=== PATIENT | female | born 1965 | race Caucasian/White ===

== ENCOUNTER 2022-11-07 07:08 | Outpatient (OUT) | payer OTHER, SELFPAY ==
--- NOTE | 2022-11-07 07:25 | XR_ITS ---
The [address] [address] Patient Name: PRATEEK JACQUES MRN: [id number] date: 1965 Sex: F Assigned Patient Location: [facility] Current Patient Location: [facility] Accession/Order Number: [id number] Exam Date: 11/07/2022 07:20 Report Date: 11/07/2022 07:38 At the request of: KULWINDER GARG Procedure: XR abdomen 1V EXAMINATION: XR abdomen 1V HISTORY: Kidney Stone N20.0 COMPARISON: 11/30/2021 FINDINGS: KIDNEY/URETER - RIGHT: No visible renal or ureteral calcifications. KIDNEY/URETER - LEFT: Multiple nephroliths PELVIS: Numerous pelvic calcifications, indeterminate but likely phleboliths BOWEL: No abnormal dilation or deviation. BONES: No acute abnormality. Moderate degenerative changes with rotatory levocurvature centered at L3 OTHER: Negative. No abnormal gaseous collections. XR/XR abdomen 1V IMPRESSION: Left nephrolithiasis Electronically authenticated by: CARLTON WU Date: 11/07/2022 07:38
== END 2022-11-07 07:09 | disposition home or self-care (01) ==
PROVIDERS: PCP Nurse Practitioner; Visit Provider Urology
DX: N20.0 Calculus of kidney (principal); R10.9 Unspecified abdominal pain
CPT/HCPCS: 74018

== ENCOUNTER 2023-01-23 11:43 | Outpatient (OUT) | payer OTHER, SELFPAY ==
--- NOTE | 2023-01-23 | MR_ITS ---
The [address] [address] Patient Name: PRATEEK JACQUES MRN: [id number] date: 1965 Sex: F Assigned Patient Location: MRI Current Patient Location: MRI Accession/Order Number: [id number] Exam Date: 01/23/2023 12:45 Report Date: 01/23/2023 20:47 At the request of: BELLE CASTILLO Procedure: MR knee RT wo con EXAM: MR knee RT wo con HISTORY: Right knee pain COMPARISON: None. TECHNIQUE: Multiplanar, multi sequential MRI sequences were performed. FINDINGS: No fracture, dislocation, subluxation or osseous lesion. Osteophytes are present off all articular surfaces. Small knee effusion. No popliteal cyst. Nondescript edema within the medial superficial subcutaneous soft tissues. No muscle edema, hematoma, atrophy or fatty infiltration. Full-thickness cartilage loss throughout the patella, central and lateral trochlea (axial 9). Underlying subchondral cysts, subchondral remodeling and marrow edema. Partial thickness chondral irregularities of the central lateral meniscal weightbearing cartilage of the medial femoral condyle measuring approximately 7.54 mm transverse x 14 mm AP (coronal 14 and sagittal 9). No gross visualized irregularity of the tibial plateau cartilage. The articular cartilage of the lateral femoral condyle and lateral tibial plateau exhibits no gross chondral or osteochondral defect. Degenerative fraying of the medial meniscus body and posterior horn leading edge. Focal blunting of the lateral meniscus posterior horn (coronal 16 and sagittal 19). The root ligaments of both menisci are unremarkable. No patella tilt or subluxation. Reactive edema of Hoffa's fat. The patella tendon and visualized extensor mechanism are unremarkable. The anterior cruciate, posterior cruciate, medial collateral MR/MR knee RT wo con IMPRESSION: 1. Full-thickness cartilage loss of the patella and trochlea. 2. Degenerative tearing of the medial and lateral menisci. 3. Small knee effusion. Electronically authenticated by: CARLTON MARCELINO Date: 01/23/2023 20:47
== END 2023-01-23 11:44 | disposition home or self-care (01) ==
LOC: MRI 11:44
PROVIDERS: PCP Nurse Practitioner; Visit Provider Nurse Practitioner
DX: M25.561 Pain in right knee (principal); S83.281A Other tear of lateral meniscus, current injury, right knee, initial encounter; S83.241A Other tear of medial meniscus, current injury, right knee, initial encounter; M25.461 Effusion, right knee
CPT/HCPCS: 73721

== ENCOUNTER 2023-05-25 07:07 | Outpatient (OUT) | payer OTHER, SELFPAY ==
--- NOTE | 2023-05-25 07:21 | XR_ITS ---
The [address] [address] Patient Name: PRATEEK JACQUES MRN: [id number] date: 1965 Sex: F Assigned Patient Location: [facility] Current Patient Location: Accession/Order Number: [id number] Exam Date: 05/25/2023 07:30 Report Date: 05/27/2023 04:14 At the request of: KULWINDER GARG Procedure: XR abdomen 1V EXAMINATION: XR abdomen 1V HISTORY: N20.0 Calculus of kidney , left flank pain, history of kidney stones COMPARISON: XR abdomen 11/07/2022 FINDINGS: KIDNEY/URETER - RIGHT: A few small calcifications projecting over right kidney. KIDNEY/URETER - LEFT: No visible renal or ureteral calcifications. PELVIS: New 4 mm calcification within lower left pelvis intermixed with numerous bilateral pelvic calcifications. BOWEL: No abnormal dilation or deviation. BONES: No acute abnormality. OTHER: Negative. No abnormal gaseous collections. XR/XR abdomen 1V IMPRESSION: 1. New 4 mm calcification within left pelvis; additional phlebolith versus distal ureteral stone. 2. Right nephrolithiasis. Electronically authenticated by: LOLI HUBER Date: 05/27/2023 04:14
== END 2023-05-25 07:08 | disposition home or self-care (01) ==
PROVIDERS: PCP Nurse Practitioner; Visit Provider Urology
DX: N20.0 Calculus of kidney (principal)
CPT/HCPCS: 74018

== ENCOUNTER 2023-05-25 07:10 | Outpatient (OUT) | payer OTHER, SELFPAY ==
[2023-05-25 08:03] LABS: Estimated Average Glucose 131 mg/dL; Glycohemoglobin A1C 6.2 % (4.5-6.2)
[2023-05-25 08:22] LABS: Anion Gap 10.2; BUN Creatinine Ratio 18.4; Calcium 9.1 mg/dL (8.5-10.1); Carbon Dioxide 31.1 mmol/L (21.0-32.0); Chloride 105 mmol/L (98-107); Estimated GFR (African America >60 (>=60); Estimated GFR (Non-African Ame >60 (>=60); Glucose 111 mg/dL (74-106); Potassium 4.3 mmol/L (3.5-5.1); Sodium 142 mmol/L (136-145)
== END 2023-05-25 07:11 | disposition home or self-care (01) ==
PROVIDERS: PCP Nurse Practitioner; Visit Provider Nurse Practitioner
DX: N20.0 Calculus of kidney (principal); E11.9 Type 2 diabetes mellitus without complications
CPT/HCPCS: 36415; 74018; 80048; 83036

== ENCOUNTER 2023-06-30 12:06 | Outpatient (OUT) | payer OTHER, SELFPAY ==
--- OUTSIDE RECORDS SUMMARY | 2023-06-30 12:10 | XMS_ITS | CCD ---
Author Name Unknown Address [id number] [place] [address] Organization [facility] Care Team Providers Care Architecture Consultant Name Role Phone Danitza Awad Primary Care Provider DELMI DANITZA Candace Primary Care Physician Danitza Awad Primary Care Provider SHALINI JO Referring Unavailable AICHHOLZ, DANITZA J. Primary Care Unavailable SHALINI JO Referring Unavailable AICHHOLZ, DANITZA J. Primary Care Unavailable SHALINI JO Referring Unavailable TRENTHLAZARO, DANITZA J. Primary Care Unavailable SHALINI JO Referring Unavailable AICHHOLZ, DANITZA J. Primary Care Unavailable ANNA HEARD Referring Unavailable AICHKENDRAZ, DANITZA J. Primary Care Unavailable Enedina العلي Unavailable DR LOLI HUBER Consulting Unavailable KHADIJAH, ALICE Attending Unavailable KHADIJAH, ALICE Admitting Unavailable AICHHOLZ, BEZEL CUTTER DANITZA Primary Care Unavailable KHADIJAH, ALICE Consulting Unavailable AICHHOLZ, BEZEL CUTTER DANITZA Primary Care Unavailable AICHHOLZ, BEZEL CUTTER DANITZA Admitting Unavailable AICHHOLZ, BEZEL CUTTER DANITZA Attending Unavailable AICHHOLZ, BEZEL CUTTER DANITZA Consulting Unavailable AICHHOLZ, BEZEL CUTTER DANITZA Primary Care Unavailable AICHHOLZ, BEZEL CUTTER DANITZA Admitting Unavailable AICHHOLZ, BEZEL CUTTER DANITZA Attending Unavailable AICHHOLZ, BEZEL CUTTER DANITZA Consulting Unavailable DR LOLI HUBER Consulting Unavailable PAY ., DR OKEEFE Admitting Unavailable PAY ., DR OKEEFE Attending Unavailable PAY ., DR OKEEFE Consulting Unavailable AICHHOLZ, BEZEL CUTTER DANITZA Primary Care Unavailable DELFINA GIBBS Consulting Unavailable BEATRIS CARL Consulting Unavailable JESSICA, IVELISSE Consulting Unavailable MILIND DARLING Admitting Unavailable MILIND DARLING Consulting Unavailable AICHHOLZ, BEZEL CUTTER DANITZA Primary Care Unavailable MILIND DARLING Attending Unavailable MILIND DARLING Consulting Unavailable AICHHOLZ, BEZEL CUTTER DANITZA Primary Care Unavailable MILIND DARLING Admitting Unavailable MILIND DARLING Attending Unavailable JAZMIN, DR CARLTON Menjivar Consulting Unavailable AGUBDENA JARRETT Consulting Unavailable CAROLYN WOODS Consulting Unavailable MISC, DR JACKSON Admitting Unavailable MISC, DR JACKSON Attending Unavailable AICHHOLZ, BEZEL CUTTER DANITZA Primary Care Unavailable AICHHOLZ, BEZEL CUTTER DANITZA Primary Care Unavailable AICHHOLZ, BEZEL CUTTER DANITZA Admitting Unavailable AICHHOLZ, BEZEL CUTTER DANITZA Attending Unavailable WEST, DR CARLTON Menjivar Consulting Unavailable KHADIJAH, ALICE Admitting Unavailable KHADIJAHALICE Attending Unavailable AICHHOLZ, BEZEL CUTTER DANITZA Primary Care Unavailable AICHHOLZ, BEZEL CUTTER DANITZA Consulting Unavailable JERONIMO, MALACHI Referring Unavailable JERONIMO, MALACHI Attending Unavailable AICHHOLZ, DANITZA Attending Unavailable Elvis Haro MD Primary Care Provider Milind DARLING Attending Unavailable Juan Carlos Younger Attending Unavailable Allergies Allergy Classification Reported Allergen(s) Allergy Type Date of Onset Reaction(s) Facility (3 sources) Contrast media; Translations: [contrast media (iodine-based)] Drug intolerance 03-05-20 22 severe nausea, felt like she was going to pass out [facility] (4 sources) Cortisone; Translations: [cortisone] Drug Allergy 04-09-20 14 doesn't feel well, nausea, heart races, Unknown Reaction [facility] (1 source) Cortisone Drug Allergy Unknown [facility] Other (2 sources) Cortisone Drug Allergy 03-31-20 15 [facility] (1 source) Iodine Drug Allergy [facility] (1 source) Iodine (And Iodine Containting Drugs) Drug allergy (disorder) [facility] (1 source) methylPREDNISol one; Translations: [METHYLPREDNISO LONE] Drug Allergy 02-04-20 [facility] (2 sources) OTHER; Translations: [OTHER] Propensity to adverse reactions (disorder) 02-04-20 19 Palpitations [facility] (1 source) IODINATED CONTRAST MEDIA; Translations: [IODINATED CONTRAST MEDIA] Propensity to adverse reactions to drug (disorder) 03-05-20 [facility] Medications Current Medications Medication Drug Class(es) Dates Sig (Normalized) Sig (Original) [id number] 200 actuat albuterol 0.09 mg/actuat metered dose inhaler (1 source) beta2-Adrenergic Agonist Start: 04-25-2023 take 2 puff(s) by inhalation every four hours for wheezing albuterol HFA 90 mcg/act inhaler Indications: Bronchitis Inhale 2 puffs every 4 (four) hours if needed for wheezing or shortness of breath for up to 21 days 18 g 1 04/25/2023 Active Ascorbic Acid (1 source) Vitamin C Vitamin C Active benzonatate 100 mg oral capsule (1 source) Non-narcotic Antitussive Start: 03-30-2022 take 1 capsule by mouth every eight hours Tessalon Perles 100 MG 1 capsule as needed Orally Three times a day As needed cough Mar, Active Blood Glucose Monitoring Suppl (True Metrix Air Glucose Meter) w/Device kit (1 source) Start: 09-05-2022 Blood Glucose Monitoring Suppl (True Metrix Air Glucose Meter) w/Device kit USE DIRECTED 0 09/05/2022 Active celecoxib 200 mg oral capsule (1 source) Nonsteroidal Anti-inflammatory Drug take 1 capsule by mouth once daily at mealtime as needed for pain celecoxib (CeleBREX) 200 MG capsule TAKE 1 CAPSULE BY MOUTH DAILY WITH FOOD NEEDED FOR PAIN 0 Active cetirizine hydrochloride 10 mg oral tablet (1 source) Histamine-1 Receptor Antagonist Start: 04-04-2023 End: 07-03-2023 take 1 tablet by mouth in the morning cetirizine (ZyrTEC) 10 MG tablet Indications: Environmental and seasonal allergies Take 1 tablet (10 mg) by mouth in the morning. 90 tablet 1 04/04/2023 07/03/2023 Active cyclobenzaprine (1 source) Muscle Relaxant Start: 01-09-2019 cyclobenzaprine Start Date: 01/09/19 Status: Ordered Diclofenac (2 sources) Nonsteroidal Anti-inflammatory Drug Start: 01-09-2019 diclofenac Start Date: 01/09/19 Status: Ordered Diclofenac Sodiu m Active fluticasone propionate 0.05 mg/actuat metered dose nasal spray (1 source) Corticosteroid Start: 03-30-2022 take 2 spray(s) nasal route once daily Fluticasone Propionate 50 MCG/ACT 2 sprays Nasally Once a day for 14 day(s) Mar, Active gabapentin 600 mg oral tablet (3 sources) Anti-epileptic Agent Start: 01-02-2023 take 1 tablet by mouth at bedtime gabapentin (Neurontin) 600 MG tablet Take 600 mg by mouth at bedtime. 0 01/02/2023 Active Start: 01-09-2019 gabapentin Sta rt Date: 01/09/19 Status: Ordered Gabapentin Activ e hyoscyamine sulfate 0.025 mg/ml oral solution (2 sources) take 125 ug by mouth every four hours as needed for muscle spasms hyoscyamine (Levsin) 0.125 MG/5ML elixir Take 125 mcg by mouth every 4 (four) hours if needed for bladder spasms. 0 Active Hyoscyamine Sulf ate Active Ibuprofen (1 source) Nonsteroidal Anti-inflammatory Drug Ibuprofen Active isopropyl alcohol 0.7 ml/ml medicated pad (1 source) Start: Alcohol Swabs 70 % pads USE DIRECTED ONCE DAILY 0 09/05/2022 Active 24 hr metFORMIN hydrochloride 500 mg extended release oral tablet (1 source) Biguanide Start: End: take 1 tablet by mouth every twenty-four hours in the morning metFORMIN XR (Glucophage-XR) 500 MG 24 hr tablet Indications: Diabetes mellitus type 2 in obese (CMS/HCC) Take 1 tablet (500 mg) by mouth in the morning. 90 tablet 1 03/20/2023 06/18/2023 Active metoprolol tartrate 50 mg oral tablet (3 sources) beta-Adrenergic Jelena Start: 023 End: 024 take 1 tablet by mouth in the morning metoprolol tartrate (Lopressor) 50 MG tablet Indications: Heart palpitations , Essential hypertension (CMS/HCC) Take 1 tablet (50 mg) by mouth in the morning. 90 tablet 1 04/04/2023 07/03/2023 Active Start: 01-09-2019 metoprolol 50 mg ER Tab Start Date: 01/09/19 Status: Ordered Metoprolol Tartr ate Active montelukast 10 mg oral tablet (2 sources) Leukotriene Receptor Antagonist Start: 03-20-2023 End: 06-18-2023 take 1 tablet by mouth at bedtime montelukast (Singulair) 10 MG tablet Indications: Environmental and seasonal allergies Take 1 tablet (10 mg) by mouth at bedtime. 90 tablet 1 03/20/2023 06/18/2023 Active Montelukast Sodi um Active omeprazole 20 mg delayed release oral tablet (1 source) Proton Pump Inhibitor take 1 tablet by mouth before mealtime omeprazole OTC (PriLOSEC OTC) 20 MG EC tablet Take 20 mg by mouth in the morning. Take before meals. Do not crush, chew, or split. . 0 Active 24 hr oxybutynin chloride 10 mg extended release oral tablet (1 source) Cholinergic Muscarinic Antagonist Start: 03-13-20 take 1 tablet by mouth once daily oxybutynin 10 mg ER Tab 10 mg = 1 tab(s), Oral, Daily, # 30 tab(s), Refills(s) 6, Pharmacy: [id number], 153, cm, 03/13/21 11:04:00 EST, Height/Length Dosing, 101, kg, 03/13/21 11:04:00 EST, Weight Dosing Start Date: 03/13/21 Status: Ordered pantoprazole 40 mg delayed release oral tablet (1 source) Proton Pump Inhibitor Start: 04-29-19 take 1 tablet by mouth every twenty-four hours Pantoprazole Sodium 40 MG 1 tablet Orally Once a day for 30 day(s) Apr, Active QUEtiapine 50 mg oral tablet (3 sources) Atypical Antipsychotic Start: 05-30-19 23 QUEtiapine (SEROquel) 50 MG tablet 1 (one) time each day at the same time. 0 05/30/2022 Active Start: 01-09-2019 quetiapine Sta rt Date: 01/09/19 Status: Ordered QUEtiapine Fumar ate Active tamsulosin (1 source) alpha-Adrenergic Jelena Tamsulo sin HCl Active tiZANidine 4 mg oral tablet (2 sources) Central alpha-2 Adrenergic Agonist tiZANidine (Zanaflex ) 4 MG tablet every 8 (eight) hours. 0 Active tiZANidine HCl A ctive Tramadol (2 sources) Opioid Agonist Start: 01-09-2019 tramadol Start Date: 01/09/19 Status: Ordered traMADol HCl Act brie Vitamin B6 (1 source) Vitamin B6 Activ e Problems Active Problems Problem Classification Problem Date Documented Da te Episodic/Chronic Adjustment disorders (1 source) Adjustment disorder; Translations: [Adjustment disorder, unspecified] Onset: 3 02-01-2023 Chronic Chronic obstructive pulmonary disease and bronchiectasis (1 source) Bronchitis; Translations: [Bronchitis, not specified as acute or chronic] Onset: 4 04-25-2023 Episodic Diabetes mellitus without complication (1 source) Type 2 diabetes mellitus without complication; Translations: [Type 2 diabetes mellitus without complications] Onset: 4 04-25-2023 Chronic Diabetes mellitus without complication (1 source) Other abnormal glucose; Translations: [OTHER ABNORMAL GLUCOSE] Onset: 3 Episodic Diseases of white blood cells (5 sources) Elevated white blood cell count, unspecified; Translations: [ELEVATED WHITE BLOOD CELL COUNT UNS] Onset: 3 Chronic Esophageal disorders (2 sources) Gastroesophageal reflux disease; Translations: [Gastro-esophageal reflux disease without esophagitis] Chronic Essential hypertension (1 source) Essential hypertension; Translations: [Essential (primary) hypertension] Onset: 6 02-01-2023 Chronic Genitourinary symptoms and ill-defined conditions (2 sources) Urge incontinence of urine; Translations: [Urge incontinence] Onset: 3 05-18-2019 Chronic Gout and other crystal arthropathies (1 source) Chondrocalcinosis; Translations: [Other chondrocalcinosis, unspecified site] Onset: 3 02-01-2023 Chronic Headache; including migraine (1 source) Headache; including migraine; Translations: [HEADACHE UNSPECIFIED] Onset: 3 Malaise and fatigue (1 source) Weakness; Translations: [WEAKNESS] Onset: 3 Episodic Mood disorders (1 source) Moderate depressed bipolar I disorder; Translations: [Bipolar disorder, current episode depressed, moderate] Onset: 3 02-01-2023 Chronic Noninfectious gastroenteritis (1 source) Noninfective gastroenteritis and colitis, unspecified; Translations: [NONINFECTIVE GE AND COLITIS UNS] Onset: 3 Episodic Nonspecific chest pain (1 source) Chest pain, unspecified; Translations: [CHEST PAIN UNSPECIFIED] Onset: 3 Episodic Osteoarthritis (4 sources) Osteoarthrosis of the carpometacarpal joint of the thumb; Translations: [Unilateral primary osteoarthritis of first carpometacarpal joint, left hand] Onset: 7 Chronic Other aftercare (1 source) Other vermin exterminator (current) drug therapy; Translations: [OTH VP REVENUE CYCLE CURRENT DRUG THERAPY] Onset: 3 Episodic Other connective tissue disease (1 source) Tendonitis of left wrist; Translations: [Other enthesopathies, not elsewhere classified] Episodic Other connective tissue disease (1 source) Myalgia, unspecified site; Translations: [MYALGIA UNSPECIFIED SITE] Onset: 3 Episodic Other connective tissue disease (3 sources) Pain in left arm; Translations: [PAIN IN LEFT ARM] Onset: 3 Episodic Other gastrointestinal disorders (1 source) Irritable bowel syndrome with diarrhea; Translations: [Irritable bowel syndrome with diarrhea] Chronic Other gastrointestinal disorders (1 source) Irritable bowel syndrome; Translations: [Irritable bowel syndrome without diarrhea] Onset: 7 02-01-2023 Chronic Other gastrointestinal disorders (1 source) Diarrhea; Translations: [Diarrhea, unspecified] Episodic Other non-traumatic joint disorders (1 source) Pain in right hip; Translations: [PAIN IN RIGHT HIP] Onset: 3 Episodic Other nutritional; endocrine; and metabolic disorders (1 source) Body mass index (BMI) 40.0-44.9, adult; Translations: [BODY MASS INDEX BMI 40.0-44.9 ADULT] Onset: 3 Chronic Other nutritional; endocrine; and metabolic disorders (1 source) Obesity, unspecified; Translations: [OBESITY UNSPECIFIED] Onset: 3 Chronic Other nutritional; endocrine; and metabolic disorders (1 source) Body mass index 40+ - severely obese; Translations: [Body mass index (BMI) 40.0-44.9, adult] Onset: 9 02-01-2023 Chronic Other nutritional; endocrine; and metabolic disorders (1 source) Morbid obesity; Translations: [Morbid (severe) obesity due to excess calories] Onset: 3 02-01-2023 Chronic Other nutritional; endocrine; and metabolic disorders (1 source) Severe obesity; Translations: [Morbid (severe) obesity due to excess calories] Onset: 4 04-25-2023 Chronic Other upper respiratory disease (1 source) Vocal cord paralysis; Translations: [Paralysis of vocal cords and larynx, unilateral] Onset: 7 02-01-2023 Chronic Other upper respiratory disease (1 source) Allergic disposition; Translations: [Other allergic rhinitis] Onset: 3 04-04-2023 Chronic Other upper respiratory infections (2 sources) Sinusitis; Translations: [Chronic sinusitis, unspecified] Chronic Other upper respiratory infections (2 sources) Acute laryngitis; Translations: [Acute maxillary sinusitis] Onset: 4 Episodic Residual codes; unclassified (1 source) Chills (without fever); Translations: [CHILLS WITHOUT FEVER] Onset: 3 Episodic Residual codes; unclassified (4 sources) Other specified health status; Translations: [OTHER SPECIFIED HEALTH STATUS] Onset: 3 Episodic Spondylosis; intervertebral disc disorders; other back problems (1 source) Lumbar spondylosis; Translations: [Spondylosis without myelopathy or radiculopathy, lumbar region] Onset: 3 04-02-2023 Chronic Unclassified (1 source) Finding of sensation of bladder 01-09-2019 Unclassified (1 source) CONTACT W/AND (SUSP) EXPOS COVID-19; Translations: [CONTACT W/AND (SUSP) EXPOS COVID-19] Onset: 2 Past or Other Problems Problem Classification Problem Date Documented Da te Episodic/Chronic Abdominal pain (6 sources) Abdominal pain; Translations: [Unspecified abdominal pain] Onset: 10-30-2021 Episodic Calculus of urinary tract (8 sources) History of calculus of kidney; Translations: [Kidney stone] Onset: 11-28-2021 05-18-2019 Episodic Cardiac dysrhythmias (1 source) Palpitations; Translations: [Palpitations] Onset: 02-01-2023 02-01-2023 Episodic Genitourinary symptoms and ill-defined conditions (9 sources) Paul hematuria; Translations: [Increased frequency of urination] Onset: 12-01-2021 01-09-2019 Episodic Headache; including migraine (1 source) Headache; Translations: [Headache] Onset: 06-10-2012 02-01-2023 Episodic Heart valve disorders (3 sources) Heart murmur; Translations: [Cardiac murmur, unspecified] Onset: 11-28-2021 01-09-2019 Episodic Other bone disease and musculoskeletal deformities (1 source) Disorder of bone; Translations: [Disorder of bone, unspecified] Onset: 09-18-2017 02-01-2023 Episodic Other connective tissue disease (2 sources) Pain in left hand; Translations: [Pain in left hand] Onset: 08-16-2022 Episodic Other connective tissue disease (1 source) Pain in both feet; Translations: [Pain in right foot] Onset: 09-18-2017 02-01-2023 Episodic Other connective tissue disease (1 source) Pain in left foot; Translations: [Pain in left foot] Onset: 03-06-2022 02-01-2023 Episodic Other connective tissue disease (1 source) Fibromyositis; Translations: [Fibromyalgia] Onset: 02-01-2023 02-01-2023 Episodic Other connective tissue disease (1 source) Pain of left hand; Translations: [Pain in left hand] Onset: 08-16-2022 02-01-2023 Episodic Other gastrointestinal disorders (2 sources) H/O: gallstones; Translations: [Personal history of other diseases of the digestive system] Onset: 02-01-2023 01-09-2019 Episodic Other gastrointestinal disorders (1 source) Dysphagia; Translations: [Dysphagia, unspecified] Onset: 12-04-2016 02-01-2023 Episodic Other non-traumatic joint disorders (1 source) Instability of joint of right ankle; Translations: [Other instability, right ankle] Onset: 09-18-2017 02-01-2023 Episodic Other screening for suspected conditions (not mental disorders or infectious disease) (2 sources) Decreased vitamin D; Translations: [Other specified abnormal findings of blood chemistry] Onset: 02-01-2023 02-01-2023 Episodic Other upper respiratory disease (1 source) Hoarse; Translations: [Dysphonia] Onset: 12-04-2016 02-01-2023 Episodic Residual codes; unclassified (1 source) Acquired absence of both cervix and uterus; Translations: [ACQUIRED ABSENCE BOTH CERVIX AND UTERUS] Onset: 12-01-2021 Episodic Residual codes; unclassified (1 source) Menopause present; Translations: [Asymptomatic menopausal state] Onset: 02-01-2023 02-01-2023 Episodic Spondylosis; intervertebral disc disorders; other back problems (4 sources) Cervicalgia; Translations: [Spinal stenosis in cervical region] Onset: 11-02-2016 02-01-2023 Episodic Sprains and strains (1 source) Sprain of ankle; Translations: [Sprain of unspecified ligament of right ankle, initial encounter] Onset: 09-18-2017 02-01-2023 Episodic Syncope (1 source) Syncope; Translations: [Syncope and collapse] Onset: 02-23-2016 02-01-2023 Episodic Unclassified (1 source) Acute cough R05.1 Results Test Name Value Interpretation Reference Range Facility [facility] 06-14-2023 [facility] [id number] .[id number] Normal [facility] 05-27-2023 [facility] [id number] .[id number] Normal [facility] MLR HEMOGLOBIN A1Con 024 Glucose [Mass/Vol] 131 mg/dL [facility] HbA1c (Bld) [Mass fraction] 6.2 % 4.5 - 6.2 % [facility] Comment on above: ADA RECOMMENDED LIMI T 4.0 - 6.0 ADA THERAPEUTIC TARGET < 7.0 ACTION SUGGESTED > 7.0 [facility] Provider Letteron 05-03-2023 Provider Letter May 03, 2023 LOIS SAWYER [address] [address] : 1965 Dear Lois, You have an appointment with Dr. Milind Darling on June 10, 2023 which will need to be rescheduled since he will be out of the office that day. Please contact the office at the number listed below to get this appointment rescheduled at your earliest convenience. Thank you for your prompt attention to this matter. Please call [phone] option 3 to reschedule. Sincerely, [facility] 36on 11-21-2022 36 Patient wants the nurse to call to discuss her pain. [facility] ED Note-Physicianon 11-13-19 23 ED Note-Physician Basic Information Time Seen: Davonte Carter PA-C 11/07/2022 11:46 Chief Complaint patient c/o left flank pain x a few days hx kidney stones see dr darling History of Present Illness 57-year-old female comes to the ED with flank pain and concern for kidney stone. Has a history of kidney stone. Over the last few days she had pain to the left flank area. She called her urologist and had outpatient x-ray performed this morning at an outside hospital that was nondiagnostic. Given her persistent pain she was sent to the ED for CT scan. She has had some nausea but no vomiting. No difficulty with urination. She had previous appendectomy and cholecystectomy. Review of Systems A 10 point review of systems is negative except as noted above. Medical and Surgical History: Reviewed and noted Social history: Lives at home Tobacco: Denies Physical Exam Vitals & Measurements T: 37.1 ?C(Oral) HR: 77(Peripheral) RR: 18 BP: 180/90 SpO2: 98% HT: 154.94 cm WT: 97 kg BMI: 40.41 Nurses notes and vital signs reviewed and patient is not hypoxic. General: Awake and alert, appears uncomfortable Skin: Warm, dry. Head: Atraumatic. Neck: No JVD. Eye: Normal conjunctiva. Ears, Nose, Mouth, and Throat: Moist mucous membranes. Cardiovascular: Strong distal pulses. Chest wall: Respiratory: Respirations are nonlabored. Back: Left CVA tenderness Musculoskeletal: Normal ROM with no gross deformity. Gastrointestinal: Soft throughout. Urological: Neurological: Awake and alert. No focal deficits. Follows commands. Psychiatric: Cooperative. Medical Decision Making Laboratory studies reviewed and noted. CT of the abdomen is reviewed by radiologist, the patient has a 2 mm stone at the left UVJ. She does feel improved here on repeat evaluation of the pain medications and IV fluids. She is given urine strainer, pain medication and discharged home to follow-up with her urologist. Patient was encouraged to return to the ED if symptoms worsen or change. Assessment/Plan Ureterolithiasis (N20.1: Calculus of ureter) Ordered: acetaminophen-oxycodo ne, 1 tab(s), Oral, q6hr as needed for pain for 3 day(s), 15 tab(s), Refill(s) 0, [facility] #[id number], 154.9, cm, 11/07/22 11:55:00 EDT, Height/Length Dosing, 97, kg, 11/07/22 11:55:00 EDT, Weight Dosing Orders: ketorolac, 30 mg = 1 mL, Injection, IV Push, Once, Stop date 11/07/22 11:55:00 EDT, STAT, Start date 11/07/22 11:55:00 EDT, 11/07/22 11:55:00 EDT morphine, 4 mg = 2 mL, Injection, IV Push, Once, Stop date 11/07/22 11:55:00 EDT, STAT, Start date 11/07/22 11:55:00 EDT, 11/07/22 11:55:00 EDT naproxen, 500 mg = 1 tab(s), Oral, BID, PRN for pain, # 20 tab(s), Refills(s) 0, Pharmacy: [facility] #[id number], 154.9, cm, 11/07/22 11:55:00 EDT, Height/Length Dosing, 97, kg, 11/07/22 11:55:00 EDT, Weight Dosing ondansetron, 4 mg = 1 tab(s), Oral, TID, # 15 tab(s), Refills(s) 0, Pharmacy: [facility] #[id number], 154.9, cm, 11/07/22 11:55:00 EDT, Height/Length Dosing, 97, kg, 11/07/22 11:55:00 EDT, Weight Dosing ondansetron, 4 mg = 2 mL, Injection, IV Push, Once, Stop date 11/07/22 11:55:00 EDT, STAT, Start date 11/07/22 11:55:00 EDT, 11/07/22 11:55:00 EDT Sodium Chloride 0.9% intravenous solution, 1,000 mL, Soln-IV, IV, Once, Stop date 11/07/22 11:55:00 EDT, STAT, Start date 11/07/22 11:55:00 EDT, Infuse over 61, minute(s) tamsulosin, 0.4 mg = 1 cap(s), Oral, Daily, # 10 cap(s), Refills(s) 0, Pharmacy: [facility] #[id number], 154.9, cm, 11/07/22 11:55:00 EDT, Height/Length Dosing, 97, kg, 11/07/22 11:55:00 EDT, Weight Dosing Automated Diff Basic Metabolic Panel CBC w/ Auto Diff CT Abdomen/Pelvis w/o Contrast eGFR Extra Blue Tube Extra SST Tube UA With Cult Reflex Urine Strainer to go Disposition Plan Patient Discharge Condition Disposition: Discharged home Condition: Improved and stable Counseled: Patient and/or family were counseled to workup, results, treatment plan and follow-up recommendations Discharge Prescription List Prescriptions Flomax 0.4 mg Cap, 0.4 mg= 1 cap(s), Oral, Daily Naprosyn 500 mg Tab, 500 mg= 1 tab(s), Oral, BID, PRN Percocet 5 mg-325 mg oral tablet, 1 tab(s), Oral, q6hr, PRN tamsulosin 0.4 mg Cap, 0.4 mg= 1 cap(s), Oral, BID, 1 refills Zofran ODT 4 mg Tab-Dis, 4 mg= 1 tab(s), Oral, TID Follow-up With When Contact Information Milind DARLING In 3 days 11/10/[address] [address]- Business (1) [facility] [address] [place] [address]- Business (1) Additional Instructions: Patient Education Kidney Stones Attestation Patient seen and evaluated 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 Attending physician was present in the emergency department and supervised care. This visit was performed by both the physician and an APC. I performed all aspects of the MDM as documented. This report was transcribed using voice recognition software. Every effort was m (more content not included)... Normal [facility] Comment on above: Result Comment: Elec tronically Signed By: Davonte Carter PA-C\.br\Date and Time Signed: 11/07/22 14:13 EDT\.br\Electronically Co-Signed By: Juan Carlos Younger DO\.br\Date and Time Co-Signed: 11/12/22 07:09 EDT Auto Diffon 11-07-2022 Basophils/100 WBC (Bld) 1.0 % Normal 0.0-2.0 [facility] Comment on above: Order Comment: Order Added by Discern Expert. Performed By: #### 2 386375, 5400423, 5744450, [id number] ####[facility] [address] [place] [address] Basophils/Leukocytes Auto (Bld) [Pure # fraction] 0.1 E9/L Normal 0.0-0.2 [facility] Comment on above: Order Comment: Order Added by Discern Expert. Performed By: #### 2 379833, 4073473, 8687154, [id number] ####[address] [place] [address] Eosinophils/100 WBC (Bld) 1.7 % Normal 0.0-8.0 [facility] Comment on above: Order Comment: Order Added by Discern Expert. Performed By: #### 2 347264, 4843258, 9874908, 71232014 ####[facility] [address] [place] [address] Eosinophils/Leukocyt es Auto (Bld) [Pure # fraction] 0.2 E9/L Normal 0.0-0.5 [facility] Comment on above: Order Comment: Order Added by Discern Expert. Performed By: #### 2 718866, 6194132, 5063940, 32463907 ####[facility] [address] [place] [address] Lymphocytes/100 WBC (Bld) 23.1 % Normal 14.0-50.0 [facility] Comment on above: Order Comment: Order Added by Discern Expert. Performed By: #### 2 254155, 4103267, 4761663, [id number] ####[address] [place] [address] Lymphocytes/Leukocyt es Auto (Bld) [Pure # fraction] 3.0 E9/L Normal 1.0-4.0 [facility] Comment on above: Order Comment: Order Added by Discern Expert. Performed By: #### 2 540193, 4514487, 6437988, 90280167 ####[address] [address] Monocytes/100 WBC (Bld) 5.5 % Normal 4.0-14.0 [facility] Comment on above: Order Comment: Order Added by Discern Expert. Performed By: #### 2 162019, 2580798, 3391225, 42105943 ####[address] [address] Monocytes/Leukocytes Auto (Bld) [Pure # fraction] 0.7 E9/L Normal 0.2-1.0 [facility] Comment on above: Order Comment: Order Added by Discern Expert. Performed By: #### 2 909515, 3953335, 2259884, 15339586 ####[address] [place] [address] Neutrophils/100 WBC (Bld) 68.7 % Normal 36.0-75.0 [facility] Comment on above: Order Comment: Order Added by Discern Expert. Performed By: #### 2 858797, 3017549, 1482913, 26229583 ####[address] [place] [address] Neutrophils/Leukocyt es Auto (Bld) [Pure # fraction] 8.9 E9/L High 2.0-7.5 [facility] Comment on above: Order Comment: Order Added by Discern Expert. Performed By: #### 2 768380, 0534019, 7066075, 60604895 ####[facility] [address] [place] [address] BMPon 11-07-2022 Creatinine [Mass/Vol] 0.6 mg/dL Normal 0.5-1.3 [facility] Comment on above: Performed By: #### 2 562133, 6367043, 0550764, 04790199 ####[facility] [address] [place] [address] Urea nitrogen [Mass/Vol] 15 mg/dL Normal 5-21 [facility] Comment on above: Performed By: #### 2 539280, 8036731, 4785518, 96438257 ####[facility] [address] [place] [address] Urea nitrogen/Creatinine [Mass ratio] 25 No Units High 10-20 [facility] Comment on above: Performed By: #### 2 628139, 6219772, 7330873, 25395236 ####[facility] [address] [place] [address] Anion gap [Moles/Vol] 10 mmol/L Normal 6-16 [facility] Comment on above: Performed By: #### 2 460763, 6482602, 6825043, 43900472 ####[facility] [address] [place] [address] Calcium [Mass/Vol] 9.4 mg/dL Normal 8.9-11.1 [facility] Comment on above: Performed By: #### 2 436917, 3176775, 6128586, 32932144 ####[facility] [address] [place] [address] Chloride [Moles/Vol] 108 mmol/L Normal 101-111 [facility] Comment on above: Performed By: #### 2 874464, 1847708, 3755679, 19413846 ####[facility] [address] [place] [address] CO2 [Moles/Vol] 25 mmol/L Normal 21-31 [facility] Comment on above: Performed By: #### 2 176813, 4838589, 6861879, 66922330 ####[facility] [address] [place] [address] Glucose [Mass/Vol] 122 mg/dL Normal 55-199 [facility] Comment on above: Result Comment: If t his glucose result represents a fasting glucose, interpretation should refer to the following reference range: 55-99 mg/dL Performed By: #### 2 505045, 2765123, 8919023, 67531074 ####[facility] [address] [place] [address] Potassium [Moles/Vol] 3.9 mmol/L Normal 3.5-5.3 [facility] Comment on above: Performed By: #### 2 486354, 2346571, 6456254, 39810344 ####[facility] [address] [place] [address] Sodium [Moles/Vol] 139 mmol/L Normal 135-145 [facility] Comment on above: Performed By: #### 2 872783, 3428967, 5791193, 99080932 ####[facility] [address] [place] [address] CBC w/ Auto Diffon 3 Erythrocyte distribution width (RBC) [Ratio] 16.2 % High 10.9-14.2 [facility] Comment on above: Performed By: #### 2 693884, 5645828, 3838379, 97150724 ####[facility] [address] [place] [address] Hematocrit (Bld) [Volume fraction] 38.8 % Normal 34.0-46.0 [facility] Comment on above: Performed By: #### 2 159552, 9498262, 2280848, 94088605 ####[facility] [address] [place] [address] Hemoglobin (Bld) [Mass/Vol] 12.9 g/dL Normal 12.0-16.0 [facility] Comment on above: Performed By: #### 2 319892, 6621402, 5533067, 32218285 ####[facility] [address] [place] [address] MCH (RBC) [Entitic mass] 26.3 pg Low 27.0-34.0 [facility] Comment on above: Performed By: #### 2 933948, 4244040, 6699318, 30294200 ####[address] [address] MCHC (RBC) [Mass/Vol] 33.2 g/dL Normal 31.4-36.0 [facility] Comment on above: Performed By: #### 2 274962, 4799917, 0107687, 08072654 ####[address] [address] MCV (RBC) [Entitic vol] 79.3 fL Low 80.0-100.0 [facility] Comment on above: Performed By: #### 2 239307, 5176832, 3237804, 93449227 ####[address] [address] Platelet mean volume (Bld) [Entitic vol] 9.0 fL Normal 6.4-10.8 [facility] Comment on above: Performed By: #### 2 544329, 5143391, 9688304, 08395865 ####[address] [address] Platelets (Bld) [#/Vol] 329.0 E9/L Normal 150.0-500.0 [facility] Comment on above: Performed By: #### 2 913351, 4023158, 4438315, 40593109 ####[address] [address] RBC (Bld) [#/Vol] 4.9 E12/L Normal 4.3-5.9 [facility] Comment on above: Performed By: #### 2 183429, 4560566, 2041173, 62305588 ####[facility] [address] [place] [address] WBC corrected for nucl RBC Auto (Bld) [#/Vol] 12.9 E9/L High 4.0-11.0 [facility] Comment on above: Performed By: #### 2 261242, 4763057, 0195228, 09444961 ####[facility] [address] [place] [address] CT Abdomen/Pelvis w/o Contra ston 11-07-2022 CT Abdomen/Pelvis w/o Contrast Exam Date/Time: 11/07/2022 12:52 EDT Reason for Exam: Abdominal pain, acute, nonlocalized;Other (please specify) Report IMPRESSION: 2 mm obstructing calculus near the left ureterovesicular junction. Multiple additional renal calculi. EXAMINATION: CT Abdomen/Pelvis w/o Contrast HISTORY: Abdominal pain, acute, nonlocalized. Low back pain. Left flank pain. History of kidney stones. TECHNIQUE: Non-IV contrast imaging of the abdomen and pelvis was performed using standard technique, scanning from just above the dome of the diaphragm to the symphysis pubis. Unenhanced imaging is limited for the evaluation of some intra-abdominal and pelvic pathology. All CT scans at this facility use dose modulation, iterative reconstruction, and/or weight based dosing when appropriate to reduce radiation dose to as low as reasonably achievable. COMPARISON: None. RESULT: Abdomen / Pelvis: Liver: Subcentimeter low-attenuation lesion right hepatic lobe, too small to characterize but likely benign. Biliary: Cholecystectomy. Pancreas: Unremarkable. Spleen: No splenomegaly. Adrenals: No mass. Kidneys: 2 mm calculus within the left distal ureter near the ureterovesicular junction. Moderate left hydronephrosis. Multiple additional bilateral renal calculi measuring up to 4 mm, with at least 4 on the left and one on the right. GI Tract: Gastric diverticulum from the proximal stomach in the fundal region. No bowel dilation. Diverticulosis without evidence for acute diverticulitis. Scattered colonic feces. Report Lymph Nodes: No lymphadenopathy. Mesentery/peritoneum/ retroperitoneum: No ascites or mass. Vasculature: No abdominal aortic or iliac artery aneurysm. Pelvis: No significant free fluid. Bladder partially decompressed. Hysterectomy. Bones/Soft Tissues: No acute osseous findings. Degenerative changes. Underlying decreased bone mineral density. Lower thorax: Bibasilar atelectasis/scarring. Ordering Provider: Davonte Carter FINAL REPORT Dictated: 11/07/2022 12:59 pm Marcus Whittington MD Signed (Electronic Signature): 11/07/2022 12:59 pm Signed by: Marcus Whittington MD Transcribed by: JIMMIE Technologist: MATTHEW Technical Comments Rectal Contrast Given? No Oral contrast amount in ml's: 0 Normal [facility] Consent for Treatmenton 10-20 Consent for Treatment [id number]:127 Normal [facility] Discharge Instructionson Discharge Instructions [id number] .[id number]:127 Normal [facility] ED Clinical Summaryon 2022 ED Clinical Summary [id number] ED Clinical Summary Person Information Name: LOIS JACQUES [facility] Age: 57 Years : 1965 Sex: Female Language: Indonesian PCP: DANITZA AWAD CNP Marital Status: Visit Id: Visit Reason: Flank pain; LEFT BACK PAIN Speciality: Acuity: 3 Enc Type: Emergency Med Service: Emergency Arrival: 11/07/2022 11:41:35 Discharge: 11/07/2022 14:13:04 LOS: 000 02:32 Checkin: 11/07/2022 11:41:35 Checkout: 11/07/2022 14:13:04 Dispo Type: Home (Routine DC) EVENTS: Event Name Event Status Request Date/Time Start Date/Time Complete Date/Time Arrive Complete 11/07/2022 11:41:35 11/07/2022 11:41:35 11/07/2022 11:41:35 Document Home Meds Request 11/07/2022 11:41:35 Triage Complete 11/07/2022 11:41:35 11/07/2022 11:49:12 11/07/2022 11:49:12 Bed Assign Complete 11/07/2022 11:44:58 11/07/2022 11:44:58 11/07/2022 11:44:58 Dr Exam Complete 11/07/2022 11:44:58 11/07/2022 11:46:56 11/07/2022 11:46:56 RN Exam Complete 11/07/2022 11:44:58 11/07/2022 12:08:33 11/07/2022 12:08:33 Registration Complete 11/07/2022 11:46:56 11/07/2022 12:01:45 11/07/2022 12:01:45 Dr Exam Complete 11/07/2022 11:47:30 11/07/2022 11:47:30 11/07/2022 11:47:30 Meds Admin Complete 11/07/2022 11:55:40 11/07/2022 12:11:48 Pending Labs Complete 11/07/2022 11:55:40 11/07/2022 12:21:21 Lab Complete 11/07/2022 11:55:40 11/07/2022 12:21:21 Urine Collect Complete 11/07/2022 11:55:40 11/07/2022 12:17:27 CT Complete 11/07/2022 11:55:40 11/07/2022 12:29:39 11/07/2022 12:52:30 Reg Complete Request 11/07/2022 12:01:45 Reg Bed Request Complete 11/07/2022 12:01:45 11/07/2022 12:01:45 11/07/2022 12:01:45 Pending Labs Complete 11/07/2022 12:03:58 11/07/2022 12:03:58 11/07/2022 12:21:22 Lab Complete 11/07/2022 12:03:58 11/07/2022 12:03:58 11/07/2022 12:21:22 Pending Labs Complete 11/07/2022 12:11:03 11/07/2022 12:11:03 11/07/2022 12:11:03 Pending Labs Complete 11/07/2022 12:11:07 11/07/2022 12:11:07 11/07/2022 12:11:15 Lab Complete 11/07/2022 12:11:07 11/07/2022 12:11:07 11/07/2022 12:11:15 Patient Care Complete 11/07/2022 13:48:58 11/07/2022 13:57:08 Discharge Complete 11/07/2022 13:50:00 11/07/2022 14:13:10 11/07/2022 14:13:10 Transfer Complete 11/07/2022 14:13:10 11/07/2022 14:13:10 11/07/2022 14:13:10 ADDRESS: [address] [place] [id number] PHYS DOC NOTES: MEDICAL INFORMATION: Prescriptions Given: New Medications [facility] #[id number], [address] [place] [phone], [phone] acetaminophen-oxycodo ne (Percocet 5 mg-325 mg oral tablet) 1 Tablets By Mouth every 6 hours as needed as needed for pain for 3 Days. Refills: 0. [facility] #[id number], [address] [place], [place] [id number], [phone] naproxen (Naprosyn 500 mg Tab) 1 Tablets By Mouth 2 times a day as needed for pain. Refills: 0. ondansetron (Zofran ODT 4 mg Tab-Dis) 1 Tablets By Mouth 3 times a day. Refills: 0. Medications to Continue Taking That Have Changed [id number], [address] [place], [place] [id number], [phone] START: tamsulosin (Flomax 0.4 mg Cap) 1 Capsules By Mouth every day. Refills: 0. Other Medications START: tamsulosin (tamsulosin 0.4 mg Cap) 1 Capsules By Mouth 2 times a day. Refills: 1. Medications to Continue with No Changes Other Medications cyclobenzaprine diclofenac gabapentin metoprolol (metoprolol 50 mg ER Tab) oxybutynin (oxybutynin 10 mg ER Tab) 1 Tablets By Mouth every day. Refills: 6. quetiapine tramadol PATIENT EDUCATION INFORMATION: Instructions: Kidney Stones Follow up: With: Address: When: Milind [address]AB[address], [address], [facility] [address] [place] [address] Business (1) [facility], [address] [place] [address] Business (1) In 3 days 11/10/2022 DIAGNOSIS: Ureterolithiasis Normal [facility] ED Patient Education Noteon 11-07-2022 ED Patient Education Note Urology Kidney Stones Kidney stones are solid, rock-like deposits that form inside of the kidneys. The kidneys are a pair of organs that make urine. A kidney stone may form in a kidney and move into other parts of the urinary tract, including the tubes that connect the kidneys to the bladder (ureters), the bladder, and the tube that carries urine out of the body (urethra). As the stone moves through these areas, it can cause intense pain and block the flow of urine. Kidney stones are created when high levels of certain minerals are found in the urine. The stones are usually passed out of the body through urination, but in some cases, medical treatment may be needed to remove them. What are the causes? Kidney stones may be caused by: ? A condition in which certain glands produce too much parathyroid hormone (primary hyperparathyroidism), which causes too much calcium buildup in the blood. ? A buildup of uric acid crystals in the bladder (hyperuricosuria). Uric acid is a chemical that the body produces when you eat certain foods. It usually exits the body in the urine. ? Narrowing (stricture) of one or both of the ureters. ? A kidney blockage that is present at (congenital obstruction). ? Past surgery on the kidney or the ureters, such as gastric bypass surgery. What increases the risk? The following factors may make you more likely to develop this condition: ? Having had a kidney stone in the past. ? Having a family history of kidney stones. ? Not drinking enough water. ? Eating a diet that is high in protein, salt (sodium), or sugar. ? Being overweight or obese. What are the signs or symptoms? Symptoms of a kidney stone may include: ? Pain in the side of the abdomen, right below the ribs (flank pain). Pain usually spreads (radiates) to the groin. ? Needing to urinate frequently or urgently. ? Painful urination. ? Blood in the urine (hematuria). ? Nausea. ? Vomiting. ? Fever and chills. How is this diagnosed? This condition may be diagnosed based on: ? Your symptoms and medical history. ? A physical exam. ? Blood tests. ? Urine tests. These may be done before and after the stone passes out of your body through urination. ? Imaging tests, such as a CT scan, abdominal X-ray, or ultrasound. ? A procedure to examine the inside of the bladder (cystoscopy). How is this treated? Treatment for kidney stones depends on the size, location, and makeup of the stones. Kidney stones will often pass out of the body through urination. You may need to: ? Increase your fluid intake to help pass the stone. In some cases, you may be given fluids through an IV and may need to be monitored at the hospital. ? Take medicine for pain. ? Make changes in your diet to help prevent kidney stones from coming back. Sometimes, medical procedures are needed to remove a kidney stone. This may involve: ? A procedure to break up kidney stones using: ? A focused beam of light (laser therapy). ? Shock waves (extracorporeal shock wave lithotripsy). ? Surgery to remove kidney stones. This may be needed if you have severe pain or have stones that block your urinary tract. Follow these instructions at home: Medicines ? Take livl-oiy-ffezixf and prescription medicines only as told by your health care provider. ? Ask your health care provider if the medicine prescribed to you requires you to avoid driving or using heavy machinery. Eating and drinking ? Drink enough fluid to keep your urine pale yellow. You may be instructed to drink at least 8?10 glasses of water each day. This will help you pass the kidney stone. ? If directed, change your diet. This may include: ? Limiting how much sodium you eat. ? Eating more fruits and vegetables. ? Limiting how much animal protein?such as red meat, poultry, fish, and eggs?you eat. ? Follow instructions from your health care provider about eating or drinking restrictions. General instructions ? Collect urine samples as told by your health care provider. You may need to collect a urine sample: ? 24 hours after you pass the stone. ? 8?12 weeks after passing the kidney stone, and every 6?12 months after that. ? Strain your urine every time you urinate, for as long as directed. Use the strainer that your health care provider recommends. ? Do not throw out the kidney stone after passing it. Keep the stone so it can be tested by your health care provider. Testing the makeup of your kidney stone may help prevent you from getting kidney stones in the future. ? Keep all follow-up visits as told by your health care provider. This is important. You may need follow-up X-rays or ultrasounds to make sure that your stone has passed. How is this prevented? To prevent another kidney stone: ? Drink enough fluid to keep your urine pale yellow. This is the best way to prevent kidney stones. ? Eat a healthy diet and follow (more content not included)... Normal [facility] ED Patient Summaryon 023 ED Patient Summary [address] [address] Patient Discharge Instructions Person Information Name: LOIS JACQUES Age: 57 Years Arrival Date: 11/07/2022 11:41:35 Discharge Diagnosis: Ureterolithiasis Primary Care Physician: DANITZA AWAD CNP Provider Information Primary Provider: Juan Carlos Younger DO [employer] Helper:Davonte Carter PA-C The exam and treatment you received in the Emergency Department were for an urgent problem and are not intended as complete care. It is important that you follow up with a doctor, nurse practitioner, or physician?s head start assistant teacher for ongoing care. If your symptoms become worse or you do not improve as expected and you are unable to reach your usual health care provider, you should return to the Emergency Department. We are available 24 hours a day. LOIS JACQUES has been given the following list of patient education materials, prescriptions and follow-up instructions: Follow-up Instructions: With: Address: When: Milind DARLING [address] [place] [address], [address], [facility] [address] [place] [address] Business (1) [facility], [address] [place] [address] Business (1) In 3 days 11/10/2022 In the event that this physician does not participate in your insurance network, please consult with your insurance company to find a nearby participating provider. Patient Education Materials: Kidney Stones A MESSAGE TO ALL PATIENTS REGARDING OPIOIDS PRESCRIPTION OPIOIDS: WHAT YOU NEED TO KNOW Prescription opioids can be used to help relieve gzgovcql-lu-uwgeix pain and are often prescribed following a surgery or injury, or for certain health conditions. These medications can be an important part of the treatment but also come with serious risks. It is important to work with your healthcare provider to make sure you are getting the safest, most effective care. WHAT ARE THE RISKS AND SIDE EFFECTS OF OPIOID USE? Prescription opioids carry serious risks of addiction and overdose, especially with prolonged use. An opioid overdose, often marked by slowed breathing, can cause sudden . The use of prescription opioids can have a number of side effects as well, even when taken as directed: ? Tolerance?meaning you might need to take more of the medication for the same pain relief ? Physical dependence?meaning you have symptoms of withdrawal when a medication is stopped ? Increased sensitivity to pain ? Constipation ? Nausea, vomiting, and dry mouth ? Sleepiness and dizziness ? Confusion ? Depression ? Low levels of testosterone that can result in lower sex drive, energy, and strength ? Itching and sweating RISKS ARE GREATER WITH: ? History of drug misuse, substance use disorder, or overdose ? Mental health conditions (such as depression or anxiety) ? Sleep apnea ? Older age (65 years and older) ? Avoid alcohol while taking prescription opioids. Also, unless specifically advised by your health care provider, medications to avoid include: ? Benzodiazepines (such as Xanax or Valium) ? Muscle relaxants (such as Soma or Flexeril) ? Hypnotics (such as Ambien or Lunesta) ? Other prescription opioids KNOW YOUR OPTIONS Talk to your health care provider about ways to manage your pain that don?t involve prescription opioids. Some of these options may actually work better and have fewer risks and side effects. Options may include: ? Pain relievers such as acetaminophen, ibuprofen, and naproxen ? Some medication that are also used for depression or seizures ? Physical therapy and exercise ? Cognitive behavioral therapy, a psychological, goal-directed approach, in which patients learn how to modify physical, behavioral, and emotional triggers of pain and stress. IF YOU ARE PRESCRIBED OPIOIDS FOR PAIN: ? Never take opioids in greater amounts or more often than prescribed. ? Follow up with your primary health care provider. o Work together to create a plan on how to manage your pain. o Talk about ways to help manage your pain that don?t involve prescription opioids. o Talk about any and all concerns and side effects. ? Help prevent misuse and abuse o Never sell or share prescription opioids. o Never use another person?s prescription opioids. ? Store prescription opioids in a secure place and out of reach of others (this may include visitors, children, friends, and family). ? Safely dispose of unused prescription opioids: Find your community drug take-back program or your pharmacy mail-back program, or flush them down the toilet, following guidance from the Food and Drug Administration (www.fda.gov/Drugs/Re sourcesForYou). ? Visit www.cdc.gov/drugoverd ose to learn about the risks of opioids abuse and overdose. ? If you believe you may be struggling with addiction, tell your health care professio (more content not included)... Normal [facility] RAD - MISCon 11-07-2022 [facility] [facility] [id number] [phone] [id number] Normal [facility] UA With Cult Reflexon 2022 Bilirubin Ql (U) Negative Normal Negative [facility] Comment on above: Performed By: #### 1 [id number] #### [facility] [address] [place] [address] Clarity (U) CLEAR Normal Clear [facility] Comment on above: Performed By: #### 1 [id number] #### [facility] [address] [place] [address] Color (U) STRAW Abnormal Yellow [facility] Comment on above: Performed By: #### 1 [id number] #### [facility] [address] [place] [address] Epithelial cells.squamous LM.HPF (Urine sed) [#/Area] 0-2 Normal 0-2 [facility] Comment on above: Performed By: #### 1 [id number] #### [facility] [address] [place] [address] Glucose Test strip (U) [Mass/Vol] Negative Normal Negative [facility] Comment on above: Performed By: #### 1 [id number] #### [facility] [address] [place] [address] Hemoglobin Ql (U) TRACE Abnormal Negative [facility] Comment on above: Performed By: #### 1 [id number] #### [facility] [address] [place] [address] Ketones (U) [Mass/Vol] Negative Normal Negative [facility] Comment on above: Performed By: #### 1 [id number] #### [facility] [address] [place] [address] [place].plasma/Lithi um.RBC (Bld) [Mass ratio] 0-3 Normal 0-3 [facility] Comment on above: Performed By: #### 1 [id number] #### [facility] [address] [place] [address] Nitrite Ql (U) Negative Normal Negative [facility] Comment on above: Performed By: #### 1 [id number] #### [facility] [address] [place] [address] pH (U) 5.5 [pH] Invalid Interpretation Code 5.0-9.0 [facility] Comment on above: Performed By: #### 1 [id number] #### [facility] [address] [place] [address] Protein (U) [Mass/Vol] Negative Normal Negative [facility] Comment on above: Performed By: #### 1 [id number] #### [facility] [address] [place] [address] Specific gravity (U) [Rel density] 1.020 Invalid Interpretation Code 1.005-1.030 [facility] Comment on above: Performed By: #### 1 [id number] #### [facility] [address] [place] [address] Type of Urine collection method Clean Catch Normal [facility] Comment on above: Performed By: #### 1 [id number] #### [facility] [address] [place] [address] Urobilinogen Qn (U) 0.2 {Ramirez'U}/dL Normal 0.0-1.0 [facility] Comment on above: Performed By: #### 1 [id number] #### [facility] [address] [place] [address] WBC Auto Ql (U) Negative Normal Negative [facility] Comment on above: Performed By: #### 1 [id number] #### [facility] [address] [place] [address] WBC LM.HPF (Urine sed) [#/Area] 0-5 Normal 0-5 [facility] Comment on above: Performed By: #### 1 [id number] #### [facility] [address] [place] [address] eGFRon 11-07-2022 GFR/1.73 sq M.predicted among non-blacks MDRD (S/P/Bld) [Vol rate/Area] 105 mL/min/1.73 m2 Normal >=59 [facility] Comment on above: Order Comment: Order added by Discern Expert. Result Comment: Wire Brusher agustina kidney disease could be indicated at eGFR's of less than 60 mL/min/1.73m2. Kidney failure is indicated at less than 15 mL/min/1.73m2. Performed By: #### 2 [id number], [id number] ####[facility] [address] [place] [address] IMMUNOFIXATION ELEC, PROTEIN ELECon 08-23-2022 Albumin [Mass/Vol] 3.2 g/dL Normal 2.9-4.4 [facility] Comment on above: Performed By: #### P T, PTT #### [facility] [address] [place], [place] [address] Dr. Donny Haney Albumin/Globulin [Mass ratio] 1.1 {ratio} Normal 0.7-1.7 [facility] Comment on above: Performed By: #### P T, PTT #### [facility] [address] [place] [address] Dr. Donny Haney Rtgmi-5-Uxvtyqev 0.3 g/dL Normal 0.0-0.4 [facility] Comment on above: Performed By: #### P T, PTT #### [facility] [address] [place] [address] Dr. Donny Haney Pqfcm-6-Zcnpbhvq 1.0 g/dL Normal 0.4-1.0 [facility] Comment on above: Performed By: #### P T, PTT #### [facility] [address] [place] [address] Dr. Donny Haney Beta Globulin 1.1 g/dL Normal 0.7-1.3 [facility] Comment on above: Performed By: #### P T, PTT #### [facility] [address] [place] [address] Dr. Donny Haney Gamma Globulin 0.7 g/dL Normal 0.4-1.8 [facility] Comment on above: Performed By: #### P T, PTT #### [facility] [address] [place] [address] Dr. Donny Haney Globulin (S) [Mass/Vol] 3.2 g/dL Normal 2.2-3.9 [facility] Comment on above: Performed By: #### P T, PTT #### [facility] [address] [place] [address] Dr. Donny Haney Immunofixation Result, Serum Comment Normal [facility] Comment on above: Result Comment: No m onoclonality detected. Performed By: #### P T, PTT #### [facility] [address] [place] [address] Dr. Donny Haney Immunoglobulin A, Qn, Serum 224 mg/dL Normal 87-352 [facility] Comment on above: Performed By: #### P T, PTT #### [facility] [address] [place] [address] Dr. Donny Haney Immunoglobulin G, Qn, Serum 761 mg/dL Normal 586-1602 [facility] Comment on above: Performed By: #### P T, PTT #### [facility] [address] [place] [address] Dr. Donny Haney Immunoglobulin M, Qn, Serum 138 mg/dL Normal 26-217 [facility] Comment on above: Performed By: #### P T, PTT #### [facility] [address] [place] [address] Dr. Donny Haney M-Ezra Not Observed Normal Not Observed [facility] Comment on above: Performed By: #### P T, PTT #### [facility] [address] [place] [address] Dr. Donny Haney PDF . Normal [facility] Comment on above: Performed By: #### P T, PTT #### [facility] [address] [place] [address] Dr. Donny Haney Please note: Comment Normal [facility] Comment on above: Result Comment: Prot ein electrophoresis scan will follow via computer, mail, or ophthalmic lens inspector delivery. Performed By: #### P T, PTT #### [facility] [address] [place] [address] Dr. Donny Haney Protein [Mass/Vol] 6.4 g/dL Normal 6.0-8.5 [facility] Comment on above: Performed By: #### P T, PTT #### [facility] [address] [place] [address] Dr. Donny Haney IMMUNOGLOBULINS IGA/IGM/IGG QUANTITATIVEon 08-23-2022 Immunoglobulin A, Qn, Serum 214 mg/dL Normal 87-352 [facility] Comment on above: Performed By: #### I MMUNGL #### [facility] [address] [place] [address] Dr. Donny Haney Immunoglobulin G, Qn, Serum 755 mg/dL Normal 586-1602 [facility] Comment on above: Performed By: #### I MMUNGL #### [facility] [address] [place] [address] Dr. Donny Haney Immunoglobulin M, Qn, Serum 134 mg/dL Normal 26-217 [facility] Comment on above: Performed By: #### I MMUNGL #### [facility] [address] [place] [address] Dr. Donny Haney RHEUMATOID FACTORon 08-24-19 RA Latex Turbid. 13.0 IU/mL Normal <14.0 [facility] Comment on above: Performed By: #### R F #### [facility] [address] [place] [address] Dr. Donny Haney CBC AUTO DIFFon 08-22-2022 BASO # 0.1 103/ul Normal 0.0-0.1 [facility] Comment on above: Performed By: #### C BC #### [facility] [address] [place] [address] Dr. Donny Haney Basophils/100 WBC (Bld) 0.6 % Normal 0.2-2.0 [facility] Comment on above: Performed By: #### C BC #### [facility] [address] [place] [address] Dr. Donny Haney EO # 0.3 103/ul Normal 0.0-0.7 [facility] Comment on above: Performed By: #### C BC #### [facility] [address] [place] [address] Dr. Donny Haney Eosinophils/100 WBC (Bld) 2.8 % Normal 0.9-7.0 [facility] Comment on above: Performed By: #### C BC #### [facility] [address] [place] [address] Dr. Donny Haney Erythrocyte distribution width (RBC) [Ratio] 15.8 % Critically high 11.0-15.0 [facility] Comment on above: Performed By: #### C BC #### [facility] [address] [place] [address] Dr. Donny Haney Hematocrit (Bld) [Volume fraction] 41.7 % Normal 36.0-48.0 [facility] Comment on above: Performed By: #### C BC #### [facility] [address] [address] [address] Donny Haney Hemoglobin (Bld) [Mass/Vol] 13.0 g/dL Normal 12.0-16.0 [facility] Comment on above: Performed By: #### C BC #### [facility] [address] [address] [address] Donny Haney IG # 0.08 10e3/ul Critically high 0.00-0.03 [facility] Comment on above: Performed By: #### C BC #### [facility] [address] [place] [address] Dr. Donny Haney IG % 0.7 % Critically high 0.0-0.5 [facility] Comment on above: Performed By: #### C BC #### [facility] [address] [place] [address] Dr. Donny Haney LYMPH # 3.0 103/ul Normal 1.2-3.8 [facility] Comment on above: Performed By: #### C BC #### [facility] [address] [place] [address] Dr. Donny Haney Lymphocytes/100 WBC (Bld) 27.8 % Normal 20.5-60.0 [facility] Comment on above: Performed By: #### C BC #### [facility] [address] [place] [address] Dr. Donny Haney MANUAL DIFF REQ NO Normal [facility] Comment on above: Performed By: #### C BC #### [facility] [address] [place] [address] Dr. Donny Haney MCH (RBC) [Entitic mass] 26.0 pg Critically low 26.7-34.0 [facility] Comment on above: Performed By: #### C BC #### [facility] [address] [place] [address] Dr. Donny Haney MCHC (RBC) [Mass/Vol] 31.2 g/dL Normal 29.9-35.2 [facility] Comment on above: Performed By: #### C BC #### [facility] [address] [place] [address] Dr. Donny Haney MCV (RBC) [Entitic vol] 83.4 fL Normal 81.0-99.0 [facility] Comment on above: Performed By: #### C BC #### [facility] [address] [place] [address] Dr. Donny Haney MONO # 0.7 103/ul Normal 0.3-0.8 [facility] Comment on above: Performed By: #### C BC #### [facility] [address] [place] [address] Dr. Donyn Haney Monocytes/100 WBC (Bld) 6.9 % Normal 1.7-12.0 [facility] Comment on above: Performed By: #### C BC #### [facility] [address] [place] [address] Dr. Donny Haney NEUT # 6.6 103/ul Critically high 1.4-6.5 [facility] Comment on above: Performed By: #### C BC #### [facility] [address] [place] [address] Dr. Donny Haney Neutrophils/100 WBC (Bld) 61.2 % Normal 43.0-75.0 [facility] Comment on above: Performed By: #### C BC #### [facility] [address] [place] [address] Dr. Donny Haney Platelet mean volume (Bld) [Entitic vol] 10.4 fL Normal 9.5-13.5 [facility] Comment on above: Performed By: #### C BC #### [facility] [address] [place] [address] Dr. Donny Haney PLT 344 103/ul Normal 150-450 [facility] Comment on above: Performed By: #### C BC #### [facility] [address] [place] [address] Dr. Donny Haney RBC 5.00 106/ul Normal 4.20-5.40 [facility] Comment on above: Performed By: #### C BC #### [facility] [address] [place] [address] Dr. Donny Haney WBC 10.8 103/ul Normal 4.0-11.0 [facility] Comment on above: Performed By: #### C BC #### [facility] [address] [place] [address] Dr. Donny Haney CRPon 08-22-2022 CRP 10.4 mg/dL Critically high <=1.0 [facility] Comment on above: Performed By: #### P T, PTT #### [facility] [address] [place] [address] Dr. Donny Haney GLYCOHEMOGLOBIN A1Con 2022 ADA RECOMMENDATION SEE BELOW Normal [facility] Comment on above: Result Comment: ADA RECOMMENDED LIMIT 4.0 - 6.0 ADA THERAPEUTIC TARGET < 7.0 ACTION SUGGESTED > 7.0 Performed By: #### P T, PTT #### [facility] [address] [place] [address] Dr. Donny Haney Glucose [Mass/Vol] 143 mg/dL Normal [facility] Comment on above: Performed By: #### P T, PTT #### [facility] [address] [place] [address] Dr. Donny Haney HbA1c (Bld) [Mass fraction] 6.6 % Critically high 4.5-6.2 [facility] Comment on above: Performed By: #### P T, PTT #### [facility] [address] [place] [address] Dr. Donny Haney SED RATE WESTERGRENon 2022 SED RATE 47 mm/hr Critically high <=30 [facility] Comment on above: Performed By: #### P T, PTT #### [facility] [address] [place] [address] Dr. Donny Haney TOTAL PROTEIN SERUMon 2022 Protein [Mass/Vol] 7.3 g/dL Normal 6.4-8.2 [facility] Comment on above: Performed By: #### P T, PTT #### [facility] [address] [place] [address] Dr. Donny Haney Letter (Out)on 08-21-2022 Letter (Out) [id number] Stewart Jacques 1965 F Date Provider Department Center 08/21/2022 None-None [facility] No family history on file Normal [facility] CARDIAC HARRISON ADMITon 023 CK [Catalytic activity/Vol] 181 U/L Normal 26-192 [facility] Comment on above: Performed By: #### P T, PTT #### [facility] [address] [address] [address] Donny Haney CK.MB [Mass/Vol] 1.48 ng/mL Normal <=3.60 [facility] Comment on above: Performed By: #### P T, PTT #### [facility] [address] [place] [address] Dr. Donny Haney HSTROP 4.4 pg/mL Normal 4.0-51.3 [facility] Comment on above: Result Comment: CUT- OFF POINTS HAVE BEEN ESTABLISHED BASED ON THE FOURTH UNIVERSAL DEFINITIONS OF MYOCARDIAL INFARCTION. THE UPPER REFERENCE LIMIT (URL) OF TROPONIN, DEFINED THE 99TH PERCENTILE OF cTnI DISTRIBUTION IN A REFERENCE POPULATION, HAS BEEN CONFIRMED THE DECISION THRESHOLD FOR ME DIAGNOSIS. Performed By: #### P T, PTT #### [facility] [address] [address] [address] Donny Haney LEOBARDO 79 ng/mL Normal 9-82 [facility] Comment on above: Performed By: #### P T, PTT #### [facility] [address] [address] [address] Donny Haney CBC AUTO DIFFon 08-20-2022 BASO # 0.1 103/ul Normal 0.0-0.1 [facility] Comment on above: Performed By: #### C BC #### [facility] [address] [address] [address] Donny Haney Basophils/100 WBC (Bld) 0.3 % Normal 0.2-2.0 [facility] Comment on above: Performed By: #### C BC #### [facility] [address] [address] [address] Donny Haney EO # 0.1 103/ul Normal 0.0-0.7 [facility] Comment on above: Performed By: #### C BC #### [facility] [address] [address] [address] Donny Haney Eosinophils/100 WBC (Bld) 0.5 % Critically low 0.9-7.0 [facility] Comment on above: Performed By: #### C BC #### [facility] [address] [place] [address] Dr. Donny Haney Erythrocyte distribution width (RBC) [Ratio] 15.7 % Critically high 11.0-15.0 [facility] Comment on above: Performed By: #### C BC #### [facility] [address] [place] [address] Dr. Donny Haney Hematocrit (Bld) [Volume fraction] 41.4 % Normal 36.0-48.0 [facility] Comment on above: Performed By: #### C BC #### [facility] [address] [place] [address] Dr. Donny Haney Hemoglobin (Bld) [Mass/Vol] 13.4 g/dL Normal 12.0-16.0 [facility] Comment on above: Performed By: #### C BC #### [facility] [address] [place] [address] Dr. Donny Haney IG # 0.15 10e3/ul Critically high 0.00-0.03 [facility] Comment on above: Performed By: #### C BC #### [facility] [address] [place] [address] Dr. Donny Haney IG % 0.7 % Critically high 0.0-0.5 [facility] Comment on above: Performed By: #### C BC #### [facility] [address] [place] [address] Dr. Donny Haney LYMPH # 1.8 103/ul Normal 1.2-3.8 [facility] Comment on above: Performed By: #### C BC #### [facility] [address] [place] [address] Dr. Donny Hnaey Lymphocytes/100 WBC (Bld) 8.1 % Critically low 20.5-60.0 [facility] Comment on above: Performed By: #### C BC #### [facility] [address] [address] [address] Donny Haney MANUAL DIFF REQ NO Normal [facility] Comment on above: Performed By: #### C BC #### [facility] [address] [place] [address] Dr. Donny Haney MCH (RBC) [Entitic mass] 26.7 pg Normal 26.7-34.0 [facility] Comment on above: Performed By: #### C BC #### [facility] [address] [place] [address] Dr. Donny Haney MCHC (RBC) [Mass/Vol] 32.4 g/dL Normal 29.9-35.2 [facility] Comment on above: Performed By: #### C BC #### [facility] [address] [place] [address] Dr. Donny Haney MCV (RBC) [Entitic vol] 82.6 fL Normal 81.0-99.0 [facility] Comment on above: Performed By: #### C BC #### [facility] [address] [place] [address] Dr. Donny Haney MONO # 0.8 103/ul Normal 0.3-0.8 [facility] Comment on above: Performed By: #### C BC #### [facility] [address] [place] [address] Dr. Donny Haney Monocytes/100 WBC (Bld) 3.6 % Normal 1.7-12.0 [facility] Comment on above: Performed By: #### C BC #### [facility] [address] [place] [address] Dr. Donny Haney NEUT # 19.2 103/ul Critically high 1.4-6.5 [facility] Comment on above: Performed By: #### C BC #### [facility] [address] [place] [address] Dr. Donny Haney Neutrophils/100 WBC (Bld) 86.8 % Critically high 43.0-75.0 [facility] Comment on above: Performed By: #### C BC #### [facility] [address] [address] [address] Donny Haney Platelet mean volume (Bld) [Entitic vol] 10.5 fL Normal 9.5-13.5 [facility] Comment on above: Performed By: #### C BC #### [facility] [address] [place] [address] Dr. Donny Haney PLT 358 103/ul Normal 150-450 [facility] Comment on above: Performed By: #### C BC #### [facility] [address] [address] [address] Donny Haney RBC 5.01 106/ul Normal 4.20-5.40 [facility] Comment on above: Performed By: #### C BC #### [facility] [address] [place] [address] Dr. Donny Haney WBC 22.1 103/ul Critically high 4.0-11.0 [facility] Comment on above: Performed By: #### C BC #### [facility] [address] [place] [address] HEAD WO CONon 08-20-2022 CT HEAD WO CON TITLE: CT HEAD WO CON COMPARISON: None. CLINICAL HISTORY: Headache. Weakness TECHNIQUE: 3 mm axial images without contrast. Automated exposure control was utilized. Dose reduction techniques were achieved by using automated exposure control and/or adjustment of mA and/or kV according to patient size and/or use of iterative reconstruction technique. FINDINGS: There is no mass, mass effect, parenchymal hemorrhage, nor subarachnoid hemorrhage. The extra-axial and extracranial structures appear normal. The CSF spaces are unremarkable. The skeletal structures are intact. IMPRESSION: NO ACUTE INTRACRANIAL FINDINGS BY CT HEAD WITHOUT CONTRAST Electronically authenticated by: IVELISSE JESSICA Date: 2022-08-20 16:17 Normal [facility] ER URINE PROFILEon 3 Bilirubin Ql (U) Negative Normal NEGATIVE [facility] Comment on above: Performed By: #### P T, PTT #### [facility] [address] [place] [address] Dr. Donny Haney Clarity (U) CLEAR Normal CLEAR [facility] Comment on above: Performed By: #### P T, PTT #### [facility] [address] [place] [address] Dr. Donny Haney Color (U) LT. YELLOW Normal YELLOW [facility] Comment on above: Performed By: #### P T, PTT #### [facility] [address] [place] [address] Dr. Donny Haney ERUAHD A micrscopic examination will be performed if indicated. Normal [facility] Comment on above: Performed By: #### P T, PTT #### [facility] [address] [place] [address] Dr. Donny Haney Glucose Ql (U) Negative Normal NEGATIVE [facility] Comment on above: Performed By: #### P T, PTT #### [facility] [address] [place] [address] Dr. Donny Haney Hemoglobin Ql (U) Negative Normal NEGATIVE [facility] Comment on above: Performed By: #### P T, PTT #### [facility] [address] [place] [address] Dr. Donny Haney Ketones Ql (U) Negative Normal NEGATIVE [facility] Comment on above: Performed By: #### P T, PTT #### [facility] [address] [place] [address] Dr. Donny Haney LEUKOCYTES TRACE Abnormal NEGATIVE [facility] Comment on above: Performed By: #### P T, PTT #### [facility] [address] [place] [address] Dr. Donny Haney Nitrite Ql (U) Negative Normal NEGATIVE [facility] Comment on above: Performed By: #### P T, PTT #### [facility] [address] [place] [address] Dr. Donny Haney pH (U) 5.5 [pH] Normal 5-9 [facility] Comment on above: Performed By: #### P T, PTT #### [facility] [address] [place] [address] Dr. Donny Haney SPEC GRAVITY 1.020 Normal 1.005-<=1.02 5 [facility] Comment on above: Performed By: #### P T, PTT #### [facility] [address] [place] [address] Dr. Donny Haney UA PROTEIN Negative Normal NEGATIVE/ TRACE [facility] Comment on above: Performed By: #### P T, PTT #### [facility] [address] [place] [address] Dr. Donny Haney UR MICRO IND INDICATED Normal [facility] Comment on above: Performed By: #### P T, PTT #### [facility] [address] [place] [address] Dr. Donny Haney Urobilinogen Qn (U) 0.2 {Ramirez'U}/dL Normal 0.2 - 1. 0 [facility] Comment on above: Performed By: #### P T, PTT #### [facility] [address] [place] [address] Dr. Donny Haney PROF 14(COMP METB)on 023 Albumin [Mass/Vol] 3.4 g/dL Normal 3.4-5.0 [facility] Comment on above: Performed By: #### P T, PTT #### [facility] [address] [place] [address] Dr. Donny Haney Albumin/Globulin [Mass ratio] 0.9 {ratio} Normal [facility] Comment on above: Performed By: #### P T, PTT #### [facility] [address] [place] [address] Dr. Donny Haney ALP [Catalytic activity/Vol] 104 U/L Normal 46-116 [facility] Comment on above: Performed By: #### P T, PTT #### [facility] [address] [place] [address] Dr. Donny Haney ALT [Catalytic activity/Vol] 27 U/L Normal 14-59 [facility] Comment on above: Performed By: #### P T, PTT #### [facility] [address] [place] [address] Dr. Donny Hnaey Anion gap [Moles/Vol] 13.5 mmol/L Normal [facility] Comment on above: Performed By: #### P T, PTT #### [facility] [address] [address] [address] Donny Haney AST [Catalytic activity/Vol] 17 U/L Normal 15-37 [facility] Comment on above: Performed By: #### P T, PTT #### [facility] [address] [address] [address] Donny Haney Bilirubin [Mass/Vol] 0.3 mg/dL Normal 0.2-1.0 [facility] Comment on above: Performed By: #### P T, PTT #### [facility] [address] [address] [address] Donny Haney Calcium [Mass/Vol] 9.5 mg/dL Normal 8.5-10.1 [facility] Comment on above: Performed By: #### P T, PTT #### [facility] [address] [address] [address] Donny Haney Chloride [Moles/Vol] 104 mmol/L Normal 98-107 [facility] Comment on above: Performed By: #### P T, PTT #### [facility] [address] [address] [address] Donny Haney CO2 [Moles/Vol] 26.4 mmol/L Normal 21.0-32.0 [facility] Comment on above: Performed By: #### P T, PTT #### [facility] [address] [address] [address] Donny Haney Creatinine [Mass/Vol] 0.87 mg/dL Normal 0.55-1.02 [facility] Comment on above: Performed By: #### P T, PTT #### [facility] [address] [address] [address] Donny Haney EGFR-AF BRITISH >60 Normal >=60 [facility] Comment on above: Performed By: #### P T, PTT #### [facility] [address] [address] [address] Donny Haney EGFR-NON AF BRITISH >60 Normal >=60 [facility] Comment on above: Performed By: #### P T, PTT #### [facility] [address] [place] [address] Dr. Donny Haney Globulin (S) [Mass/Vol] 3.9 g/dL Normal [facility] Comment on above: Performed By: #### P T, PTT #### [facility] [address] [address] [address] Donny Haney Glucose [Mass/Vol] 164 mg/dL Critically high 74-106 [facility] Comment on above: Performed By: #### P T, PTT #### [facility] [address] [place] [address] Dr. Donny Haney Potassium [Moles/Vol] 3.9 mmol/L Normal 3.5-5.1 [facility] Comment on above: Performed By: #### P T, PTT #### [facility] [address] [place] [address] Dr. Donny Haney Protein [Mass/Vol] 7.3 g/dL Normal 6.4-8.2 [facility] Comment on above: Performed By: #### P T, PTT #### [facility] [address] [place] [address] Dr. Donny Haney Sodium [Moles/Vol] 140 mmol/L Normal 136-145 [facility] Comment on above: Performed By: #### P T, PTT #### [facility] [address] [place] [address] Dr. Donny Haney Urea nitrogen [Mass/Vol] 21.0 mg/dL Critically high 7.0-18.0 [facility] Comment on above: Performed By: #### P T, PTT #### [facility] [address] [place] [address] Dr. Donny Haney Urea nitrogen/Creatinine [Mass ratio] 24.1 mg/mg Normal [facility] Comment on above: Performed By: #### P T, PTT #### [facility] [address] [place] [address] Dr. Donny Haney URINE MICROSCOPIC ONLYon BACTERIA NONE SEEN Normal NONE SEEN [facility] Comment on above: Performed By: #### P T, PTT #### [facility] [address] [place] [address] Dr. Donny Haney Bacteria identified Cx Nom (U) NOT INDICATED Normal [facility] Comment on above: Performed By: #### P T, PTT #### [facility] [address] [place] [address] Dr. Donny Haney CAST NONE SEEN Normal NONE SEEN [facility] Comment on above: Performed By: #### P T, PTT #### [facility] [address] [place] [address] Dr. Donny Haney Crystals LM Nom (Urine sed) NONE SEEN Normal NONE SEEN [facility] Comment on above: Performed By: #### P T, PTT #### [facility] [address] [place] [address] Dr. Donny Haney Epithelial cells LM Ql (Urine sed) MODERATE Abnormal NONE SEEN /RARE [facility] Comment on above: Performed By: #### P T, PTT #### [facility] [address] [place] [address] Dr. Donny Haney MUCOUS NONE SEEN Normal NONE SEEN [facility] Comment on above: Performed By: #### P T, PTT #### [facility] [address] [place] [address] Dr. Donny Haney RBC NONE SEEN Abnormal 0-2 [facility] Comment on above: Performed By: #### P T, PTT #### [facility] [address] [place] [address] Dr. Donny Haney WBC 0-2 Abnormal NONE SEEN [facility] Comment on above: Performed By: #### P T, PTT #### [facility] [address] [place] [address] Dr. Donny Haney XR CHEST 2 Von 08-20-2022 XR CHEST 2 V EXAMINATION: XR CHES T 2 V, , 08/20/2022 3:23 PM EDT INDICATION: Chest pain HISTORY: Ordering Provider Reason for Exam: Technologist Note: Additional: COMPARISON: Chest x-ray dated 08/24/2015 TECHNIQUE: Chest x-ray: Two views. FINDINGS: No pneumothorax, pleural effusion or focal airspace consolidation. Heart is normal in size. Bony thorax is unremarkable. IMPRESSION: No acute cardiopulmonary process. Electronically authenticated by: DELFINA GIBBS Date: 2022-08-20 16:26 Normal [facility] Office Visiton 08-16-2022 Follow-up visit [id number] Stewart Jacques 1965 F Date Provider Department Center 08/16/2022 [id number]-JERONIMOMALACHI MP ORTHO MPORTHO No family history on file Level of Service:35337 [place] OFFICE/OUTPATIENT NEW LOW MDM 30-44 MINUTES Reason for Visit and Comments: Pain [136] Pain [136] Normal [facility] CBC AUTO DIFFon 08-14-2022 BASO # 0.1 103/ul Normal 0.0-0.1 [facility] Comment on above: Performed By: #### C BC #### [facility] [address] [place] [address] Dr. Donny Haney Basophils/100 WBC (Bld) 0.5 % Normal 0.2-2.0 [facility] Comment on above: Performed By: #### C BC #### [facility] [address] [address] [address] Donny Haney EO # 0.3 103/ul Normal 0.0-0.7 [facility] Comment on above: Performed By: #### C BC #### [facility] [address] [address] [address] Donny Haney Eosinophils/100 WBC (Bld) 3.2 % Normal 0.9-7.0 [facility] Comment on above: Performed By: #### C BC #### [facility] [address] [address] [address] Donny Haney Erythrocyte distribution width (RBC) [Ratio] 15.9 % Critically high 11.0-15.0 [facility] Comment on above: Performed By: #### C BC #### [facility] [address] [place] [address] Dr. Donny Haney Hematocrit (Bld) [Volume fraction] 44.3 % Normal 36.0-48.0 [facility] Comment on above: Performed By: #### C BC #### [facility] [address] [address] [address] Donny Haney Hemoglobin (Bld) [Mass/Vol] 13.8 g/dL Normal 12.0-16.0 [facility] Comment on above: Performed By: #### C BC #### [facility] [address] [address] [address] Donny Haney IG # 0.05 10e3/ul Critically high 0.00-0.03 [facility] Comment on above: Performed By: #### C BC #### [facility] [address] [place] [address] Dr. Donny Haney IG % 0.5 % Normal 0.0-0.5 [facility] Comment on above: Performed By: #### C BC #### [facility] [address] [place] [address] Dr. Donny Haney LYMPH # 3.1 103/ul Normal 1.2-3.8 [facility] Comment on above: Performed By: #### C BC #### [facility] [address] [place] [address] Dr. Donny Haney Lymphocytes/100 WBC (Bld) 33.5 % Normal 20.5-60.0 [facility] Comment on above: Performed By: #### C BC #### [facility] [address] [place] [address] Dr. Donny Haney MANUAL DIFF REQ NO Normal [facility] Comment on above: Performed By: #### C BC #### [facility] [address] [place] [address] Dr. Donny Haney MCH (RBC) [Entitic mass] 26.5 pg Critically low 26.7-34.0 [facility] Comment on above: Performed By: #### C BC #### [facility] [address] [place] [address] Dr. Donny Haney MCHC (RBC) [Mass/Vol] 31.2 g/dL Normal 29.9-35.2 [facility] Comment on above: Performed By: #### C BC #### [facility] [address] [place] [address] Dr. Donny Haney MCV (RBC) [Entitic vol] 85.0 fL Normal 81.0-99.0 [facility] Comment on above: Performed By: #### C BC #### [facility] [address] [place] [address] Dr. Donny Haney MONO # 0.5 103/ul Normal 0.3-0.8 [facility] Comment on above: Performed By: #### C BC #### [facility] [address] [place] [address] Dr. Donny Haney Monocytes/100 WBC (Bld) 5.2 % Normal 1.7-12.0 [facility] Comment on above: Performed By: #### C BC #### [facility] [address] [place] [address] Dr. Donny Haney NEUT # 5.3 103/ul Normal 1.4-6.5 [facility] Comment on above: Performed By: #### C BC #### [facility] [address] [place] [address] Dr. Donny Haney Neutrophils/100 WBC (Bld) 57.1 % Normal 43.0-75.0 [facility] Comment on above: Performed By: #### C BC #### [facility] [address] [place] [address] Dr. Donny Haney Platelet mean volume (Bld) [Entitic vol] 10.2 fL Normal 9.5-13.5 [facility] Comment on above: Performed By: #### C BC #### [facility] [address] [place] [address] Dr. Donny Haney PLT 370 103/ul Normal 150-450 [facility] Comment on above: Performed By: #### C BC #### [facility] [address] [place] [address] Dr. Donny Haney RBC 5.21 106/ul Normal 4.20-5.40 [facility] Comment on above: Performed By: #### C BC #### [facility] [address] [place] [address] Dr. Donny Haney WBC 9.4 103/ul Normal 4.0-11.0 [facility] Comment on above: Performed By: #### C BC #### [facility] [address] [address] [address] Donny Haney LIPID PROFILEon 08-14-2022 CHOL-HDL RATIO NORM SEE BELOW Normal [facility] Comment on above: Result Comment: 3.3 - 4.4 LOW RISK 4.4 - 7.1 AVERAGE RISK 7.1 - 11.0 MODERATE RISK >11.0 HIGH RISK Performed By: #### P T, PTT #### [facility] [address] [address] [address] Donny Haney Cholesterol [Mass/Vol] 182 mg/dL Normal <=200 [facility] Comment on above: Performed By: #### P T, PTT #### [facility] [address] [address] [address] Donny Haney Cholesterol in HDL [Mass/Vol] 47 mg/dL Normal 40-60 [facility] Comment on above: Performed By: #### P T, PTT #### [facility] [address] [address] [address] Donny Haney Cholesterol in LDL [Mass/Vol] 122.4 mg/dL Normal [facility] Comment on above: Performed By: #### P T, PTT #### [facility] [address] [place], [place] [address] Dr. Donny Haney Cholesterol.total/Ch olesterol in HDL [Mass ratio] 3.9 {ratio} Normal [facility] Comment on above: Performed By: #### P T, PTT #### [facility] [address] [place], [place] [address] Dr. Donny Haney HDL NORMAL > or = 60 mg/dl - LO W CARDIOVASCULAR RISK <40 mg/dl - HIGH CARDIOVASCULAR RISK Normal [facility] Comment on above: Performed By: #### P T, PTT #### [facility] [address] [address] [address] Donny Haney LDL CALC NORMAL SEE BELOW Normal [facility] Comment on above: Result Comment: <100 mg/dl OPTIMAL 100 - 129 mg/dl NEAR OR ABOVE OPTIMAL 130 - 159 mg/dl BORDERLINE HIGH 160 - 189 mg/dl HIGH >190 mg/dl VERY HIGH Performed By: #### P T, PTT #### [facility] [address] [place] [address] Dr. Donny Haney Triglyceride [Mass/Vol] 63 mg/dL Normal <=150 [facility] Comment on above: Performed By: #### P T, PTT #### [facility] [address] [place] [address] Dr. Donny Haney VLDL CALC 12.6 mg/dL Normal [facility] Comment on above: Performed By: #### P T, PTT #### [facility] [address] [place] [address] Dr. Donny Haney PROF 14(COMP METB)on 023 Albumin [Mass/Vol] 3.3 g/dL Critically low 3.4-5.0 [facility] Comment on above: Performed By: #### P T, PTT #### [facility] [address] [place] [address] Dr. Donny Haney Albumin/Globulin [Mass ratio] 0.8 {ratio} Normal [facility] Comment on above: Performed By: #### P T, PTT #### [facility] [address] [place] [address] Dr. Donny Haney ALP [Catalytic activity/Vol] 95 U/L Normal 46-116 [facility] Comment on above: Performed By: #### P T, PTT #### [facility] [address] [place] [address] Dr. Donny Haney ALT [Catalytic activity/Vol] 28 U/L Normal 14-59 [facility] Comment on above: Performed By: #### P T, PTT #### [facility] [address] [place] [address] Dr. Donny Haney Anion gap [Moles/Vol] 11.1 mmol/L Normal [facility] Comment on above: Performed By: #### P T, PTT #### [facility] [address] [place] [address] Dr. Donny Haney AST [Catalytic activity/Vol] 14 U/L Critically low 15-37 [facility] Comment on above: Performed By: #### P T, PTT #### [facility] [address] [place] [address] Dr. Donny Haney Bilirubin [Mass/Vol] 0.2 mg/dL Normal 0.2-1.0 [facility] Comment on above: Performed By: #### P T, PTT #### [facility] [address] [place] [address] Dr. Donny Haney Calcium [Mass/Vol] 9.4 mg/dL Normal 8.5-10.1 [facility] Comment on above: Performed By: #### P T, PTT #### [facility] [address] [place] [address] Dr. Donny Haney Chloride [Moles/Vol] 106 mmol/L Normal 98-107 [facility] Comment on above: Performed By: #### P T, PTT #### [facility] [address] [place] [address] Dr. Donny Haney CO2 [Moles/Vol] 30.2 mmol/L Normal 21.0-32.0 [facility] Comment on above: Performed By: #### P T, PTT #### [facility] [address] [place] [address] Dr. Donny Haney Creatinine [Mass/Vol] 0.75 mg/dL Normal 0.55-1.02 [facility] Comment on above: Performed By: #### P T, PTT #### [facility] [address] [place] [address] Dr. Donny Haney EGFR-AF BRITISH >60 Normal >=60 [facility] Comment on above: Performed By: #### P T, PTT #### [facility] [address] [place] [address] Dr. Donny Haney EGFR-NON AF BRITISH >60 Normal >=60 [facility] Comment on above: Performed By: #### P T, PTT #### [facility] [address] [place] [address] Dr. Donny Haney Globulin (S) [Mass/Vol] 4.0 g/dL Normal [facility] Comment on above: Performed By: #### P T, PTT #### [facility] [address] [place] [address] Dr. Donny Haney Glucose [Mass/Vol] 115 mg/dL Critically high 74-106 [facility] Comment on above: Performed By: #### P T, PTT #### [facility] [address] [place] [address] Dr. Donny Haney Potassium [Moles/Vol] 4.3 mmol/L Normal 3.5-5.1 [facility] Comment on above: Performed By: #### P T, PTT #### [facility] [address] [place] [address] Dr. Donny Haney Protein [Mass/Vol] 7.3 g/dL Normal 6.4-8.2 [facility] Comment on above: Performed By: #### P T, PTT #### [facility] [address] [place] [address] Dr. Donny Haney Sodium [Moles/Vol] 143 mmol/L Normal 136-145 [facility] Comment on above: Performed By: #### P T, PTT #### [facility] [address] [place] [address] Dr. Donny Haney Urea nitrogen [Mass/Vol] 14.0 mg/dL Normal 7.0-18.0 [facility] Comment on above: Performed By: #### P T, PTT #### [facility] [address] [place] [address] Dr. Donny Haney Urea nitrogen/Creatinine [Mass ratio] 18.7 mg/mg Normal [facility] Comment on above: Performed By: #### P T, PTT #### [facility] [address] [place] [address] Dr. Donny Haney TSHon 08-14-2022 TSH 2.563 uIU/mL Normal 0.358-3.740 [facility] Comment on above: Performed By: #### P T, PTT #### [facility] [address] [place] [address] Dr. Donny Haney UA RANDOM W/MICROSCOPICon BACTERIA NONE SEEN Normal NONE SEEN [facility] Comment on above: Performed By: #### U AMIC #### [facility] [address] [address] [address] Donny Haney Bilirubin Ql (U) Negative Normal NEGATIVE [facility] Comment on above: Performed By: #### U AMIC #### [facility] [address] [address] [address] Donny Haney CAST NONE SEEN Normal NONE SEEN [facility] Comment on above: Performed By: #### U AMIC #### [facility] [address] [address] [address] Donny Haney Clarity (U) SL CLOUDY Abnormal CLEAR [facility] Comment on above: Performed By: #### U AMIC #### [facility] [address] [place] [address] Dr. Donny Haney Color (U) LT. YELLOW Normal YELLOW [facility] Comment on above: Performed By: #### U AMIC #### [facility] [address] [place] [address] Dr. Donny Haney Crystals LM Nom (Urine sed) NONE SEEN Normal NONE SEEN [facility] Comment on above: Performed By: #### U AMIC #### [facility] [address] [place] [address] Dr. Donny Haney Epithelial cells LM Ql (Urine sed) MODERATE Abnormal NONE SEEN /RARE [facility] Comment on above: Performed By: #### U AMIC #### [facility] [address] [place] [address] Dr. Donny Haney Glucose Ql (U) Negative Normal NEGATIVE [facility] Comment on above: Performed By: #### U AMIC #### [facility] [address] [place] [address] Dr. Donny Haney Hemoglobin Ql (U) Negative Normal NEGATIVE [facility] Comment on above: Performed By: #### U AMIC #### [facility] [address] [place] [address] Dr. Donny Haney Ketones Ql (U) Negative Normal NEGATIVE [facility] Comment on above: Performed By: #### U AMIC #### [facility] [address] [address] [address] Donny Haney LEUKOCYTES Negative Normal NEGATIVE [facility] Comment on above: Performed By: #### U AMIC #### [facility] [address] [place] [address] Dr. Donny Haney MUCOUS NONE SEEN Normal NONE SEEN [facility] Comment on above: Performed By: #### U AMIC #### [facility] [address] [address] [address] Donny Haney Nitrite Ql (U) Negative Normal NEGATIVE [facility] Comment on above: Performed By: #### U AMIC #### [facility] [address] [place] [address] Dr. Donny Haney pH (U) 5.0 [pH] Normal 5-9 [facility] Comment on above: Performed By: #### U AMIC #### [facility] [address] [place] [address] Dr. Donny Haney RBC NONE SEEN Abnormal 0-2 [facility] Comment on above: Performed By: #### U AMIC #### [facility] [address] [place] [address] Dr. Donny Haney SPEC GRAVITY 1.030 Abnormal 1.005-<=1.02 5 [facility] Comment on above: Performed By: #### U AMIC #### [facility] [address] [address] [address] Donny Haney UA PROTEIN Negative Normal NEGATIVE/ TRACE [facility] Comment on above: Performed By: #### U AMIC #### [facility] [address] [address] [address] Donny Haney Urobilinogen Qn (U) 0.2 {Ramirez'U}/dL Normal 0.2 - 1. 0 [facility] Comment on above: Performed By: #### U AMIC #### [facility] [address] [place] [address] Dr. Donny Haney WBC 0-2 Abnormal NONE SEEN [facility] Comment on above: Performed By: #### U AMIC #### [facility] [address] [place] [address] Dr. Donny Haney XR KUB 1 VIEWon 11-30-2021 XR KUB 1 VIEW EXAMINATION: XR KUB 1 VIEW HISTORY: Kidney stone COMPARISON: No relevant comparison available. FINDINGS: KIDNEY/URETER - RIGHT: Stable nephrolithiasis KIDNEY/URETER - LEFT: Stable nephrolithiasis PELVIS: No visible ureteral calcifications. Any visible calcifications favor phleboliths. BOWEL: No abnormal dilation or deviation. BONES: Moderate degenerative changes of the spine. OTHER: Right upper quadrant surgical clips from cholecystectomy. No abnormal gaseous collections. IMPRESSION: Stable bilateral nephrolithiasis Electronically authenticated by: CARLTON WU Date: 2021-11-30 18:37 Normal [facility] CBC AUTO DIFFon 11-24-2021 BASO # 0.1 103/ul Normal 0.0-0.1 [facility] Comment on above: Performed By: #### C BC #### [facility] [address] [place] [address] Dr. Donny Haney Basophils/100 WBC (Bld) 0.7 % Normal 0.2-2.0 [facility] Comment on above: Performed By: #### C BC #### [facility] [address] [place] [address] Dr. Donny Haney EO # 0.2 103/ul Normal 0.0-0.7 [facility] Comment on above: Performed By: #### C BC #### [facility] [address] [place] [address] Dr. Donny Haney Eosinophils/100 WBC (Bld) 2.3 % Normal 0.9-7.0 [facility] Comment on above: Performed By: #### C BC #### [facility] [address] [place] [address] Dr. Donny Haney Erythrocyte distribution width (RBC) [Ratio] 16.6 % Critically high 11.0-15.0 [facility] Comment on above: Performed By: #### C BC #### [facility] [address] [place] [address] Dr. Donny Haney Hematocrit (Bld) [Volume fraction] 39.9 % Normal 36.0-48.0 [facility] Comment on above: Performed By: #### C BC #### [facility] [address] [address] [address] Donny Haney Hemoglobin (Bld) [Mass/Vol] 12.7 g/dL Normal 12.0-16.0 [facility] Comment on above: Performed By: #### C BC #### [facility] [address] [address] [address] Donny Haney IG # 0.09 10e3/ul Critically high 0.00-0.03 [facility] Comment on above: Performed By: #### C BC #### [facility] [address] [place] [address] Dr. Donny Haney IG % 0.9 % Critically high 0.0-0.5 [facility] Comment on above: Performed By: #### C BC #### [facility] [address] [address] [address] Donny Haney LYMPH # 3.0 103/ul Normal 1.2-3.8 [facility] Comment on above: Performed By: #### C BC #### [facility] [address] [place] [address] Dr. Donny Haney Lymphocytes/100 WBC (Bld) 29.3 % Normal 20.5-60.0 [facility] Comment on above: Performed By: #### C BC #### [facility] [address] [place] [address] Dr. Donny Haney MANUAL DIFF REQ NO Normal [facility] Comment on above: Performed By: #### C BC #### [facility] [address] [address] [address] Donny Haney MCH (RBC) [Entitic mass] 26.4 pg Critically low 26.7-34.0 [facility] Comment on above: Performed By: #### C BC #### [facility] [address] [place] [address] Dr. Donny Haney MCHC (RBC) [Mass/Vol] 31.8 g/dL Normal 29.9-35.2 [facility] Comment on above: Performed By: #### C BC #### [facility] [address] [place] [address] Dr. Donny Haney MCV (RBC) [Entitic vol] 83.0 fL Normal 81.0-99.0 [facility] Comment on above: Performed By: #### C BC #### [facility] [address] [place] [address] Dr. Donny Haney MONO # 0.6 103/ul Normal 0.3-0.8 [facility] Comment on above: Performed By: #### C BC #### [facility] [address] [place] [address] Dr. Donny Haney Monocytes/100 WBC (Bld) 5.8 % Normal 1.7-12.0 [facility] Comment on above: Performed By: #### C BC #### [facility] [address] [place] [address] Dr. Donny Haney NEUT # 6.3 103/ul Normal 1.4-6.5 [facility] Comment on above: Performed By: #### C BC #### [facility] [address] [place] [address] Dr. Donny Haney Neutrophils/100 WBC (Bld) 61.0 % Normal 43.0-75.0 [facility] Comment on above: Performed By: #### C BC #### [facility] [address] [place] [address] Dr. Donny Haney Platelet mean volume (Bld) [Entitic vol] 9.9 fL Normal 9.5-13.5 [facility] Comment on above: Performed By: #### C BC #### [facility] [address] [place] [address] Dr. Donny Haney PLT 371 103/ul Normal 150-450 [facility] Comment on above: Performed By: #### C BC #### [facility] [address] [place] [address] Dr. Donny Haney RBC 4.81 106/ul Normal 4.20-5.40 [facility] Comment on above: Performed By: #### C BC #### [facility] [address] [place] [address] Dr. Donny Haney WBC 10.4 103/ul Normal 4.0-11.0 [facility] Comment on above: Performed By: #### C BC #### [facility] [address] [place] [address] Dr. Donny Haney [facility]on SARS-CoV-2 (COVID-19) RNA CARRIE+probe Ql (Unsp spec) Not detected Normal NOT DETECTED [facility] Comment on above: Result Comment: This test is not yet approved or cleared by the [place] FDA. When there are no FDA-approved or cleared tests available, and other criteria are met, FDA can make tests available under an emergency access mechanism called an Emergency Use Authorization (EUA). The EUA for this test is supported by the Dehairer of Health and Human Service's (HHS's) declaration that circumstances exist to justify the emergency use of in vitro diagnostics for the detection and/or diagnosis of the virus that causes COVID-19. This EUA will remain in effect (meaning this test can be used) for the duration of the COVID-19 declaration justifying emergency of IVDs, unless it is terminated or revoked by FDA (after which the test may no longer be used). When diagnostic testing is negative, the possibility of a false negative should be considered in the context of a patient's recent exposures and the presence of clinical signs and symptoms consistent with SARS-CoV-2. Performed By: #### P T, PTT #### [facility] [address] [place] [address] Dr. Donny Haney PROF CHEM 8 (BAS METB)on Anion gap [Moles/Vol] 11.5 mmol/L Normal [facility] Comment on above: Performed By: #### B MP #### [facility] [address] [place] [address] Dr. Donny Haney Calcium [Mass/Vol] 9.0 mg/dL Normal 8.5-10.1 [facility] Comment on above: Performed By: #### B MP #### [facility] [address] [address] [address] Donny Haney Chloride [Moles/Vol] 105 mmol/L Normal 98-107 [facility] Comment on above: Performed By: #### B MP #### [facility] [address] [address] [address] Donny Haney CO2 [Moles/Vol] 28.5 mmol/L Normal 21.0-32.0 [facility] Comment on above: Performed By: #### B MP #### [facility] [address] [address] [address] Donny Haney Creatinine [Mass/Vol] 0.78 mg/dL Normal 0.55-1.02 [facility] Comment on above: Performed By: #### B MP #### [facility] [address] [place] [address] Dr. Donny Haney EGFR-AF BRITISH >60 Normal >=60 [facility] Comment on above: Performed By: #### B MP #### [facility] [address] [address] [address] Donny Haney EGFR-NON AF BRITISH >60 Normal >=60 [facility] Comment on above: Performed By: #### B MP #### [facility] [address] [place] [address] Dr. Donny Haney Glucose [Mass/Vol] 110 mg/dL Critically high 74-106 [facility] Comment on above: Performed By: #### B MP #### [facility] [address] [address] [address] Donny Haney Potassium [Moles/Vol] 4.0 mmol/L Normal 3.5-5.1 [facility] Comment on above: Performed By: #### B MP #### [facility] [address] [address] [address] Donny Haney Sodium [Moles/Vol] 141 mmol/L Normal 136-145 [facility] Comment on above: Performed By: #### B MP #### [facility] [address] [address] [address] Donny Haney Urea nitrogen [Mass/Vol] 16.0 mg/dL Normal 7.0-18.0 [facility] Comment on above: Performed By: #### B MP #### [facility] [address] [place] [address] Dr. Donny Haney Urea nitrogen/Creatinine [Mass ratio] 20.5 mg/mg Normal [facility] Comment on above: Performed By: #### B MP #### [facility] [address] [place] [address] Dr. Donny Haney PROTIMEon 11-24-2021 INR Coag (PPP) [Relative time] 0.96 {INR} Normal [facility] Comment on above: Performed By: #### P T, PTT #### [facility] [address] [place] [address] Dr. Donny Haney INR GUIDELINES SEE BELOW Normal [facility] Comment on above: Result Comment: FUAD RED INR: 2.0 - 3.0 CONDITIONS NOT LISTED BELOW 2.5 - 3.5 FOR PROSTHETIC HEART VALVE REPLACEMENT 2.5 - 3.5 RECURRENT THROMBOSIS Performed By: #### P T, PTT #### [facility] [address] [place] [address] Dr. Donny Haney PT Coag (PPP) [Time] 10.4 s Normal 9.0-11.6 [facility] Comment on above: Performed By: #### P T, PTT #### [facility] [address] [place] [address] Dr. Donny Haney PTTon 11-24-2021 aPTT Coag (Bld) [Time] 27.1 s Normal 22.3-36.2 [facility] Comment on above: Performed By: #### P T, PTT #### [facility] [address] [place] [address] Dr. Donny Haney XR KUB 1 VIEWon 11-16-2021 XR KUB 1 VIEW EXAMINATION: XR KUB 1 VIEW HISTORY: Kidney stone COMPARISON: 08/03/2021 FINDINGS: KIDNEY/URETER - RIGHT: Stable 5 mm calcification right renal lower pole KIDNEY/URETER - LEFT: No visible renal or ureteral calcifications. PELVIS: No visible ureteral calcifications. Any visible calcifications favor phleboliths. BOWEL: No abnormal dilation or deviation. BONES: No acute abnormality. Moderate degenerative spondylosis. Levocurvature. OTHER: Negative. No abnormal gaseous collections. IMPRESSION: Right nephrolithiasis Electronically authenticated by: CARLTON WU Date: 2021-11-16 06:55 Normal [facility] C-Reactive Proteinon 022 CRP [Mass/Vol] 15.1 mg/L High 0.0-5.0 [facility] Comment on above: Performed By: #### C RP, SED, CDP #### [facility] [address] [place] [address] Reporter Anchor: Carlton Partida MD CRP [Mass/Vol] 15.1 mg/L High 0 - 5 mg/L [facility] Interpretation and review of laboratory results Abnormal [facility] CBC with Auto Differentialon 11-14-2021 Absolute Eos # 0.28 [facility] Absolute Immature Granulocyte 0.06 [facility] Absolute Lymph # 2.52 [facility] Absolute Cassia # 0.60 [facility] Basophils (Bld) [#/Vol] 0.06 10*3/uL [facility] Basophils/100 WBC (Bld) 1 % 0 - 2 % [facility] Eosinophils/100 WBC (Bld) 3 % 1 - 4 % [facility] Hematocrit (Bld) [Volume fraction] 41.7 % 36.3 - 47.1 % [facility] Hemoglobin (Bld) [Mass/Vol] 12.7 g/dL 11.9 - 15.1 g/dL [facility] Immature granulocytes/100 WBC (Bld) 1 % High 0 [facility] Interpretation and review of laboratory results Abnormal [facility] Lymphocytes/100 WBC (Bld) 28 % 24 - 43 % [facility] MCH (RBC) [Entitic mass] 26.1 pg 25.2 - 33.5 pg [facility] MCHC (RBC) [Mass/Vol] 30.5 g/dL 28.4 - 34.8 g/dL [facility] MCV (RBC) [Entitic vol] 85.6 fL 82.6 - 102.9 fL [facility] Monocytes/100 WBC (Bld) 7 % 3 - 12 % [facility] NRBC Automated 0.0 0.0 per 100 WBC [facility] Platelet distribution width (Bld) [Ratio] 16.8 % High 11.8 - 14.4 % [facility] Platelet mean volume (Bld) [Entitic vol] 10.4 fL 8.1 - 13.5 fL [facility] Platelets (Bld) [#/Vol] 330 10*3/uL [facility] RBC (Bld) [#/Vol] 4.87 10*6/uL 3.95 - 5.1 1 m/uL [facility] Segmented neutrophils/100 WBC (Bld) 60 % 36 - 65 % [facility] Segs Absolute 5.52 [facility] WBC (Bld) [#/Vol] 9.0 10*3/uL [facility] CBC with Diffon 11-14-2021 Abs. Basophil 0.06 k/uL Normal 0.00-0.20 [facility] Comment on above: Performed By: #### C RP, SED, CDP #### [facility] [address] [place] [address] Dr. [place], [place] [id number] Reporter Anchor: Carlton Partida MD Abs.Imm.Granulocyte 0.06 k/uL Normal 0.00-0.30 [facility] Comment on above: Performed By: #### C RP, SED, CDP #### [facility] [address] [place], [place] [id number] Reporter Anchor: Carlton Partida MD Abs.Neutrophil (Seg) 5.52 k/uL Normal 1.50-8.10 [facility] Comment on above: Performed By: #### C RP, SED, CDP #### [facility] [address] [place], [place] [id number] Reporter Anchor: Carlton Partida MD Basophils/100 WBC (Bld) 1 % Normal 0-2 [facility] Comment on above: Performed By: #### C RP, SED, CDP #### [address] [place], [place] [id number] Reporter Anchor: Carlton Partida MD Eosinophils (Bld) [#/Vol] 0.28 10*3/uL Normal 0.00-0.44 [facility] Comment on above: Performed By: #### C RP, SED, CDP #### [address] [place], [place] [id number] Reporter Anchor: Carlton Partida MD Eosinophils/100 WBC (Bld) 3 % Normal 1-4 [facility] Comment on above: Performed By: #### C RP, SED, CDP #### [address] [place], [place] [id number] Reporter Anchor: Carlton Partida MD Erythrocyte distribution width (RBC) [Ratio] 16.8 % High 11.8-14.4 [facility] Comment on above: Performed By: #### C RP, SED, CDP #### [address] [place], [place] [id number] Reporter Anchor: Carlton Partida MD Hematocrit (Bld) [Volume fraction] 41.7 % Normal 36.3-47.1 [facility] Comment on above: Performed By: #### C RP, SED, CDP #### [address] [place], [place] [id number] Reporter Anchor: Carlton Partida MD Hemoglobin (Bld) [Mass/Vol] 12.7 g/dL Normal 11.9-15.1 [facility] Comment on above: Performed By: #### C RP, SED, CDP #### [address] [place], [place] [id number] Reporter Anchor: Carlton Partida MD Immature granulocytes/100 WBC (Bld) 1 % High 0 [facility] Comment on above: Performed By: #### C RP, SED, CDP #### [facility] [address] [place], [place] [id number] Reporter Anchor: Carlton Partida MD Lymphocytes (Bld) [#/Vol] 2.52 10*3/uL Normal 1.10-3.70 [facility] Comment on above: Performed By: #### C RP, SED, CDP #### [facility] [address] [place], [place] [address] Reporter Anchor: Carlton Partida MD Lymphocytes/100 WBC (Bld) 28 % Normal 24-43 [facility] Comment on above: Performed By: #### C RP, SED, CDP #### [facility] [address] [place], [id number] Reporter Anchor: Carlton Partida MD MCH (RBC) [Entitic mass] 26.1 pg Normal 25.2-33.5 [facility] Comment on above: Performed By: #### C RP, SED, CDP #### [address] [place], [id number] Reporter Anchor: Carlton Partida MD MCHC (RBC) [Mass/Vol] 30.5 g/dL Normal 28.4-34.8 [facility] Comment on above: Performed By: #### C RP, SED, CDP #### [address] [place], [id number] Reporter Anchor: Carlton Partida MD MCV (RBC) [Entitic vol] 85.6 fL Normal 82.6-102.9 [facility] Comment on above: Performed By: #### C RP, SED, CDP #### [facility] [address] [place] [address] Reporter Anchor: Carlton Partida MD Monocytes (Bld) [#/Vol] 0.60 10*3/uL Normal 0.10-1.20 [facility] Comment on above: Performed By: #### C RP, SED, CDP #### [facility] [address] [place], [place] [id number] Reporter Anchor: Carlton Partida MD Monocytes/100 WBC (Bld) 7 % Normal 3-12 [facility] Comment on above: Performed By: #### C RP, SED, CDP #### [facility] [address] [place], [place] [address] Reporter Anchor: Carlton Partida MD Neutrophil (Seg) 60 % Normal 36-65 [facility] Comment on above: Performed By: #### C RP, SED, CDP #### [address] [place], [id number] Reporter Anchor: Carlton Partida MD NRBC Automated 0.0 per 100 WBC Normal 0.0 [facility] Comment on above: Performed By: #### C RP, SED, CDP #### [address] [place], [id number] Reporter Anchor: Carlton Partida MD Platelet mean volume (Bld) [Entitic vol] 10.4 fL Normal 8.1-13.5 [facility] Comment on above: Performed By: #### C RP, SED, CDP #### [address] [place], [id number] Reporter Anchor: Carlton Partida MD Platelets (Bld) [#/Vol] 330 10*3/uL Normal 138-453 [facility] Comment on above: Performed By: #### C RP, SED, CDP #### [address] [place], [place] [address]83 Reporter Anchor: Carlton Partida MD RBC (Bld) [#/Vol] 4.87 10*6/uL Normal 3.95-5.11 [facility] Comment on above: Performed By: #### C RP, SED, CDP #### [facility] [address] [place], [place] [id number] Reporter Anchor: Carlton Partida MD WBC (Bld) [#/Vol] 9.0 10*3/uL Normal 3.5-11.3 [facility] Comment on above: Performed By: #### C RP, SED, CDP #### [facility] [address] [place], [place] [id number] Reporter Anchor: Carlton Partida MD Sedimentation Rateon 022 Sedimentation Rate 25 mm/Hr Normal 0-30 [facility] Comment on above: Performed By: #### C RP, SED, CDP #### [facility] [address] [place], [place] [id number] Reporter Anchor: Carlton Partida MD Sed Rate 25 [facility] US KIDNEYSon 10-26-2021 US KIDNEYS EXAMINATION: US KIDNEYS HISTORY: Kidney stone COMPARISON: No relevant comparison available. TECHNIQUE: Ultrasound examination was performed of the kidneys and urinary bladder. FINDINGS: RIGHT KIDNEY: Contains a 7 mm nonobstructing stone. No evidence of pelvocaliectasis or mass. Normal renal cortical parenchymal echogenicity. Color Doppler demonstrates blood flow within the kidney. Kidney: 9.9 x 5.5 x 5.0 cm LEFT KIDNEY: Moderate hydronephrosis which persists even after voiding. Contains a nonobstructing 4 mm stone. Kidney: 11.0 x 5.7 x 6.0 cm BLADDER: No visible wall thickening, mass, or calculi. Post void residual: 30 mL URETERAL JETS: Not evaluated. IMPRESSION: 1. Bilateral nonobstructing nephrolithiasis. 2. Mild/moderate hydronephrosis of left kidney which persists after voiding could signify distal ureteral obstruction. Consider ultrasound of urinary bladder to evaluate ureteral jets. Or for greater diagnostic sensitivity consider CT imaging of the abdomen pelvis without contrast. Electronically authenticated by: LOLI HUBER Date: 2021-10-26 17:49 Normal [facility] EKG 12 LeadOrdered By: Martinez Tidwell hmad on 10-04-2021 Atrial Rate 66 BPM [facility] [employer] Work Phone: P [place] 30 degrees [employer] Work Phone: P-R Interval 132 ms [employer] Work Phone: Q-T Interval 406 ms [employer] Work Phone: QRS Duration 76 ms [employer] Work Phone: QTc Calculation (Bazett) 425 ms [employer] Work Phone: R [place] 3 degrees [employer] Work Phone: T [place] 13 degrees [employer] Work Phone: Ventricular Rate 66 BPM [employer] Work Phone: [employer] Work Phone: EKG 12 Leadon 10-04-2021 Normal sinus rhythm Cannot rule out Anterior infarct , age undetermined T-wave inversion in anterior leads, consider anterior ischemia Abnormal ECG No previous ECGs available Confirmed by Martinez Bernal MD ([id number]) on 10/04/2021 8:21:31 AM [facility] Martinez Bernal MD - 10/04/2021 Normal sinus rhythm Cannot rule out Anterior infarct , age undetermined T-wave inversion in anterior leads, consider anterior ischemia Abnormal ECG No previous ECGs available Confirmed by Martinez Bernal MD ([id number]) on 10/04/2021 8:21:31 AM [employer] Work Phone: Basic Metabolic Panelon 09-20 Anion gap [Moles/Vol] 7 mmol/L Low 9 - 17 mmol/L [employer] Calcium [Mass/Vol] 9.4 mg/dL 8.6 - 10. 4 mg/dL [employer] Chloride [Moles/Vol] 104 mmol/L 98 - 10 7 mmol/L [employer] CO2 [Moles/Vol] 28 mmol/L 20 - 31 mmol/L [employer] Creatinine [Mass/Vol] 0.61 mg/dL 0.50 - 0.90 mg/dL [facility] GFR >60 >60 mL/min [facility] GFR Non- >60 >60 mL/min [facility] Glucose [Mass/Vol] 91 mg/dL 70 - 99 mg/dL [facility] Interpretation and review of laboratory results Abnormal [facility] Potassium [Moles/Vol] 4.1 mmol/L 3.7 - 5.3 mmol/L [facility] Sodium [Moles/Vol] 139 mmol/L 135 - 144 mmol/L [facility] Urea nitrogen (BldV) [Mass/Vol] 15 mg/dL 6 - 20 mg/dL [facility] Urea nitrogen/Creatinine (Bld) [Mass ratio] 25 High [facility] Basic Metabolic Profon 10-03 (cont.) Normal [facility] Comment on above: Result Comment: Aver age GFR for 50-59 years old: 93 mL/min/1.73sq m Chronic Kidney Disease: <60 mL/min/1.73sq m Kidney failure: <15 mL/min/1.73sq m eGFR calculated using average adult body mass. Additional eGFR calculator available at: http://www.[employer]/multiple_crcl_2012.htm Performed By: #### B MP #### [facility] [address] [place] [address] Reporter Anchor: Carlton Partida MD Anion gap [Moles/Vol] 7 mmol/L Low - [facility] Comment on above: Performed By: #### B MP #### [facility] [address] [place] [address] Reporter Anchor: Carlton Partida MD BUN/CRE Ratio 25 High - [facility] Comment on above: Performed By: #### B MP #### [facility] [address] [place] [address] Reporter Anchor: Carlton Partida MD Calcium [Mass/Vol] 9.4 mg/dL Normal 8.6-10.4 [facility] Comment on above: Performed By: #### B MP #### [facility] [address] [place], [place] [id number] Reporter Anchor: Carlton Partida MD Chloride [Moles/Vol] 104 mmol/L Normal 98-107 [facility] Comment on above: Performed By: #### B MP #### [facility] [address] [place], [place] [id number] Reporter Anchor: Carlton Partida MD CO2 [Moles/Vol] 28 mmol/L Normal 20-31 [facility] Comment on above: Performed By: #### B MP #### [facility] [address] [place], [place] [id number] Reporter Anchor: Carlton Partida MD Creatinine [Mass/Vol] 0.61 mg/dL Normal 0.50-0.90 [facility] Comment on above: Performed By: #### B MP #### [facility] [address] [place], [place] [id number] Reporter Anchor: Carlton Partida MD GFR, Amer >60 Normal >60 [facility] Comment on above: Performed By: #### B MP #### [facility] [address] [place], [place] [id number] Reporter Anchor: Carlton Partida MD GFR,non Amer >60 Normal >60 [facility] Comment on above: Performed By: #### B MP #### [facility] [address] [place], [place] [id number] Reporter Anchor: Carlton Partida MD Glucose [Mass/Vol] 91 mg/dL Normal 70-99 [facility] Comment on above: Performed By: #### B MP #### [facility] [address] [place], [place] [id number] Reporter Anchor: Carlton Partida MD Potassium [Moles/Vol] 4.1 mmol/L Normal 3.7-5.3 [facility] Comment on above: Performed By: #### B MP #### [facility] [address] [place] [address] [place] [address] Reporter Anchor: Carlton Partida MD Sodium [Moles/Vol] 139 mmol/L Normal 135-144 [facility] Comment on above: Performed By: #### B MP #### [facility] [address] [place] [address] Reporter Anchor: Carlton Partida MD Staging: Normal [facility] Comment on above: Result Comment: Stag e 1: Some kidney damage normal GFR Stage 2: Mild kidney damage GFR 60-89 Stage 3: Moderate kidney damage GFR 30-59 Stage 4: Severe kidney damage GFR 15-29 Stage 5: Severe kidney damage GFR <15 ESRD - chronic treatment by dialysis or transplant Performed By: #### B MP #### [address] [place] [address] Reporter Anchor: Carlton Partida MD Urea nitrogen [Mass/Vol] 15 mg/dL Normal 6-20 [facility] Comment on above: Performed By: #### B MP #### [address] [place] [address] Reporter Anchor: Carlton Partida MD Laboratory - Chemistry and C hemistry - challengeon 10-03-2021 GFR/1.73 sq M.predicted MDRD (S/P/Bld) [Vol rate/Area] [facility] Comment on above: Average GFR for 50-5 9 years old: 93 mL/min/1.73sq m Chronic Kidney Disease: <60 mL/min/1.73sq m Kidney failure: <15 mL/min/1.73sq m eGFR calculated using average adult body mass. Additional eGFR calculator available at: http://www.[employer] [email or web address] Stage 1: Some kidney damage normal GFR Stage 2: Mild kidney damage GFR 60-89 Stage 3: Moderate kidney damage GFR 30-59 Stage 4: Severe kidney damage GFR 15-29 Stage 5: Severe kidney damage GFR <15 ESRD - chronic treatment by dialysis or transplant XR CHEST (2 VW)on 10-03-2021 XR CHEST (2 VW) EXAMINATION: TWO XRAY VIEWS OF THE CHEST 10/03/2021 5:01 pm COMPARISON: None. HISTORY: ORDERING SYSTEM PROVIDED HISTORY: Tendinitis of left wrist TECHNOLOGIST PROVIDED HISTORY: Tendinitis of left wrist Unilateral primary osteoarthritis of first carpometacarpal joint, left hand FINDINGS: The lungs are without acute focal process. There is no effusion or pneumothorax. The cardiomediastinal silhouette is without acute process. The osseous structures are without acute process. IMPRESSION: No acute process. Interpreted by: Jaciel Damon DO Signed by: Jaciel Damon DO 10/03/21 Final result Normal [facility] No acute process. [facility] EXAMINATION: TWO XRAY VIEWS OF THE CHEST 10/03/2021 5:01 pm COMPARISON: None. HISTORY: ORDERING SYSTEM PROVIDED HISTORY: Tendinitis of left wrist TECHNOLOGIST PROVIDED HISTORY: Tendinitis of left wrist Unilateral primary osteoarthritis of first carpometacarpal joint, left hand FINDINGS: The lungs are without acute focal process. There is no effusion or pneumothorax. The cardiomediastinal silhouette is without acute process. The osseous structures are without acute process. [facility] Jaciel Damon DO - 10/03/2021 EXAMINATION: TWO XRAY VIEWS OF THE CHEST 10/03/2021 5:01 pm COMPARISON: None. HISTORY: ORDERING SYSTEM PROVIDED HISTORY: Tendinitis of left wrist TECHNOLOGIST PROVIDED HISTORY: Tendinitis of left wrist Unilateral primary osteoarthritis of first carpometacarpal joint, left hand FINDINGS: The lungs are without acute focal process. There is no effusion or pneumothorax. The cardiomediastinal silhouette is without acute process. The osseous structures are without acute process. IMPRESSION: No acute process. [employer] Phone: Radiology Study observation (narrative) [employer] Phone: XR CHEST (2 VW)Ordered By: Diann Damon on 10-03-2021 [facility]: XR finger LT thumbon 022 XR finger LT thumb [facility] Main [place] [address] [place], [place] [id number] XRay Report Signed Patient: Lois Jacques MR#: [id number] 12 : 1965 Acct:[id number] Age/Sex: 56 / F ADM Date: 05/29/21 Loc: XDCLY Room: Type: [facility] Attending Dr: Danitza OME Ordering Provider: Danitza MOE Date of Service: 05/29/21 XR/XR finger LT thumb: Strain / Sprain ([id number]) XR/XR wrist LT min 3V*: Strain / Sprain Copies to: Danitza MOE Exam: Left wrist 4 views. Left thumb 3 views. Reason for exam: Left wrist and thumb pain for one year after pushing a tool. Pain radial side of wrist through her left thumb. COMPARISON: None. FINDINGS: Left wrist: No focal soft tissue abnormality. No acute bony process. Mild irregularity at the styloid process of the ulna suggestive of prior injury. Left thumb: No focal soft tissue abnormality. Mild degenerative changes involving the CMC joint of the thumb. No acute bony process. XR/XR wrist LT min 3V* IMPRESSION: Mild degenerative changes CMC joint of the thumb. No acute bony process is seen. Impression dictated by: Earnest Buckley Jr., D.O.05/29/2021 12:07 PM Dictation Location: [place] [address] Transcribed By: [facility] 05/29/21 1207 Dictated By: Earnest Buckley Jr, DO 05/29/21 1203 Signed By: 05/29/21 1207 Normal [facility] Antistreptolysin O screenon 01-26-2020 ASO 25.4 [place], [place] C-Reactive Proteinon 020 CRP [Mass/Vol] 12.4 mg/L High 0 - 5 mg/L [place], [place] Interpretation and review of laboratory results Abnormal [place] CBC Auto Differentialon 10-0 Basophils (Bld) [#/Vol] 0.06 10*3/uL [place] Basophils/100 WBC (Bld) 1 % 0 - 2 % [place] Differential Type NOT REPORTED [place] Eosinophils (Bld) [#/Vol] 0.18 10*3/uL [place] Eosinophils/100 WBC (Bld) 2 % 1 - 4 % [place] Erythrocyte distribution width (RBC) [Ratio] 16.3 % High 11.8 - 14.4 % [place] Hematocrit (Bld) [Volume fraction] 42.2 % 36.3 - 47.1 % [place] Hemoglobin (Bld) [Mass/Vol] 13.0 g/dL 11.9 - 15.1 g/dL [place] Immature granulocytes (Bld) [#/Vol] 0.05 10*3/uL [place] Immature granulocytes (Bld) [#/Vol] 0 % 0 [place] Interpretation and review of laboratory results Abnormal [place] Lymphocytes (Bld) [#/Vol] 3.21 10*3/uL [place] Lymphocytes/100 WBC (Bld) 29 % 24 - 43 % [place] MCH (RBC) [Entitic mass] 27.0 pg 25.2 - 33.5 pg [place] MCHC (RBC) [Mass/Vol] 30.8 g/dL 28.4 - 34.8 g/dL [place] MCV (RBC) [Entitic vol] 87.6 fL 82.6 - 102.9 fL [place] Monocytes (Bld) [#/Vol] 0.53 10*3/uL [place] Monocytes/100 WBC (Bld) 5 % 3 - 12 % [place] Platelet mean volume (Bld) [Entitic vol] 10.1 fL 8.1 - 13.5 fL [place] Platelets (Bld) [#/Vol] 360 10*3/uL [place] Platelets (Bld) [#/Vol] NOT REPORTED [place] RBC (Bld) [#/Vol] 4.82 10*6/uL 3.95 - 5.1 1 m/uL [place] RBC morphology finding Nom (Bld) NOT REPORTED [place] Segmented neutrophils/100 WBC (Bld) 63 % 36 - 65 % [place] Segs Absolute 7.19 [place] WBC (Bld) [#/Vol] 11.2 10*3/uL [place] WBC (Bld) [#/Vol] 0.0 10*3/uL 0.0 per 10 0 WBC [place] WBC Morphology NOT REPORTED [place] Rheumatoid Factoron 01-26-20 20 Rheumatoid Factor <10 <14 IU/mL [place] Sedimentation Rateon 020 Sed Rate 18 mm 0 - 20 mm [place] Uric Acidon 01-26-2020 Urate [Mass/Vol] 3.6 mg/dL 2.4 - 5.7 mg/dL [place] Vital Signs Date Time Vital Sign Value Performing Clinician Facility 03-30-2022 10:45-0500 Body height 152.4 cm [facility] Other [facility] Other 03-30-2022 10:45-0500 Body mass index (BMI) [Ratio] 41.98 kg/m2 [facility] Z[facility]ra Other [facility] Other 03-30-2022 10:45-0500 Body weight 97.52 kg [facility] Other [facility] Other 03-30-2022 10:45-0500 Diastolic blood pressure 70 mm[Hg] [facility] Other [facility] Other 03-30-2022 10:45-0500 Respiratory rate 18 /min [facility] Other [facility] Other 03-30-2022 10:45-0500 SaO2% (BldA) [Mass fraction] 97 % [facility] Other [facility] Other 03-30-2022 10:45-0500 Systolic blood pressure 112 mm[Hg] [facility] ال[facility]لي Other [facility] Other Encounters Encounter Date Encounter Type Care Provider Facility Start: 05-25-2023 Clinisync Result Encounter Madeleine Najeraulysses EXPLOSIVE ORDNANCE DISPOSAL MANAGER Work Phone: [facility] External Department Unsolicited Start: 05-25-2023 Clinisync Result Encounter Madeleine Awad EXPLOSIVE ORDNANCE DISPOSAL MANAGER Work Phone: [facility] External Department Unsolicited Start: 04-25-2023 End: 04-25-2023 ambulatory DANITZA DELMI Not Available Start: 11-07-2022 End: 11-07-2022 Emergency department patient visit Juan Carlos Younger Facility[place] [place] [facility] [place] Start: 08-22-2022 End: 08-23-2022 ambulatory BEZEL CUTTER DANITZA DELMI Facility: Start: 08-20-2022 End: 08-20-[address] SARY SIDHU . Facility: Start: 08-16-2022 End: 08-17-[address] [facility] Start: 08-14-2022 End: 08-15-2022 ambulatory LUIS MASTERSA DELMI Facility:[facility] Start: 03-30-2022 End: 03-30-2022 ambulatory [facility] العلي Other [facility] Other Start: 03-30-2022 Office outpatient vi sit 15 minutes [facility] العلي [facility] Start: 03-27-2022 ambulatory BEZEL CUTTER DANITZA DELMI Facil ity:[facility] Start: 11-30-2021 End: 11-30-2021 ambulatory MILIND DARLING Facility: Start: 11-28-2021 Encounter for preprocedural laboratory examination MILIND DARLING [facility] Start: 11-24-2021 End: 11-25-2021 ambulatory MILIND DARLING Facility:[facility] Start: 11-24-2021 End: 11-25-2021 Encounter for preprocedural laboratory examination MILIND DARLING Facility:[facility] Start: 11-15-2021 End: 11-16-[address] CARLTON WU Facility:[facility] Start: 11-14-2021 End: 11-15-2021 [facility] Start: 11-14-2021 End: 11-14-2021 Subsequent hospital visit by physician Danitza Awad Work Phone: [facility] Start: 10-26-2021 End: 10-27-[address] LOLI HUBER Facility:[facility] Start: 10-18-2021 End: 10-18-2021 Patient encounter procedure ALICE LUCIO [facility] Start: 10-03-2021 End: 10-06-2021 ambulatory SHALINI JO [facility] Start: 10-03-2021 End: 10-05-2021 Subsequent hospital visit by physician Manoj Melton [facility] Comment on above: Tendinitis of left w rist; Unilateral primary osteoarthritis of first carpometacarpal joint, left hand Start: 09-11-[address] DOCTOR TAYLOR Facility :[facility] Start: 01-26-2020 End: 01-26-2020 Subsequent hospital visit by physician Danitza Awad [facility] Procedures Date Procedure Procedure Detail Performing Clinician Start: 05-25-2023 MLR HEMOGLOBIN A1C Danitza Awad EXPLOSIVE ORDNANCE DISPOSAL MANAGER Work Phone: Start: 03-20-2023 Mammography Danitza larios EXPLOSIVE ORDNANCE DISPOSAL MANAGER Work Phone: Start: 11-14-2021 Blood count complete auto&auto difrntl wbc Anna Heard PA-C Work Phone: Start: 11-14-2021 C-reactive protein Jm RobbinsC Work Phone: Start: 10-03-2021 Ecg routine ecg w/le ast 12 lds i&r only Shalini Jo MD Work Phone: Start: 10-03-2021 Radiologic exam chest 2 views Shalini Jo MD Work Phone: Start: 10-03-2021 Basic metabolic pane l calcium total Shalini Jo MD Work Phone: Start: 04-22-2020 Procedure on foot ADRY LUCIO Start: 01-26-2020 Antistreptolysin o screen Danitza MariaPaulo Delmi Work Phone: Start: 01-26-2020 Assay of blood/uric acid Danitza CandacePaulo [facility] Work Phone: Start: 01-26-2020 Blood count complete auto&auto difrntl wbc Danitza [facility]Paulo [facility] Work Phone: Start: 01-26-2020 C-reactive protein Danitza MariaPaulo Delmi Work Phone: Start: 01-26-2020 Rheumatoid factor quantitative Danitza MariaPaulo Delmi Work Phone: Start: 01-26-2020 Sedimentation rate r bc automated Danitza Awad Work Phone: Start: 07-03-2017 Cystoscopic removal of ureteric stent ALICE LUCIO Start: 06-21-2017 Cystoscopic anastomo sis of ureter to bladder with insertion of stent into ureter ALICE LUCIO Appendectomy ALICE LUCIO Hysterectomy ALICE LUCIO neck surgery ALICE LUCIO Plan of Treatment Date Care Activity Detail Author Start: 03-20-2024 Screening for malign ant neoplasm of breast Mammogram [facility] Start: 10-20-2023 Influenza vaccination Influenza Vacc ine (#1) [facility] Comment on above: Postponed from 12/21 (Patient Refused) Start: 07-26-2023 ambulatory Ambulatory Facility:[facility] [place] Start: 12-21-2021 Influenza vaccination [facility] Start: 12-14-2020 COVID-19 Vaccine (2 - Booster for Eduardo series) COVID-19 Vaccine (2 - Booster for Eduardo series) [facility] Start: 12-22-2019 Influenza vaccination Flu vaccine (# 1) [place] Start: 2016 Screening for malign ant neoplasm of breast Breast cancer screen [facility] Start: 2016 Shingles vaccine (1 of 2) Shingles vaccine (1 of 2) [facility] Start: 2011 Screening for malign ant neoplasm of colon [facility] Start: 2006 Lipid panel Lipids [facility] Start: 1996 Screening for malign ant neoplasm of cervix [facility] Start: 1987 Screening for malign ant neoplasm of cervix Pap smear [facility] Start: 1985 DTaP/Tdap/Td vaccine (1 - Tdap) DTaP/Tdap/Td vaccine (1 - Tdap) [facility] Start: 1985 Urine screening for protein Diabetes: Urine Protein Screening [facility] Start: 1984 Hepatitis C screening Hepatitis C sc reen [facility] Start: 1981 HIV screening HIV screen [facility] Start: 1978 Depression Screen Depression Screen [facility] Start: 1976 Glaucoma screening Diabetes: R etinopathy Screening [facility] Start: 1966 Hemoglobin A1c measurement Diabetes: Hemoglobin A1C [facility] Start: 1966 Screening for malign ant neoplasm of colon [facility] End: 01-26-2020 MAXI Screen with Reflex MAXI Screen with Reflex Lab Routine Once for 1 Occurrences starting 01/26/2020 until 01/26/2020 [place] Comment on above: Once for 1 Occurrenc es starting 01/26/2020 until 01/26/2020 MAXI Screen with Reflex MAXI Scree n with Reflex Lab Routine 01/26/2020 11:26 AM EDT [place] Immunizations Immunization Date Immunization Notes Care Provider Dwain hale 04-22-2020 SARS-CoV-2 (COVID-19 ) Ad26 vaccine, recombinant ALICE LUCIO [facility] 04-30-2014 tetanus and diphther ia toxoids, adsorbed, preservative free, for adult use (5 Lf of tetanus toxoid and 2 Lf of diphtheria toxoid) Danitza Awad NP Work Phone: [facility] Payers Date Payer Category Payer Unknown [employer] [id number] 2022-Present [address] [address] [place] [address] [id number] 2015 Unknown [id number]. [id number] 1966 Unknown [id number] 2.16.840.1.274297.3.579.2.17 3 1966 Unknown [id number] 2.16.840.1.391186.3.579.2.17 3 1966 Unknown [id number] 2.16.840.1.580605.3.579.2.17 3 1966 Unknown [id number] 2.16.840.1.815498.3.579.2.17 3 1966 Unknown [id number] 2.16.840.1.224009.3.579.2.17 3 1966 Unknown [id number] 2.16.840.1.758840.3.579.2.59 3 1966 Unknown [id number] 2.16.840.1.922912.3.579.2.59 3 1966 Unknown [id number] 2.16.840.1.576895.3.579.2.59 3 1966 Unknown [id number] 2.16.840.1.588558.3.579.2.59 3 1966 Unknown [id number] 2.16.840.1.583687.3.579.2.59 3 1966 Unknown [id number] 2.16.840.1.876030.3.579.2.59 3 1966 Unknown [id number] 2.16.840.1.200877.3.579.2.59 3 1966 Unknown [id number] 2.16.840.1.521934.3.579.2.59 3 1966 Unknown [id number] 2.16.840.1.426139.3.579.2.59 3 1966 Unknown [id number] 2.16.840.1.013846.3.579.2.12 59 1966 Unknown [id number] 2.16.840.1.773229.3.579.2.72 7 1966 Unknown [id number] 2.16.840.1.114174.3.579.2.72 7 1959 Self-pay 1959 Unknown [id number] 2.16.840.1.086647.19 1959 Unknown [id number] Social History Date Type Detail Facility Tobacco smoking status [facility] Unknown if ever smoked [place] Start: 1965 Sex Assigned At Not on file [place] Tobacco smoking status [facility] Tobacco smoking consumption unknown [facility] [employer] Phone: Start: 05-18-2019 End: 02-01-2023 Tobacco smoking status Never smoked tobacco (finding) [facility] Start: 04-25-2023 Sex Assigned At Female [facility] Start: 02-01-2023 Tobacco use and exposure Smokeless tobacco non-user [facility] Start: 04-25-2023 Alcohol intake Ex-drinker (finding) [facility] Start: 04-25-2023 History of Social function [facility] Start: 04-03-2023 Alcohol Comment coffee 1-2 cups per day [facility] Medical Equipment Procedure Code Equipment Code Equipment Origin al Text Equipment Identifier Dates USE DIRECTED ONCE DAILY [id number] Start: 09-05-2022 True Metrix Bloo d Glucose Test test strip [id number] Start: 01-25-2023 Progress note 08-16-2022 Note Date & Type Note Facility 08-16-2022 Note Orthopedic Surgery Subjective Pain of the Left Hand and Pain of the Left Wrist Lois Jacques is a 57 y.o. year old cjsxg-dsew-ilkjiyqx female presenting with difficulty with the use of her left hand specifically her thumb having undergone a left first CMC joint arthroplasty with the use of the APL, date of surgery 10/11/2021. 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 She feels she is lost approximately 50% of the use of her hand. She also notes difficulty with pinching. On further review she also complains of triggering of her right ring finger having had no treatment for this. With regards to her symptomology she has undergone extensive therapy with no improvement of symptoms. Patient History Past Surgical History: Procedure Laterality Date HAND ARTHROPLASTY Left 10/11/2021 ligament reconstruction with APL graft,EPB/EPL/APL/ tenosynovectomy hand, wrist 1st and 3rd extensor tenosynovectomy completed at [facility] No past medical history on file. Objective General: Body mass index is 45.31 kg/m???. No acute distress, comfortable Respiratory: Unlabored breathing with normal rate, no cough Cardiovascular: Warm well perfused extremities Psych: Appropriate mood behavior MSK: Examination of her left hand revealed a healed surgical scar overlying the thumb. She was able make a complete fist. She deftly had decreased ability to abduct. He has difficulty with opposition. CMC grind test was negative. She did have a tender palpable nodule at the A1 jony level of the ring finger. She was assessed to be neurovascular intact. Radiographs of the hand were obtained and reviewed and noted was that there were no apparent complications with excellent joint space preservation with the trapezium had been resected. Assessment/Plan Lois Jacques is a 57 y.o. year old female with status post left firkins arthroplasty with difficulty with abduction. 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 She also has an associated left ring trigger finger. Options were reviewed with patient and recommended consideration of FDS ring transfer to be thumb abducted. To improve her functionality. A1 jony with also the release of the ring finger. [facility] Clinical Note 08-14-2022 Note Date & Type Note Facility 08-14-2022 Note PROCEDURE: XR HIP RT 2 3V WO PELVIS HISTORY: Pain in right hip joint since falling one week ago COMPARISON: None. FINDINGS: BONES:No fracture, acute abnormality, or significant arthropathy. SOFT TISSUES:No visible soft tissue swelling. EFFUSION:None visible. OTHER: Pelvic calcifications consistent with phleboliths and atherosclerotic disease. IMPRESSION: 1. No acute bone abnormality or significant degenerative joint disease of the right hip. Electronically authenticated by: LOLI HUBER Date: 2022-08-14 09:20 [facility] Evaluation note 03-30-2022 Note Date & Type Note Facility 03-30-2022 Evaluation note Encounter Date Diagnosis Assessment Notes Mar, Sinusitis, unspecified chronicity, unspecified location (ICD-10 - J32.9) Sinusitis home care material was printed Drink plenty fluids, get plenty of rest. Take Tylenol or Motrin for aches pains or fevers. Continue the antibiotic that was prescribed by your physician. Use the Flonase inhaler as prescribed for nasal congestion. Take the Tessalon Perles as needed for cough. Follow-up with your family physician if no improvement by Mar, Acute cough (ICD-10 - R05.1) Mar, Laryngitis (ICD-10 - J04.0) [facility] Other Evaluation + Plan note Note Date & Type Note Facility Evaluation + Plan note No data available for this section [facility] Evaluation note Note Date & Type Note Facility Evaluation note Diagnosis Tendinitis of left wrist Other tenosynovitis of hand and wrist Unilateral primary osteoarthritis of first carpometacarpal joint, left hand documented in this encounter STEFANO KEYES [facility] Work Phone: History general Narrative - Reported Note Date & Type Note Facility History general Narrative - Reported Type Medical History asthma Medical History HTN Medical History arthritis Medical History neuropathy Medical History GERD Surgical History gallbladder Surgical History appendectomy Surgical History [facility] Other Hospital Discharge instructions Note Date & Type Note Facility Hospital Discharge instructions No data available for this section [facility] Progress note Note Date & Type Note Facility Progress note No data available for this section [facility] Summary Purpose Family History No Family History Records FoundNo Family History Records FoundNo Family History Records FoundNo Family History Records FoundNo Family History Records FoundNo Family History Records Found Advance Directives No Advanced Directives Records FoundNo Advanced Directives Records FoundNo Advanced Directives Records FoundNo Advanced Directives Records FoundNo Advanced Directives Records FoundNo Advanced Directives Records Found Additional Source Comments INFORMATION SOURCE (unrecogn ized section and content) DATE CREATED AUTHOR 06/04/2021 [facility] DATE CREATED AUTHOR AUTHOR'S ORGANIZ ATION [facility]20[facility] DATE CREATED AUTHOR AUTHOR'S ORGANIZ ATION 08/30/2022 [facility] DATE CREATED AUTHOR AUTHOR'S ORGANIZ ATION 11/22/2022 [facility] DATE CREATED AUTHOR AUTHOR'S ORGANIZ ATION 04/26/2023 [facility] EPIC DATE CREATED AUTHOR AUTHOR'S ORGANIZ ATION 06/22/2023 [facility] Care Teams (unrecognized sec tion and content) Architecture Consultant Relationship Specialty Start Date End Date Danitza Awad [address] [place] [address] PCP - General Nurse Practitioner 01/26/20 Architecture Consultant Relationship Specialty Start Date End Date Danitza Awad [address] [place] [address] PCP - General Nurse Practitioner 01/26/20 Architecture Consultant Relationship Specialty Start Date End Date Danitza Aawd [address] [place], [place] [address]g[place] [address] PCP - General Nurse Practitioner 01/26/20 Architecture Consultant Relationship Specialty Start Date End Date Elvis Haro MD PCP - General Family Medicine 10/12/22 REASON FOR VISIT (unrecogniz ed section and content) COUGH, DRAINAGE FOR RECORDS PERTAINING TO PATIENTS WHO ARE OR HAVE BEEN ENROLLED IN A CHEMICAL DEPENDENCY/SUBSTANCEABUSE PROGRAM, SOME INFORMATION MAY BE OMITTED. This clinical summary was aggregated from multiple sources. Caution should be exercised in using it in the provision of clinical care. This summary normalizes information from multiple sources, and as a consequence, information in this document may materially change the coding, format and clinical context of patient data. In addition, data may be omitted in some cases. CLINICAL DECISIONS SHOULD BE BASED ON THE PRIMARY CLINICAL RECORDS. [facility] [employer] [facility]. provides no warranty or guarantee of the accuracy or completeness of information in this document.
[2023-06-30 13:06] LABS: Calcium 9.1 mg/dL (8.5-10.1); Carbon Dioxide 32.9 mmol/L (21.0-32.0); Chloride 104 mmol/L (98-107); Estimated GFR (African America >60 (>=60); Estimated GFR (Non-African Ame >60 (>=60); Sodium 141 mmol/L (136-145); Uric Acid 3.9 mg/dL (2.6-6.0)
[2023-06-30 13:19] LABS: Creatinine Urine Random 139.63 mg/dL (20.00-300.00); Sodium Urine Random 92 mmol/L (30-90)
[2023-06-30 13:22] LABS: Calcium Urine Random 23.6 mg/dL (5.1-21.0)
[2023-06-30 13:55] LABS: Calcium 24 Hour Urine 271.4 mg/24hr (100.0-300.0); Creatinine 24 Hour Urine 1605.75 mg/24 hr (800.00-1800.00); Sodium 24 Hour Urine 106 mmol/24h (40-220); Total Volume 24 Hour Urine 1150 mL/24hr
[2023-07-02 04:07] LABS: Uric Acid, Urine 53.4 mg/dL (Not Estab.); Uric Acid,Urine 24hr 614.1 mg/24 hr (173.7-902.1)
[2023-07-02 09:10] LABS: Phosphorus, Urine 91.1 mg/dL (Not Estab.); Phosphorus,Urine 24h 1048 mg/24 hr (261-1078)
[2023-07-02 11:09] LABS: PTH, Intact 28 pg/mL (15-65)
[2023-07-02 11:09] LABS: Magnesium, U 5.9 mg/dL (Not Estab.); Magnesium,Urine 24hr 67.9 mg/24 hr (12.0-293.0)
[2023-07-03 16:10] LABS: Citric Acid, U, 24hr 794 mg/24 hr (320-1240); Citric Acid, Urine 690 mg/L (Undefined)
[2023-07-05 17:08] LABS: Oxalates, Urine 18 mg/L (Undefined); Oxalates, Urine 24hr 21 mg/24 hr (4-31)
== END 2023-06-30 12:07 | disposition home or self-care (01) ==
PROVIDERS: PCP Nurse Practitioner; Visit Provider Urology
DX: N20.0 Calculus of kidney (principal)
CPT/HCPCS: 36415; 81050; 82310; 82340; 82374; 82435; 82507; 82565; 82570; 83735; 83945; 83970; 84105; 84132; 84295; 84300; 84520; 84550; 84560

== ENCOUNTER 2023-10-29 15:24 | Outpatient (OUT) | payer OTHER, SELFPAY ==
[2023-10-29 16:22] LABS: Bilirubin Urine NEGATIVE (NEGATIVE); Blood Urine NEGATIVE (NEGATIVE); Clarity Urine CLEAR (CLEAR); Color Urine LT. YELLOW (YELLOW); Glucose Urine UA NEGATIVE (NEGATIVE); Ketones Urine NEGATIVE (NEGATIVE); Leukocyte Esterase Urine NEGATIVE (NEGATIVE); Nitrite Urine NEGATIVE (NEGATIVE); Protein Urine NEGATIVE (NEG/TRACE); Specific Gravity Urine 1.015 (1.005-1.025); pH Urine 6.5 (5.0-9.0)
[2023-10-29 16:25] LABS: Urine Microscopic Indicated NO
[2023-10-29 16:32] LABS: Estimated Average Glucose 128 mg/dL; Glycohemoglobin A1C 6.1 % (4.5-6.2)
[2023-10-29 16:43] LABS: Creatinine Urine Random 108.99 mg/dL (20.00-300.00); Microalbum Creatinine Ratio Ur 11.9 mg/g (0.0-29.9); Microalbumin Urine Random <1.3 mg/dL (<=30.0)
[2023-10-29 17:14] LABS: Alanine Aminotransferase 25 U/L (14-59); Albumin Globulin Ratio 0.9; Albumin Level 3.2 g/dL (3.4-5.0); Alkaline Phosphatase 74 U/L (46-116); Amylase 27 U/L (25-115); Anion Gap 8.8; Aspartate Amino Transferase 19 U/L (15-37); BUN Creatinine Ratio 17.6; Bilirubin Total 0.4 mg/dL (0.2-1.0); Calcium 9.3 mg/dL (8.5-10.1); Carbon Dioxide 31.7 mmol/L (21.0-32.0); Chloride 102 mmol/L (98-107); Estimated GFR (African America >60 (>=60); Estimated GFR (Non-African Ame >60 (>=60); Globulin 3.7 g/dL; Glucose 100 mg/dL (74-106); Magnesium 1.6 mg/dL (1.8-2.4); Potassium 3.5 mmol/L (3.5-5.1); Sodium 139 mmol/L (136-145); Total Protein 6.9 g/dL (6.4-8.2)
== END 2023-10-29 15:25 | disposition home or self-care (01) ==
LOC: LAB 15:25
PROVIDERS: PCP Nurse Practitioner; Visit Provider Nurse Practitioner
DX: M62.838 Other muscle spasm (principal); E11.9 Type 2 diabetes mellitus without complications; R10.13 Epigastric pain
CPT/HCPCS: 36415; 80053; 81003; 82043; 82150; 82570; 83036; 83690; 83735

== ENCOUNTER 2025-04-21 07:21 | Outpatient (OUT) | payer OTHER, SELFPAY ==
--- OUTSIDE RECORDS SUMMARY | 2023-11-13 08:30 | XMS_ITS ---
Author Organization [facility] in [place] Address [address] [place] [address] Care Team Providers Care Qualitative Researcher Name Role Phone Danitza Awad CNP Primary Care Provider Unavail Celestina Kaufman Unavailable [phone] REASON FOR VISIT -3 Month Follow Up- Encounters Encounter Location Date Provider Diagnosis Rheumatology Main [place] [address] [place] [address] 11/13/2023 Celestina Cavanaugh Plan Of Treatment No Information Progress Notes * Lois MENENDEZ MDOB: 6 (60 yo F)Acc No.[id number]:11/13/2023 UNLOCKED PROGRESS NOTE Established Patient: Lois SHAW :?Celestina Cavanaugh CNPDOB:1965???Age:58 Y ???Sex:FemaleDate:4Phone:[phone]:[address] [place] [address], [id number]:Danitza Awad CNP Subjective: * Chief Complaints: * 1 . -3 Month Follow Up-. * Medical History: Objective: * Vitals: Assessment: Plan: * Treatment: * * Electronic signature of BATSHEVA Mathur [id number] on 04/21/2025 at 07:25 AM ESTSign off status: PendingVisit Status:?CANC (Cancelled) * Provider: Jorge Alberto Cavanaugh CNP Date: 0 11/13/2023 Generated for Printing/Faxing/eTransmitting on:?04/21/2025 07:25 AM EST
--- OUTSIDE RECORDS SUMMARY | 2024-05-05 09:25 | XMS_ITS ---
Author Organization [facility] [place] Address [address] [place] [address] Care Team Providers Care Machine Printer Name Role Phone Danitza Awad CNP Primary Care Provider Unavail able Provider, Lab Unavailable [phone] REASON FOR VISIT LBC Encounters Encounter Location Date Provider Diagnosis [facility] [address] [place] [address] 05/05/2024 Lab Provider Plan Of Treatment No Information Progress Notes * Lois MENENDEZ MDOB: 6 (60 yo F)Acc No.[id number]:05/05/2024 UNLOCKED PROGRESS NOTE Progress Note Patient: Lois SHAW :?Lab ProviderDOB:1965???Age:59 Y???Sex: FemaleDate:05/05/2024Phone:[phone]:[address] [place] [address], [place], [id number]:Donya Trujillo In:02:28 PM ESTCheck Out:02:29 PM EST Subjective: * Chief Complaints: * 1 . LBC. * Medical History: Objective: * Vitals: Assessment: Plan: * Treatment: * * Electronic signature of Lab Provider on 04/21/2025 at 07:25 AM ESTSign off status: PendingVisit Status:?CHK (Check Out) * Provider: Malathi nielson Provider Date: 0 05/05/2024 Generated for Printing/Faxing/eTransmitting on:?04/21/2025 07:25 AM EST
--- OUTSIDE RECORDS SUMMARY | 2024-08-05 06:30 | XMS_ITS ---
Author Organization [facility] in [place] Address [address] [place] [address] Care Team Providers Care Doors Prefitter Name Role Phone Danitza Awad CNP Primary Care Provider Unavail Celestina Kaufman Unavailable [phone] REASON FOR VISIT -3 Month Follow Up- Encounters Encounter Location Date Provider Diagnosis [facility] [place] [address] [place] [address] 08/05/2024 Celestina Cavanaugh Plan Of Treatment No Information Progress Notes * Lois MENENDEZ MDOB: [birth year] (60 yo F)Acc No.[id number]:08/05/2024 UNLOCKED PROGRESS NOTE Established Patient: Lois SHAW :?Celestina Cavanaugh CNPDOB:1965???Age:59 Y ???Sex:FemaleDate:08/05/2024Phone:[phone]:[address] [place] [address] ROAD , [place], [id number]:Danitza Awad CNP Subjective: * Chief Complaints: * 1 . -3 Month Follow Up-. * Medical History: Objective: * Vitals: Assessment: Plan: * Treatment: * * Electronic signature of BATSHEVA Mathur [id number] on 04/21/2025 at 07:26 AM ESTSign off status: PendingVisit Status:?CANC (Cancelled) * Provider: Jorge Alberto Cavanaugh CNP Date: 0 08/05/2024 Generated for Printing/Faxing/eTransmitting on:?04/21/2025 07:26 AM EST
--- OUTSIDE RECORDS SUMMARY | 2025-04-21 07:25 | XMS_ITS | CCD ---
Author Organization [facility] Care Team Providers Care Software Architect Name Role Phone Danitza Awad Primary Care Provider [phone] DANITZA AWAD Primary Care Physician Danitza Awad Primary Care Provider SHALINI JO Referring Unavailable ELISEHLAZARO, DANITZA J. Primary Care Unavailable SHALINI JO Referring Unavailable ELISEHLAZARO, DANITZA JPaulo Primary Care Unavailable SHALINI JO Referring Unavailable ELISEHLAZARO, DANITZA JPaulo Primary Care Unavailable SHALINI JO Referring Unavailable DELMI, DANITZA JPaulo Primary Care Unavailable ANNA FITZPATRICK Referring Unavailable ELISEHLAZARO, DANITZA JPaulo Primary Care Unavailable Enedina العلي Unavailable DR LOLI HUBER Consulting Unavailable KHADIJAH, MALENA Attending Unavailable KHADIJAH, MALENA Admitting Unavailable AICHHOLZ, FIELD ARTILLERY RADAR OPERATOR DANITZA Primary Care Unavailable KHADIJAHMALENA FLORES Consulting Unavailable AICHHOLZ, FIELD ARTILLERY RADAR OPERATOR DANITZA Primary Care Unavailable AICHHOLZ, FIELD ARTILLERY RADAR OPERATOR DANITZA Admitting Unavailable AICHHOLZ, FIELD ARTILLERY RADAR OPERATOR DANITZA Attending Unavailable AICHHOLZ, FIELD ARTILLERY RADAR OPERATOR DANITZA Consulting Unavailable AICHHOLZ, FIELD ARTILLERY RADAR OPERATOR DANITZA Primary Care Unavailable AICHHOLZ, FIELD ARTILLERY RADAR OPERATOR DANITZA Admitting Unavailable AICHHOLZ, FIELD ARTILLERY RADAR OPERATOR DANITZA Attending Unavailable AICHHOLZ, FIELD ARTILLERY RADAR OPERATOR DANITZA Consulting Unavailable DR LOLI HUBER Consulting Unavailable PAY ., DR OKEEFE Admitting Unavailable PAY ., DR OKEEFE Attending Unavailable PAY ., DR OKEEFE Consulting Unavailable AICHHOLZ, FIELD ARTILLERY RADAR OPERATOR DANITZA Primary Care Unavailable DELFINA GIBBS Consulting Unavailable BEATRIS CARL Consulting Unavailable IVELISSE JESSICA Consulting Unavailable KULWINDER GARG Admitting Unavailable KULWINDER GARG Consulting Unavailable AICHHOLZ, FIELD ARTILLERY RADAR OPERATOR DANITZA Primary Care Unavailable KULWINDER GARG Attending Unavailable GARGKULWINDER Consulting Unavailable AICHHOLZ, FIELD ARTILLERY RADAR OPERATOR DANITZA Primary Care Unavailable KULWINDER GARG Admitting Unavailable KULWINDER GARG Attending Unavailable JAZMIN, DR CARLTON Menjivar Consulting Unavailable AGUBOSIMDENA Consulting Unavailable DORKONARCISOIECAROLYN Consulting Unavailable MISC, DR JACKSON Admitting Unavailable MISC, DR JACKSON Attending Unavailable AICHHOLZ, FIELD ARTILLERY RADAR OPERATOR DANITZA Primary Care Unavailable AICHHOLZ, FIELD ARTILLERY RADAR OPERATOR DANITZA Primary Care Unavailable AICHHOLZ, FIELD ARTILLERY RADAR OPERATOR DANITZA Admitting Unavailable AICHHOLZ, FIELD ARTILLERY RADAR OPERATOR DANITZA Attending Unavailable JAZMIN, DR CARLTON Menjivar Consulting Unavailable MALENA LUCIO Admitting Unavailable MALENA LUCIO Attending Unavailable AICHHOLZ, FIELD ARTILLERY RADAR OPERATOR DANITZA Primary Care Unavailable AICHHOLZ, FIELD ARTILLERY RADAR OPERATOR DANITZA Consulting Unavailable JERONIMO, MALACHI Referring Unavailable JERONIMO, MALACHI Attending Unavailable Estrellita COLVIN, Elvis Primary Care Provider Juan Carlos Crews Primary Care Provider [phone] Rich Mbary Unavailable [phone] KWAME PERERA Referring Unavailable AICHHOLZ, DANITZA J Primary Care Unavailable AICHHOLZ, DANITZA J Referring Unavailable AICHHOLZ, DANITZA J Primary Care Unavailable KULWINDER GARG Referring Unavailable AICHHOLZ, DANITZA J Primary Care Unavailable Aichholz, Danitza Primary Care Provider Elvis Haro MD Primary Care Provider Aichlazaro AEROSPACE MANAGER, Danitza Unavailable AUGUSTINE HERNANDEZ Attending Unavailabl e AICHHOLZ, DANITZA Attending Unavailable AICHHOLZ, DANITZA Attending Unavailable URBAN SANTIZO Referring Unavailable URBAN SANTIZO Attending Unavailable AICHHOLZ, DANITZA Attending Unavailable AICHHOLZ, DANITZA Attending Unavailable AICHHOLZ, DANITZA Attending Unavailable AICHHOLZ, DANITZA Attending Unavailable Aichholz, Danitza J Primary Care Provider [phone] Malena Hayden DNP Attending Provider PROVIDER, UNKNOWN Admitting Unavailable PROVIDER, UNKNOWN Attending Unavailable AICHHOLZ, DANITZA Primary Care Unavailable SHALINI COLLINS Referring Unavailable GARG, Kulwinder R Attending Unavailable Sebastian De La Cruz Admitting Unavaila Sebastian Rico Attending Timothya Sebastian Rico Referring Unavaila Sebastian Rico Attending UnavailKulwinder Castillo Attending Unavailable Kulwinder GARG Attending Unavailable Monica Chaney Attending Unavailable Danitza Lopez Primary Care Provider [phone] Danitza Lopez Attending Provider [phone] Elvis Haro MD Primary Care Provider Danitza Awad NP Unavailable Elvis Haro MD Primary Care Provider Allergies Allergy ClassificationReported Allergen(s)Allergy TypeDate of OnsetReaction(s) FacilityCorticosteroids (1 source)CortisoneDrug Visvfea90-76-9665IkrrpOur [facility] (20 sources)Contrast media; Translations: [contrast media (iodine-based)]Drug vekkbbfxblg02-59-7355sfhjlx nausea, felt like she was going to pass outExecutive [facility] (20 sources)Cortisone; Translations: [cortisone]Drug Wdfkvqv61-46-3325qckml't feel well, nausea, heart races, Unknown Reaction, Chest PainExecutive [facility]rology of [facility] (1 source)CortisoneDrug AllergyPhelps Health Baitians[facility] Other (2 sources)CortisoneDrug Fejzevj45-33-8945Svt [facility] Repository (1 source)IodineDrug AllergyThe [facility] (1 source)Iodine (And Iodine Containting Drugs)Drug allergy (disorder)The [facility] Repository (2 sources)methylPREDNISolone; Translations: [METHYLPREDNISOLONE]Drug Allergy 03-27-7691VfgkkvzqnoChildren's Hospital for [facility] Repository (20 sources)OTHER; Translations: [OTHER]Propensity to adverse reactions (disorder)84-64-8046BfxijgpjtwhpMfjegycmbc of [facility] Rep[facility] (8 sources)IODINATED CONTRAST MEDIA; Translations: [IODINATED CONTRAST MEDIA] Propensity to adverse reactions to drug (disorder)63-73-1459neiwLvonmsukttMemorial Hospital RepositoryComment on above:Patient unsure of type of dye (1 source)lodinated contrast mediaAllergy to lojlmidyw83-03-0469Njlhzht Reaction [facility] Medications Current Medications MedicationDrug Class(es)DatesSig (Normalized)Sig (Original)0.25 MG, 0.5 MG Dose 3 ML semaglutide 0.68 MG/ML Pen Injector [Ozempic] (5 sources)Start: 92-16-1410ywxvex 0.25 mg by subcutaneous injection every week, then inject 0.5 mg by subcutaneous injection every weekOzempic 2 mg/3 mL (0.25 mg or 0.5 mg dose) subcutaneous solution INJECT 0.25 mg SUBCUTANEOUSLY ONCEA WEEK FOR 28 DAYS, then INJECT 0.5 mg SUBCUTANEOUSLY ONCE A WEEK therafter Start Date: 10/10/23 Status: Orderedacetaminophen 325 mg / HYDROcodone bitartrate 5 mg oral tablet (2 sources)Opioid AgonistStart: 04-29-2024 End: 98-12-5187ilhv 1 tablet by mouth every eight hours for painHYDROcodone- acetaminophen ([place]) 5-325 MG tablet Indications: Acute right-sided thoracic back painTake 1 tablet by mouth every 8 (eight) hours if needed for severe pain or moderate pain for up to 7days 21 tablet 04/29/2024 05/06/2024 ActiveAscorbic Acid (1 source)Vitamin CVitamin C Activeazithromycin 500 mg oral tablet (2 sources)Macrolide AntimicrobialStart: 05-20-2024 End: 49-44-0611lcdf 1 tablet by mouth once dailyazithromycin (Zithromax) 500 MG tablet Indications: Upper respiratory infection with cough and congestion Take 1 tablet (500 mg) by mouth Daily for 3 days 3 tablet 05/20/2024 05/23/2024 Active benzonatate 100 mg oral capsule (4 sources)Non-narcotic AntitussiveStart: 05-20-2024 End: 51-93-2577dcjl 1 capsule by mouth three times daily as needed for cough benzonatate (Tessalon) 100 MG capsule Indications: Upper respiratory infection with cough and congestion Take 1 capsule (100 mg) by mouth 3 (three) times a day as needed for cough for up to 7 days Donot crush or chew. 21 capsule 05/20/2024 05/27/2024 ActiveStart: 27-30-9582ztsx 1 capsule by mouth every eight hours Tessalon Perles 100 MG 1 capsule as needed Orally Three times a day As needed cough Mar, ActiveBlood Glucose Monitoring Suppl (True Metrix Air Glucose Meter) w/Device kit (20 sources)Start: 38-49-1588Blvmz Glucose Monitoring Suppl (True Metrix Air Glucose Meter) w/Device kit USE DIRECTED 09/05/2022 ActiveStart: 09-05-2022 Blood Glucose Monitoring Suppl (True Metrix Air Glucose Meter) w/Device kit USE DIRECTED 0 09/05/2022 Activecelecoxib 200 mg oral capsule (20 sources)Nonsteroidal Anti-inflammatory DrugStart: 09-05-2023 End: 23-24-2186htfh 1 capsule by mouth once daily as neededCelecoxib 200 mg capsule Active 200 MG PO Daily as needed September 05, 2023 12:00am Complies with drugtherapycetirizine hydrochloride 10 mg oral tablet (20 sources)Histamine-1 Receptor AntagonistStart: 09-05-2023 End: 47-48-0928dnbq 1 tablet by mouth once dailyCetirizine 10 mg tablet Active 10 MG PO Daily December 30, 2024 7:23pm Complies with drug therapyStart: 04-04-2023 End: 13-11-5382oqlb 1 tablet by mouth in the morningcetirizine (ZyrTEC) 10 MG tablet Indications: Environmental and seasonal allergies Take 1 tablet (10 mg) by mouth in the morning. 90 tablet 1 04/04/2023 07/03/2023 Activecholecalciferol 0.025 mg oral capsule (20 sources)Vitamin DStart: 69-92-8244fnbxgfnimzojxmb (Vitamin D-3) 25 MCG (1000 UT) capsule Daily 09/05/2023 Activecolestipol hydrochloride 1000 mg oral tablet (1 source)Bile Acid SequestrantStart: 63-54-6002cnro 2 tablets by mouth once dailyColestid 1 g Tab 2 gm = 2 tab(s), Oral, Daily, with a full glass of water, # 120 tab(s), Refills(s)3, Pharmacy: [facility][id number], 153, cm, 06/18/24 14:35:00 EST, Height/Length Dosing, 80.2, kg, 06/18/24 14:35:00 EST, Weight Dosing Start Date: 06/18/24 Status: Orderedcyclobenzaprine (7 sources)Muscle RelaxantStart: 98-24-5015ksfkxrnttscwdba Oral, TID, PRN Spasm Start Date: 01/09/19 Status: OrderedStart: 68-54-5493kvydrmqwenjgvxk Start Date: 01/09/19 Status: Ordereddiclofenac sodium 75 mg delayed release oral tablet (15 sources)Nonsteroidal Anti-inflammatory DrugStart: 60-09-7460onxn 1 tablet by mouth once dailyStart: 02-28-2019 End: 28-67-0894qjar 1 tablet by mouth twice dailyDiclofenac Sodium 75 mg tablet,delayed release (DR/EC) Discontinued 75 MG PO Twice daily February 28, 2019 1:00am February 01, 2025 4:14pmStart: 79-44-4300eestbtjliu Oral, BID, Inflammation Start Date: 01/09/19 Status: OrderedStart: 85-08-7484fsbrfnnfod Start Date: 01/09/19 Status: OrderedDiclofenac Sodium Activefluticasone propionate 0.05 mg/actuat metered dose nasal spray (1 source)CorticosteroidStart: 34-56-1627wauv 2 spray(s) nasal route once daily Fluticasone Propionate 50 MCG/ACT 2 sprays Nasally Once a day for 14 day(s) Mar, Activegabapentin 600 mg oral tablet (20 sources)Anti-epileptic AgentStart: 09-05-2023 End: 60-92-0121ecsb 1 tablet by mouth once daily at bedtimeGabapentin 600 mg tablet Active 600 MG PO Daily at bedtime February 01, 2025 4:12pm Complies with drug therapyStart: 86-67-7193bwdt 1 tablet by mouth at bedtimegabapentin (Neurontin) 600 MG tablet Take 600 mg by mouth at bedtime. 0 01/02/2023 Active Start: 90-75-5803fonrucbpmz Oral, TID, Neuropathy Start Date: 01/09/19 Status: OrderedStart: 88-88-0423mryrjffomc Start Date: 01/09/19 Status: OrderedGabapentin ActivehydroCHLOROthiazide 12.5 mg oral capsule (20 sources)Thiazide DiureticStart: 93-26-7099oypn 1 capsule by mouth once daily Hydrochlorothiazide 12.5 mg capsule Active 12.5 MG PO Daily September 05, 2023 12:00am Complies with drug therapyIbuprofen (1 source)Nonsteroidal Anti-inflammatory DrugIbuprofen Activeisopropyl alcohol 0.7 ml/ml medicated pad (20 sources)Start: 78-13-1896Tdgmawk Swabs 70 % pads USE DIRECTED ONCE DAILY 09/05/2022 Activeloperamide hydrochloride 2 mg oral capsule (20 sources)Opioid AgonistStart: 92-48-7242Qkycbwsbgy 2 mg capsule Active 2 MG PO October 15, 2023 12:00amStart: 92-66-5143Nwdhnwgfuo 2 mg capsule Active 2 MG PO October 15, 2023 12:00am Complies with drug hiohtgw93 hr metFORMIN hydrochloride 500 mg extended release oral tablet (20 sources)BiguanideStart: 05-26-2024 End: 13-31-6469vcno 1 tablet by mouth once dailyMetformin 500 mg tablet extended release 24 hr Active MG PO Daily May 26, 2024 12:15pm Complies with drug therapyStart: 09-05-2023 End: 70-53-6808pjet 1 tablet by mouth every twenty-four hoursMetformin 500 mg tablet extended release 24 hr Discontinued MG PO September 05, 2023 12:00am May 26, 2024 12:17pmStart: 12-66-5880Jievpgstn Active MG PO September 05, 2023 12:00am Start: 99-97-9088ccrr 1 tablet by mouth once dailyMetFORMIN (Eqv-Glucophage XR) 500 mg oral tablet, extended release 500 mg = 1 tab(s), Oral, Daily, Refills(s) 0, Blood glucose Start Date: 07/26/23 Status: OrderedStart: 03-20-2023 End: 78-61-9066bnnd 1 tablet by mouth every twenty-four hours in the morning metFORMIN XR (Glucophage-XR) 500 MG 24 hr tablet Indications: Diabetes mellitus type 2 in obese (CMS/HCC) Take 1 tablet (500 mg) by mouth in the morning. 90 tablet 1 03/20/2023 06/18/2023 Activemetoprolol tartrate 50 mg oral tablet (20 sources)beta-Adrenergic BlockerStart: 09-05-2023 End: 32-82-0709brjx 1 tablet by mouth once dailyMetoprolol Tartrate 50 mg tablet Active 50 MG PO Daily January 12, 2025 2:57pm Complies withdrug therapy Start: 04-04-2023 End: 85-78-6407binw 1 tablet by mouth in the morningmetoprolol tartrate (Lopressor) 50 MG tablet Indications: Heart palpitations , Essential hypertensio n (CMS/HCC) Take 1 tablet (50 mg) by mouth in the morning. 90 tablet 1 04/04/2023 07/03/2023 ActiveStart: 97-03-3279gpwz 1 tablet by mouth once daily metoprolol 50 mg ER Tab 50 mg = 1 tab(s), Oral, Daily, High blood pressure Start Date: 01/09/19 Status: OrderedMetoprolol Tartrate Activemontelukast 10 mg oral tablet (20 sources)Leukotriene Receptor AntagonistStart: 09-05-2023 End: 77-21-9610habv 1 tablet by mouth once daily at bedtimeStart: 03-20-2023 End: 29-46-0578iipj 1 tablet by mouth at bedtimemontelukast (Singulair) 10 MG tablet Indications: Environmental and seasonal allergies Take 1 tablet (10 mg) by mouth at bedtime. 90 tablet 1 03/20/2023 06/18/2023 ActiveMontelukast Sodium ActiveMultivitamin preparation (2 sources)Start: 98-36-9798ltvq 1 tablet by mouth once dailyMultivitamin Active 1 TAB PO Daily September 05, 2023 12:00amMultivitamin tablet (4 sources)Start: 27-68-4936ercb 1 tablet by mouth once dailyMultivitamin tablet Active 1 TAB PO Daily September 05, 2023 12:00am Complies with drug therapyStart: 83-19-1646vufw 1 tablet by mouth once dailyMultivitamin tablet Active 1 TAB PO Daily September 05, 2023 12:00amStart: 70-49-3831nxdi 1 tablet by mouth once daily Multivitamin tablet Active 1 TAB PO Daily September 04, 2023 11:00pmnaproxen 500 mg oral tablet (6 sources)Nonsteroidal Anti-inflammatory DrugStart: 58-88-8189njmm 1 tablet by mouth twice daily as needed for painNaprosyn 500 mg Tab 500 mg = 1 tab(s), Oral, BID, PRN for pain, # 20 tab(s), Refills(s) 0, [facility]acy: [id number], 154.9, cm, 11/07/22 11:55:00 EDT, Height/Length Dosing, 97, kg, 11/07/22 11:55:00EDT, Weight Dosing Start Date: 05/14/23 Status: Orderedomeprazole 20 mg delayed release oral tablet (20 sources)Proton Pump InhibitorStart: 09-30-2024 End: 56-41-7824eyla 1 tablet by mouth once dailyOmeprazole 20 mg tablet,delayed release (DR/EC) Active 20 MG PO daily October 20, 2024 12:00am Complies with drug isxfuob56 hr oxybutynin chloride 10 mg extended release oral tablet (15 sources)Cholinergic Muscarinic AntagonistStart: 03-13-2021 End: 29-13-7274ehss 1 tablet by mouth once dailyoxybutynin 10 mg ER Tab 10 mg = 1 tab(s), Oral, Daily, # 30 tab(s), Refills(s) 6, Pharmacy: [id number], 153, cm, 03/13/21 11:04:00 EST, Height/Length Dosing, 101, kg, 03/13/21 11:04:00 EST, Weight Dosing Start Date: 03/13/21 Status: OrderedOzempic, 2 MG/DOSE, 8 MG/3ML solution pen-injector (20 sources)Start: 45-78-3827Yfzxuds, 2 MG/DOSE, 8 MG/3ML solution pen-injector Inject 2 mg as directed every 7 (seven) days 02/21/2024 Activepantoprazole 40 mg delayed release oral tablet (1 source)Proton Pump InhibitorStart: 93-56-0672mhpb 1 tablet by mouth every twenty-four hoursPantoprazole Sodium 40 MG 1 tablet Orally Once a day for 30 day(s) Apr, Activepsyllium 3400 mg powder for oral suspension (1 source)Start: 41-38-7283Mkuimxduz 3.4 g/5.2 g oral powder 3.4 gram, Oral, TID, PRN for constipation, # 1,042 gram, Refills(s) 0, Pharmacy: [facility] #[id number], 153, cm, 06/18/24 14:35:00 EST, Height/Length Dosing, 80.2, kg, 06/18/24 14:35:00 EST, Weight Dosing Start Date: 06/18/24 Status: Ordered QUEtiapine 50 mg oral tablet (20 sources)Atypical AntipsychoticStart: 69-10-4075faym 2 tablets by mouth once daily at bedtimeQuetiapine 50 mg tablet Active 100 MG PO Daily at bedtime January 29, 2025 9:08am Complies with drug therapyStart: 08-09-2024 End: 20-30-8149lwmj 2 tablets by mouth at bedtime, then take 1-2 tablets by mouth at bedtimeQUEtiapine (SEROquel) 50 MG tablet Indications: Anxiety and depression Take 2 tablets (100 mg) by mouth at bedtime May take 1-2 tablets at bedtime 180 tablet 10/02/2024 12/31/2024 ActiveStart: 10-07-2023 End: 82-81-0990qwij 1 tablet by mouth twice dailyQuetiapine 50 mg tablet Discontinued 50 MG PO Twice daily October 15, 2023 12:00am January 29, 2025 9:09amStart: 04-58-0573ULNfzypcey (SEROquel) 50 MG tablet 1 (one) time each day at the same time. 0 05/30/2022 ActiveStart: 76-62-8985opbumggqhs Start Date: 01/09/19 Status: OrderedQUEtiapine Fumarate ActiveSemaglutide (16 sources)Start: 23-97-4755fzizpa 2 mg by subcutaneous injection every week Semaglutide (Ozempic) 2 mg/dose (8 mg/3 mL) pen injector Active 2 MG SUBCUT every week 9 84 Leyla 1st, 2025 3:31pm Complies with drug therapyStart: 09-10-2024 End: 95-32-6480frbwnz 2 mg by subcutaneous injection every weekSemaglutide (Ozempic) 2 mg/dose (8 mg/3 mL) pen injector Discontinued 2 MG SUBCUT every week 9 September 10, 2024 7:42am October 20, 2024 3:32pmStart: 06-22-2024 End: 01-45-4485yjvvgu 2 mg by subcutaneous injection every weekSemaglutide (Ozempic) 2 mg/dose (8 mg/3 mL) pen injector Discontinued 2 MG SUBCUT every week 9 June 22, 2024 10:25am September 10, 2024 7:42amStart: 04-06-2024 End: 19-04-4411xgzrrg 2 mg by subcutaneous injection every weekSemaglutide (Ozempic) 2 mg/dose (8 mg/3 mL) pen injector Discontinued 2 MG SUBCUT every week 3 April 06, 2024 4:11pm June 22, 2024 10:26amStart: 02-18-2024 End: 37-43-6222ehrmfo 2 mg by subcutaneous injection every weekSemaglutide (Ozempic) 2 mg/dose (8 mg/3 mL) pen injector Discontinued 2 MG SUBCUT every week 3.75 February 18, 2024 3:15pm April 06, 2024 4:17pmStart: 01-29-2024 End: 17-39-4170iguhgw 2 mg by subcutaneous injection every weekSemaglutide (Ozempic) 2 mg/dose (8 mg/3 mL) pen injector Discontinued 2 MG SUBCUT every week January 29, 2024 10:42am February 18, 2024 3:18pmStart: 12-31-2023 End: 96-33-0018hwhsjv 2 mg by subcutaneous injection every weekSemaglutide (Ozempic) 2 mg/dose (8 mg/3 mL) pen injector Discontinued 2 MG SUBCUT every week December 31, 2023 3:23pm January 29, 2024 10:42amStart: 12-05-2023 End: 11-80-4592mvmlox 2 mg by subcutaneous injection every weekSemaglutide (Ozempic) 2 mg/dose (8 mg/3 mL) pen injector Discontinued 2 MG SUBCUT every week 3 December 05, 2023 12:00am December 31, 2023 3:24pmSemaglutide (Ozempic) 2 mg/dose (8 mg/3 mL) pen injector (15 sources)Start: 64-10-6902zkoqoy 2 mg by subcutaneous injection every week Semaglutide (Ozempic) 2 mg/dose (8 mg/3 mL) pen injector Active 2 MG SUBCUT every week 9 June 22, 2024 10:25amStart: 04-06-2024 End: 49-60-1732zdbdmv 2 mg by subcutaneous injection every weekSemaglutide (Ozempic) 2 mg/dose (8 mg/3 mL) pen injector Discontinued 2 MG SUBCUT every week 3 April 06, 2024 4:11pm June 22, 2024 10:26amStart: 16-63-3141ebqkok 2 mg by subcutaneous injection every weekSemaglutide (Ozempic) 2 mg/dose (8 mg/3 mL) pen injector Active 2 MG SUBCUT every week 3 April 06, 2024 3:11pm Start: 02-18-2024 End: 67-67-2792vjauxv 2 mg by subcutaneous injection every weekSemaglutide (Ozempic) 2 mg/dose (8 mg/3 mL) pen injector Discontinued 2 MG SUBCUT every week 3.75 February 18, 2024 3:15pm April 06, 2024 4:17pmStart: 02-18-2024 End: 69-32-3381jdjnve 2 mg by subcutaneous injection every weekSemaglutide (Ozempic) 2 mg/dose (8 mg/3 mL) pen injector Discontinued 2 MG SUBCUT every week 3.75 February 18, 2024 2:15pm April 06, 2024 3:17pmStart: 02-18-2024 inject 2 mg by subcutaneous injection every weekSemaglutide (Ozempic) 2 mg/dose (8 mg/3 mL) pen injector Active 2 MG SUBCUT every week 3.75 February 18, 2024 3:15pmStart: 01-29-2024 End: 55-35-7148xvkvge 2 mg by subcutaneous injection every weekSemaglutide (Ozempic) 2 mg/dose (8 mg/3 mL) pen injector Discontinued 2 MG SUBCUT every week 3 January 29, 2024 9:42am February 18, 2024 2:18pmStart: 01-29-2024 End: 23-67-6395emivbt 2 mg by subcutaneous injection every weekSemaglutide (Ozempic) 2 mg/dose (8 mg/3 mL) pen injector Discontinued 2 MG SUBCUT every week 3 January 29, 2024 10:42am February 18, 2024 3:18pmStart: 12-31-2023 End: 62-62-8523tkdcix 2 mg by subcutaneous injection every weekSemaglutide (Ozempic) 2 mg/dose (8 mg/3 mL) pen injector Discontinued 2 MG SUBCUT every week 3 December 31, 2023 2:23pm January 29, 2024 9:42amStart: 12-31-2023 End: 07-09-9635awzkge 2 mg by subcutaneous injection every weekSemaglutide (Ozempic) 2 mg/dose (8 mg/3 mL) pen injector Discontinued 2 MG SUBCUT every week 3 December 31, 2023 3:23pm January 29, 2024 10:42amStart: 12-05-2023 End: 41-35-9573pofdiu 2 mg by subcutaneous injection every weekSemaglutide (Ozempic) 2 mg/dose (8 mg/3 mL) pen injector Discontinued 2 MG SUBCUT every week 3 December 04, 2023 11:00pm December 31, 2023 2:24pmStart: 12-05-2023 End: 63-96-6350ufciph 2 mg by subcutaneous injection every weekSemaglutide (Ozempic) 2 mg/dose (8 mg/3 mL) pen injector Discontinued 2 MG SUBCUT every week 3 December 05, 2023 12:00am December 31, 2023 3:24pmtamsulosin hydrochloride 0.4 mg oral capsule (7 sources)alpha-Adrenergic BlockerStart: 17-12-1770uplo 1 capsule by mouth once dailyFlomax 0.4 mg Cap 0.4 mg = 1 cap(s), Oral, Daily, # 30 cap(s), Refills(s) 0, [facility]acy: [facility] #[id number], 154.9, cm, 11/07/22 11:55:00 EDT, Height/Length Dosing, 97, kg, 11/07/22 11:55:00 EDT, Weight Dosing Start Date: 05/14/23 Status: OrderedTamsulosin HCl ActivetiZANidine 4 mg oral tablet (20 sources)Central alpha-2 Adrenergic AgonistStart: 36-82-2435qpsm 1 tablet by mouth once daily at bedtime as neededStart: 12-28-2024 End: 41-29-8666umfq 1 tablet by mouth every twelve hours as neededTizanidine 4 mg tablet Discontinued 4 MG PO Every 12 hours as needed for muscle spasticity 180 December 29, 2024 5:16pm February 01, 2025 4:14pmStart: 09-05-2023 End: 32-99-5549ddlg 1 tablet by mouth once daily at bedtime as neededTizanidine 4 mg tablet Discontinued 4 MG PO Daily at bedtime as needed September 05, 2023 12:00am December 28, 2024 3:35pmtiZANidine (Zanaflex) 4 MG tablet every 8 (eight) hours. 0 ActivetiZANidine HCl ActivetraMADol hydrochloride 50 mg oral tablet (20 sources)Opioid AgonistStart: 01-09-2019 End: 39-23-2257sgjCVYuj (Ultram) 50 MG tablet Indications: Fibromyalgia Take 1 tablet (50 mg) by mouth as needed at bedtime for severe pain 30 tablet 2 12/11/2024 01/10/2025 ActiveStart: 14-43-8587qeuurjjp Start Date: 01/09/19 Status: OrderedtraMADol HCl ActiveVitamin B6 (1 source)Vitamin B6 Active Completed/Discontinued Medications MedicationDrug Class(es)DatesSig (Normalized)Sig (Original)[id number] 200 actuat albuterol 0.09 mg/actuat metered dose inhaler (5 sources)beta2-Adrenergic AgonistStart: 04-25-2023 End: 59-41-0671ahah 2 puff(s) by inhalation every four hours for wheezing albuterol HFA 90 mcg/act inhaler Indications: Bronchitis Inhale 2 puffs every 4 (four) hours if needed for wheezing or shortness of breath for up to 21 days 18 g 1 04/25/2023 03/04/2024 Discontinued (Therapy completed)Cholestyramine (With Sugar) 4 gram powder in packet (2 sources)Start: 10-15-2023 End: 84-29-7947Junlemwwdtknnw (With Sugar) 4 gram powder in packet Discontinued EACH PO Daily October 15, 2023 12:00am February 18, 2024 2:39pmStart: 10-15-2023 End: 95-42-6592Dmctdwnqoianoh (With Sugar) 4 gram powder in packet Discontinued EACH PO Daily October 14, 2023 11:00pm February 18, 2024 1:39pmcholestyramine resin 4000 mg powder for oral suspension (12 sources)Bile Acid SequestrantStart: 10-15-2023 End: 75-25-5830Selwqervucgplp (With Sugar) Discontinued EACH PO Daily October 15, 2023 12:00am February 18, 2024 2:39pmStart: 92-75-6971Artiixycsjcssu (With Sugar) Active EACH PO Daily October 15, 2023 12:00amStart: 10-10-2023 cholestyramine 4 g/5 g Oral Pwdr 1 packet(s), Oral, Daily, 30 EA, Refill(s) 4, Ibercheck #72, 153, cm, 10/10/23 14:52:00 EDT, Height/Length Dosing, 94, kg, 10/10/23 14:52:00 EDT, Weight Dosing Start Date: 10/10/23 Status: OrderedStart: 10-10-2023 End: 46-49-9225Encrjsbomhibgf (With Sugar) 4 gram powder in packet Discontinued EACH PO Daily October 15, 2023 12:00am February 18, 2024 2:39pmhyoscyamine sulfate 0.125 mg oral tablet (6 sources)Start: 10-10-2023 End: 61-30-7436hxua 1 tablet by mouth every six hours for diarrheahyoscyamine (Levsin) 0.125 MG tablet Indications: Irritable bowel syndrome with diarrhea Take 1 tablet (0.125 mg) by mouth every 6 (six) hours if needed for cramping or diarrhea 120 tablet Discontinued (Therapy completed)take 125 ug by mouth every four hours as needed for muscle spasmshyoscyamine (Levsin) 0.125 MG/5ML elixir Take 125 mcg by mouth every 4 (four) hours if needed for bl adder spasms. 0 ActiveHyoscyamine Sulfate Activelansoprazole 15 mg delayed release oral capsule (10 sources)Proton Pump InhibitorStart: 09-05-2023 End: 11-09-1714djsw 1 capsule by mouth once dailyLansoprazole (Prevacid 24hr) 15 mg capsule,delayed release(DR/EC) Discontinued 15 MG PO Daily September 05, 2023 12:00am October 20, 2024 3:05pmOzempic, 1 MG/DOSE, 4 MG/3ML solution pen-injector (3 sources)Start: 11-10-2023 End: 23-19-4319uyafvf 1 mg by subcutaneous injection every weekOzempic, 1 MG/DOSE, 4 MG/3ML solution pen-injector Inject 1 mg under the skin 1 (one) time per week11/10/2023 03/04/2024 Discontinued (Therapy completed)Start: 11-10-2023 inject 1 mg by subcutaneous injection every weekOzempic, 1 MG/DOSE, 4 MG/3ML solution pen-injector Inject 1 mg under the skin 1 (one) time per week11/10/2023 ActiveSemaglutide (12 sources)Start: 10-15-2023 End: 49-68-6541Iujkhqqqhsy (Ozempic) 0.25 mg or 0.5 mg (2 mg/3 mL) pen injector Discontinued 0.5 MG SUBCUT every week 3 October 14, 2023 11:00pm November 05, 2023 10:37am for 4 weeksStart: 10-15-2023 End: 37-88-1156Gxkuwhwunlg (Ozempic) 0.25 mg or 0.5 mg (2 mg/3 mL) pen injector Discontinued 0.5 MG SUBCUT every week 3 October 15, 2023 12:00am November 05, 2023 11:37am for 4 weeksStart: 71-48-8655Lmefpwewgmf (Ozempic) 0.25 mg or 0.5 mg (2 mg/3 mL) pen injector Active 0.5 MG SUBCUT every week 3 October 15, 2023 12:00am for 4 weeksStart: 09-09-2023 End: 99-71-2402awhgqq 0.25 mg by subcutaneous injection every week, then inject 0.5 mg by subcutaneous injection every weekSemaglutide (Ozempic) 0.25 mg or 0.5 mg (2 mg/3 mL) pen injector Discontinued 0.25 MG SUBCUT every week 07 17September 08, 2023 11:00pm November 05, 2023 10:37am 0.25 mg once weekly for 4 weeks followed by0.5 mg once weekly for 4 weeksStart: 09-09-2023 End: 49-13-7655xazcmu 0.25 mg by subcutaneous injection every week, then inject 0.5 mg by subcutaneous injection every weekSemaglutide (Ozempic) 0.25 mg or 0.5 mg (2 mg/3 mL) pen injector Discontinued 0.25 MG SUBCUT every week 3 September 09, 2023 12:00am November 05, 2023 11:37am 0.25 mg once weekly for 4 weeks followed by0.5 mg once weekly for 4 weeksStart: 59-48-8468usebyv 0.25 mg by subcutaneous injection every week, then inject 0.5 mg by subcutaneous injection every weekSemaglutide (Ozempic) 0.25 mg or 0.5 mg (2 mg/3 mL) pen injector Active 0.25 MG SUBCUT every week September 09, 2023 12:00am 0.25 mg once weekly for 4 weeks followed by 0.5 mg once weekly for 4 weeksSemaglutide (5 sources)Start: 11-05-2023 End: 34-07-2591fmodim 1 mg by subcutaneous injection every weekSemaglutide (Ozempic) 1 mg/dose (4 mg/3 mL) pen injector Discontinued 1 MG SUBCUT every week 3 2023 11:00pm December 05, 2023 7:27amStart: 11-05-2023 End: 73-38-9526njoxyy 1 mg by subcutaneous injection every weekSemaglutide (Ozempic) 1 mg/dose (4 mg/3 mL) pen injector Discontinued 1 MG SUBCUT every week 3 2023 12:00am December 05, 2023 8:27amTirzepatide (6 sources)Start: 09-05-2023 End: 66-83-9448Mhnxzcxyjxi (Mounjaro) 2.5 mg/0.5 mL pen injector Discontinued 2.5 MG SUBCUT every week 2 September 04, 2023 11:00pm September 09, 2023 7:41amStart: 09-05-2023 End: 60-53-6862Kfgfyrhtdiv (Mounjaro) 2.5 mg/0.5 mL pen injector Discontinued 2.5 MG SUBCUT every week 2 September 05, 2023 12:00am September 09, 2023 8:41am Problems Active Problems Problem ClassificationProblemDateDocumented DateEpisodic/ChronicAdjustment disorders (20 sources)Adjustment disorder; Translations: [Adjustment disorder, unspecified]Onset: 374124-89-0887OzndoasExlprin disorders (20 sources)Mixed anxiety and depressive disorder; Translations: [Anxiety disorder, unspecified]Onset: 096429-95-0075OturuicGbsnxvm dysrhythmias (20 sources)Paroxysmal supraventricular tachycardia; Translations: [Paroxysmal supraventricular tachycardia]Onset: 527670-61-2714CfqzymaTfcuxwtf mellitus with complications (2 sources)Type 2 diabetes mellitus; Translations: [Type 2 diabetes mellitus with other specified complication]39-14-4206PpeqfuoToutkgub mellitus without complication (20 sources)Type 2 diabetes mellitus without complication; Translations: [Type 2 diabetes mellitus without complications]Onset: hronic Diabetes mellitus without complication (1 source)Other abnormal glucose; Translations: [OTHER ABNORMAL GLUCOSE]Onset: 87-74-6833RzzdglnfDckchtxc of white blood cells (5 sources)Elevated white blood cell count, unspecified; Translations: [ELEVATED WHITE BLOOD CELL COUNT UNS]Onset: 10-88-4649VktviiyBfbbxrkugf disorders (20 sources)Gastroesophageal reflux disease; Translations: [Gastro-esophageal reflux disease without esophagitis]Onset: 271125-03-1621OatftgtMwopoqjrc hypertension (20 sources)Essential hypertension; Translations: [Essential (primary) hypertension]Onset: 657084-57-2931ZohexyeJtfmrrphrnxhr symptoms and ill- defined conditions (20 sources)Urge incontinence of urine; Translations: [Urge incontinence]Onset: 319093-35-0632HtyxieuSdzg and other crystal arthropathies (20 sources)Chondrocalcinosis; Translations: [Other chondrocalcinosis, unspecified site]Onset: 362503-55-8381ItoqiynWgsooycr; including migraine (20 sources)Migraine; Translations: [Migraine, unspecified, not intractable, without status migrainosus]Onset: 103739-76-1263ZvgluuvWwhnqanh; including migraine (1 source)Headache; including migraine; Translations: [HEADACHE UNSPECIFIED] Onset: 24-86-2739Wmuoenw and fatigue (1 source)Weakness; Translations: [WEAKNESS]Onset: 15-44-7148FpronabgPolc disorders (20 sources)Moderate depressed bipolar I disorder; Translations: [Bipolar disorder, current episode depressed, moderate]Onset: hronic Noninfectious gastroenteritis (2 sources)Noninfective gastroenteritis and colitis, unspecified; Translations: [Noninfectious enteritis]Onset: 35-31-2542AnpqvpzfAcqrjsbcbpp chest pain (1 source)Chest pain, unspecified; Translations: [CHEST PAIN UNSPECIFIED]Onset: 39-73-9989IkjobkubYwrhrfewnalmag (20 sources)Osteoarthrosis of the carpometacarpal joint of the thumb; Translations: [Unilateral primary osteoarthritis of first carpometacarpal joint, left hand]Onset: 61-98-7458PlptudxXsdea aftercare (2 sources)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; Translations: [OTH LEAD PRESSER CURRENT DRUG THERAPY]Onset: 54-76-5763JasrcudcDgbny connective tissue disease (1 source)Tendonitis of left wrist; Translations: [Other enthesopathies, not elsewhere classified]EpisodicOther connective tissue disease (1 source)Myalgia, unspecified site; Translations: [MYALGIA UNSPECIFIED SITE] Onset: 09-33-6305IwojpmjfDvqtv connective tissue disease (3 sources)Pain in left arm; Translations: [PAIN IN LEFT ARM]Onset: 08-20-2022 EpisodicOther connective tissue disease (4 sources)Fibromyalgia; Translations: [Myalgia and myositis, unspecified] 40-01-2701MottprjdNonqf connective tissue disease (2 sources)Cramp; Translations: [Cramp and spasm]41-57-4434KmervbnwJzsxa diseases of kidney and ureters (1 source)Urinary tract obstruction; Translations: [Hydronephrosis with renal and ureteral calculous obstruction]Onset: 76-09-1943ExthapgaCjruu gastrointestinal disorders (20 sources)Irritable bowel syndrome with diarrhea; Translations: [Irritable bowel syndrome with diarrhea]Onset: 26-03-7851LagzatdSjxln gastrointestinal disorders (1 source)Diarrhea; Translations: [Diarrhea, unspecified]EpisodicOther gastrointestinal disorders (1 source)Diarrhea, unspecified; Translations: [Diarrhea, unspecified]Onset: 25-00-8122LxhhxfycFfjha non-traumatic joint disorders (1 source)Pain in right hip; Translations: [PAIN IN RIGHT HIP]Onset: 08-18-2022 EpisodicOther nutritional; endocrine; and metabolic disorders (1 source)Body mass index (BMI) 40.0-44.9, adult; Translations: [BODY MASS INDEX BMI 40.0-44.9 ADULT]Onset: 75-39-5654GprljroPwaaf nutritional; endocrine; and metabolic disorders (1 source)Obesity, unspecified; Translations: [OBESITY UNSPECIFIED]Onset: 60-55-6936GbavkctDdlxl nutritional; endocrine; and metabolic disorders (20 sources)Morbid obesity; Translations: [Morbid (severe) obesity due to excess calories]Onset: 150409-08-9900InxkgygWznyx nutritional; endocrine; and metabolic disorders (2 sources)Morbid (severe) obesity due to excess calories; Translations: [Morbid obesity]12-78-3005UufddteBhvsu nutritional; endocrine; and metabolic disorders (12 sources)Body mass index 30+ - obesity; Translations: [Body mass index (BMI) 36.0-36.9, adult]24-54-2474ItumnvkXhptd nutritional; endocrine; and metabolic disorders (1 source)Body mass index (BMI) 36.0-36.9, adult; Translations: [Body Mass Index 36.0-36.9, adult]78-90-1796JescegxCvzfw nutritional; endocrine; and metabolic disorders (20 sources)Hypomagnesemia; Translations: [Hypomagnesemia]Onset: 10-29-2023 34-58-0427SaczkjgWqaxd nutritional; endocrine; and metabolic disorders (8 sources)Obese class I; Translations: [Class 1 obesity]17-73-9028AtqihzfBmlna nutritional; endocrine; and metabolic disorders (3 sources)Body mass index (BMI) 34.0-34.9, adult; Translations: [Body Mass Index 34.0-34.9, adult]84-91-1509RfacjauDwsjx nutritional; endocrine; and metabolic disorders (2 sources)Obesity caused by energy imbalance; Translations: [Morbid (severe) obesity due to excess calories]20-67-7387FzyqncrEejnd nutritional; endocrine; and metabolic disorders (4 sources)Abnormal weight gain; Translations: [Abnormal weight gain]02-18-2024 EpisodicOther upper respiratory disease (20 sources)Vocal cord paralysis; Translations: [Paralysis of vocal cords and larynx, unilateral]Onset: 997724-84-5842TljgkwhNkamy upper respiratory disease (20 sources)Allergic disposition; Translations: [Other allergic rhinitis]Onset: 448136-64-6044XcztepcRvnqy upper respiratory infections (2 sources)Sinusitis; Translations: [Chronic sinusitis, unspecified]Chronic Residual codes; unclassified (6 sources)Sleep apnea; Translations: [Sleep apnea, unspecified]09-05-2023 ChronicResidual codes; unclassified (20 sources)Obstructive sleep apnea syndrome; Translations: [Obstructive sleep apnea (adult) (pediatric)]Onset: 094658-20-5824BrirhwrHwgyysdl codes; unclassified (4 sources)Obstructive sleep apnea (adult) (pediatric); Translations: [Obstructive sleep apnea (adult)(pediatric)]58-07-6736HsezzpcIphclfki codes; unclassified (1 source)Chills (without fever); Translations: [CHILLS WITHOUT FEVER]Onset: 37-16-3001FccfjxvbUmozedgt codes; unclassified (4 sources)Other specified health status; Translations: [OTHER SPECIFIED HEALTH STATUS]Onset: 53-17-9318NhazowhoPreuasqr codes; unclassified (4 sources)Acquired absence of other specified parts of digestive tract; Translations: [Other acquired absenceof organ]31-08-7374MynpvjyoWtonsdlikel; intervertebral disc disorders; other back problems (20 sources)Lumbar spondylosis; Translations: [Spondylosis without myelopathy or radiculopathy, lumbar region]Onset: 924112-63-7774NccjxjwXtwnessltdw injury; contusion (6 sources)Contusion of hip; Translations: [Contusion of right hip, initial encounter]72-84-6027EznafwiuEmymdbd on above:Problem List clean-up per request of Phys. EHR CmteUnclassified (7 sources)Finding of sensation of -04-2584Etoccrgenxwe (1 source)CONTACT W/AND (SUSP) EXPOS COVID-19; Translations: [CONTACT W/AND (SUSP) EXPOS COVID-19]Onset: 15-98-3757Uauejffqfbws (6 sources)Obstructive gdyftcombxgoec97-04-5935Wthfzervuniu (5 sources)Patient encounter ajcsdg30-46-3844Txtarmdpojzz (1 source)OUTSIDE MJDDPDITWIYSFB07-16-2040 Past or Other Problems Problem ClassificationProblemDateDocumented DateEpisodic/ChronicAbdominal pain (20 sources)Abdominal pain; Translations: [Unspecified abdominal pain]Onset: 35-27-9238WqtdyafdDwleofiteongzm/social admission (20 sources)Patient encounter status; Translations: [Exercise counseling]Onset: 12-03-2023 Resolved: 628918-02-5413HyidwtiaBbnuizac of urinary tract (20 sources)History of calculus of kidney; Translations: [Kidney stone]Onset: 11-28-2021 Resolved: 971303-44-9942UxsyzhigAthonhc dysrhythmias (20 sources)Palpitations; Translations: [Palpitations]Onset: 02-01-2023 59-40-8531PovjobisQrmumsf obstructive pulmonary disease and bronchiectasis (20 sources)Bronchitis; Translations: [Bronchitis, not specified as acute or chronic]Onset: 04-25-2023 Resolved: 858492-96-6852YlskzssnGfugmamuehmpc symptoms and ill-defined conditions (20 sources)Paul hematuria; Translations: [Increased frequency of urination] Onset: 713272-44-0674QbwutobbLrhbfwbt; including migraine (20 sources)Headache; Translations: [Headache]Onset: EpisodicHeart valve disorders (20 sources)Heart murmur; Translations: [Cardiac murmur, unspecified]Onset: 168609-53-9274TbsnsqhnXxocto and vomiting (20 sources)Nausea; Translations: [Nausea]Onset: 461441-94-2772Kwevhmhe Other and unspecified benign neoplasm (20 sources)Polyp of colon; Translations: [Polyp of colon]Onset: 05-14-2024 44-82-8081HdlxrnqtXczdc bone disease and musculoskeletal deformities (20 sources)Disorder of bone; Translations: [Disorder of bone, unspecified] Onset: 850862-00-0835LydtczhiOibkx connective tissue disease (2 sources)Pain in left hand; Translations: [Pain in left hand]Onset: 08-16-2022 EpisodicOther connective tissue disease (20 sources)Pain in both feet; Translations: [Pain in right foot]Onset: 617319-43-8741QwfojalzCbcyn connective tissue disease (20 sources)Pain in left foot; Translations: [Pain in left foot]Onset: 03-06-2022 Resolved: 410289-86-3198MmwbntzcNepxx connective tissue disease (20 sources)Fibromyositis; Translations: [Fibromyalgia]Onset: 02-01-2023 96-59-3881NdgsafcdDjmnq connective tissue disease (20 sources)Pain of left hand; Translations: [Pain in left hand]Onset: 510858-45-2509BdnzwaokHphek connective tissue disease (20 sources)Fibromyalgia; Translations: [Fibromyalgia]Onset: 06-26-2023 45-46-3201MbidinvyGhrdaxe on above:Problem List clean-up per request of Phys. EHR CmteOther connective tissue disease (20 sources)Spasm; Translations: [Other muscle spasm]Onset: EpisodicOther diseases of kidney and ureters (20 sources)Hydronephrosis with renal and ureteral calculous obstruction; Translations: [Calculus of ureter]Onset: 314122-45-6517JemcduvzArdai gastrointestinal disorders (20 sources)Irritable bowel syndrome; Translations: [Irritable bowel syndrome without diarrhea]Onset: 01-01-2017 Resolved: 538514-59-9525FupsyclCeznj gastrointestinal disorders (20 sources)H/O: gallstones; Translations: [Personal history of other diseases of the digestive system]Onset: 02-01-2023 Resolved: 504593-13-3215CcwgimesZesmb gastrointestinal disorders (20 sources)Dysphagia; Translations: [Dysphagia, unspecified]Onset: 12-04-2016 Resolved: 788123-20-1575MvvmuywlBwmao non-traumatic joint disorders (20 sources)Instability of joint of right ankle; Translations: [Other instability, right ankle]Onset: 09-18-2017 Resolved: 567188-15-9341McryvxhqZbrvm nutritional; endocrine; and metabolic disorders (20 sources)Body mass index 40+ - severely obese; Translations: [Body mass index (BMI) 40.0-44.9, adult]Onset: 05-01-2018 Resolved: 506552-05-0845YigwpqaXdetm nutritional; endocrine; and metabolic disorders (20 sources)Severe obesity; Translations: [Morbid (severe) obesity due to excess calories]Onset: 04-25-2023 Resolved: 697686-40-9454UmkkfmvXsyws nutritional; endocrine; and metabolic disorders (20 sources)Obese class II; Translations: [Class 2 obesity]Onset: 03-04-2024 Resolved: 446119-66-9947FgpqjiuPwkcn nutritional; endocrine; and metabolic disorders (20 sources)Abnormal weight gain; Translations: [Abnormal weight gain]Onset: 03-04-2024 Resolved: 557349-21-0913ZscxxufnCebcs screening for suspected conditions (not mental disorders or infectious disease) (20 sources)Decreased vitamin D; Translations: [Other specified abnormal findings of blood chemistry]Onset: 134747-62-1672GahymsccIpwxi upper respiratory disease (20 sources)Hoarse; Translations: [Dysphonia]Onset: 473443-16-7411Spbwxpcs Other upper respiratory infections (20 sources)Acute laryngitis; Translations: [Acute maxillary sinusitis]Onset: 04-25-2023 Resolved: 91-66-5644SuravderByvwmisx codes; unclassified (1 source)Acquired absence of both cervix and uterus; Translations: [ACQUIRED ABSENCE BOTH CERVIX AND UTERUS]Onset: 39-12-9480FzdlprtxNhixkmkq codes; unclassified (20 sources)Menopause present; Translations: [Asymptomatic menopausal state] Onset: 860768-18-4500OyzokxesPjpainag codes; unclassified (20 sources)Flushing; Translations: [Flushing]Onset: EpisodicSpondylosis; intervertebral disc disorders; other back problems (20 sources)Cervicalgia; Translations: [Spinal stenosis in cervical region] Onset: 071921-43-6146XuvpavsaAkhuqax and strains (20 sources)Sprain of ankle; Translations: [Sprain of unspecified ligament of right ankle, initial encounter]Onset: 09-18-2017 Resolved: 760561-51-7640LjqfxvcqGpbeipq on above:Problem List clean-up per request of Phys. EHR CmteSyncope (20 sources)Syncope; Translations: [Syncope and collapse]Onset: 02-23-2016 71-54-0095TsncixjiYwnibnvgklex (1 source)Acute cough R05.1 Results Test NameValueInterpretationReference RangeFacilityProvider Letteron 01-27-2025 Provider LetterProvider Letter January 27, 2025 LOIS JACQUES [address] [place] [id number] : 1965 Dear Lois, We have been trying to reach you with no success. It is important that you return our call upon receiving this letter. Also, at the time of your call, please provide us with your current information. Thank you for your prompt attention to this matter. Sincerely, [facility] [address] [place] [address] [place] [address] PgkdmsHwsulkOhio State Harding HospitalMG MAMMO SCREEN BILAT TAHMINA W/CADon 26-54-4404UJ MAMMO SCREEN BILAT TAHMINA W/CADEXAM: BILATERAL SCREENING MAMMOGRAM W/TOMOSYNTHESIS AND CAD CLINICAL HISTORY: Patient is 59 years old and is seen for screening. The patient has no personal history of cancer. The patient has no family history of breast cancer. COMPARISON: The present examination has been compared to prior imaging studies performed at [facility] on 01/08/2024, and at [facility] on 06/13/2017 and 06/28/2018. TECHNIQUE: The following mammographic views were obtained: bilateral CC with tomosynthesis, MLO with tomosynthesis and nipple profile. Computer-aided detection was utilized by the radiologist in the interpretation of this examination. MAMMOGRAM FINDINGS: The breasts are almost entirely fatty. No suspicious masses, calcifications, architectural distortion or other abnormalities are seen in either breast. IMPRESSION: There is no mammographic evidence of malignancy in either breast. Routine screening mammogram in 1 year is recommended. BI-RADS Category 1: Negative RISK ASSESSMENT: Estimated lifetime breast cancer risk: Average (less than 15%, as per the Tyrer-Cuzick/JERI model) NCI Lifetime Risk Score: 5.6%NormalThe Aultman HospitalHbA1c (Bld) [Mass fraction]on 43-68-2508Noysfzatmqvmcl and review of laboratory resultsAbnormal [facility] HealthcareLabor[facility] - Hematology and Cell countson 92-41-1864PoA9g (Bld) [Mass fraction]5.8 %[facility] CampusReminderparkland health center 06-24-2024 RemindersReminders From: Annita Whitley To: [facility] - Reminders/Recalls; Sent: 06/24/2024 14:56:00 EST Show up: 03/22/2029 14:55:00 EST Subject: Ambulatory Reminder Due Date/Time: 04/22/2029 14:55:00 EST Reminder/Recall 5 year colon recall 05/08/2029 [facility]24 Ambulatory Visit SummaryAmbulatory Visit Summary LOIS JACQUES :1965 Visit Date:06/18/2024 Ambulatory Visit Instructions Your Diagnosis Irritable bowel syndrome with diarrhea Colon polyps Your Care Team Attending Physician - Dorothy COLVIN, Sebastian Ortega Primary Care Physician - DANITZA AWAD CNP This Is Your Medications List colestipol (Colestid 1 g Tab) psyllium (Metamucil 3.4 g/5.2 g oral powder) Contact prescribing physician if questions or concerns cyclobenzaprine diclofenac gabapentin hydrochlorothiazide (hydrochlorothiazide 12.5 mg Cap) loperamide (Imodium 2 mg oral capsule) metformin (MetFORMIN (Eqv-Glucophage XR) 500 mg oral tablet, extended release) metoprolol (metoprolol 50 mg ER Tab) naproxen (Naprosyn 500 mg Tab) semaglutide (Ozempic 2 mg/3 mL (0.25 mg or 0.5 mg dose) subcutaneous solution) tamsulosin (Flomax 0.4 mg Cap) tramadol [Image Removed: STOP]Stop taking these medications cholestyramine (cholestyramine 4 g/5 g Oral Pwdr) Procedures Performed Colonoscopy (05/08/2024), Esophagogastroduodenoscopy (05/08/2024), ESWL of kidney (11/30/2021), ESWL of kidney (06/15/2021), Procedure on foot (2020), Cystoscopic removal of ureteric stent (07/03/2017), Cystoscopic anastomosis of ureter to bladder with insertion of stent into ureter (06/21/2017), Ap pendectomy, Hysterectomy, neck surgery. Discharge Vitals Heart Rate (Peripheral) 87 Blood Pressure 106/71 Height 153 cm Height 60 in Weight 80.2 kg Weight 176.811 lb BMI 34.26 What to do next Scheduled Follow-Up Appointments Saturday 2:15 PM EDT With: FOREST COLVIN, Kulwinder Soria Where: [facility] of [address] [place] [address]- Medications What How Much When Instructions New colestipol (Colestid 1 g Tab) 2 Tablets By Mouth Every day Refills: 3 with a full glass of water [id number] New psyllium (Metamucil 3.4 g/ 5.2 g oral powder) 3.4 Gram By Mouth 3 times a day as needed for forconstipation Pickup at [id number] Unchanged cyclobenzaprine By Mouth 3 times a day as needed for Spasm Contact prescribing physician if questions or concerns Unchanged diclofenac By Mouth 2 times a day Contact prescribing physician if questions or concerns Unchanged gabapentin By Mouth 3 times a day Contact prescribing physician if questions or concerns Unchanged hydrochlorothiazide (hydrochlorothiazide 12.5 mg Cap) 1 Capsules By Mouth Every day Contact prescribing physician if questions or concerns Unchanged loperamide (Imodium 2 mg oral capsule) 2 Capsules By Mouth 3 times a day as needed for Diarrhea Contact prescribing physician if questions or concerns Unchanged metformin (MetFORMIN (Eqv-Glucophage XR) 500 mg oral tablet, extended release) 1 Tablets By Mouth Every day Contact prescribing physician if questions or concerns Unchanged metoprolol (metoprolol 50 mg ER Tab) 1 Tablets By Mouth Every day Contact prescribing physician if questions or concerns Unchanged naproxen (Naprosyn 500 mg Tab) 1 Tablets By Mouth 2 times a day as needed for for pain Contact prescribing physician if questions or concerns Unchanged semaglutide (Ozempic 2 mg/ 3 mL (0.25 mg or 0.5 mg dose) subcutaneous solution) INJECT 0.25 mg SUBCUTANEOUSLY ONCE A WEEK FOR 28 DAYS, then INJECT 0.5 mg SUBCUTANEOUSLY ONCE A WEEK therafter Contact prescribing physician if questions or concerns Unchanged tamsulosin (Flomax 0.4 mg Cap) 1 Capsules By Mouth Every day Contact prescribing physician if questions or concerns Unchanged tramadol 50 Milligram By Mouth Every day Contact prescribing physician if questions or concerns Pharmacy Information [id number]: [address] [place], [place] [phone] What How Much When Comments Stop Taking cholestyramine (cholestyramine 4 g/ 5 g Oral Pwdr) 1 Packets By Mouth Every day Allergies contrast media (iodine-based) (severe nausea, felt like she was going to pass out) cortisone (doesn't feel well, nausea, heart races, Unknown Reaction) Problems Ongoing - Any problem that you are currently receiving treatment for. Arthritis Colon polyps Feeling of incomplete bladder emptying Fibromyalgia Gross hematuria Heart murmur History of kidney stones Hx of gallstones Irritable bowel syndrome with diarrhea Kidney stones Nocturia Screen for colon cancer Ureteral stone with hydronephrosis Urge incontinence Urinary urgency Urine frequency Patient Survey You may receive a survey via text or e-mail asking about your office visit. Please share your experience with us by completing your survey. We appreciate your feedback and thank you for choosing us for your care. [facility] Noteon [id number] Office/Clinic NoteGastroenterology Office/Clinic Note Chief Complaint EGD and colonoscopy results HPI Staff Established patient is a(n) 59 year old female who presents today for a follow up to EGD & Colonoscopy on 05/08/23. 1 year colon recall placed. Any GI complaints? Yes same issues that she has had. Any blood thinners? no Any GLP-1 agonists? Ozempic History of Present Illness Reviewed HPI collected by staff Review of Systems PHQ Score Initial Depression Screen Score: 0 SCORE All systems reviewed, negative; Except for above Physical Exam Vitals & Measurements HR: 87(Peripheral) BP: 106/71 HT: 60 in HT: 153 cm WT: 80.2 kg WT: 176.811 lb BMI: 34.26 General: in Nad Abdomen: Soft, NTND Procedure EGD: Schatzki ring, not dilated d/t no dysphagia Type II HH Random bx for h pylori and celiac disease - negative Colonoscopy: Sigmoid diverticulosis 2 polyps removed - bx - TA (cecum) and serrated polyp (rectum) Fair prep in right and transverse colon - repeat colon in 1 year. Assessment/Plan 1. Irritable bowel syndrome with diarrhea (K58.0: Irritable bowel syndrome with diarrhea) Diagnosed about 30 years ago Mostly postprandial Hx of cholecystectomy Can have up to 15 BMs daily Tried Imodium which caused constipation Colonoscopy 04/2023 showed TA and serrated polyp EGD 04/2023: Negative biopsies and celiac Colestipol and water-soluble fibers prescribed If no improvement, will consider Rifixamin or Alosetron 2. Colon polyps (K63.5: Polyp of colon) Repeat in 1 year I, Edilia Wong, personally scribed for Sebastian De La Cruz on 06/18/2024 14:47:48. . Documentation recorded by Ashley Wong, accurately reflects the services I performed and decisions made by me. Sebastian De La Cruz MD Follow-up No qualifying data available Problem List/Past Medical History Ongoing Arthritis Colon polyps Feeling of incomplete bladder emptying Fibromyalgia Gross hematuria Heart murmur History of kidney stones Hx of gallstones Irritable bowel syndrome with diarrhea Kidney stones Nocturia Screen for colon cancer Ureteral stone with hydronephrosis Urge incontinence Urinary urgency Urine frequency Historical No qualifying data Procedure/Surgical History Colonoscopy (05/08/2024), Esophagogastroduodenoscopy (05/08/2024), ESWL of kidney (11/30/2021), ESWL of kidney (06/15/2021), Procedure on foot (2020), Cystoscopic removal of ureteric stent (07/03/2017), Cystoscopic anastomosis of ureter to bladder with insertion of stent into ureter (06/21/2017), Ap pendectomy, Hysterectomy, neck surgery. Medications Colestid 1 g Tab, 2 gm= 2 tab(s), Oral, Daily, 3 refills cyclobenzaprine, Oral, TID, PRN diclofenac, Oral, BID Flomax 0.4 mg Cap, 0.4 mg= 1 cap(s), Oral, Daily, Not taking gabapentin, Oral, TID hydrochlorothiazide 12.5 mg Cap, 12.5 mg= 1 cap(s), Oral, Daily, 11 refills Imodium 2 mg oral capsule, 4 mg= 2 cap(s), Oral, TID, PRN, 4 refills Metamucil 3.4 g/5.2 g oral powder, 3.4 gm, Oral, TID, PRN MetFORMIN (Eqv-Glucophage XR) 500 mg oral tablet, extended release, 500 mg= 1 tab(s), Oral, Daily metoprolol 50 mg ER Tab, 50 mg= 1 tab(s), Oral, Daily Naprosyn 500 mg Tab, 500 mg= 1 tab(s), Oral, BID, PRN Ozempic 2 mg/3 mL (0.25 mg or 0.5 mg dose) subcutaneous solution tramadol, 50 mg, Oral, Daily Allergies contrast media (iodine-based) (severe nausea, felt like she was going to pass out) cortisone (doesn't feel well, nausea, heart races, Unknown Reaction) Social History Alcohol - Denies Alcohol Use, 11/07/2022 Never., 06/17/2024 Substance Abuse - Denies Substance Abuse, 11/07/2022 Never., 06/17/2024 Tobacco - Denies Tobacco Use, 11/07/2022 Never (less than 100 in lifetime) Tobacco Use:. Never Smokeless Tobacco Use:., 06/18/2024 Family History Cancer: Father. Heart disease: Mother. Hypertension: Mother. Immunizations Vaccine Date Status SARS-CoV-2 (COVID-19) Ad26 vaccine 10/19/2020 Recorded SARS-CoV-2 (COVID-19) Ad26 vaccine 2020 RecordedNoBerger HospitalComment on above:Result Comment: Electronically Signed By: Sebastian De La Cruz MD\.br\Date and Time Signed: 06/18/24 14:57 EST\.br\Electronically Co-Signed By: Edilia Wong MA\.br\Date and Time Co-Signed: 06/18/24 14:52 ESTReminderson [id number] From: Sally Corral To: [facility] - Reminders/Recalls; Sent: 06/02/2024 09:58:57 EST Show up: 04/07/2025 09:58:00 EST Subject: Ambulatory Reminder - 1 year colonoscopy Due Date/Time: 05/08/2025 09:58:00 EST Reminder/Recall Colonoscopy - 05/08/2024 Dr De La Cruz 1 [facility]No[facility] Systemurgical Pathology Reporton [id number] Pathology ReportFish - [address] [address]- Surgical Pathology Report Collected Date/Time: 05/08/2024 08:40 EST Pathologist: Lyndon COLVIN PhD, Donny Servin Received Date/Time: 05/08/2024 10:29 RON De La Cruz MD, Sebastian De La Cruz MD, Sebastian Ortega 07 Surgical Pathology Report - 05/14/2024 10:51 EST - Auth (Verified) Final Diagnosis A: COLON, RANDOM BIOPSY: - COLONIC MUCOSA WITHIN NORMAL LIMITS. B: DUODENUM, BIOPSY: - DUODENAL MUCOSA WITHIN NORMAL LIMITS. C: STOMACH, BIOPSY: - MILD CHRONIC INACTIVE GASTRITIS. - NO INTESTINAL METAPLASIA. - NO H. PYLORI MICROORGANISMS IDENTIFIED WITH IMMUNOSTAIN. D: POLYP, CECUM, POLYPECTOMY: - TUBULAR ADENOMA. E: POLYP, RECTUM, POLYPECTOMY: - CONSISTENT WITH SERRATED POLYP. (Electronic Signature) Donny Haney MD PhD 05/14/2024 10:51 Clinical Information Chronic diarrhea, screening Pre-Op Diagnosis: Chronic diarrhea, screening Procedure: Colonoscopy, EGD Post-Op Diagnosis: 1. Small internal hemorrhoids 2. Mild sigmoid diverticulosis 3. 7 mm semipedunculated polyp in the rectum, resected with hot snare completely and retrieved 4. 5 mm sessile polyp in the cecum, resected with cold snare completely and retrieved. Otherwise normal colonic mucosa, but the prep was fair in the right colon and transverse colon therefore smaller polyps could have been missed. Random biopsies were also taken to rule out microscopic colitis 5. Esophageal landmarks identified, slightly torturous esophagus tortuous esophagus noted. Mild nonobstructive Schatzki ring in the distal esophagus noted, no dilation done given no dysphagia reported 6. Moderate type II hiatal hernia (rolling type) noted 7. Minimal nonspecific patchy erythema in the antrum of the stomach, the biopsies were taken to rule H. pylori 8. Normal examined duodenum, random biopsies were taken to rule out celiac disease Specimen(s) Received A.Random colon biopsy B.Duodenal biopsy C.Gastric biopsy D.Cecal polyp E.Rectal polyp Surgical Pathology Report Collected Date/Time: 05/08/2024 08:40 EST Pathologist: Lyndon COLVIN PhD, Donny Servin Received Date/Time: 05/08/2024 10:29 RON De La Cruz MD, Sebastian De La Cruz MD, Sebastian Ortega Gross Description A: Received in formalin labeled with patient name, number, and random colon biopsy are multiple fragments of lucas/pink tissue ranging from less than 0.1 cm up to 0.5 cm in greatest dimension. Specimen is entirely submitted in one cassette. B: Received in formalin labeled with patient name, number, and duodenal biopsy are three fragments of lucas/pink tissue each measuring 0.1 cm. Specimen is entirely submitted in one cassette. C: Received in formalin labeled with patient name, number, and gastric biopsy are four fragments of lucas/pink tissue each measuring 0.1 cm. The specimen is entirely submitted in one cassette. D: Received in formalin labeled with patient name, number, and cecal polyp is a single fragment of lucas/pink tissue measuring 0.1 x 0.1 x 0.1 cm. The specimen is entirely submitted in one cassette. E: Received in formalin labeled with patient name, number, and rectal polyp is a single fragment of lucas/pink tissue measuring 0.5 x 0.4 x 0.2 cm. Specimen is entirely submitted in one cassette. (DC) DC:MCA Microscopic Description Microscopic examination performed unless gross only specified. The use of one or more reagents in the above tests is regulated as an analyte specific reagent (ASR). The test or tests are ordered following initial H&E microscopic examination. The performance characteristics were determined by the [facility]. They have not been cleared or approved by the US Food and Drug Administration. The FDA has determined that such clearance or approval is not necessary. These tests are used for clinical purposes. They should not be regarded as investigational or for research. Appropriate positive and negative controls are performed and are acceptable. [facility] HospitalComment on above:Performed By: #### [id number] #### [facility] [address] [place] [id number] OR Intraoperative Recordon [id number] OR Intraoperative RecordMain OR Intraoperative Record IntraOp Document Type FT Summary Primary Physician: Sebastian De La Cruz MD Finalized Date/Time: 05/11/24 13:07:41 Pt. Name: LOIS JACQUES/Sex: 1965 Female Med Rec #: [id number] Physician: Sebastian De La Cruz MD Financial #: [id number] Pt. Type: O Room/Bed: / Admit/Disch: 05/08/24 07:01:25 - 05/08/24 23:59:59 Institution: Case Times FT Entry 1 Patient Times In Room 05/08/24 08:32:00 Out Room 05/08/24 09:14:00 Procedure Times Start 05/08/24 08:38:00 Stop 05/08/24 09:11:00 Anesthesia Times Start 05/08/24 08:32:00 Stop 05/08/24 09:14:00 Time at [facility] 05/08/24 08:48:00 Last Modified By: Roger JEFFERS, Jazmin 05/08/24 09:14:56 General Comments: 0843-EGD completed/AW RN 0846-Colonoscopy started/AW RN 05/11/24 Chart opened for charge review perM. Annamarie JEFFERS. [place] Case Attendance FT Entry 1 Entry 2 Entry 3 Case Attendee Roger JEFFERS, Jazmin Oconnell, Jeannine Delcid CORPORATE PHYSICAL SECURITY SUPERVISOR, Verónica Reveles Role Performed Nanoelectronics Engineer - Primary Scrub - Primary Staff - Other Time In 05/08/24 08:32:00 05/08/24 08:32:00 05/08/24 08:32:00 Time Out 05/08/24 09:14:00 05/08/24 09:14:00 05/08/24 09:14:00 Procedure EGD AND COLONOSCOPY(.) EGD AND COLONOSCOPY(.) EGD AND COLONOSCOPY(.) Comments help in room Last Modified By: Roger RN, Jazmin Duran RN, Jazmin Duran RN, Jazmin 05/08/24 09:14:57 05/08/24 09:14:57 05/08/24 09:14:57 Entry 4 Entry 5 Case Attendee Dorothy COLVIN, Sebastian Brock DNP, CUSTODY ASSISTANT, [facility] Jamar Role Performed Surgeon - Primary CUSTODY ASSISTANT Time In 05/08/24 08:32:00 05/08/24 08:32:00 Time Out 05/08/24 09:14:00 05/08/24 09:14:00 Procedure EGD AND COLONOSCOPY(.) EGD AND COLONOSCOPY(.) Comments Dr. Coyle supervising Last Modified By: Roger JEFFERS, Jazmin Duran RN, Jazmin 05/08/24 09:14:57 05/08/24 09:14:57 Perioperative Protocols FT Pre-Care Text: Implements protective measures prior to operative or invasive procedure, confirms identity before the operative or invasive procedure, verifies operative procedure, surgical site, and laterality Entry 1 Procedure(s) EGD AND COLONOSCOPY(.) Patient Identity Birthday, ID Band Verified (select at Check, Patient least 2): Participation Consents / H and P Anesthesia Consent, Operative Site N/A Verified H&P, Surgery/Procedure Marking Verified Consent Surgical Site No Laterality Verified n/a Verified Procedure Verified Yes Correct Patient Yes Position Verified Availability Equipment, Medication Prep Dry n/a Verified (If Applicable) PreOp Antibiotic No Time Out Jazmin Duran RN, Given Participants Jeannine Oconnell, Dorothy COLVIN, Vinod Garcia DNP, CUSTODY ASSISTANT, [place] Farhana Roldan CORPORATE PHYSICAL SECURITY SUPERVISOR, Verónica Reveles Time Out Complete 05/08/24 08:37:00 Outcomes Met? Yes Last Modified By: Jazmin Duran RN 05/08/24 08:38:49 Post-Care Text: The patient is free from signs and symptoms of injury caused by extraneous objects Allergy Information FT Pre-Care Text: Verifies allergies Entry 1 Allergies Reviewed? Yes Allergies Reviewed Self/Patient With Outcomes Met? Yes Last Modified By: Jazmin Duran RN 05/08/24 08:38:59 Post-Care Text: The patient received appropriate medication(s) safely administered during the perioperative period Surgical Procedures FT Entry 1 Procedure Description Procedure EGD AND COLONOSCOPY Modifiers . Surgeon Description EGD with duodenal and gastric biopsies. COLONOSCOPY with random colon biopsy, cecal polypectomy, rectal polypectomy using hot snare Primary Procedure Yes Primary Surgeon Dorothy COLVIN, Sebastian Ortega Start 05/08/24 08:38:00 Stop 05/08/24 09:11:00 Anesthesia Type General Surgical Service Gastroenterology Wound Class 2 - Clean-Contaminated Last Modified By: Jazmin Duran RN 05/08/24 09:12:35 General Case Data FT Pre-Care Text: Classifies surgical wound, implements aseptic technique, initiates traffic control Entry 1 Case Information OR ENDO 1 FT Case Level Level 2 Wound Class 2 - Clean-Contaminated Specialty Gastroenterology ASA Class 2 Preop Diagnosis CHRONIC DIARRHEA, Postop Same As Preop No SCREENING FOR COLON CANCER Postop Diagnosis EGD- tortuous Outcomes Met? Yes esophagus, sliding hiatal hernia, Schatzki ring, minimal gastritis in antrum. Colonoscopy -cecal polyp, rectal polyp, internal hemorrhoids, diverticulosis Last Modified By: Jazmin Duran RN 05/08/24 09:12:59 Post-Care Text: The patient is free from signs and symptoms of infection Skin Assessment (Pre Procedure) FT Pre-Care Text: Implements protective measures to prevent skin/ tissue injury due to thermal or mechanical sources Evaluates for signs and symptoms of physical injury to skin and tissue Entry 1 Skin Integrity Intact, [place], Warm, & Skin Abnormality No Dry Outcomes Met? Yes Last Modified By: Jazmin Duran RN 05/08/24 08:40:20 Post-Care Text: The patient is free from sign (more content not included)...[facility] HospitalDischarge Instructionson [id number] InstructionsDischarge Instructions LOIS JACQUES Anushka :1965 Visit Date:05/08/2024 Inpatient Discharge Instructions Your Care Team Admitting Physician - Sebastian De La Cruz MD Referring Physician - Sebastian De La Cruz MD Reason for Your Visit IBS WITH DIARRHEA, SCREENING FOR COLON CANCER Your Diagnosis Chronic diarrhea Colon cancer screening Tests Performed Pathology Tissue Exam -- Results Pending -- Please visit your patient portal for your results or contact your primary care physician. This Is Your Medications List cholestyramine (cholestyramine 4 g/5 g Oral Pwdr) cyclobenzaprine diclofenac gabapentin hydrochlorothiazide (hydrochlorothiazide 12.5 mg Cap) loperamide (Imodium 2 mg oral capsule) metformin (MetFORMIN (Eqv-Glucophage XR) 500 mg oral tablet, extended release) metoprolol (metoprolol 50 mg ER Tab) naproxen (Naprosyn 500 mg Tab) semaglutide (Ozempic 2 mg/3 mL (0.25 mg or 0.5 mg dose) subcutaneous solution) tamsulosin (Flomax 0.4 mg Cap) tramadol Procedure History Colonoscopy (05/08/2024), Esophagogastroduodenoscopy (05/08/2024), ESWL of kidney (11/30/2021), ESWL of kidney (06/15/2021), Procedure on foot (2020), Cystoscopic removal of ureteric stent (07/03/2017), Cystoscopic anastomosis of ureter to bladder with insertion of stent into ureter (06/21/2017), Ap pendectomy, Hysterectomy, neck surgery. What to do next Instructions From Your Doctor Event Name Event Result Discharge Activity Resume normal activities in 24 hours Discharge Restrictions No driving for 24 hrs Discharge Diet(s) Regular Call Your Doctor For Persistent or heavy bleeding Discharge Instructions Discharge Instructions Previously Scheduled Follow-Up Appointments Saturday 2:30 PM EST With: FOREST COLVIN, Kulwinder Soria Where: [facility] [address] [place] [address] [place] [address]- New Follow Up Appointments after Discharge Follow Up with Dorothy COLVIN, Sebastian Ortega, [facility], [facility] When: Comments: Call the office for any problems. Also, call office within a few days to schedule your follow up Where: [address] [place] [address], [address] [phone] Medications What How Much When Instructions Next Dose Unchanged cholestyramine (cholestyramine 4 g/ 5 g Oral Pwdr) 1 Packets By Mouth Every day Unchanged cyclobenzaprine By Mouth 3 times a day as needed for Spasm Unchanged diclofenac By Mouth 2 times a day Unchanged gabapentin By Mouth 3 times a day Unchanged hydrochlorothiazide (hydrochlorothiazide 12.5 mg Cap) 1 Capsules By Mouth Every day Unchanged loperamide (Imodium 2 mg oral capsule) 2 Capsules By Mouth 3 times a day as needed for Diarrhea Unchanged metformin (MetFORMIN (Eqv-Glucophage XR) 500 mg oral tablet, extended release) 1 Tablets By Mouth Every day Unchanged metoprolol (metoprolol 50 mg ER Tab) 1 Tablets By Mouth Every day Unchanged naproxen (Naprosyn 500 mg Tab) 1 Tablets By Mouth 2 times a day as needed for for pain Unchanged semaglutide (Ozempic 2 mg/ 3 mL (0.25 mg or 0.5 mg dose) subcutaneous solution) INJECT 0.25 mg SUBCUTANEOUSLY ONCE A WEEK FOR 28 DAYS, then INJECT 0.5 mg SUBCUTANEOUSLY ONCE A WEEK therafter Unchanged tamsulosin (Flomax 0.4 mg Cap) 1 Capsules By Mouth Every day Unchanged tramadol 50 Milligram By Mouth Every day Test Results No qualifying data available. Allergies contrast media (iodine-based) (severe nausea, felt like she was going to pass out) cortisone (doesn't feel well, nausea, heart races, Unknown Reaction) Problems Ongoing - Any problem that you are currently receiving treatment for. Arthritis Feeling of incomplete bladder emptying Fibromyalgia Gross hematuria Heart murmur History of kidney stones Hx of gallstones Irritable bowel syndrome with diarrhea Kidney stones Nocturia Screen for colon cancer Ureteral stone with hydronephrosis Urge incontinence Urinary urgency Urine frequency Devices Implanted/Removed This Visit Notice: You have devices implanted this visit that may not be MRI compatible. Implanted Undefined Procedure Body Site Undefined CAUTERY ERBE UNIT 05/08/2024 CAUTERY ERBE UNIT 05/08/2024 Education Materials Gastritis, Adult Gastritis is irritation and swelling (inflammation) of the stomach. There are two kinds of gastritis: ??? Acute gastritis. This kind develops quickly. ??? Chronic gastritis. This kind is much more common. It develops slowly and lasts for a long time. It is important to get help for this condition. If you do not get help, your stomach can bleed, andyou can get sores (ulcers) in your stomach. What are the causes? This condition may be caused by: ??? Germs that get to your stomach and cause an infection. ??? Drinking too much alcohol. ??? Medicines you are taking. ??? Having too much acid in the sto (more content not included)...[facility] HospitalComment on above:Result Comment: Electronically Signed By: Nayely Epperson I\.br\Date and Time Signed: 05/08/24 09:24 ESTInpatient Patient Summaryon [id number] Patient SummaryInpatient Patient Summary [address] [address] [facility] Clinical Discharge Instructions PERSON INFORMATION Name: LOIS JACQUES PHYSICIANS Admitting Physician: Sebastian De La Cruz MD Attending Physician: Sebastian De La Cruz MD PCP: DANITZA AWAD CNP Discharge Diagnosis: Chronic diarrhea; Colon cancer screening Comment: PATIENT EDUCATION INFORMATION Instructions: Medication Leaflets: Follow up: Type Location Start Finish State [facility] Office Visit [facility] OVIDIO Elizaldeue 05/18/2024 2:30 PM 05/18/2024 2:45 PM Confirmed MEDICATION LIST Medications to Continue with No Changes Other Medications cholestyramine (cholestyramine 4 g/5 g Oral Pwdr) 1 Packets By Mouth every day. Refills: 4. cyclobenzaprine By Mouth 3 times a day as needed Spasm. diclofenac By Mouth 2 times a day. gabapentin By Mouth 3 times a day. hydrochlorothiazide (hydrochlorothiazide 12.5 mg Cap) 1 Capsules By Mouth every day. Refills: 11. loperamide (Imodium 2 mg oral capsule) 2 Capsules By Mouth 3 times a day as needed Diarrhea. Refills: 4. metformin (MetFORMIN (Eqv-Glucophage XR) 500 mg oral tablet, extended release) 1 Tablets By Mouth every day. metoprolol (metoprolol 50 mg ER Tab) 1 Tablets By Mouth every day. naproxen (Naprosyn 500 mg Tab) 1 Tablets By Mouth 2 times a day as needed for pain. Refills: 0. semaglutide (Ozempic 2 mg/3 mL (0.25 mg or 0.5 mg dose) subcutaneous solution) INJECT 0.25 mg SUBCUTANEOUSLY ONCE A WEEK FOR 28 DAYS, then INJECT 0.5 mg SUBCUTANEOUSLY ONCE A WEEK therafter. tamsulosin (Flomax 0.4 mg Cap) 1 Capsules By Mouth every day. Refills: 0. tramadol 50 Milligram By Mouth every day. Comment:[facility] HospitalMain OR PACU II Recordon [id number] OR PACU II RecordMain OR PACU II Record PACU Phase II Document Type FT Summary Primary Physician: Sebastian De La Cruz MD Finalized Date/Time: 05/08/24 09:50:54 Pt. Name: LOIS JACQUES/Sex: 1965 Female Med Rec #: [id number] Physician: Sebastian De La Cruz MD Financial #: [id number] Pt. Type: O Room/Bed: / Admit/Disch: 05/08/24 07:01:25 - Institution: Case Times PACU II FT Pre-Care Text: Identifies barriers to communication and implements measures to provide psychological support and determines knowledge level Develops individualized plan of care, and ensures continuity of care Maintains patient's dignity and privacy, and maintains patient confidentiality Identifies and reports philosophical, cultural, and spiritual beliefs and values Identifies individual values and wishes concerning care administers prescribed antibiotic therapy and immunizing agents as ordered, Evaluates postoperative tissue perfusion Implements thermoregulation measures, and monitors body temperature Evaluates postoperative respiratory statusEvaluates postoperative cardiac status Evaluates postoperative neurological status Assesses pain control, collaborated in initiating patient-controlled analgesia and implements alternative methods of pain control Verifies allergies, administers prescribed medications and solutions, evaluates response to medications Entry 1 In PACU II 05/08/24 09:17:00 Discharge from PACU 05/08/24 09:47:00 II Outcomes Met? Yes Last Modified By: Nayely Epperson I 05/08/24 09:50:50 Post-Care Text: The patient demonstrates knowledge of the expected response to the operative or invasive procedure The patient's care is consistent with the individualized perioperative plan of care The patient's rightto privacy is maintained The patient's value system, lifestyle, ethnicity, and culture are considered, respected, and incorporated into the perioperative plan of care The patient participates in decisions affecting his or her perioperative plan of care. The patient is free from signs and symptoms of infection The patient has wound/tissue perfusion consistent with or improved from baseline levels established preoperatively The patient is at or returning to normothermia at the conclusion of the immediate postoperative period The patient's respiratory function is consistent with or improved from baseline levels established preoperativelyThe patient's cardiovascular status is consistent with or improved from baseline levels established preoperatively The patient's neurological status is consistent with or improved from baseline levels established preoperatively The patient demonstrates and/or reports adequate pain control throughout the perioperative period The patient received appropriate medication(s), safely administered during the perioperativeperiod Finalized By: Nayely Epperson I Document Signatures Signed By: Nayely Epperson I 05/08/24 09:50[facility] Preoperative Recordon 24-02-5900[facility] OR Preoperative RecordMain OR Preoperative Record Holding Area Document Type FT Summary Primary Physician: Sebastian De La Cruz MD Finalized Date/Time: 05/08/24 07:39:04 Pt. Name: LOIS JACQUES Anushka /Sex: 1965 Female Med Rec #: [id number] Physician: Sebastian De La Cruz MD Financial #: [id number] Pt. Type: O Room/Bed: / Admit/Disch: 05/08/24 07:01:25 - Institution: Case Times Holding FT Pre-Care Text: Verifies consent for planned procedure, identifies individual values and wishes concerning care, includes family members in perioperative teaching Secures patient's records' belongings, and valuables, maintains patient's dignity and privacy, and maintains patient confidentiality Entry 1 In Holding 05/08/24 07:30:00 Outcomes Met? Yes Last Modified By: Beatris Forman RN 05/08/24 07:37:45 Post-Care Text: The patient participates in decisions affecting his or her perioperative plan of care The patient'sright to privacy is maintained Surgery Checklist FT Entry 1 Patient Birthday, ID Band Procedure History and Physical, Identification: Check, Patient Verification: Surgical Consent, With Participation Patient NPO after Midnight: No Date/Time: 05/08/24 02:30:00 Personal Items: Glasses, Jewelry Personal Items clothes, x1 ring Comment: Limitations: no Complaints of Pain: No Pain Comment: no Operative Site n/a Marking: Marked By: n/a Availability Equipment Verified: Does Patient Smoke No Patient states Yes Comment - Adult Spouse postop adult Supervision supervision available Case Cancelled in No Holding Area see comments below for reason Last Modified By: Beatris Forman RN 05/08/24 07:39:03 Finalized By: Beatris Forman RN Document Signatures Signed By: Beatris Forman RN 05/08/24 07:39[facility]Out[facility] Discharge Instructionon [id number] Surgery Discharge InstructionOutpatient Surgery Discharge Instruction [address] [address] Patient Discharge Instructions PERSON INFORMATION Name: LOIS JACQUES Date of : 1965 Current Date: 05/08/2024 08:29:24 PHYSICIANS Admitting Physician: Dorothy COLVIN, Sebastian Ortega Discharge Diagnosis: Chronic diarrhea; Colon cancer screening LOIS JACQUES has been given the following list of follow-up instructions, prescriptions, and patient education materials: PATIENT FOLLOW-UP INFORMATION Diet: Regular Discharge Activity: Resume normal activities in 24 hours Discharge Restrictions: No driving for 24 hrs Call Your Doctor For: Persistent or heavy bleeding IF UNABLE TO CONTACT YOUR PHYSICIAN AND YOU FEEL IT IS AN EMERGENCY, GO TO THE NEAREST EMERGENCY ROOM OR CALL 911 ISAWYER HELEN M, have received the attached patient education materials/instructions and have verbalized understanding: May we do a follow up call? Yes No I was present when discharge instructions were given Patient Signature Date Clinican/Nurse Signature Date Follow up: Type Location Start Finish State [facility] Office Visit [facility] [place] 05/18/2024 2:30 PM 05/18/2024 2:45 PM Confirmed Pharmacy Information: You may receive a survey from [employer] asking you to rate your care experience. Your feedback is important and will help us understand what we do well and how we can improve the quality of care we provide to you, your loved ones and our community. It???s an honor to serve you. Thank you for choosing [facility] HERE ARE THE MEDICATION CHANGES THAT OCCURRED DURING YOUR HOSPITAL STAY Medications to Continue with No Changes Other Medications cholestyramine (cholestyramine 4 g/5 g Oral Pwdr) 1 Packets By Mouth every day. Refills: 4. cyclobenzaprine By Mouth 3 times a day as needed Spasm. diclofenac By Mouth 2 times a day. gabapentin By Mouth 3 times a day. hydrochlorothiazide (hydrochlorothiazide 12.5 mg Cap) 1 Capsules By Mouth every day. Refills: 11. loperamide (Imodium 2 mg oral capsule) 2 Capsules By Mouth 3 times a day as needed Diarrhea. Refills: 4. metformin (MetFORMIN (Eqv-Glucophage XR) 500 mg oral tablet, extended release) 1 Tablets By Mouth every day. metoprolol (metoprolol 50 mg ER Tab) 1 Tablets By Mouth every day. naproxen (Naprosyn 500 mg Tab) 1 Tablets By Mouth 2 times a day as needed for pain. Refills: 0. semaglutide (Ozempic 2 mg/3 mL (0.25 mg or 0.5 mg dose) subcutaneous solution) INJECT 0.25 mg SUBCUTANEOUSLY ONCE A WEEK FOR 28 DAYS, then INJECT 0.5 mg SUBCUTANEOUSLY ONCE A WEEK therafter. tamsulosin (Flomax 0.4 mg Cap) 1 Capsules By Mouth every day. Refills: 0. tramadol 50 Milligram By Mouth every day. PATIENT EDUCATION INFORMATION Instructions: Medication Leaflets:[facility] HospitalHbA1c (Bld) [Mass fraction] on 25-42-2353Kvhadhnwvcznwx and review of laboratory resultsNormalFreeman Cancer Institute HealthcareLaboratory - Hematology and Cell countson 03-04-2024 HbA1c (Bld) [Mass fraction]5.7 %[facility] HealthcareProvider Letteron 02-04-2024 Provider LetterProvider Letter February 04, 2024 LOIS [address]QUES [address] [place] [phone] : 1965 Dear _ , We have been trying to reach you with no success. Please call our office at [phone] in regardsto scheduling your EGD & Colonoscopy. It is important that you return our call regarding your _upon receiving this letter. Also, at the time of your call, please provide us with your current information. Thank you for your prompt attention to this matter. Sincerely, [facility] CenterMG MAMMO SCREEN BILAT TAHMINA W/CADon 46-84-2964LWLD: BILATERAL SCREENING MAMMOGRAM W/TOMOSYNTHESIS AND CAD CLINICAL HISTORY: Patient is 58 years old and is seen for screening. The patient has no personal history of cancer. The patient has no family history of breast cancer. COMPARISON: The present examination has been compared to prior imaging studies performed at [facility] on 06/13/2017 and 06/28/2018. TECHNIQUE: The following mammographic views were obtained: bilateral CC with tomosynthesis, MLO with tomosynthesis and nipple profile. Computer-aided detection was utilized by the radiologist in the interpretation of this examination. MAMMOGRAM FINDINGS: The breasts are almost entirely fat. No suspicious masses, calcifications, architectural distortion or other abnormalities are seen in either breast. IMPRESSION: There is no mammographic evidence of malignancy in either breast. Routine screening mammogram in 1 year is recommended. BI-RADS Category 1: Negative RISK ASSESSMENT: Estimated lifetime breast cancer risk: Average (less than 15%, as per the Tyrer-Cuzick/JERI model) NCI Lifetime Risk Score: 5.7% [facility], Radiologist, - 01/15/2024 EXAM: BILATERAL SCREENING MAMMOGRAM W/TOMOSYNTHESIS AND CAD CLINICAL HISTORY: Patient is 58 years old and is seen for screening. The patient has no personal history of cancer. The patient has no family history of breast cancer. COMPARISON: The present examination has been compared to prior imaging studies performed at [facility] on 06/13/2017 and 06/28/2018. TECHNIQUE: The following mammographic views were obtained: bilateral CC with tomosynthesis, MLO with tomosynthesis and nipple profile. Computer-aided detection was utilized by the radiologist in the interpretation of this examination. MAMMOGRAM FINDINGS: The breasts are almost entirely fat. No suspicious masses, calcifications, architectural distortion or other abnormalities are seen in either breast. IMPRESSION: There is no mammographic evidence of malignancy in either breast. Routine screening mammogram in 1 year is recommended. BI-RADS Category 1: Negative RISK ASSESSMENT: Estimated lifetime breast cancer risk: Average (less than 15%, as per the Tyrer-Cuzick/JERI model) NCI Lifetime Risk Score: 5.7% [facility] HealthcareRadiology Study observation (narrative)[facility] HealthcareMG MAMMO SCREEN BILAT TAHMINA W/CADOrdered By: Radiologist Radiology on 20-50-6953HKNJResearch Medical Center-[facility] Work Phone: XR ABDOMEN 1Von 56-08-6096Dkl [place] [address] XRay Report Signed with Addenda Patient: LOIS JACQUES MR#: [id number] : 1965 Acct:[id number] Age/Sex: 58 / F ADM Date: 05/25/23 Loc: RAD Attending Dr: Kulwinder Garg M.D. Ordering Physician: Kulwinder Garg M.D. Date of Service: 05/25/23 Procedure(s): XR abdomen 1V Accession Number(s): [id number] cc: Danitza Awad AEROSPACE MANAGER; Kulwinder Garg M.D. ADDENDUM The [place] [id number] Patient Name: LOIS JACQUES MRN: [id number] date: 1965 Sex: F Assigned Patient Location: RAD Current Patient Location: LAB Accession/Order Number: [id number] Exam Date: 05/25/2023 07:30 Report Date: 06/14/2023 08:01 At the request of: KULWINDER GARG Procedure: XR abdomen 1V Begin Addendum #1 Comparison: XR abdomen 11/07/2022 Previously seen left kidney stones are obscured by dense overlying bowel content or have passed from the kidney. Original Report EXAMINATION: XR abdomen 1V HISTORY: N20. 0 Calculus of kidney , left flank pain, history of kidney stones COMPARISON: XR abdomen 11/07/2022 FINDINGS: KIDNEY/URETER - RIGHT: A few small calcifications projecting over right kidney. KIDNEY/URETER - LEFT: No visible renal or ureteral calcifications. PELVIS: New 4 mm calcification within lower left pelvis intermixed with numerous bilateral pelvic calcifications. BOWEL: No abnormal dilation or deviation. BONES: No acute abnormality. OTHER: Negative. No abnormal gaseous collections. Addendum Dictated By: Loli Huber M.D. Addendum Signed By: 11/08/23 1336 Addendum Cosigned By: DD/ TD/TT: / ADDENDUM XR/XR abdomen 1V IMPRESSION: 1. New 4 mm calcification within left pelvis; additional phlebolith versus distal ureteral stone. 2. Right nephrolithiasis. Electronically authenticated by: LOLI HUBER Date: 06/14/2023 08:01 Addendum Dictated By: Loli Huber M.D. Addendum Signed By: 11/08/23 1336 Addendum Cosigned By: DD/ TD/TT: / [place] [id number] Patient Name: LOIS JACQUES MRN: [id number] date: 1965 Sex: F Assigned Patient Location: [facility] Current Patient Location: Accession/Order Number: [id number] Exam Date: 05/25/2023 07:30 Report Date: 05/27/2023 04:14 At the request of: KULWINDER GARG Procedure: XR abdomen 1V EXAMINATION: XR abdomen 1V HISTORY: N20.0 Calculus of kidney , left flank pain, history of kidney stones COMPARISON: XR abdomen 11/07/2022 FINDINGS: KIDNEY/URETER - RIGHT: A few small calcifications projecting over right kidney. KIDNEY/URETER - LEFT: No visible renal or ureteral calcifications. PELVIS: New 4 mm calcification within lower left pelvis intermixed with numerous bilateral pelvic calcifications. BOWEL: No abnormal dilation or deviation. BONES: No acute abnormality. OTHER: Negative. No abnormal gaseous collections. XR/XR abdomen 1V IMPRESSION: 1. New 4 mm calcification within left pelvis; additional phlebolith versus dist (more content not included)...TBHRadiology, Radiologist, - 11/08/2023 [place] [address] XRay Report Signed with Addenda Patient: LOIS JACQUES MR#: [id number] : 1965 Acct:[id number] Age/Sex: 58 / F ADM Date: 05/25/23 Loc: RAD Attending Dr: Kulwinder Garg M.D. Ordering Physician: Kulwinder Garg M.D. Date of Service: 05/25/23 Procedure(s): XR abdomen 1V Accession Number(s): [id number] cc: Danitza Awad AEROSPACE MANAGER; Kulwinder Garg M.D. ADDENDUM [facility] [place] [id number] Patient Name: LOIS JACQUES MRN: [id number] date: 1965 Sex: F Assigned Patient Location: RAD Current Patient Location: LAB Accession/Order Number: [id number] Exam Date: 05/25/2023 07:30 Report Date: 06/14/2023 08:01 At the request of: KULWINDER GARG Procedure: XR abdomen 1V Begin Addendum #1 Comparison: XR abdomen 11/07/2022 Previously seen left kidney stones are obscured by dense overlying bowel content or have passed from the kidney. Original Report EXAMINATION: XR abdomen 1V HISTORY: N20. 0 Calculus of kidney , left flank pain, history of kidney stones COMPARISON: XR abdomen 11/07/2022 FINDINGS: KIDNEY/URETER - RIGHT: A few small calcifications projecting over right kidney. KIDNEY/URETER - LEFT: No visible renal or ureteral calcifications. PELVIS: New 4 mm calcification within lower left pelvis intermixed with numerous bilateral pelvic calcifications. BOWEL: No abnormal dilation or deviation. BONES: No acute abnormality. OTHER: Negative. No abnormal gaseous collections. Addendum Dictated By: Loli Huber M.D. Addendum Signed By: Yash> 11/08/23 1336 Addendum Cosigned By: DD/ TD/TT: / ADDENDUM XR/XR abdomen 1V IMPRESSION: 1. New 4 mm calcification within left pelvis; additional phlebolith versus distal ureteral stone. 2. Right nephrolithiasis. Electronically authenticated by: LOLI HUBER Date: 06/14/2023 08:01 Addendum Dictated By: Loli Huber M.D. Addendum Signed By: Yash> 11/08/23 1336 Addendum Cosigned By: DD/ TD/TT: / [place] [address] Patient Name: LOIS JACQUES MRN: [id number] date: 1965 Sex: F Assigned Patient Location: [facility] Current Patient Location: Accession/Order Number: [id number] Exam Date: 05/25/2023 07:30 Report Date: 05/27/2023 04:14 At the request of: KULWINDER GARG Procedure: XR abdomen 1V EXAMINATION: XR abdomen 1V HISTORY: N20.0 Calculus of kidney , left flank pain, history of kidney stones COMPARISON: XR abdomen 11/07/2022 FINDINGS: KIDNEY/URETER - RIGHT: A few small calcifications projecting over right kidney. KIDNEY/URETER - LEFT: No visible renal or ureteral calcifications. PELVIS: New 4 mm calcification within lower left pelvis intermixed with numerous bilateral pelvic calcifications. BOWEL: No abnormal dilation or deviation. BONES: No acute abnormality. OTHER: Negative. No abnormal gaseous collections. XR/XR abdomen 1V IMPRESSION: 1. New 4 mm calcification within left pelvis; additional phlebolith versus distal ureteral stone. 2. Right nephrolithiasis. Electronically authenticated by: LOLI HUBER Date: 05/27/2023 04:14 Dictated By: Loli Huber M.D. Signed By: 05/27/23416 DD/ 3 TD/TT: Tax Record Clerk: YONI DavenportXR ABDOMEN 1VOrdered By: Radiologist Radiology on 54-30-3304SEVD [employer] Work Phone: ELECTROLYTESon 28-88-9780Shvtr gap [Moles/Vol]10 mmol/LNormal5-15ProMedica Crisp HospitalComment on above:Performed By: #### LETI, 65964-8, 1750-7, 6767-6, 174-2, 1919-11, 1987-08, FIELD H[employer] AND LACROSSE COACH #### [facility] ([id number]) [address], [address] [place] [address]Nowlpxjb [Moles/Vol]103 mmol/VSlzloy21-398MjhCnwrtmHca Houston Healthcare WestComment on above:Performed By: #### LETI, 01806-0, 1750-7, 6767-6, 1743- 2, 1919-11, 1987-08, FIELD HOC[employer] AND LACROSSE COACH #### [facility] ([id number]) [address], [address] [place] [address]MA5 [Moles/Vol]29 mmol/KNxcedf17-80GpfXyhqpvPaulding County Hospital Comment on above:Performed By: #### LETI, 11787-0, 7, 6767-6, 1743-2, , 1987-08, FI[employer] H[employer]OSSE COACH #### [facility] ([id number]) [address], [address] [place] [address]Qrrwdyltu [Moles/Vol]3.8 mmol/LNormal3.5-5.0ProHca Houston Healthcare WestComment on above:Performed By: #### LETI, 41723-7, 1750-7, 6767-6, 1743- 2, 1919-11, 1987-08, FI[employer]CROSSE COACH #### [facility] ([id number]) [address], [address] [place] [address]Umxbuc [Moles/Vol]142 mmol/GYlfuob838-781IvoTxbajw Fremont HospitalComment on above:Performed By: #### LETI, 98473-4, 1750-7, 6767-6, 1743- 2, 1919-11, 1987-08, FI[employer] H[employer]OSSE COACH #### [facility] ([id number]) [address], [address] [place] [address]Ehvsnsag identified Cx Nom (Stl)on 95-83-1308BROSZ CULT FINAL REPORTSEE NOTEAshtabula County Medical CenterComment on above:Result Comment: NOTE Culture negative for Salmonella, Shigella, Campylobacter, E. coli O157, Vibrio, Aeromonas, and Plesiomonas species. Performed By: [facility] [address] [place], [place] [id number] Cargo And Container Inspector: Loyd Beverly MD, PhD CLIA Number: [id number] By: #### LETI, 67659-1, 1751-7, 6768-6, 1744-2, 1919-11, 1987-08, FIELD H[employer] COACH #### [facility] ([id number]) [address] [place] [address], [address] [place], [place] [address]YFBQV CULT PRELIM REPORTSEE [facility] Comment on above:Result Comment: NOTE Culture negative for Salmonella, Shigella and E. coli O157. Culture negative for Vibrio, Aeromonas, and Plesiomonas species. Performed By: [facility] [address] [place] [id number] Cargo And Container Inspector: Loyd Beverly MD, PhD CLIA Number: [id number] By: #### LETI, 42882-7, 1751-7, 6768-6, 1744-2, 1919-11, 1987-08, FIELD H[employer] LACROSSE COACH #### [facility] ([id number]) [address] [place] [address], [address] [place] [address] DIFFICILE BY PCRon 4C. difficile toxin genes CARRIE+probe Ql (Stl)TOXIGENIC C DIFF Negative (qualifier value) 027 NAP1 Negative (qualifier value)NormalPRNEGUniversity Hospitals Geauga Medical CenterComment on above: Performed By: #### 2335-8, 61356-8 #### [facility] ([id number]) [address] [place] [address], [address] [place], [place] [address]H. coli shiga-like toxin IA Ql (Stl)on 07-18-2023E.COLI SHIGA LIKE TOXIN BY EIANegativeNormalNegativeUniversity Hospitals Geauga Medical CenterComment on above:Result Comment: NOTE INTERPRETIVE INFORMATION: E. coli Shiga-like Toxin by EIA This test detects Shiga-like toxin which may be produced by greater than 150 serotypes of E. coli as well as Shigella dysenteriae type 1 strains. The level of toxin does not correlate with severity of disease. A positive result does not exclude infection caused by another enteric pathogen. A negative test does not exclude the diagnosis of hemorrhagic colitis. Performed By: [facility] [address] [place] [address] Cargo And Container Inspector: Loyd Beverly MD, PhD CLIA Number: [id number] By: #### CBCA, 51490-2, 175-7, 68-6, 1744-2, 1919-11, 1987-08, FIELD H[employer] LACROSSE COACH #### [facility] ([id number]) [address], [address] [place], [place] [address]KQEXJ OCCULT BLOODon 49-38-9715Heicnbpdxw.gastrointestinal Ql (Stl)NegativeNormalNEGProHca Houston Healthcare WestComment on above:Performed By: #### 2335-8, 21821-3 #### [facility] ([id number]) [address] [place] [address], [address] [place], [place] [address]N AND P SCREENon 07-18-2023O AND P SCREENGIARDIA SPECIFIC Ag Negative (qualifier value) GIARDIA ANTIGEN NOT DETECTED CRYPTOSPORIDIUM AG Negative (qualifier value) CRYPTOSPORIDIUM ANTIGEN NOT DETECTED NOTE: A Giardia/Cryptosporidium Screen has been performed. A traditional Ova and Parasite exam, if collected in a preservative, may be requested by contacting the laboratory at [phone] within 72 hours of collection for cases of persistent diarrhea or if the patient has visited an endemic area or traveled outside the [place].NormalUniversity Hospitals Geauga Medical CenterComment on above: Performed By: #### CBCA, 14559-2, 1750-7, 68-6, 1744-2, 1919-11, 1987-08, FIELD H[employer] AND LACROSSE COACH #### [facility] ([id number]) [address], [address] [place], [place] [address]PEKPxb 82-42-3912ZLBFTbiami TextNormalCMount St. Mary Hospital ALBUMINon 84-31-5361Qkthcev [Mass/Vol]4.1 g/dLNormal3.2-5.3PPaulding County HospitalComment on above:Performed By: #### LETI, 88179-5, 1750-7, 68-6, 1744- 2, 1919-11, 1987-08, FIELD H[employer] LACROSSE COACH #### [facility] ([id number]) [address], [address] [place] [address]VMBIPZMG PHOSPHATASEon 52-96-5938TME [Catalytic activity/Vol]76 U/HPemtpq50-886FacDinxaxHca Houston Healthcare WestComment on above:Performed By: ###Paige LANDEROS, 62593-8, 1750-7, 6767-6, 1744-2, 1919-11, 1987-08, FIELD H[employer] LACROSSE COACH #### [facility] ([id number]) [address], [address] [place], [place] [address]DBV No additional P-5'-P [Catalytic activity/Vol]on 07-08-2023 ALT [Catalytic activity/Vol]19 U/LNormal0-31PPaulding County HospitalComment on above:Performed By: #### LETI, 90097-8, 1750-7, 6767-6, 174-2, 1919-11, 1987-08, FIELD HOC[employer] AND LACROSSE COACH #### [facility] ([id number]) [address], [address] [place] [address]MHGul 38-88-2302FFV [Catalytic activity/Vol]17 U/LNormal0-41 [facility]akers[facility] HeartComment on above:Performed By: #### LETI, 33496-5, 1750-7, 6767-6, 174-2, 1919-11, 1987-08, FIELD HOCKEY [employer] LACROSSE COACH #### [facility] ([id number]) [address], [address] [place] [address]SLO AND AUTO DIFFon 33-33-5966OSYELZFC BASOPHIL0.1 X10E9/LNormal 0.0-0.2PPaulding County HospitalComment on above:Performed By: #### LETI, 14546-1, 1750-7, 6767-6, 1744-2, 1919-11, 1987-08, FIELD HOCKEY AND LACROSSE COACH #### [facility] ([id number]) [address], [address] [place], [place] [address]KEADIACV NEUTROPHIL6.9 X10E9/LHigh1.5-6.6ProHca Houston Healthcare WestComment on above:Performed By: #### LETI, 19074-9, 1750-7, 6767-6, 1744- 2, 1919-11, 1987-08, FIELD HOCKEY AND LACROSSE COACH #### [facility] ([id number]) [address], [address] [place], [place] [address]Cyeosqqxp/100 WBC (Bld)0.5 %NormalProHca Houston Healthcare West Comment on above:Performed By: #### LETI, 46537-3, 1750-7, 6767-6, 174-2, , 1987-08, FIELD H[employer] AND LACROSSE COACH #### [facility] ([id number]) [address], [address] [place], [place] [address]Jbilkuqvdqy (Bld) [#/Vol]0.2 10*3/uLNormal0.0-0.4University Hospitals Geauga Medical CenterComment on above:Performed By: #### LETI, 62872-4, 1750-7, 6767- 6, 1744-2, 1919-11, 1987-08, FIELD HOCKEY AND LACROSSE COACH #### [facility] ([id number]) [address], [address] [place], [place] [address]Touzbrydufx/100 WBC (Bld)1.8 %NormalUniversity Hospitals Geauga Medical Center Comment on above:Performed By: #### LETI, 83720-1, 1750-7, 6767-6, 1744-2, , 1987-08, FIELD H[employer] AND LACROSSE COACH #### [facility] ([id number]) [address], [address] [place], [place] [address]Anzdpknzepy distribution width (RBC) [Ratio]16.6 %High11.5-15.0 [facility] Hospitals Geauga Medical CenterComment on above:Performed By: #### LETI, 55290-9, 1750-7, 68-6, 1744-2, 1919-11, 1987-08, FIELD HOCKEY AND LACROSSE COACH #### [facility] ([id number]) [address], [address] [place], [place] [address]Ynnkpxarpk (Bld) [Volume fraction]42.1 %Pxrtap67-92FpnZznlagUniversity Hospitals Geauga Medical CenterComment on above:Performed By: #### LETI, 10910-3, 1750-7, 6767- 6, 174-2, 1919-11, 1987-08, FIELD HOCKEY AND LACROSSE COACH #### [facility] ([id number]) [address], [address] [place], [place] [address]Qbgcqzkgqu (Bld) [Mass/Vol]13.9 g/pGHixijc88.7-15.5PPaulding County HospitalComment on above:Performed By: #### LETI, 88751-4, 1750-7, 6767- 6, 1744-2, 1919-11, 1987-08, FIELD HOCKEY AND LACROSSE COACH #### [facility] ([id number]) [address], [address] [place], [place] [address]Zhdheuzkotk (Bld) [#/Vol]2.9 10*3/uLNormal1.0-3.5PPaulding County HospitalComment on above:Performed By: #### LETI, 86215-3, 1750-7, 6767- 6, 1744-2, 1919-11, 1987-08, FIELD HOCKEY AND LACROSSE COACH #### [facility] ([id number]) [address], [address] [place], [place] [address]Pqddqcmgsjt/100 WBC (Bld)27.5 %NormalProHca Houston Healthcare West Comment on above:Performed By: #### LETI, 42327-4, 1750-7, 68-6, 1744-2, , 1987-08, FIELD HOCKEY AND LACROSSE COACH #### [facility] ([id number]) [address], [address] [place], [place] [address]QRZ (RBC) [Entitic mass]26.6 yiXyq26-35OitRudyqiHca Houston Healthcare WestComment on above:Performed By: #### LETI, 84051-8, 1750-7, 68-6, 1744- 2, 1919-11, 1987-08, [employer] COACH #### [facility] ([id number]) [address], [address] [place], [place] [address]UXGZ (RBC) [Mass/Vol]33.0 g/xVRbcwet38-80YssIwqtdnHca Houston Healthcare WestComment on above:Performed By: #### LETI, 97809-7, 1750-7, 6767-6, 1744- 2, 1919-11, 1987-08, FI[employer] COACH #### [facility] ([id number]) [address], [address] [place], [place] [address]IKY (RBC) [Entitic vol]81 eYTznzhn69-083QryPubdxd Fremont HospitalComment on above:Performed By: #### LETI, 29556-9, 1750-7, 68-6, 1744- 2, 1919-11, 1987-08, FI[employer] COACH #### [facility] ([id number]) [address], [address] [place], [place] [address]Vrkpottyk (Bld) [#/Vol]0.5 10*3/uLNormal0-0.9University [facility]als Geauga Medical CenterComment on above:Performed By: #### LETI, 32704-7, 1750-7, 68-6, 1744- 2, 1919-11, 1987-08, [employer] COACH #### [facility] ([id number]) [address], [address] [place], [place] [address]Yqohpbzhf/100 WBC (Bld)5.1 %NormalUniversity Hospitals Geauga Medical Center Comment on above:Performed By: #### LETI, 82284-1, 1750-7, 68-6, 1744-2, , 1987-08, FI[employer] COACH #### [facility] ([id number]) [address], [address] [place], [place] [address]Yxtxlyprptl/100 WBC (Bld)65.1 %NormalUniversity Hospitals Geauga Medical Center Comment on above:Performed By: #### LETI, 53097-2, 1750-7, 68-6, 174-2, , 1987-08, FI[employer] COACH #### [facility] ([id number]) [address], [address] [place], [place] [address]Fwqlsplx mean volume (Bld) [Entitic vol]9.1 fLNormal7-12 [facility] Geauga Medical CenterComment on above:Performed By: #### LETI, 46472-1, 1750-7, 6767-6, 1744-2, 1919-11, 1987-08, FI[employer]OS[employer] COACH #### [facility] ([id number]) [address], [address] [place], [place] [address]Kxbrghizi (Bld) [#/Vol]369 10*3/kXUcavei066-091CjiFttxcfUniversity Hospitals Geauga Medical CenterComment on above:Performed By: #### LETI, 54762-2, 1750-7, 6767-6, 1744-2, 1919-11, 1987-08, FI[employer]OS[employer] COACH #### [facility] ([id number]) [address], [address] [place], [place] [address]CUQ COUNT5.22 X10E12/LHigh3.80-5.20[facility] Comment on above:Performed By: #### LETI, 79744-0, 1750-7, 68-6, 1744-2, , 1987-08, FI[employer]OS[employer] COACH #### [facility] ([id number]) [address] [facility], [address] [place], [place] [address]YRQ (Bld) [#/Vol]10.6 10*3/uLNormal4.0-11.0[facility] Geauga Medical CenterComment on above:Performed By: #### LETI, 41964-0, 175-7, 6768-6, 1744- 2, 1919-11, 1987-08, FI[employer]OS[employer] COACH #### [facility] ([id number]) [address] [facility], [address] [place], [place] [address]CQTJMHQDIVex 52-92-5892Nbbembphao [Mass/Vol]0.56 mg/dLNormal 0.40-1.00ProHca Houston Healthcare WestComment on above:Result Comment: METHOD TRACEABLE TO IDMS STANDARDPerformed By: #### LETI, 46214-6, 175-7, 6768-6, 1744-2, 1919-11, 1987-08, FI[employer]OS[employer] COACH #### [facility] ([id number]) [address] [facility], [address] [place], [place] [address]lXFL (CKD-EPI) NON-RACE DEPENDENT>90Normal>59ProHca Houston Healthcare WestComment on above:Result Comment: Reported eGFR is based on the CKD-EPI 2020 equation that does not use a race coefficient.Performed By: #### LETI, 76359-7, 1750-7, 6768-6, 1744-2, 1919-11, 1987-08, FIELD [employer]OS[employer] COACH #### [facility] ([id number]) [address] [facility], [address] [place], [place] [address]ISN [Mass/Vol]on 4C REACTIVE PROTEIN1.1 mg/dLHigh 0.000-0.744PPaulding County HospitalComment on above:Performed By: #### LETI, 72871-9, 175-7, 6768-6, 1744-2, 1919-11, 1987-08, FIELD H[employer]OS[employer] COACH #### [facility] ([id number]) [address] [facility], [address] [place], [place] [address]XBI Photometric method (Bld) [Velocity]on 35-12-4080QCF, ERYTHROCYTE SEDIMENTATION RATE13 mm/hNormal0-30ProGreene Memorial Hospitalca [facility] HeartComment on above:Performed By: #### CBCA, 44391-9, 1751-7, 6768-6, 1744-2, 1920-8, 1988-5, FIELD H[employer]OSSE COACH #### [facility] ([id number]) [address] [facility], [address] [place], [place] [address]Ab Panel Informationon 70-32-9574Sncoshaja Study observation (narrative)NOMS HealthcareXR ABDOMEN 1Von 18-32-7924[place] [address] XRay Report Signed Patient: LOIS JACQUES MR#: [id number] : 1965 Acct:[id number] Age/Sex: 58 / F ADM Date: 05/25/23 Loc: RAD Attending Dr: Kulwinder Garg M.D. Ordering Physician: Kulwinder Garg M.D. Date of Service: 05/25/23 Procedure(s): XR abdomen 1V Accession Number(s): [id number] cc: Danitza Awad NP; Kulwinder Garg M.D. [address] [address] Patient Name: LOIS JACQUES MRN: [id number] date: 1965 Sex: F Assigned Patient Location: [facility] Current Patient Location: Accession/Order Number: [id number] Exam Date: 05/25/2023 07:30 Report Date: 05/27/2023 04:14 At the request of: KULWINDER GARG Procedure: XR abdomen 1V EXAMINATION: XR abdomen 1V HISTORY: N20.0 Calculus of kidney , left flank pain, history of kidney stones COMPARISON: XR abdomen 11/07/2022 FINDINGS: KIDNEY/URETER - RIGHT: A few small calcifications projecting over right kidney. KIDNEY/URETER - LEFT: No visible renal or ureteral calcifications. PELVIS: New 4 mm calcification within lower left pelvis intermixed with numerous bilateral pelvic calcifications. BOWEL: No abnormal dilation or deviation. BONES: No acute abnormality. OTHER: Negative. No abnormal gaseous collections. XR/XR abdomen 1V IMPRESSION: 1. New 4 mm calcification within left pelvis; additional phlebolith versus distal ureteral stone. 2. Right nephrolithiasis. Electronically authenticated by: LOLI HUBER Date: 05/27/2023 04:14 Dictated By: Loli Huber M.D. Signed By: 05/27/23416 DD/ 3 TD/TT: Tax Record Clerk:TBHRadiology, Radiologist, - 05/27/2023 [place] [address] XRay Report Signed Patient: LOIS JACQUES MR#: [id number] : 1965 Acct:[id number] Age/Sex: 58 / F ADM Date: 05/25/23 Loc: RAD Attending Dr: Kulwinder Garg M.D. Ordering Physician: Kulwinder Garg M.D. Date of Service: 05/25/23 Procedure(s): XR abdomen 1V Accession Number(s): [id number] cc: Danitza Awad NP; Kulwinder Garg M.D. [address] [place] [address] Patient Name: LOIS JACQUES MRN: [id number] date: 1965 Sex: F Assigned Patient Location: [facility] Current Patient Location: Accession/Order Number: [id number] Exam Date: 05/25/2023 07:30 Report Date: 05/27/2023 04:14 At the request of: KULWINDER GARG Procedure: XR abdomen 1V EXAMINATION: XR abdomen 1V HISTORY: N20.0 Calculus of kidney , left flank pain, history of kidney stones COMPARISON: XR abdomen 11/07/2022 FINDINGS: KIDNEY/URETER - RIGHT: A few small calcifications projecting over right kidney. KIDNEY/URETER - LEFT: No visible renal or ureteral calcifications. PELVIS: New 4 mm calcification within lower left pelvis intermixed with numerous bilateral pelvic calcifications. BOWEL: No abnormal dilation or deviation. BONES: No acute abnormality. OTHER: Negative. No abnormal gaseous collections. XR/XR abdomen 1V IMPRESSION: 1. New 4 mm calcification within left pelvis; additional phlebolith versus distal ureteral stone. 2. Right nephrolithiasis. Electronically authenticated by: LOLI HUBER Date: 05/27/2023 04:14 Dictated By: Loli Huber M.D. Signed By: 05/27/23416 DD/ 3 TD/TT: Tax Record Clerk: YONI DavenportXR ABDOMEN 1VOrdered By: Radiologist Radiology on 24-81-5772XRUAResearch Medical Center-Brookside Campus Work Phone: MLR HEMOGLOBIN A1Con 71-92-6670Etxlrsw [Mass/Vol]131 mg/dLResearch Medical Center-Brookside CampusHbA1c (Bld) [Mass fraction]6.2 %4.5 - 6.2 %[facility] Comment on above:ADA RECOMMENDED LIMIT 4.0 - 6.0 ADA THERAPEUTIC TARGET < 7.0 ACTION SUGGESTED > 7.0 CLINISYNCResearch Medical Center-Brookside Campus36on 84-21-953640Eqozswg wants the nurse to call to discuss her pain.NormalUnMemorial HospitalIMMUNOFIXATION ELEC, PROTEIN ELECon 93-73-7426Vcxfjpn [Mass/Vol]3.2 g/dLNormal2.9-4.4The [facility] HospitalComment on above:Performed By: #### PT, PTT #### [facility] [address] [address] [address] Donny HaneyAlbumin/Globulin [Mass ratio]1.1 {ratio}Normal0.7-1.7The [facility] HospitalComment on above:Performed By: #### PT, PTT #### [facility] [address] [place], [place] [address] Dr. Donny HaneySvidrTlfsl-8-Hcockoez1.3 g/dLNormal0.0-0.4The [facility] HospitalComment on above:Performed By: #### PT, PTT #### [facility] [address] [place], [place] [address] Dr. Donny HaneyPdponPnnnr-6-Mnssnowl6.0 g/dLNormal0.4-1.0The [facility] HospitalComment on above:Performed By: #### PT, PTT #### [facility] [address] [place] [address] Dr. Donny HaneyBeta Globulin1.1 g/dLNormal0.7-1.3The [facility] HospitalComment on above:Performed By: #### PT, PTT #### [facility] [address] [place] [address] Dr. Donny HaneyGamma Globulin0.7 g/dLNormal0.4-1.8The [facility] HospitalComment on above:Performed By: #### PT, PTT #### [facility] [address] [place] [address] Dr. Donny HaneyGlobulin (S) [Mass/Vol]3.2 g/dLNormal2.2-3.9[facility] Comment on above:Performed By: #### PT, PTT #### [facility] [address] [place] [address] Dr. Donny HaneyImmunofixation Result, SerumComcaro centerNoCleveland Clinic Children's Hospital for Rehabilitation Comment on above:Result Comment: No monoclonality detected.Performed By: #### PT, PTT #### [facility] [address] [place] [address] Dr. Donny HaneyImmunoglobulin A, Qn, Mkgiy442 mg/rTVgztiw73-533Ezh [facility] HospitalComment on above:Performed By: #### PT, PTT #### [facility] [address] [place] [address] Dr. Donny HaneyImmunoglobulin G, Qn, Jikll557 mg/lPKsfkqi850-4644Plm [facility] HospitalComment on above:Performed By: #### PT, PTT #### [facility] [address] [place] [address] Dr. Donny HaneyImmunoglobulin M, Qn, Zffsa527 mg/rWEyqbbp23-034Sxh [facility] HospitalComment on above:Performed By: #### PT, PTT #### [facility] [address] [place] [address] Dr. Donny HaneyM-SpikeNot ObservedNormalNot ObservedThe UC Medical Centerment on above:Performed By: #### PT, PTT #### [facility] [address] [place] [address] Dr. Donny Christopher.NormalThe UC Medical Centerment on above:Performed By: #### PT, PTT #### [facility] [address] [place] [address] Dr. Donny Dias note:CommentNormalThe [facility] HospitalComment on above: Result Comment: Protein electrophoresis scan will follow via computer, mail, or hospital pharmacy director delivery.Performed By: #### PT, PTT #### [facility] [address] [place] [address] Dr. Donny HaneyProtein [Mass/Vol]6.4 g/dLNormal6.0-8.5The [facility] Comment on above:Performed By: #### PT, PTT #### [facility] [address] [place] [address] Dr. Donny HaneyIMMUNOGLOBULINS IGA/IGM/IGG QUANTITATIVEon 08-23-2022 Immunoglobulin A, Qn, Uyjkb732 mg/aIPhwugh34-177Asz [facility] on above:Performed By: #### IMMUNGL #### [facility] [address] [place] [address] Dr. Donny HaneyImmunoglobulin G, Qn, Jkgso456 mg/eUGzwyjv594-9174Ztr [facility] on above:Performed By: #### IMMUNGL #### [facility] [address] [place] [address] Dr. Donny HaneyImmunoglobulin M, Qn, Ksykm843 mg/fZOutibv96-470Awn [facility] HospitalComcaro center on above:Performed By: #### IMMUNGL #### [facility] [address] [place] [address] Dr. Donny HaneyRHEUMATOID FACTORon 95-29-2047UD Latex Turbid.13.0 IU/mLNormal <14.0The [facility] on above:Performed By: #### RF #### [facility] [address] [address] [address] Donny Moon AUTO DIFFon 85-64-2237PMEL #0.1 103/ulNormal0.0-0.1The [facility] HospitalComment on above:Performed By: #### CBC #### [facility] [address] [place] [address] [address] Donny HaneyBasophils/100 WBC (Bld)0.6 %Normal0.2-2.0The [facility] Comment on above:Performed By: #### CBC #### [facility] [address] [place] [address] Dr. Donny Castañeda #0.3 103/ulNormal0.0-0.7The [facility] HospitalComment on above: Performed By: #### CBC #### [facility] [address] [place] [address] Dr. Donny Coffeyosinophils/100 WBC (Bld)2.8 %Normal0.9-7.0The [facility] Comment on above:Performed By: #### CBC #### [facility] [address] [place] [address] Dr. Donny Coffeyrythrocyte distribution width (RBC) [Ratio]15.8 %Critically high 11.0-15.0The [facility] HospitalComment on above:Performed By: #### CBC #### [facility] [address] [place] [address] Dr. Donny HaneyHematocrit (Bld) [Volume fraction]41.7 %Ceyzen78.0-48.0The [facility] HospitalComment on above:Performed By: #### CBC #### [facility] [address] [place] [address] Dr. Donny HaneyHemoglobin (Bld) [Mass/Vol]13.0 g/aXNyssmu49.0-16.0The [facility] HospitalComment on above:Performed By: #### CBC #### [facility] [address] [place] [address] Dr. Donny Menard #0.08 10e3/ulCritically high0.00-0.03The [facility] Comment on above:Performed By: #### CBC #### [facility] [address] [address] [address] Donny Menard %0.7 %Critically high0.0-0.5The [facility] HospitalComment on above:Performed By: #### CBC #### [facility] [address] [address] [address] Donny Altamirano #3.0 103/ulNormal1.2-3.8The [facility] HospitalComment on above:Performed By: #### CBC #### [facility] [address] [place] [address] Dr. Donny Neveshocytes/100 WBC (Bld)27.8 %Oliilw69.5-60.0The [facility] HospitalComment on above:Performed By: #### CBC #### [facility] [address] [place] [address] Dr. Donny Park DIFF REQNONormalThe [facility] HospitalComment on above: Performed By: #### CBC #### [facility] [address] [place] [address] Dr. Donny Garcia (RBC) [Entitic mass]26.0 pgCritically low26.7-34.0The [facility] HospitalComment on above:Performed By: #### CBC #### [facility] [address] [place] [address] Dr. Donny Gonzalez (RBC) [Mass/Vol]31.2 g/fURnzxrt68.9-35.2The [facility] HospitalComment on above:Performed By: #### CBC #### [facility] [address] [place] [address] Dr. Donny Desir (RBC) [Entitic vol]83.4 sQQqerud07.0-99.0The [facility] HospitalComment on above:Performed By: #### CBC #### [facility] [address] [place] [address] Dr. Donny Lawson #0.7 103/ulNormal0.3-0.8The [facility] HospitalComment on above:Performed By: #### CBC #### [facility] [address] [place] [address] Dr. Dnony Palaciosocytes/100 WBC (Bld)6.9 %Normal1.7-12.0[facility] Comment on above:Performed By: #### CBC #### [facility] [address] [place] [address] Dr. Donny Macias #6.6 103/ulCritically high1.4-6.5The [facility] Comment on above:Performed By: #### CBC #### [facility] [address] [place] [address] Dr. Donny Aparicioutrophils/100 WBC (Bld)61.2 %Uibcso00.0-75.0The [facility] HospitalComment on above:Performed By: #### CBC #### [facility] [address] [place] [address] Dr. Donny Medleylet mean volume (Bld) [Entitic vol]10.4 fLNormal9.5-13.5The [facility] HospitalComment on above:Performed By: #### CBC #### [facility] [address] [place] [address] Dr. Donny HaneyPLT344 103/abGkomru941-634Snf [facility] HospitalComment on above: Performed By: #### CBC #### [facility] [address] [place] [address] Dr. Donny HaneyRBC5.00 106/ulNormal4.20-5.40The [facility] HospitalComment on above:Performed By: #### CBC #### [facility] [address] [place] [address] Dr. Donny HaneyWBC10.8 103/ulNormal4.0-11.0The [facility] HospitalComment on above:Performed By: #### CBC #### [facility] [address] [place] [address] Dr. Donny Green 23-73-0013NCV86.4 mg/dLCritically high<=1.0The [facility] HospitalComment on above:Performed By: #### PT, PTT #### [facility] [address] [address] [address] Donny HaneyGLYCOHEMOGLOBIN A1Con 43-30-7670QBQ RECOMMENDATIONSEE BELOWNormal The [facility] HospitalComment on above:Result Comment: ADA RECOMMENDED LIMIT 4.0 - 6.0 ADA THERAPEUTIC TARGET < 7.0 ACTION SUGGESTED > 7.0Performed By: #### PT, PTT #### [facility] [address] [address] [address] Donny HaneyGlucose [Mass/Vol]143 mg/dLNormalThe [facility] HospitalComment on above:Performed By: #### PT, PTT #### [facility] [address] [address] [address] Donny HaneyHbA1c (Bld) [Mass fraction]6.6 %Critically high4.5-6.2The [facility] HospitalComment on above:Performed By: #### PT, PTT #### [facility] [address] [address] [address] Donny HnaeySED RATE WESTERGRENon 51-00-5374VIT RATE47 mm/hrCritically high <=30The [facility] HospitalComment on above:Performed By: #### PT, PTT #### [facility] [address] [place] [address] Dr. Donny HaneyTOTAL PROTEIN SERUMon 94-13-7710Xoqzcob [Mass/Vol]7.3 g/dLNormal 6.4-8.2The [facility] HospitalComment on above:Performed By: #### PT, PTT #### [facility] [address] [place] [address] Dr. Donny Rose (Out)on 62-53-1284Oagyxa (Out)[id number] Lois Jacques 1965 F Date Provider Department Center 08/21/2022 None-None [facility] AUTH [facility] Medical C No family history on fileNormalUniversity of Baylor Scott [facility] White [facility] Center – PflugervilleCARDIAC HARRISON ADMITon 22-72-0326HD [Catalytic activity/Vol]181 U/AYlinxp78-990Bio [facility] HospitalComment on above:Performed By: #### PT, PTT #### [facility] [address] [place] [address] Dr. Donny Anderson.MB [Mass/Vol]1.48 ng/mLNormal<=3.60[facility] Comment on above:Performed By: #### PT, PTT #### [facility] [address] [place] [address] Dr. Donny CasarezTROP4.4 pg/mLNormal4.0-51.3The [facility] HospitalComment on above:Result Comment: CUT-OFF POINTS HAVE BEEN ESTABLISHED BASED ON THE FOURTH UNIVERSAL DEFINITIONS OF MYOCARDIAL INFARCTION. THE UPPER REFERENCE LIMIT (URL) OF TROPONIN, DEFINED THE 99TH PERCENTILE OF cTnI DISTRIBUTION IN A REFERENCE POPULATION, HAS BEEN CONFIRMED THE DECISION THRESHOLD FOR NE DIAGNOSIS.Performed By: #### PT, PTT #### [facility] [address] [place] [address] Dr. Donny Carrillo79 ng/mLNormal9-82The [facility] HospitalComment on above: Performed By: #### PT, PTT #### [facility] [address] [place] [address] Dr. Donny Moon AUTO DIFFon 35-73-8998DUPL #0.1 103/ulNormal0.0-0.1[facility]len[facility] HospitalComment on above:Performed By: #### CBC #### [facility] [address] [place] [address] Dr. Donny Sanfordsophils/100 WBC (Bld)0.3 %Normal0.2-2.0[facility] Comment on above:Performed By: #### CBC #### [facility] [address] [place] [address] Dr. Donny Castañeda #0.1 103/ulNormal0.0-0.7The [facility] HospitalComment on above: Performed By: #### CBC #### [facility] [address] [place] [address] Dr. Donny Coffeyosinophils/100 WBC (Bld)0.5 %Critically low0.9-7.0The UC Medical Centerment on above:Performed By: #### CBC #### [facility] [address] [place] [address] Dr. Donny Coffeyrythrocyte distribution width (RBC) [Ratio]15.7 %Critically high 11.0-15.0The [facility] HospitalComment on above:Performed By: #### CBC #### [facility] [address] [place] [address] Dr. Donny HaneyHematocrit (Bld) [Volume fraction]41.4 %Lnvbsj63.0-48.0The [facility] HospitalComment on above:Performed By: #### CBC #### [facility] [address] [place] [address] Dr. Donny HaneyHemoglobin (Bld) [Mass/Vol]13.4 g/xTVixgft86.0-16.0The [facility] Medical Centerment on above:Performed By: #### CBC #### [facility] [address] [place] [address] Dr. Donny Menard #0.15 10e3/ulCritically high0.00-0.03The [facility] Comment on above:Performed By: #### CBC #### [facility] [address] [place] [address] Dr. Donny Menard %0.7 %Critically high0.0-0.5The [facility] HospitalComment on above:Performed By: #### CBC #### [facility] [address] [place] [address] Dr. Donny SantoMPH #1.8 103/ulNormal1.2-3.8The [facility] HospitalComment on above:Performed By: #### CBC #### [facility] [address] [place] [address] Dr. Donny Santomphocytes/100 WBC (Bld)8.1 %Critically low20.5-60.0The [facility] HospitalComment on above:Performed By: #### CBC #### [facility] [address] [address] [address] Donny SerranoUAL DIFF REQNONormalThe [facility] HospitalComment on above: Performed By: #### CBC #### [facility] [address] [place] [address] Dr. Donny Gonzalez (RBC) [Entitic mass]26.7 hhWqzrre19.7-34.0The [facility] HospitalComment on above:Performed By: #### CBC #### [facility] [address] [place] [address] Dr. Donny Gonzalez (RBC) [Mass/Vol]32.4 g/tMHcesby67.9-35.2The [facility] HospitalComment on above:Performed By: #### CBC #### [facility] [address] [place] [address] Dr. Donny Gonzalez (RBC) [Entitic vol]82.6 pHBaslob76.0-99.0The [facility] HospitalComment on above:Performed By: #### CBC #### [facility] [address] [place] [address] Dr. Donny Lawson #0.8 103/ulNormal0.3-0.8The [facility] HospitalComment on above:Performed By: #### CBC #### [facility] [address] [place] [address] Dr. Donny Palaciosocytes/100 WBC (Bld)3.6 %Normal1.7-12.0[facility] Comment on above:Performed By: #### CBC #### [facility] [address] [place] [address] Dr. Donny Macias #19.2 103/ulCritically high1.4-6.5The [facility] Comment on above:Performed By: #### CBC #### [facility] [address] [place] [address] Dr. Donny Aparicioutrophils/100 WBC (Bld)86.8 %Critically high43.0-75.0The [facility] HospitalComment on above:Performed By: #### CBC #### [facility] [address] [place] [address] Dr. Donny Medleylet mean volume (Bld) [Entitic vol]10.5 fLNormal9.5-13.5The [facility] HospitalComment on above:Performed By: #### CBC #### [facility] [address] [place] [address] Dr. Donny HaneyPLT358 103/beQxiujw268-287Tvr [facility] HospitalComment on above: Performed By: #### CBC #### [facility] [address] [place] [address] Dr. Donny HaneyRBC5.01 106/ulNormal4.20-5.40The [facility] HospitalComment on above:Performed By: #### CBC #### [facility] [address] [place] [address] Dr. Donny HaneyWBC22.1 103/ulCritically high4.0-11.0The [facility] HospitalComment on above:Performed By: #### CBC #### [facility] [address] [place] [address] Dr. Donny HaneyCT HEAD WO CONon [id number] HEAD WO CONTITLE: CT HEAD WO CON COMPARISON: None. CLINICAL [...] Electronically authenticated by: IVELISSE JESSICA Date: 2022-08-20 16:17[facility] URINE PROFILEon [id number] Ql (U)NegativeNormal NEGATIVEThe [facility] HospitalComment on above:Performed By: #### PT, PTT #### [facility] [address] [place] [address] Dr. Donny Bradford (U)CLEARNormalCLEAROhiohealth O'Bleness HospitalComment on above: Performed By: #### PT, PTT #### [facility] [address] [address] [address] Donny Erickson (U)LT. YELLOWNormalYELLOWOhiohealth O'Bleness HospitalComment on above:Performed By: #### PT, PTT #### [facility] [address] [address] [address] Donny Levy micrscopic examination will be performed if indicated. NormalOhiohealth O'Bleness HospitalComment on above:Performed By: #### PT, PTT #### [facility] [address] [address] [address] Donny HaneyGlucose Ql (U)NegativeNormalNEGATIVEOhiohealth O'Bleness HospitalComment on above:Performed By: #### PT, PTT #### [facility] [address] [place] [address] Dr. Donny HaneyHemoglobin Ql (U)NegativeNormalNEGATIVEParkview Health [facility] on above:Performed By: #### PT, PTT #### [facility] [address] [place] [address] Dr. Donny HaneyKetones Ql (U)NegativeNormalNEGATIVEOhiohealth O'Bleness HospitalComment on above:Performed By: #### PT, PTT #### [facility] [address] [place] [address] Dr. Donny HaneyLEUKOCYTESTRACEAbnormalNEGATIVEOhiohealth O'Bleness HospitalComcaro center on above:Performed By: #### PT, PTT #### [facility] [address] [address] [address] Donny HaenyNitrite Ql (U)NegativeNormalNEGATIVEOhiohealth O'Bleness HospitalComment on above:Performed By: #### PT, PTT #### [facility] [address] [address] [address] Donny HaneypH (U)5.5 [pH]Normal5-9Ohiohealth O'Bleness HospitalComment on above: Performed By: #### PT, PTT #### [facility] [address] [place] [address] Dr. Donny Aaron GRAVITY1.678Zgfaea3.005-<=1.025The [facility] HospitalComment on above:Performed By: #### PT, PTT #### [facility] [address] [place] [address] Dr. Donny Mercado PROTEINNegativeNormalNEGATIVE/ TRACEThe [facility] Comment on above:Performed By: #### PT, PTT #### [facility] [address] [place] [address] Dr. Donny Heath MICRO INDINDICATEDNormalThe [facility] HospitalComment on above: Performed By: #### PT, PTT #### [facility] [address] [place] [address] Dr. Donny Barker Qn (U)0.2 {Ramirez'U}/dLNormal0.2 - 1.0The [facility] HospitalComment on above:Performed By: #### PT, PTT #### [facility] [address] [place] [address] Dr. Donny RegaladoF 14(COMP METB)on [id number] [Mass/Vol]3.4 g/dLNormal 3.4-5.0The [facility] HospitalComment on above:Performed By: #### PT, PTT #### [facility] [address] [place] [address] Dr. Donny HaneyAlbumin/Globulin [Mass ratio]0.9 {ratio}NormalThe [facility] HospitalComment on above:Performed By: #### PT, PTT #### [facility] [address] [place] [address] Dr. Donny Carey [Catalytic activity/Vol]104 U/SVewxhr68-607Tqb [facility] HospitalComment on above:Performed By: #### PT, PTT #### [facility] [address] [place] [address] Dr. Donny Jones [Catalytic activity/Vol]27 U/YFepqsn38-38Ohq [facility] HospitalComment on above:Performed By: #### PT, PTT #### [facility] [address] [address] [address] Donny HaneyAnion gap [Moles/Vol]13.5 mmol/LNormalThe [facility] Comment on above:Performed By: #### PT, PTT #### [facility] [address] [address] [address] Donny HaneyAST [Catalytic activity/Vol]17 U/XVokjlw30-78Gqy [facility] HospitalComment on above:Performed By: #### PT, PTT #### [facility] [address] [place] [address] Dr. Donny HaneyBilirubin [Mass/Vol]0.3 mg/dLNormal0.2-1.0The [facility] Comment on above:Performed By: #### PT, PTT #### [facility] [address] [place] [address] Dr. Donny HaneyCalcium [Mass/Vol]9.5 mg/dLNormal8.5-10.1The [facility] Comment on above:Performed By: #### PT, PTT #### [facility] [address] [place] [address] Dr. Donny HaneyChloride [Moles/Vol]104 mmol/CCrqimp77-096Wep [facility] Comment on above:Performed By: #### PT, PTT #### [facility] [address] [place] [address] Dr. Donny HaneyCO2 [Moles/Vol]26.4 mmol/HTkdfjl03.0-32.0The [facility] Comment on above:Performed By: #### PT, PTT #### [facility] [address] [place] [address] Dr. Donny HaneyCreatinine [Mass/Vol]0.87 mg/dLNormal0.55-1.02The [facility] HospitalComment on above:Performed By: #### PT, PTT #### [facility] [address] [place] [address] Dr. Hines ChangEGFR-AF JAMAICAN>60Normal>=60The [facility] HospitalComment on above:Performed By: #### PT, PTT #### [facility] [address] [address] [address] Donny CoffeyGFR-NON AF JAMAICAN>60Normal>=60The [facility] HospitalComment on above:Performed By: #### PT, PTT #### [facility] [address] [address] [address] Donny HaneyGlobulin (S) [Mass/Vol]3.9 g/dLNormalThGood Samaritan HospitalComment on above:Performed By: #### PT, PTT #### [facility] [address] [address] [address] Donny HaneyGlucose [Mass/Vol]164 mg/dLCritically egzh68-203Fdq [facility] HospitalComment on above:Performed By: #### PT, PTT #### [facility] [address] [place] [address] Dr. Donny HaneyPotassium [Moles/Vol]3.9 mmol/LNormal3.5-5.1The [facility] Comment on above:Performed By: #### PT, PTT #### [facility] [address] [address] [address] Donny HaneyProtein [Mass/Vol]7.3 g/dLNormal6.4-8.2The [facility] Comment on above:Performed By: #### PT, PTT #### [facility] [address] [place] [address] Dr. Donny HaneySodium [Moles/Vol]140 mmol/LXdjkwa218-245Wio [facility] Comment on above:Performed By: #### PT, PTT #### [facility] [address] [address] [address] Donny HaneyUrea nitrogen [Mass/Vol]21.0 mg/dLCritically high7.0-18.0The [facility] HospitalComment on above:Performed By: #### PT, PTT #### [facility] [address] [address] [address] Donny HaneyUrea nitrogen/Creatinine [Mass ratio]24.1 mg/mgNormalThe [facility] HospitalComment on above:Performed By: #### PT, PTT #### [facility] [address] [address] [address] Donny Weber MICROSCOPIC ONLYon [id number] SEENNormalNONE SEENOhiohealth O'Bleness HospitalComcaro center on above:Performed By: #### PT, PTT #### [facility] [address] [address] [address] Donny Mcmullen identified Cx Nom (U)NOT INDICATEDCincinnati Children's Hospital Medical CenterComcaro center on above:Performed By: #### PT, PTT #### [facility] [address] [place] [address] Dr. Donny Crawford SEENNormalNONE SEENOhiohealth O'Bleness HospitalComcaro center on above:Performed By: #### PT, PTT #### [facility] [address] [place] [address] Dr. Donny Medellinystals LM Nom (Urine sed)NONE SEENNormalNONE SEENOhiohealth O'Bleness HospitalComcaro center on above:Performed By: #### PT, PTT #### [facility] [address] [place] [address] Dr. Hines ChangEpithelial cells LM Ql (Urine sed)MODERATEAbnormalNONE SEEN /RARE [facility] HospitalComcaro center on above:Performed By: #### PT, PTT #### [facility] [address] [place] [address] Dr. Donny SolisCOUSNONE SEENNormalNONE SEENOhiohealth O'Bleness HospitalComcaro center on above:Performed By: #### PT, PTT #### [facility] [address] [address] [address] Donny HaneyRBCNONE SEENAbnormal0-2[facility] on above: Performed By: #### PT, PTT #### [facility] [address] [address] [address] Donny HaneyWBC0-2AbnormalNONE SEENOhiohealth O'Bleness HospitalComcaro center on above: Performed By: #### PT, PTT #### [facility] [address] [address] [address] Donny HaneyXR CHEST 2 Von [id number] CHEST 2 VEXAMINATION: XR CHEST 2 V, , 08/20/2022 3:23 PM EDT INDICATION: Chest pain HISTORY: Ordering Provider Reason for Exam: Technologist Note: Additional: COMPARISON: Chest x-ray dated 08/24/2015 TECHNIQUE: Chest x-ray: Two views. FINDINGS: No pneumothorax, pleural effusion or focal airspace consolidation. Heart is normal in size. Bony thorax is unremarkable. IMPRESSION: No acute cardiopulmonary process. Electronically authenticated by: DELFINA GIBBS Date: 2022-08-20 16:26NormSycamore Medical CenterOffice Visiton [id number] Lios Jacques 1965 F Date Provider Department Center 08/16/2022 JONNY ANDRE ORTHO MPORTHO No family history on file Level of Service:66791 [place] OFFICE/OUTPATIENT [facility] 30-44 MINUTES Reason for Visit and Comments: Pain [136] Pain [136]NormalUnSt. Vincent Hospital AUTO DIFFon [id number] #0.1 103/ulNormal0.0-0.1[facility]Bleness HospitalComment on above: Performed By: #### CBC #### [facility] [address] [place] [address] Dr. Donny HaneyBasophils/100 WBC (Bld)0.5 %Normal0.2-2.0[facility] Comment on above:Performed By: #### CBC #### [facility] [address] [place] [address] Dr. Donny Castañeda #0.3 103/ulNormal0.0-0.7The [facility] HospitalComment on above: Performed By: #### CBC #### [facility] [address] [place] [address] Dr. Donny Coffeyosinophils/100 WBC (Bld)3.2 %Normal0.9-7.0[facility] Comment on above:Performed By: #### CBC #### [facility] [address] [place] [address] Dr. Donny Coffeyrythrocyte distribution width (RBC) [Ratio]15.9 %Critically high 11.0-15.0The UC Medical Centerment on above:Performed By: #### CBC #### [facility] [address] [place] [address] Dr. Donny HaneyHematocrit (Bld) [Volume fraction]44.3 %Toldxv00.0-48.0The [facility] HospitalComment on above:Performed By: #### CBC #### [facility] [address] [place] [address] Dr. Donny HaneyHemoglobin (Bld) [Mass/Vol]13.8 g/jXSeyvjp60.0-16.0The [facility] Centerment on above:Performed By: #### CBC #### [facility] [address] [place] [address] Dr. Donny Menard #0.05 10e3/ulCritically high0.00-0.03The [facility] Comment on above:Performed By: #### CBC #### [facility] [address] [place] [address] Dr. Donny Menard %0.5 %Normal0.0-0.5The [facility] Centerment on above: Performed By: #### CBC #### [facility] [address] [place] [address] Dr. Donny NevesH #3.1 103/ulNormal1.2-3.8The [facility] Centerment on above:Performed By: #### CBC #### [facility] [address] [place] [address] Dr. Donny Santomphocytes/100 WBC (Bld)33.5 %Sfnhsf88.5-60.0The [facility] Centerment on above:Performed By: #### CBC #### [facility] [address] [place] [address] Dr. Donny SerranoUAL DIFF REQNONormalThe [facility] HospitalComment on above: Performed By: #### CBC #### [facility] [address] [place], [place] [id number] Dr. Donny Gonzalez (RBC) [Entitic mass]26.5 pgCritically low26.7-34.0The [facility] HospitalComment on above:Performed By: #### CBC #### [facility] [address] [place] [address] Dr. Donny Gonzalez (RBC) [Mass/Vol]31.2 g/fXLpwmnk97.9-35.2The [facility] HospitalComment on above:Performed By: #### CBC #### [facility] [address] [place] [address] Dr. Donny GonzalezV (RBC) [Entitic vol]85.0 mEDmgqcx35.0-99.0The [facility] HospitalComment on above:Performed By: #### CBC #### [facility] [address] [place] [address] Dr. Donny Lawson #0.5 103/ulNormal0.3-0.8The [facility] HospitalComment on above:Performed By: #### CBC #### [facility] [address] [place] [address] Dr. Donny Palaciosocytes/100 WBC (Bld)5.2 %Normal1.7-12.0The [facility] Comment on above:Performed By: #### CBC #### [facility] [address] [place] [address] Dr. Donny AparicioUT #5.3 103/ulNormal1.4-6.5The [facility] HospitalComment on above:Performed By: #### CBC #### [facility] [address] [place] [address] Dr. Donny Aparicioutrophils/100 WBC (Bld)57.1 %Ijctrh46.0-75.0The [facility] HospitalComment on above:Performed By: #### CBC #### [facility] [address] [place] [address] Dr. Donny Medleylet mean volume (Bld) [Entitic vol]10.2 fLNormal9.5-13.5The [facility] HospitalComment on above:Performed By: #### CBC #### [facility] [address] [address] [address] Donny HaneyPLT370 103/kuCjwigk295-086Kcj [facility] on above: Performed By: #### CBC #### [facility] [address] [place] [address] Dr. Donny HaneyRBC5.21 106/ulNormal4.20-5.40The [facility] HospitalComment on above:Performed By: #### CBC #### [facility] [address] [place] [address] Dr. Donny HaneyWBC9.4 103/ulNormal4.0-11.0The [facility] on above: Performed By: #### CBC #### [facility] [address] [place] [address] Dr. Donny HaneyLIPID PROFILEon [id number]-HDL RATIO NORMSSelect Medical Specialty Hospital - [facility] NorthComcaro center on above:Result Comment: 3.3 - 4.4 LOW RISK 4.4 - 7.1 AVERAGE RISK 7.1 - 11.0 MODERATE RISK >11.0 HIGH RISKPerformed By: #### PT, PTT #### [facility] [address] [place] [address] Dr. Donny Arambulaesterol [Mass/Vol]182 mg/dLNormal<=200[facility] Comment on above:Performed By: #### PT, PTT #### [facility] [address] [place] [address] Dr. Donny HaneyCholesterol in HDL [Mass/Vol]47 mg/hYSuiaog68-82Ztx [facility] on above:Performed By: #### PT, PTT #### [facility] [address] [place] [address] Dr. Donny HaneyCholesterol in LDL [Mass/Vol]122.4 mg/dLFulton County Health Center on above:Performed By: #### PT, PTT #### [facility] [address] [place] [address] Dr. Donny HaneyCholesterol.total/Cholesterol in HDL [Mass ratio]3.9 {ratio} NormalThe [facility] HospitalComment on above:Performed By: #### PT, PTT #### [facility] [address] [place] [address] Dr. Donny Nagel NORMAL> or = 60 mg/dl - LOW CARDIOVASCULAR RISK <40 mg/dl - HIGH CARDIOVASCULAR RISKCincinnati Children's Hospital Medical CenterComment on above:Performed By: #### PT, PTT #### [facility] [address] [place] [address] Dr. Donny HaneyLDL CALC NORMALSEE BELOWCincinnati Children's Hospital Medical CenterComment on above:Result Comment: <100 mg/dl OPTIMAL 100 - 129 mg/dl NEAR OR ABOVE OPTIMAL 130 - 159 mg/dl BORDERLINE HIGH 160 - 189 mg/dl HIGH >190 mg/dl VERY HIGH Performed By: #### PT, PTT #### [facility] [address] [place] [address] Dr. Donny HaneyTriglyceride [Mass/Vol]63 mg/dLNormal<=150[facility] Comment on above:Performed By: #### PT, PTT #### [facility] [address] [place] [address] Dr. Donny MerinoLDL CALC12.6 mg/dLNoCleveland Clinic Children's Hospital for RehabilitationComment on above: Performed By: #### PT, PTT #### [facility] [address] [place] [address] Dr. Donny HaneyPROF 14(COMP METB)on [id number] [Mass/Vol]3.3 g/dL Critically low3.4-5.0The [facility] HospitalComment on above:Performed By: #### PT, PTT #### [facility] [address] [place] [address] Dr. Donny HaneyAlbumin/Globulin [Mass ratio]0.8 {ratio}NormalThe [facility] HospitalComment on above:Performed By: #### PT, PTT #### [facility] [address] [place] [address] Dr. Yilan ChangALP [Catalytic activity/Vol]95 U/VSpqico52-630Ljh [facility] HospitalComment on above:Performed By: #### PT, PTT #### [facility] [address] [place] [address] Dr. Donny BalderasT [Catalytic activity/Vol]28 U/TIhvdog31-22Bwc [facility] HospitalComment on above:Performed By: #### PT, PTT #### [facility] [address] [place] [address] Dr. Donny Alvarezon gap [Moles/Vol]11.1 mmol/LNormalOhiohealth O'Blen[facility] Hospital Comment on above:Performed By: #### PT, PTT #### [facility] [address] [place] [address] Dr. Donny HaneyAST [Catalytic activity/Vol]14 U/LCritically uiw61-23Lcc [facility] HospitalComment on above:Performed By: #### PT, PTT #### [facility] [address] [place] [address] Dr. Donny HaneyBilirubin [Mass/Vol]0.2 mg/dLNormal0.2-1.0[facility] Comment on above:Performed By: #### PT, PTT #### [facility] [address] [place] [address] Dr. Donny HaneyCalcium [Mass/Vol]9.4 mg/dLNormal8.5-10.1[facility] Comment on above:Performed By: #### PT, PTT #### [facility] [address] [place] [address] Dr. Donny HaneyChloride [Moles/Vol]106 mmol/UTjumzg99-167Lqg [facility] Comment on above:Performed By: #### PT, PTT #### [facility] [address] [place] [address] Dr. Donny HaneyCO2 [Moles/Vol]30.2 mmol/VCdnygy47.0-32.0The [facility] Comment on above:Performed By: #### PT, PTT #### [facility] [address] [place] [address] Dr. Yilan ChangCreatinine [Mass/Vol]0.75 mg/dLNormal0.55-1.02[facility] HospitalComment on above:Performed By: #### PT, PTT #### [facility] [address] [place] [address] Dr. Donny CoffeyGFR-AF JAMAICAN>60Normal>=60The [facility] HospitalComment on above:Performed By: #### PT, PTT #### [facility] [address] [place] [address] Dr. Donny CoffeyGFR-NON AF JAMAICAN>60Normal>=60The [facility] HospitalComment on above:Performed By: #### PT, PTT #### [facility] [address] [place] [address] Dr. Donny HaneyGlobulin (S) [Mass/Vol]4.0 g/dLNormalThe [facility] HospitalComment on above:Performed By: #### PT, PTT #### [facility] [address] [place] [address] Dr. Donny HaneyGlucose [Mass/Vol]115 mg/dLCritically fsrg38-964NlyOhiohealth O'Bleness HospitalComment on above:Performed By: #### PT, PTT #### [facility] [address] [place] [address] Dr. Donny HaneyPotassium [Moles/Vol]4.3 mmol/LNormal3.5-5.1[facility] Comment on above:Performed By: #### PT, PTT #### [facility] [address] [place] [address] Dr. Donny HaneyProtein [Mass/Vol]7.3 g/dLNormal6.4-8.2[facility] Comment on above:Performed By: #### PT, PTT #### [facility] [address] [place] [address] Dr. Donny HaneySodium [Moles/Vol]143 mmol/JRlyimy281-540Eys [facility] Comment on above:Performed By: #### PT, PTT #### [facility] [address] [place] [address] Dr. Yilan ChangUrea nitrogen [Mass/Vol]14.0 mg/dLNormal7.0-18.0[facility]len[facility] HospitalComment on above:Performed By: #### PT, PTT #### [facility] [address] [address] [address] Donny Penny nitrogen/Creatinine [Mass ratio]18.7 mg/mgNoalThGood Samaritan HospitalComment on above:Performed By: #### PT, PTT #### [facility] [address] [address] [address] Donny Chan 62-51-7045EZV4.563 uIU/mLNormal0.358-3.740The [facility] HospitalComment on above:Performed By: #### PT, PTT #### [facility] [address] [place] [address] Dr. Donny Mercado RANDOM W/MICROSCOPICon [id number] SEENNormalNONE SEENOhiohealth O'Bleness HospitalComment on above:Performed By: #### UAMIC #### [facility] [address] [place] [address] Dr. Donny Butcher Ql (U)NegativeNormalNEGATIVEOhiohealth O'Bleness Hospital Comment on above:Performed By: #### UAMIC #### [facility] [address] [place] [address] Dr. Donny Crawford SEENNormalNONE SEENOhiohealth O'Bleness HospitalComment on above:Performed By: #### UAMIC #### [facility] [address] [address] [address] Donny Bradford (U)SL CLOUDYAbnormalCLEARThGood Samaritan HospitalComment on above:Performed By: #### UAMIC #### [facility] [address] [place] [address] Dr. Donny Erickson (U)LT. YELLOWNormalYELLOWOhiohealth O'Bleness HospitalComment on above:Performed By: #### UAMIC #### [facility] [address] [place] [address] Dr. Donny Pickens LM Nom (Urine sed)NONE SEENNormalNONE SEENOhiohealth O'Bleness HospitalComment on above:Performed By: #### UAMIC #### [facility] [address] [address] [address] Donny Sargentthelial cells LM Ql (Urine sed)MODERATEAbnormalNONE SEEN /RARE The [facility] HospitalComment on above:Performed By: #### UAMIC #### [facility] [address] [place] [address] Dr. Donny HaneyGlucose Ql (U)NegativeNormalNEGATIVEOhiohealth O'Bleness HospitalComment on above:Performed By: #### UAMIC #### [facility] [address] [place] [address] Dr. Donny HaneyHemoglobin Ql (U)NegativeNormalNEGATIVEParkview Health Montpelier Hospital on above:Performed By: #### UAMIC #### [facility] [address] [place] [address] Dr. Donny HaneyKetones Ql (U)NegativeNormalNEGATIVEOhiohealth O'Bleness HospitalComment on above:Performed By: #### UAMIC #### [facility] [address] [place] [address] Dr. Donny HaneyLEUKOCYTESNegativeNormalNEGATIVEOhiohealth O'Bleness HospitalComcaro center on above:Performed By: #### UAMIC #### [facility] [address] [place] [address] Dr. Donny HaneyMUCOUSNONE SEENNormalNONE SEENOhiohealth O'Bleness HospitalComment on above:Performed By: #### UAMIC #### [facility] [address] [place] [address] Dr. Donny HaneyNitrite Ql (U)NegativeNormalNEGATIVEOhiohealth O'Bleness HospitalComment on above:Performed By: #### UAMIC #### [facility] [address] [place] [address] Dr. Donny HaneypH (U)5.0 [pH]Normal5-9Ohiohealth O'Bleness HospitalComment on above: Performed By: #### UAMIC #### [facility] [address] [place] [address] Dr. Donny RiggsCNONE SEENAbnormal0-2Ohiohealth O'Bleness HospitalComment on above: Performed By: #### UAMIC #### [facility] [address] [place] [address] Dr. Donny HaneySPEC GRAVITY1.369Nwzzayun5.005-<=1.025[facility] Hospital Comment on above:Performed By: #### UAMIC #### [facility] [address] [place] [address] Dr. Donny HaneyUA PROTEINNegativeNormalNEGATIVE/ TRACEThe [facility] Comment on above:Performed By: #### UAMIC #### [facility] [address] [place] [address] Dr. Donny Ulloabilino Qn (U)0.2 {Ramirez'U}/dLNormal0.2 - 1.0Ohiohealth O'Bleness HospitalComment on above:Performed By: #### UAMIC #### [facility] [address] [place] [address] Dr. Donny HaneyWBC0-2AbnormalNONE SEENOhiohealth O'Bleness HospitalComment on above: Performed By: #### UAMIC #### [facility] [address] [place] [address] Dr. Donny HaneyXR KUB 1 VIEWon [id number] KUB 1 VIEWEXAMINATION: XR KUB 1 VIEW HISTORY: Kidney stone [...] Electronically authenticated by: CARLTON WU Date: 2021-11-30 18:37[facility] AUTO DIFFon [id number] #0.1 103/ulNormal0.0-0.1The [facility] HospitalComment on above:Performed By: #### CBC #### [facility] [address] [address] [address] Donny HaneyBasophils/100 WBC (Bld)0.7 %Normal0.2-2.0The [facility] Comment on above:Performed By: #### CBC #### [facility] [address] [place] [address] Dr. Donny Castañeda #0.2 103/ulNormal0.0-0.7The [facility] HospitalComment on above: Performed By: #### CBC #### [facility] [address] [place] [address] Dr. Donny Coffeyosinophils/100 WBC (Bld)2.3 %Normal0.9-7.0The [facility] Comment on above:Performed By: #### CBC #### [facility] [address] [place] [address] Dr. Donny Coffeyrythrocyte distribution width (RBC) [Ratio]16.6 %Critically high 11.0-15.0The [facility] HospitalComment on above:Performed By: #### CBC #### [facility] [address] [place] [address] Dr. Donny HaneyHematocrit (Bld) [Volume fraction]39.9 %Dmmwzm59.0-48.0The [facility] HospitalComment on above:Performed By: #### CBC #### [facility] [address] [place] [address] Dr. Donny HaneyHemoglobin (Bld) [Mass/Vol]12.7 g/pZYawjyl18.0-16.0The [facility] HospitalComment on above:Performed By: #### CBC #### [facility] [address] [place] [address] Dr. Donny Menard #0.09 10e3/ulCritically high0.00-0.03The [facility] Comment on above:Performed By: #### CBC #### [facility] [address] [place] [address] Dr. Donny Menard %0.9 %Critically high0.0-0.5The [facility] HospitalComment on above:Performed By: #### CBC #### [facility] [address] [address] [address] Donny Altamirano #3.0 103/ulNormal1.2-3.8The UC Medical Centerment on above:Performed By: #### CBC #### [facility] [address] [address] [address] Donny Santomphocytes/100 WBC (Bld)29.3 %Pcmzcq16.5-60.0The [facility] HospitalComment on above:Performed By: #### CBC #### [facility] [address] [place] [address] Dr. Donny Park DIFF REQNONormalThe [facility] HospitalComment on above: Performed By: #### CBC #### [facility] [address] [place] [address] Dr. Donny Gonzalez (RBC) [Entitic mass]26.4 pgCritically low26.7-34.0The [facility] Medical Centerment on above:Performed By: #### CBC #### [facility] [address] [place] [address] Dr. Donny Gonzalez (RBC) [Mass/Vol]31.8 g/iPEkcitu41.9-35.2The [facility] Medical Centerment on above:Performed By: #### CBC #### [facility] [address] [place] [address] Dr. Donny Gonzalez (RBC) [Entitic vol]83.0 qUCtjhsf78.0-99.0The [facility] Medical Centerment on above:Performed By: #### CBC #### [facility] [address] [place] [address] Dr. Donny Lawson #0.6 103/ulNormal0.3-0.8The [facility] on above:Performed By: #### CBC #### [facility] [address] [place] [address] Dr. Donny Palaciosocytes/100 WBC (Bld)5.8 %Normal1.7-12.0The [facility] Comment on above:Performed By: #### CBC #### [facility] [address] [address] [address] Donny AparicioUT #6.3 103/ulNormal1.4-6.5The [facility] HospitalComment on above:Performed By: #### CBC #### [facility] [address] [place] [address] Dr. Donny Aparicioutrophils/100 WBC (Bld)61.0 %Zdidrt26.0-75.0The [facility] HospitalComment on above:Performed By: #### CBC #### [facility] [address] [place] [address] Dr. Donny HaneyPlatelet mean volume (Bld) [Entitic vol]9.9 fLNormal9.5-13.5The [facility] HospitalComment on above:Performed By: #### CBC #### [facility] [address] [place] [address] Dr. Donny HaneyPLT371 103/ydHwcliv515-304Eoq [facility] HospitalComment on above: Performed By: #### CBC #### [facility] [address] [place] [address] Dr. Donny HaneyRBC4.81 106/ulNormal4.20-5.40The [facility] HospitalComment on above:Performed By: #### CBC #### [facility] [address] [place] [address] Dr. Donny HaneyWBC10.4 103/ulNormal4.0-11.0The [facility] HospitalComment on above:Performed By: #### CBC #### [facility] [address] [place] [address] Dr. Donny HaneyCovid-19 PCR (CVDTB)on [id number]-CoV-2 (COVID-19) RNA CARRIE+probe Ql (Unsp spec)Not detectedNormalNOT DETECTEDThe [facility] Comment on above:Result Comment: This test is not yet approved or cleared by the [place] FDA. When there are no FDA-approved or cleared tests available, and other criteria are met, FDA can make tests available under an emergency access mechanism called an Emergency Use Authorization (EUA). The EUA for this test is supported by the [employer] Installer of Health and Human Service's (HHS's) declaration that circumstances exist to justify the emergency use of in vitro diagnostics for the detection and/or diagnosis of the virus that causes COVID- 19. This EUA will remain in effect (meaning [...] of clinical signs and symptoms consistent with SARS-CoV-2.Performed By: #### PT, PTT #### [facility] [address] [place] [address] Dr. Donny HaneyPROF CHEM 8 (BAS METB)on 73-28-3426Tkysa gap [Moles/Vol]11.5 mmol/LNormalOhiohealth O'Bleness HospitalComment on above:Performed By: #### BMP #### [facility] [address] [place] [address] Dr. Donny HaneyCalcium [Mass/Vol]9.0 mg/dLNormal8.5-10.1[facility] Comment on above:Performed By: #### BMP #### [facility] [address] [place] [address] Dr. Donny HaneyChloride [Moles/Vol]105 mmol/AMkasky56-938HqiOhiohealth O'Bleness Hospital Comment on above:Performed By: #### BMP #### [facility] [address] [place] [address] Dr. Donny HaneyCO2 [Moles/Vol]28.5 mmol/TUgdjzt79.0-32.0[facility] Comment on above:Performed By: #### BMP #### [facility] [address] [place] [address] Dr. Donny HaneyCreatinine [Mass/Vol]0.78 mg/dLNormal0.55-1.02The [facility] HospitalComment on above:Performed By: #### BMP #### [facility] [address] [address] [address] Donny CoffeyGFR-AF JAMAICAN>60Normal>=60The [facility] HospitalComment on above:Performed By: #### BMP #### [facility] [address] [address] [address] Donny CoffeyGFR-NON AF JAMAICAN>60Normal>=60The [facility] HospitalComment on above:Performed By: #### BMP #### [facility] [address] [address] [address] Donny HaneyGlucose [Mass/Vol]110 mg/dLCritically asrc82-161Rps [facility] HospitalComment on above:Performed By: #### BMP #### [facility] [address] [address] [address] Donny HaneyPotassium [Moles/Vol]4.0 mmol/LNormal3.5-5.1The [facility] Comment on above:Performed By: #### BMP #### [facility] [address] [address] [address] Donny HaneySodium [Moles/Vol]141 mmol/WIrqnme618-414Rob [facility] Comment on above:Performed By: #### BMP #### [facility] [address] [place] [address] Dr. Donny HaneyUrea nitrogen [Mass/Vol]16.0 mg/dLNormal7.0-18.0The [facility] HospitalComment on above:Performed By: #### BMP #### [facility] [address] [address] [address] Donny Penny nitrogen/Creatinine [Mass ratio]20.5 mg/mgNormalThe [facility] HospitalComment on above:Performed By: #### BMP #### [facility] [address] [address] [address] Donny HaneyPROTIMEon [id number] Coag (PPP) [Relative time]0.96 {INR} NormalThe [facility] HospitalComment on above:Performed By: #### PT, PTT #### [facility] [address] [place] [address] Dr. Donny Sanchez [facility] HEALTHSEE BELOWCincinnati Children's Hospital Medical CenterComment on above:Result Comment: DESIRED INR: 2.0 - 3.0 CONDITIONS NOT LISTED BELOW 2.5 - 3.5 FOR PROSTHETIC HEART VALVE REPLACEMENT 2.5 - 3.5 RECURRENT THROMBOSIS Performed By: #### PT, PTT #### [facility] [address] [place] [address] Dr. Donny HaneyPT Coag (PPP) [Time]10.4 sNormal9.0-11.6The [facility] Comment on above:Performed By: #### PT, PTT #### [facility] [address] [place] [address] Dr. Donny Hester [id number] Coag (Bld) [Time]27.1 oXsitku69.3-36.2[facility] O'Blen[facility] HospitalComment on above:Performed By: #### PT, PTT #### [facility] [address] [place] [address] Dr. Donny HaneyXR KUB 1 VIEWon [id number] KUB 1 VIEWEXAMINATION: XR KUB 1 VIEW HISTORY: Kidney stone [...] Electronically authenticated by: CARLTON WU Date: 2021-11-16 06:55[facility] Medical CenterC-Reactive Proteinon [id number] [Mass/Vol]15.1 mg/LHigh 0.0-5.0MerGaylord HospitalComment on above:Performed By: #### CRP, SED, CDP #### [facility] [address] [place], [place] [id number] Restoration Officer: Carlton Partida [facility] [Mass/Vol]15.1 mg/LHigh0 - 5 mg/LBON [facility] EASTInterpretation and review of laboratory resultsAbnormalBON [facility] EASTBON [facility] with Auto Differentialon 11-14-2021 Absolute Eos #0.28BON [facility] HOSPITALAbsolute Immature Granulocyte0.06BON [facility] HOSPITALAbsolute Lymph #2.52BON [facility] HOSPITALAbsolute Wilbarger # 0.60BON [facility]MEM[facility]AL HOSPITALBasophils (Bld) [#/Vol]0.06 10*3/uLBON [facility] WEST HOSPITALBasophils/100 WBC (Bld)1 %0 - 2 %[facility] HEALTHEosinophils/100 WBC (Bld)3 %1 - 4 %[facility] HEALTHHematocrit (Bld) [Volume fraction] 41.7 %36.3 - 47.1 %[facility] HEALTHHemoglobin (Bld) [Mass/Vol]12.7 g/dL 11.9 - 15.1 g/dLBON [facility] EASTImmature granulocytes/100 WBC (Bld)1 % Jiui0UNY [facility] EASTInterpretation and review of laboratory results AbnormalBON [facility]ENC[facility]OS[facility] CLEVELAND EASTLymphocytes/100 WBC (Bld)28 %24 - 43 %[facility] SYSTEMSH (RBC) [Entitic mass]26.1 pg25.2 - 33.5 pgBON SOUTHWEST GENERAL HEALTH CENTERHC (RBC) [Mass/Vol]30.5 g/dL28.4 - 34.8 g/dLBON [facility]OUTHWEST GENERAL HEALTH CENTERV (RBC) [Entitic vol]85.6 fL82.6 - 102.9 fLAUGUSTA HEALTH Monocytes/100 WBC (Bld)7 %3 - 12 %[facility] HEALTHNRBC Automated0.00.0 per 100 WBCAUGUSTA HEALTHPlatelet distribution width (Bld) [Ratio]16.8 %High11.8 - 14.4 %BON [facility] EASTPlatelet mean volume (Bld) [Entitic vol]10.4 fL8.1 - 13.5 fLFLORENCE COMMUNITY HEALTHCARE SECWILLIS-[facility] HEALTHPlatelets (Bld) [#/Vol]330 10*3/uLBON [facility] CLEVELAND EASTRBC (Bld) [#/Vol]4.87 10*6/uL3.95 - 5.11 m/[facility] Health SystemSegmented neutrophils/100 WBC (Bld)60 %36 - 65 %BON [facility]LEVEL[facility] EASTSegs Absolute5.52BON [facility]LEVEL[facility] EASTWBC (Bld) [#/Vol]9.0 10*3/uLBON [facility] HOSPITALOURS MER[facility] WEST HOSPITALBON [facility] EASTCBC with Diffon [id number]. Basophil0.06 k/uLNormal0.00-0.20MerParkview Health Bryan Hospital HospitalComment on above:Performed By: #### CRP, SED, CDP #### [address] [place] [id number] Restoration Officer: Eliza Aguilar.Imm.Granulocyte0.06 k/uLNormal0.00-0.30MerParkview Health Bryan Hospital HospitalComment on above:Performed By: #### CRP, SED, CDP #### [address] [place] [address] Restoration Officer: Eliza Aguilar.Neutrophil (Seg)5.52 k/uLNormal1.50-8.10MerParkview Health Bryan Hospital HospitalComment on above:Performed By: #### CRP, SED, CDP #### [address] [place] [address] Restoration Officer: Carlton Partida MDBasophils/100 WBC (Bld)1 %Normal0-2[facility] HospitalComment on above:Performed By: #### CRP, SED, CDP #### [address] [place] [address] Restoration Officer: Carlton Partida MDEosinophils (Bld) [#/Vol]0.28 10*3/uLNormal 0.00-0.44MerParkview Health Bryan Hospital HospitalComment on above:Performed By: #### CRP, SED, CDP #### [address] [place], [place] [address] Restoration Officer: Carlton Partida MDEosinophils/100 WBC (Bld)3 %Normal1-4MerParkview Health Bryan Hospital HospitalComment on above:Performed By: #### CRP, SED, CDP #### [address] [place], [place] [address] Restoration Officer: Carlton Partida MDErythrocyte distribution width (RBC) [Ratio]16.8 % High11.8-14.4MerParkview Health Bryan Hospital HospitalComment on above:Performed By: #### CRP, SED, CDP #### [address] [place] [address] Restoration Officer: Carlton Partida MDHematocrit (Bld) [Volume fraction]41.7 %Normal 36.3-47.1MercLicking Memorial Hospital HospitalComment on above:Performed By: #### CRP, SED, CDP #### [address] [place], [place] [address] Restoration Officer: Carlton Partida MDHemoglobin (Bld) [Mass/Vol]12.7 g/dLNormal 11.9-15.1[facility] HospitalComment on above:Performed By: #### CRP, SED, CDP #### [address] [place], [place] [address] Restoration Officer: Carlton Partida MDImmature granulocytes/100 WBC (Bld)1 %Hjqz1MyluaCleveland Clinic Children'S Hospital For Rehabilitation HospitalComment on above:Performed By: #### CRP, SED, CDP #### [address] [place] [id number] Restoration Officer: Carlton Partida MDLymphocytes (Bld) [#/Vol]2.52 10*3/uLNormal 1.10-3.70MerParkview Health Bryan Hospital HospitalComment on above:Performed By: #### CRP, SED, CDP #### [address] [place] [address] Restoration Officer: Carlton Partida MDLymphocytes/100 WBC (Bld)28 %Hdddwx97-58NqitxKnox Community HospitalComment on above:Performed By: #### CRP, SED, CDP #### [address] [place], [facility]83 Restoration Officer: JOHANN AguilarCH (RBC) [Entitic mass]26.1 gnAowuiw62.2-33.5 [facility] HospitalComment on above:Performed By: #### CRP, SED, CDP #### [address] [place], [facility]83 Restoration Officer: LEOLA AguilarC (RBC) [Mass/Vol]30.5 g/lTMnrhzh64.4-34.8[facility] HospitalComment on above:Performed By: #### CRP, SED, CDP #### [address] [place], [facility]83 Restoration Officer: JOHANN AguilarCV (RBC) [Entitic vol]85.6 cPIapcih28.6-102.9 [facility] HospitalComment on above:Performed By: #### CRP, SED, CDP #### [address] [place], [place] [address] Restoration Officer: JOHANN Aguilaronocytes (Bld) [#/Vol]0.60 10*3/uLNormal0.10-1.20 [facility] HospitalComment on above:Performed By: #### CRP, SED, CDP #### [address] [place] [address] Restoration Officer: JOHANN Aguilaronocytes/100 WBC (Bld)7 %Normal3-12[facility] HospitalComment on above:Performed By: #### CRP, SED, CDP #### [address] [place] [address] Restoration Officer: Martha Aguilarutrophil (Seg)60 %Wxbgvk08-68Fcupq [facility] HospitalComment on above:Performed By: #### CRP, SED, CDP #### [address] [place], [facility]83 Restoration Officer: AUGUSTINE AguilarBC Automated0.0 per 100 WBCNormal0.0[facility] HospitalComment on above:Performed By: #### CRP, SED, CDP #### [address] [place] [address] Restoration Officer: Margareth Aguilar mean volume (Bld) [Entitic vol]10.4 fL Normal8.1-13.5[facility] Community HospitalComment on above:Performed By: #### CRP, SED, CDP #### [address] [place], [facility]83 Restoration Officer: Aleah Augilar (Bld) [#/Vol]330 10*3/fFWoqsea617-273 [facility] HospitalComment on above:Performed By: #### CRP, SED, CDP #### [address] [place], [facility]83 Restoration Officer: MATT Aguilar (Bld) [#/Vol]4.87 10*6/uLNormal3.95-5.11[facility] HospitalComment on above:Performed By: #### CRP, SED, CDP #### [address] [place], [place] [address] Restoration Officer: LAWANDA Aguilar (Bld) [#/Vol]9.0 10*3/uLNormal3.5-11.3MParkview Health Montpelier Hospital HospitalComment on above:Performed By: #### CRP, SED, CDP #### [facility] [address] [place] [address] Restoration Officer: MARIAELENA Aguilaredimentation Rateon [id number] Rate 25 mm/HrNormal0-30[facility] HospitalComment on above:Performed By: #### CRP, SED, CDP #### [facility] [address] [place] [address] Restoration Officer: MARIAELENA Aguilared Oavz30UZY [facility] CENTERUS KIDNEYSon [id number] KIDNEYSEXAMINATION: US KIDNEYS HISTORY: Kidney stone COMPARISON: No [...] Electronically authenticated by: LOLI HUBER Date: 2021-10-26 17:49[facility] 12 LeadOrdered By: Martinez Bernal on [id number] Plti11WCZ [facility] I[facility] HOSPITALIndian Energy Work Phone: p Merh59tkepnvyFLI SECOURS MERCLumiFold Phone: p-R [id number] [facility] Medical CenterPlanandoo Phone: q-T [id number] [facility] HospitalY [facility]ALTH Work Phone: QRS Qijqifla43 msBON [employer] Work Phone: QTc Calculation (Scott)425 msBON [employer] Work Phone: R [id number] [employer] Work Phone: T [id number] [employer] Work Phone: Ventricular [id number] [employer] Work Phone: BON [employer] Work Phone: EKG 12 Leadon [id number] sinus rhythm Cannot rule out Anterior infarct , age undetermined T-wave inversion in anterior leads, consider anterior ischemia Abnormal ECG No previous ECGs available Confirmed by Martinez Bernal MD ([id number]) on 10/04/2021 8:21:[address] [facility] Martinez Bernal MD - 10/04/2021 Normal sinus rhythm Cannot rule out Anterior infarct , age undetermined T-wave inversion in anterior leads, consider anterior ischemia Abnormal ECG No previous ECGs available Confirmed by Martinez Bernal MD ([id number]) on 10/04/2021 8:21:31 AMBON [employer] Work Phone: basic Metabolic Panelon 90-34-6208Kokjz gap [Moles/Vol]7 mmol/LLow9 - 17 mmol/LBON SECThe [employer] Group HEALTHCalcium [Mass/Vol]9.4 mg/dL8.6 - 10.4 mg/dLBON SECThe Logic Group HEALTHChloride [Moles/Vol]104 mmol/L98 - 107 mmol/LBON SECThe [employer] HEALTHCO2 [Moles/Vol]28 mmol/L20 - 31 mmol/LBON SECThe [employer] HEALTHCreatinine [Mass/Vol]0.61 mg/dL0.50 - 0.90 mg/dLBON SECThe [employer] [facility] HEALTHGFR >60>60 mL/minBON [employer] HEALTHGFR Non- >60>60 mL/minBON [employer] HEALTHGlucose [Mass/Vol]91 mg/dL 70 - 99 mg/dLBON [facility] EASTInterpretation and review of laboratory resultsAbnormalBON [facility] EASTPotassium [Moles/Vol]4.1 mmol/L3.7 - 5.3 mmol/LBON [facility] EASTSodium [Moles/Vol]139 mmol/L135 - 144 mmol/LBON [facility] CLEVEL[facility] EASTUrea nitrogen (BldV) [Mass/Vol]15 mg/dL6 - 20 mg/dLBON REGENCY HOSPITAL CLEVELAND EASTUrea nitrogen/Creatinine (Bld) [Mass ratio]25HighBON AVERA ST[facility] BENEDICT HEALTH CENTERBasic Metabolic Profon 10-03-2021(cont.) NormalKnox Community HospitalComment on above:Result Comment: Average GFR for 50- 59 years old: 93 mL/min/1.73sq m Chronic Kidney Disease: <60 mL/min/1.73sq m Kidney failure: <15 mL/min/1.73sq m eGFR calculated using average adult body mass. Additional eGFR calculator available at: http://www.[employer]/multiple_crcl_2012.htmPerformed By: #### BMP #### [address] [place] [address] Restoration Officer: Mary Grace Aguilar gap [Moles/Vol]7 mmol/LLow9-17Kn[facility] Community HospitalComment on above:Performed By: #### BMP #### [facility] [address] [place] [address] [place] [address] Restoration Officer: Carlton Partida MDBUN/CRE Wkakg64Mlch0-39DipxeKnox Community Hospital Comment on above:Performed By: #### BMP #### [facility] [address] [place] [address] [place] [address] Restoration Officer: Carlton Partida MDCalcium [Mass/Vol]9.4 mg/dLNormal8.6-10.4[facility] Community HospitalComment on above:Performed By: #### BMP #### [address] [place], [place] [address] Restoration Officer: SYBIL Aguilarhloride [Moles/Vol]104 mmol/ERhoisa62-583Aeylt [facility]iffin HospitalComment on above:Performed By: #### BMP #### [address] [place], [place] [address] Restoration Officer: Carlton Partida MDCO2 [Moles/Vol]28 mmol/FJmgoss90-25Gjhjl [facility] HospitalComment on above:Performed By: #### BMP #### [address] [place], [place] [address] Restoration Officer: SYBIL Aguilarreatinine [Mass/Vol]0.61 mg/dLNormal0.50-0.90 [facility] HospitalComment on above:Performed By: #### BMP #### [address] [place], [place] [address] Restoration Officer: ALL Aguilar, Amer>60Normal>60[facility] Comment on above:Performed By: #### BMP #### [address] [place], [place] [id number] Restoration Officer: ALL Aguilar,non Amer>60Normal>60[facility] HospitalComment on above:Performed By: #### BMP #### [address] [place], [place] [address] Restoration Officer: Carlton Partida MDGlucose [Mass/Vol]91 mg/cTZmstan88-65Syoxs Hialeah HospitalComment on above:Performed By: #### BMP #### [address] [address] [place], [place] [address] Restoration Officer: Carlton Partida MDPotassium [Moles/Vol]4.1 mmol/LNormal3.7-5.3Mercy Hialeah HospitalComment on above:Performed By: #### BMP #### [facility] [address] [place] [address] Dr[address] [place] [address] Restoration Officer: MARIAELENA Aguilarodium [Moles/Vol]139 mmol/SDqrozf268-891ScpywKnox Community HospitalComcaro center on above:Performed By: #### BMP #### [address] [place] [address] Restoration Officer: MARIAELENA Aguilartaging:NormalKnox Community HospitalComment on above:Result Comment: Stage 1: Some kidney damage normal GFR Stage 2: Mild kidney damage GFR 60-89 Stage 3: Moderate kidney damage GFR 30-59 Stage 4: Severe kidney damage GFR 15-29 Stage 5: Severe kidney damage GFR <15 ESRD - chronic treatment by dialysis or transplantPerformed By: #### BMP #### [address] [place] [id number] Restoration Officer: Carlton Patrida MDUrea nitrogen [Mass/Vol]15 mg/dLNormal6-20Knox Community HospitalComment on above:Performed By: #### BMP #### [address] [place] [address] Restoration Officer: Carlton Partida MDLaboratory - Chemistry and Chemistry - challengeon 03-01-1206JPD/1.73 sq M.predicted MDRD (S/P/Bld) [Vol rate/Area]STEFANO KEYES [facility]ST HOSPITALComment on above:Average GFR for 50-59 years old: 93 mL/min/1.73sq m Chronic Kidney Disease: <60 mL/min/1.73sq m Kidney failure: <15 mL/min/1.73sq m eGFR calculated using average adult body mass. Additional eGFR calculator available at: http://www.MeroArte.com/multiple_crcl_2012.htm Stage 1: Some kidney damage normal GFR Stage 2: Mild kidney damage GFR 60-89 Stage 3: Moderate kidney damage GFR 30-59 Stage 4: Severe kidney damage GFR 15-29 Stage 5: Severe kidney damage GFR <15 ESRD - chronic treatment by dialysis or transplant XR CHEST (2 VW)on 67-25-7752ZA CHEST (2 VW)EXAMINATION: TWO XRAY VIEWS OF THE CHEST 10/03/2021 [...] Signed by: Jaciel Damon DO 10/03/21 [facility]Normal[facility] acute process. [facility] CONSOLIDATEDEXAMINATION: TWO XRAY VIEWS OF THE CHEST 10/03/2021 [...] The osseous structures are without acute process. [facility] Jaciel Farah DO - 10/03/2021 EXAMINATION: TWO XRAY VIEWS [...] without acute process. IMPRESSION: No acute process. [employer] Phone: radiology Study observation (narrative)[employer] Phone: XR CHEST (2 VW)Ordered By: Jaciel Damon on 73-49-7307FVH [employer] Phone: XR finger LT thumbon 91-58-2505SO finger LT thumb [facility] Main [address] [address] XRay Report Signed Patient: Lois Jacques MR#: [id number] 12 : 1965 Acct:[id number] Age/Sex: 56 / F ADM Date: 05/29/21 Loc: XDCLY Room: Type: [facility] Attending Dr: Danitza MOE Ordering Provider: Danitza MOE Date of Service: 05/29/21 XR/XR finger LT thumb: Strain / Sprain ([id number]) XR/XR wrist LT min 3V*: Strain / [...] seen. Impression dictated by: Earnest Buckley Jr., DPauloO.05/29/2021 12:07 PM Dictation Location: [place] [address] Transcribed By: [facility] 05/29/21 1207 Dictated By: Earnest Buckley Jr, DO 05/29/21 1203 Signed By: 05/29/21 1207NoKettering Health PrebleAntistreptolysin O screenon 02-42-8846KKT92.4[facility]- [place], KYC-Reactive Proteinon 08-00-3451SBI [Mass/Vol]12.4 mg/LHigh0 - 5 mg/LMercy Health- [place], KYInterpretation and review of laboratory resultsAbnormalKettering Health Preble- [place], KYCBC Auto Differentialon 73-43-5721Hxodjvmth (Bld) [#/Vol]0.06 10*3/uLMerProvidence Health- [place], KYBasophils/100 WBC (Bld)1 %0 - 2 %[facility], KYDifferential TypeNOT REPORTEDLake County [facility] - [facility] [place], KYEosinophils (Bld) [#/Vol]0.18 10*3/[facility]- [place], [place] Eosinophils/100 WBC (Bld)2 %1 - 4 %[facility], KYErythrocyte distribution width (RBC) [Ratio]16.3 %High11.8 - 14.4 %[facility], KYHematocrit (Bld) [Volume fraction]42.2 %36.3 - 47.1 %[facility], KYHemoglobin (Bld) [Mass/Vol]13.0 g/dL11.9 - 15.1 g/dLGrant Hospital, KYImmature granulocytes (Bld) [#/Vol]0.05 10*3/[facility], KYImmature granulocytes (Bld) [#/Vol] 0 %0[facility], KYInterpretation and review of laboratory resultsAbnormal [facility], KYLymphocytes (Bld) [#/Vol]3.21 10*3/[facility] [place], [place] Lymphocytes/100 WBC (Bld)29 %24 - 43 %[facility], KYMCH (RBC) [Entitic mass]27.0 pg25.2 - 33.5 pgGrant Hospital, KYMCHC (RBC) [Mass/Vol]30.8 g/dL28.4 - 34.8 g/dLGrant Hospital, KYMCV (RBC) [Entitic vol]87.6 fL82.6 - 102.9 fL [facility], KYMonocytes (Bld) [#/Vol]0.53 10*3/uLLake County Memorial Hospital - [facility] [place], [place] Monocytes/100 WBC (Bld)5 %3 - 12 %[facility], KYPlatelet mean volume (Bld) [Entitic vol]10.1 fL8.1 - 13.5 fLGrant Hospital, KYPlatelets (Bld) [#/Vol]360 10*3/[facility] [place], KYPlatelets (Bld) [#/Vol]NOT REPORTEDMercy Health- [place], KYRBC (Bld) [#/Vol]4.82 10*6/uL3.95 - 5.11 m/uLMercy Health- [place], KYRBC morphology finding Nom (Bld)NOT REPORTEDMercy Health- [place], KYSegmented neutrophils/100 WBC (Bld)63 %36 - 65 %[facility]- [place], KYSegs Absolute7.19[facility]- [place], KYWBC (Bld) [#/Vol]11.2 10*3/uLMercy Health- [place], KYWBC (Bld) [#/Vol]0.0 10*3/uL0.0 per 100 WBCMercy Health- [place], KYWBC MorphologyNOT REPORTED [facility]- [place], KYRheumatoid Factoron 60-18-4953Feuambklld Factor<10<14 IU/mL [facility]- [place], KYSedimentation Rateon 94-84-8966Gnc Rate18 mm0 - 20 mmFort Hamilton Hospitalcy Health- [place], KYUric Acidon 53-05-0510Ftkmw [Mass/Vol]3.6 mg/dL2.4 - 5.7 mg/dL [facility]- [place], [place] Vital Signs Date TimeVital SignValuePerforming ZutjwnycmQupaessk45-65-9113 15:49-0400Body nfecql574.13 Brianne Awad AEROSPACE MANAGER-C Work Phone: [facility]10-13-2025 15:49-0400 Body mass index (BMI) [Ratio]34.8 kg/m2Danitza Awad AEROSPACE MANAGER-C Work Phone: [facility]10-13-2025 15:49-0400 Body vdlffiyeegj14.3 [degF]Danitza Awad AEROSPACE MANAGER-C Work Phone: [facility]10-13-2025 15:49-0400 Body udkfqw05.6 kgDanitza Awad AEROSPACE MANAGER-C Work Phone: [facility]10-13-2025 15:49-0400 Diastolic blood zvrtgcix55 mm[Hg]Danitza Aichholz AEROSPACE MANAGER-C Work Phone: [phone] [place], [place] 1542110-13-2025 15:49-0400 Heart rate89 /minLisa Aichholz AEROSPACE MANAGER-C Work Phone: 1([phone] [place], [place] 1542110-13-2025 15:49-0400 Respiratory rate20 /minLisa Aichholz AEROSPACE MANAGER-C Work Phone: [phone] [place], [place] 1542110-13-2025 15:49-0400 SaO2% (BldA) [Mass fraction]96 %Danitza Aichholz AEROSPACE MANAGER-C Work Phone: [phone]10-13-2025 15:49-0400 Systolic blood cvbtrowr060 mm[Hg]Danitza Aichholz AEROSPACE MANAGER-C Work Phone: [phone])[address]07-01-2025 14:55-0400 Body zkryjs977.77 cmLisa Aichholz Work Phone: [phone]07-01-2025 14:55-0400 Body mass index (BMI) [Ratio]33.8 kg/m2Lisa Aichholz Work Phone: [phone] [address]07-01-2025 14:55-0400 Body jjbsib82.9 kgLisa Aichholz Work Phone: [phone] [place], [place] 1542107-01-2025 14:55-0400 Diastolic blood lhiviczv60 mm[Hg]Danitza Aichholz Work Phone: [phone] [address]07-01-2025 14:55-0400 Heart rate89 /minLisa Aichholz Work Phone: [phone])130-[address] [place], [place] 1542107-01-2025 14:55-0400 Respiratory rate18 /minLisa Aichholz Work Phone: [phone])600-[address] [place], [place] 1542107-01-2025 14:55-0400 Systolic blood mmcvmenc168 mm[Hg]Danitza Aichholz Work Phone: [facility]06-24-2025 15:45-0400 Body mass index (BMI) [Ratio]33.94 kg/m2Danitza Awad 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 Phone: [facility] CampusToihjlajxr09-08-8319 15:45-0400Body temperature 97.59 [degF]Danitza Flowerslazaro 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 Phone: [facility] CampusBnhznodzvn03-53-9817 15:45-0400Body djboco93.83 kgDanitza Awad 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 Phone: [facility] CampusRvzjqzscot79-06-4050 15:45-0400Diastolic blood ojnwuftn07 mm[Hg]Danitza Kristieflacoz 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 Phone: [facility] CampusDawoovhmhu97-05-7615 15:45-0400Heart rate84 /min Danitza Kristielazaro 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 Phone: [facility] CampusRawsvkqwng92-87-0096 15:45-0400Respiratory rate19 /minLisa Awad 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 Phone: [facility] CampusTjrxijsteg65-81-5080 15:45-9049DaP2% (BldA) [Mass fraction]94 %Danitza Flowerslazaro 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 Phone: [facility] CampusHmcwcncmww44-38-4584 15:45-0400Systolic blood rrenbnmr080 mm[Hg]Danitza Kristielazaro 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 Phone: [facility] CampusOhlykqcoje06-39-6952 15:44-0400Body mass index (BMI) [Ratio]43.1 kg/b4TcxlyfyohProtestant Hospital03-27-2025 13:38-0400 Body .77 cmProtestant Hospital03-27-2025 13:38-0400Body cuatxe53.7 kgProtestant Hospital02-27-2025 14:32-0500Blood Pressure [facility] Naida [phone]-AolcuRegency Hospital [facility] East02-27-2025 14:32-0500Diastolic blood zzyuszyc79 mm[Hg]Cortes Manuelmini [phone]-KbdfbRegency Hospital Cleveland East02-27-2025 14:32-0500Heart rate87 /minMuhammad Sarmini [phone]-XedpyRegency Hospital [facility] East02-27-2025 14:32-0500Systolic blood mm[Hg]Cortes Manuelmini [phone]-WxwjrRegency Hospital Cleveland East02-20-2025 15:18-0500Body motlly031.4 cmLisa Delmi 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 Phone: [facility] CampusKidxjaqqem22-97-2410 15:18-0500Body mass index (BMI) [Ratio]34.14 kg/m2Lisa Delmi 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 Phone: [facility] CampusZrdrutmhjh02-22-5899 15:18-0500Body temperature 97.9 [degF]Danitza Delmi 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 Phone: [facility] CampusKcrrvrlfbb69-21-2147 15:18-0500Body rhvicj85.29 kgLisa Reinaldoz 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 Phone: [facility] CampusTgpkfriqtr43-66-4027 15:18-0500Diastolic blood ahkxefad63 mm[Hg]Danitza Delmi 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 Phone: [facility] CampusPsqlsontxi77-83-5378 15:18-0500Heart rate95 /min Danitza Reinaldoz 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 Phone: [facility] CampusRphvcgjmke17-53-2332 15:18-0500Respiratory rate20 /minLisa Reinaldoz 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 Phone: [place] [address]Fdtxwbxbqy02-80-5057 15:18-9552QkQ0% (BldA) [Mass fraction]96 %Danitza Reinaldoz 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 Phone: noMissouri Rehabilitation CenterDlnuxguijh93-94-0472 15:18-0500Systolic blood dppzbily218 mm[Hg]Danitza Aichholz 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 Phone: [facility] CampusTopbkqejmn40-75-0269 11:08-0500Body .77 cmProtestant Hospital02-04-2025 11:08-0500Body mass index (BMI) [Ratio]34.2 kg/i3SpvbmdazcProtestant Hospital02-04-2025 11:08-0500Body zzbxyr57.92 kgProtestant Hospital02-04-2025 11:08-0500Diastolic blood bgptaoml37 mm[Hg][facility]02-04-2025 11:08-0500 Heart rate81 /[facility]02-04-2025 11:08-0500 Respiratory rate18 /[facility]02-04-2025 11:08-0500 SaO2% (BldA) [Mass fraction]96 %[facility]02-04-2025 11:08-0500Systolic blood godppfgz941 mm[Hg][facility] 05-20-2024 15:54-0500Body amuuyu265.4 cmDemiany Hernandez 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 Phone: [facility] CampusOwockptedc75-31-5084 15:54-0500Body mass index (BMI) [Ratio]33.79 kg/x5Bycjjvds Hernandez 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 Phone: [facility] CampusJwoumikoeg35-13-7259 15:54-0500Body temperature 96.4 [degF]Augustine Hernandez 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 Phone: [facility] CampusRvjlollegq90-98-9575 15:54-0500Body ilsafd81.47 kgBrittany Hernandez 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 Phone: [facility] CampusIqpckicmrv80-23-2225 15:54-0500Diastolic blood ypnlyzqn71 mm[Hg]Augustine Hernandez 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 Phone: [facility] CampusXtqxvhmstz93-38-2049 15:54-0500Heart ryph597 /min Augustine Hernandez 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 Phone: [facility] CampusMkrifzohxc07-03-3960 15:54-0500Respiratory rate16 /minBrittany Hernandez 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 Phone: [facility] CampusCxzrmcwpsj34-31-4088 15:54-4952ZkW0% (BldA) [Mass fraction]99 %Augustine Hernandez 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 Phone: noMissouri Rehabilitation CenterWbhypbvvgr99-95-1393 15:54-0500Systolic blood yxjbcchr932 mm[Hg]Augustine Hernandez 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 Phone: [facility] CampusInchjrbgvg72-63-4523 09:42-0500Diastolic blood iahajrtj05 mm[Hg]Cortes Sarmini [address] [place], [place] 9191601-17-2025 09:42-0500Heart rate68 /minMuhammad Sarmini [address]01-17-2025 09:42-0500Mean blood vjfhigkn50 mm[Hg]Cortes Sarmini [address] [place], [place] 9191601-17-2025 09:42-0500 Respiratory rate16 /minMuhammad Sarmini [address] [place], [place] 9191601-17-2025 09:42-3937MfF9% (BldA) [Mass fraction]92 %Cortes Sarmini [address] [place], [place] 9191601-17-2025 09:42-0500 Systolic blood oqpacyna081 mm[Hg]Cortes Sarmini [address] [place], [place] 9191601-17-2025 09:30-0500 Diastolic blood tfqpsivo03 mm[Hg]Cortes Sarmini [address] [place], [place] 9191601-17-2025 09:30-0500Heart rate73 /minMuhammad Sarmini [address] [place], [place] 9191601-17-2025 09:30-0500Mean blood kqnqookf67 mm[Hg]Cortes Sarmini [address] [place], [place] 9191601-17-2025 09:30-0500 Respiratory rate17 /minMuhammad Sarmini [address] [place], [place] 9191601-17-2025 09:30-7252EoJ7% (BldA) [Mass fraction]96 %Cortes Sarmini [address] [place], [place] 9191601-17-2025 09:30-0500 Systolic blood xphvkhvo077 mm[Hg]Cortes Sarmini [address] [place], [place] 4874501-17-2025 09:17-0500Body zctizklvxmr37.98 [degF]Cortes Sarmini [address]01-17-2025 09:17-0500 Diastolic blood wxftcdam84 mm[Hg]Cortes Sarmini [address] [place], [place] 9191601-17-2025 09:17-0500Heart rate75 /minMuhammad Sarmini [address] [place], [place] 9191601-17-2025 09:17-0500Mean blood yubeovge21 mm[Hg]Cortes Sarmini [address] [place], [place] 9191601-17-2025 09:17-0500 Respiratory rate17 /minMuhammad Sarmini [address] [place], [place] 9191601-17-2025 09:17-7227VmH5% (BldA) [Mass fraction]95 %Cortes Sarmini [address] [place], [place] 9191601-17-2025 09:17-0500 Systolic blood ywcdxlew184 mm[Hg]Cortes Sarmini [address] [place], [place] 4874501-17-2025 08:33-0500 Respiratory rate22 /minMuhamangied Manuelmini [facility]01-17-2025 07:41-0500Blood Pressure LocationMuhammad Manuelmini [facility]01-17-2025 07:41-0500Body xecgdtluzsn37.7 [degF]Cortes Manuelmini [facility]01-08-2025 13:48-0500Body mgocws445.4 cmLisa Delmi 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 Phone: [facility] CampusKycdkavxda73-03-2397 13:48-0500Body mass index (BMI) [Ratio]34.65 kg/m2Lisa Kristieholz 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 Phone: [facility] CampusOhdjgoljqr56-96-2339 13:48-0500Body temperature 98.49 [degF]Danitza Delmi 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 Phone: [facility] CampusYhnhotbabx85-54-9117 13:48-0500Body vheixq63.47 kgLisa Elisehholz 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 Phone: [facility] CampusYvuqgqwsfq16-25-1324 13:48-0500Diastolic blood rtaugvgm09 mm[Hg]Danitza Kristieholz 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 Phone: [facility] CampusTzqgwbreoc06-73-8526 13:48-0500Heart rate89 /min Danitza Reinaldoz 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 Phone: [facility] CampusBgnroikrwl15-70-5787 13:48-0500Respiratory rate20 /minLisa Elisehholz 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 Phone: [facility] CampusJhpxfaqlbk54-16-0637 13:48-7859OgL1% (BldA) [Mass fraction]96 %Danitza Kristieholz 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 Phone: [facility] CampusCgikqyjiek75-22-6500 13:48-0500Systolic blood kguwmpfn975 mm[Hg]Danitza Reinaldoz 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 Phone: [facility] CampusEhdlvgmqhr86-42-7079 14:43-0500Body .77 cmProtestant Hospital12-16-2024 14:43-0500Body mass index (BMI) [Ratio]34.9 kg/x7BqdpkhoiuProtestant Hospital12-16-2024 14:43-0500Body uerczl96.48 kgProtestant Hospital12-16-2024 14:43-0500Diastolic blood aqhxenkh65 mm[Hg][facility]12-16-2024 14:43-0500 Heart rate94 /[facility]12-16-2024 14:43-0500 Respiratory rate18 /[facility]12-16-2024 14:43-0500 SaO2% (BldA) [Mass fraction]95 %[facility]12-16-2024 14:43-0500Systolic blood vglzgzfi277 mm[Hg][facility] 03-04-2024 15:12-0500Body apxztm185.4 cmLisa Delmi 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 Phone: [phone] [place], [place] [address]Mjagryoghh43-23-4209 15:12-0500Body mass index (BMI) [Ratio]35.23 kg/m2Yumikosa Delmi 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 Phone: [facility] CampusFlmgvuxgpn02-50-3439 15:12-0500Body temperature 97.81 [degF]Danitza Delmi 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 Phone: [place] [address]Plxzbgbeai79-68-8781 15:12-0500Body rsaibj66.83 kgLisa Delmi 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 Phone: [place] [address]Kzzszgcuos57-57-9439 15:12-0500Diastolic blood gatdepjc86 mm[Hg]Danitza Delmi 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 Phone: [place] [address]Xzegnecytj26-28-3787 15:12-0500Heart rate89 /min Danitza Delmi 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 Phone: [place] [address]Pucusywjwd54-06-3127 15:12-0500Respiratory rate19 /minLisa Delmi 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 Phone: [facility] CampusKnvvrzzrmn67-47-4168 15:12-6180NwO6% (BldA) [Mass fraction]95 %Danitza Awad 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 Phone: [facility] CampusTedyymmofo57-13-1151 15:12-0500Systolic blood kxraubfz063 mm[Hg]Danitza Awad 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 Phone: [facility] CampusKswdtivdez68-37-2532 14:31-0400Body umdqrl062.77 cmProtestant Hospital10-29-2024 14:31-0400Body mass index (BMI) [Ratio]36.1 kg/l7AsowxulxsProtestant Hospital10-29-2024 14:31-0400Body aacgbs23.17 [facility]10-29-2024 14:31-0400Diastolic blood knoypibw09 mm[Hg][facility]10-29-2024 14:31-0400 Heart rate79 /[facility]10-29-2024 14:31-0400 Respiratory rate18 /[facility]10-29-2024 14:31-0400 SaO2% (BldA) [Mass fraction]96 %[facility]10-29-2024 14:31-0400Systolic blood hihhkolt615 mm[Hg][facility] 10-15-2023 15:23-0400Body .77 cmProtestant Hospital 10-15-2023 15:23-0400Body mass index (BMI) [Ratio]41.1 kg/m1LdiopdhguProtestant Hospital06-25-2024 15:23-0400Body jhveej42.88 [facility]06-25-2024 15:23-0400Diastolic blood mm[Hg][facility]06-25-2024 15:23-0400Heart rate76 /[facility]06-25-2024 15:23-0400Respiratory rate18 /[facility]06-25-2024 15:23-0274MhS2% (BldA) [Mass fraction]97 %[facility]06-25-2024 15:23-0400Systolic blood wqfumvzh802 mm[Hg][facility]06-20-2024 14:31-0400Blood Pressure LocationMuhammad Sarmini [phone]-WnobrRegency Hospital [facility]06-20-2024 14:31-0400Diastolic blood kmfqobfp45 mm[Hg]Cortes Sarmini [phone]-XnrwpRegency Hospital [facility]06-20-2024 14:31-0400Heart rate70 /minMuhammad Sarmini [phone]-YuvimRegency Hospital [facility]06-20-2024 14:31-0400Respiratory rate18 /minMuhammad Sarmini [phone]-EeernRegency Hospital [facility]06-20-2024 14:31-0400Systolic blood oaopttlz455 mm[Hg]Cortes Sarmini [phone]-XztwtRegency Hospital [facility] East05-16-2024 15:11-0400Body .77 cmProtestant Hospital05-16-2024 15:11-0400Body mass index (BMI) [Ratio]43.1 kg/e4ZfvvsumemProtestant Hospital05-16-2024 15:11-0400Body wlwxya19.33 kgProtestant Hospital 09-05-2023 15:11-0400Diastolic blood qpsqulye49 mm[Hg][facility]05-16-2024 15:11-0400Heart rate65 /minProtestant Hospital 09-05-2023 15:11-0400Respiratory rate18 /[facility] 09-05-2023 15:11-7176ZqV7% (BldA) [Mass fraction]96 %[facility]05-16-2024 15:11-0400Systolic blood tbgfuewj825 mm[Hg][facility]04-05-2024 10:56-0400Blood Pressure LocationPatrick GARG [facility]04-05-2024 10:56-0400Diastolic blood kaqccdmw11 mm[Hg]Kulwinder GARG [facility]04-05-2024 10:56-0400Heart rate70 /minPaAccellosk [employer] [facility]04-05-2024 10:56-0400Respiratory rate16 /minPatrick [employer] [facility]04-05-2024 10:56-0400Systolic blood dxopgndf848 mm[Hg]Kulwinder GARG [facility]12-09-2022 10:45-0500Body rboldz907.4 cmPamela Zohra Other [employer] Other 12-09-2022 10:45-0500Body mass index (BMI) [Ratio] 41.98 kg/p6WtkvtzEnedina العلي Other [employer] Other 12-09-2022 10:45-0500Body lahock53.52 kgEnedina العلي Other [employer] Other 12-09-2022 10:45-0500Diastolic blood wmarvois99 mm[Hg] [employer] العلي Other [employer] Other 12-09-2022 10:45-0500Respiratory rate18 /minEnedina العلي Other [employer] Other 12-09-2022 10:45-0164XfJ4% (BldA) [Mass fraction]97 % [employer] العلي Other [employer] Other 12-09-2022 10:45-0500Systolic blood omwsstsl505 mm[Hg] [employer] العلي Other [employer] [place] Other Encounters Encounter DateEncounter TypeCare ProviderFacilityStart: 34-66-5936tpieqjpyqw Kulwinder Soria WATERSFacility:[facility] BellevueStart: 02-01-2025 End: 46-47-8253lggbdhudnuTqyq J Aichholz AEROSPACE MANAGER-C Work Phone: [facility] Work Phone: Start: 02-01-2025 End: 47-72-2192Yyrwwcz encounter Foster Awad AEROSPACE MANAGER-C-[facility] Work Phone: Start: 40-91-3975mcsfzvnnskGIXIBAM PROVIDER Facility:METHealthStart: 12-10-2024 End: 21-14-2451EwwyhdUngk Aichholz NP Work Phone: [facility] FMComment on above:FibromyalgiaStart: 10-20-2024 End: 84-44-0934wuucoguqclNhhb J Aichholz Work Phone: [facility] Work Phone: Start: 10-20-2024 End: 54-92-5350Nlxrxnl encounter procedureMalena Reveles [facility] Work Phone: Start: 10-13-2024 End: 22-65-4833Iqttgf outpatient visit 25 minutesDanitza Awad NP Work Phone: [facility] FMComment on above:Essential hypertension (Primary Dx); Obstructive sleep apnea syndrome; Gastroesophageal reflux disease without esophagitis; Fibromyalgia; Morbid obesity ([facility]); Type 2 diabetes mellitus without complication, without long-term current use of insulin ([facility]); Anxiety and depression ; Hot flashesStart: 10-13-2024 End: 87-88-2169onennehorlTWNQ AICHHOLZNot AvailableStart: 10-13-2024 End: 92-76-2307Agtwva flowsheetLisa Aichholz 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 Phone: [facility] FMStart: 10-13-2024 End: 75-03-3259Tdnztl flowsheetLisa Aichholz 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 Phone: [facility] FMStart: 10-01-2024 End: 06-64-7879VlccpxKvsw Aichholz 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 Phone: [facility] FMComment on above:Anxiety and depression Start: 09-30-2024 End: 77-59-1294ZphbtuTtag Aichholz 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 Phone: [facility] FMComment on above:Gastroesophageal reflux disease without esophagitis (Primary Dx); Environmental and seasonal allergies; Fibromyalgia; Type 2 diabetes mellitus without complication, without long-term current use of insulin; Heart palpitations; Essential hypertension (CMS/HCC)Start: 96-41-0963cmdrzomxphJtlyrcs A. Mouchli Facility:[facility] DHStart: 09-15-2024 End: 70-98-4298TicnqqYwlc Aichholz 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 Phone: [facility] FMComment on above:FibromyalgiaStart: 09-09-2024 End: 88-34-4875TgnblfDsss Aichholz 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 Phone: [facility] FMComment on above:Fibromyalgia (Primary Dx) Start: 09-05-2024 End: 41-94-2565TzmayaWanv Aichholz 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 Phone: [facility] FMComment on above:Arthritis (Primary Dx) Start: 08-07-2024 End: 04-07-4587MyvchgMkov Aichholz 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 Phone: [facility] FMComment on above:Anxiety and depression (CMS/HCC)Start: 08-03-2024 End: 34-25-1005pfspvbxocoYlzceot R WATERSFacility:[facility] BellevueStart: 07-16-2024 End: 84-65-0544qxpbzrupgpItvnnvnleGalion Hospital Work Phone: Start: 07-16-2024 End: 42-13-1173Brpvqop encounter procedureFirsthealth [facility] Phys[facility] GroupSELECT [facility] [place] Work Phone: Start: 07-02-2024 End: 40-44-9928kxxzfxgkhjIFJDUVW T POWERSNot AvailableStart: 07-02-2024 End: 81-93-6982ahfyyzywneJJFBGTJ T POWERSNot AvailableStart: 06-22-2024 End: 14-48-2955Lgcvvz OnlyDanitza Awad 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 Phone: noms CWM FMComment on above:Hot flashes (Primary Dx) Start: 06-18-2024 End: 38-06-9661grqsywaevjAssawesi Talal NaidaiFacility:Jeniffer DHStart: 06-18-2024 End: 95-85-1417Twaefgz encounter procedureMureno Talshade Pascali [phone]-YxymeC[facility] Start: 06-11-2024 End: 08-37-7054Sqgwip outpatient visit 25 Sandra Awad 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 Phone: noms CWM FMComment on above:Hot flashes (Primary Dx); Type 2 diabetes mellitus with other specified complication (CMS/HCC); Bipolar disorder, current episode depressed, moderate (CMS/HCC); Essential hypertension (CMS/HCC); Paroxysmal supraventricular tachycardia (CMS/HCC); Gastroesophageal reflux disease without esophagitis; Fibromyalgia; Morbid obesity (CMS/HCC); Type 2 diabetes mellitus without complication, without long-term current use of insulin (CMS/HCC); Anxiety and depression (CMS/HCC)Start: 06-11-2024 End: 19-23-1661keerhudjevXFBF AICHHOLZNot AvailableStart: 06-11-2024 End: 19-23-7011Surgph flowsheetLisa Awad 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 Phone: noms CWM FMStart: 06-11-2024 End: 42-53-3506Hhefic flowsheetLisa Aichholz 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 Phone: NOZA CWM FMStart: 05-27-2024 End: 82-84-0985GpiberPwck Reinaldoz 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 Phone: noms CWM FMComment on above:Type 2 diabetes mellitus without complication, without long-term current use of insulin ([facility]) (P rimary Dx)Start: 05-26-2024 End: 83-07-7094aghkgihxerVcudtlczsMain Campus Medical Center Work Phone: Start: 05-26-2024 End: 91-33-8844Pivkbjg encounter procedureFirsthealth [facility] Work Phone: Start: 05-20-2024 End: 15-66-4972Ycksay outpatient visit 10 minutesBrwilliam Lockwoodk 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 Phone: noms CWM FMComment on above:Upper respiratory infection with cough and congestion (Primary Dx)Start: 05-20-2024 End: 14-48-9382vsvwxyfzbkNYABTGRD FITZPATRICKNot AvailableStart: 05-20-2024 End: 48-43-3574Eaizsq flowsheetBrittany Hernandez 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 Phone: NOFM CWM FMStart: 05-20-2024 End: 79-45-2837Wepaow flowsheetBrittany Hernandez 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 Phone: noms CWM FMStart: 05-08-2024 End: 99-42-7719rkwphtiscoIdrsvats Talal SarminiFacility:FTMCStart: 05-08-2024 End: 01-43-0137Oczrzea encounter procedureMuhammad Talal Sarmini [facility] start: 04-29-2024 End: 21-71-2200Rtidlr flowsheetLisa Aichholz 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 Phone: NOVT CWM FMStart: 04-29-2024 End: 64-53-8006Tsugym flowsheetLisa Aichholz 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 Phone: NOBX CWM FMStart: 04-29-2024 End: 97-79-3567gqqtielgdlVPBJ AICHHOLZNot AvailableStart: 04-29-2024 End: 06-64-4646Dsomwp outpatient visit 15 minutesLisa Elisegeorgiaz 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 Phone: noms CWM FMComment on above:Acute right-sided thoracic back pain (Primary Dx); Morbid obesity (CMS/HCC)Start: 04-13-2024 End: 41-32-5782ccexrvdeuxHhdovbv R WATERSFacility:EU BellevueStart: 04-13-2024 End: 80-07-4757Hrsudlz encounter procedureKulwinder GARG [facility] start: 04-10-2024 End: 63-17-2589CcmtfbMonq Naderer MD Work Phone: NOMS CWM FMComment on above:Arthritis (Primary Dx) Start: 04-08-2024 End: 37-48-1745AkslqvHhuq Aichholz 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 Phone: NOMS CWM FMComment on above:Fibromyalgia; Heart palpitations; Essential hypertension (CMS/HCC); Environmental and seasonal allergiesStart: 04-07-2024 End: 79-52-6981EayyzlMxvf Aichholz 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 Phone: NOMS CWM FMComment on above:Environmental and seasonal allergiesStart: 04-06-2024 End: 16-45-7351Ithtrrn encounter procedureFirsthealth [facility] Physician Group-[facility] Work Phone: Start: 04-01-2024 End: 79-85-1486EsncgeLtmk Aichholz 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 Phone: noMS CWM FMComment on above:Environmental and seasonal allergies; FibromyalgiaStart: 03-04-2024 End: 95-97-0650Ovlotp outpatient visit 25 minutesLisa Awad 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 Phone: noms CWM FMComment on above:Type 2 diabetes mellitus without complication, without long-term current use of insulin (CMS/HCC) (P rimary Dx); Obstructive sleep apnea syndrome; Essential hypertension (CMS/HCC); Gastroesophageal reflux disease without esophagitis; Morbid obesity (CMS/HCC); Obesity, Class II, BMI 35-39.9; Anxiety and depression (CMS/HCC); Fibromyalgia; Lumbar spondylosis; Colon cancer screeningStart: 03-04-2024 End: 53-70-2962opboavagyyQPJD ELISENicCMot AvailableStart: 03-04-2024 End: 96-66-9770Sptujs flowsheetDanitza Awad 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 Phone: NOMS CWM FMStart: 03-04-2024 End: 50-60-1389Shygtu Edmund Awad 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 Phone: NOMS CWM FMStart: 02-20-2024 End: 10-54-7753TylhcaZylf Aichholz 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 Phone: noMS CWM FMComment on above:Anxiety and depression (CMS/HCC); Fibromyalgia; Environmental and seasonal allergies; Heart palpitations; Essential hypertension (CMS/HCC)Start: 02-18-2024 End: 81-99-1422zrnaqsfgkgOaomchzvlMain Campus Medical Center Work Phone: Start: 02-18-2024 End: 57-69-7922Qyajvgt encounter [facility] Work Phone: Start: 01-15-2024 End: 40-02-5949Miycleyxtf hospital visit by physicianChildren'S Hospital [facility] VcuimageMetroKettering Health Main Campus RadiologyComment on above:OUTSIDE CORRESPONDENCEStart: 01-15-2024 End: 33-51-0721Yusbznvrx Result EncounterGeneric External Data ProviderNOMS External Department UnsolicitedStart: 01-15-2024 End: 46-48-4439Ycbapmwrm Result EncounterGeneric External Data ProviderNOMS External Department UnsolicitedStart: 12-03-2023 End: 47-10-0691vqehsryisvPXMC [facility]OSPITALSZNot AvailableStart: 10-29-2023 End: 31-13-4544qobuzvuptkDCBJ AICMAIN LINE HEALTH/MAIN LINE HOSPITALSZNot AvailableStart: 10-15-2023 End: 03-55-3184yvliictskdAzwfvphzhGalion Hospital Work Phone: Start: 10-15-2023 End: 41-46-7566Kuqmbfc encounter procedureFirsthealth [facility] Hospital Physician GroupSELECT AT [place] Work Phone: Start: 10-10-2023 End: 41-29-5838Dbg-admission assessmentMugeisinger-shamokin area community hospitalquan De La Cruz [facility] Start: 10-10-2023 End: 39-69-5813Uhdabih encounter procedureMugeisinger-shamokin area community hospitalquan Ortega Manuelfelicia [phone]-BrftuC[facility] Clinic [facility] Start: 09-05-2023 End: 20-41-4285Drhzbeh encounter procedureFirsthealth [facility] Physician [facility] Work Phone: Start: 09-02-2023 End: 72-39-4005vmkazxptiiPTDBIVU R WATERSProMedica Memorial Hospital HospitalStart: 07-26-2023 End: 88-80-2751Fpdczli encounter procedureKulwinder GARG [facility] start: 07-18-2023 End: 76-82-8615gopyubfjfoDRSCAmie CadeBaylor Scott & White Medical Center – Uptowntart: 07-08-2023 End: 34-00-6339hyalkpapojEFXJM ADAMSHICKProMedica Methodist Hospital of Southern Californiatart: 71-70-2938cekajrpujmSltjtb Reed [facility] MAINStart: 07-04-2023 Patient encounter procedureTrajanki Bravo [facility] Hospitalmunity OutreachComment on above: Community Outreach ([place] Referral/Mammogram)Start: 05-27-2023 End: 72-21-3448Tpuodapmk Result EncounterGeneric External Data ProviderNOMS External Department UnsolicitedStart: 05-27-2023 End: 58-66-4861Hozidlxwc Result EncounterGeneric External Data ProviderNOMS External Department UnsolicitedStart: 66-46-5268Zjsxfnjgv Result EncounterLisa Delmi 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 Phone: noms External Department UnsolicitedStart: 05-25-2023 Clinisync Result EncounterLisa Delmi 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 Phone: noms External Department UnsolicitedStart: 08-22-2022 End: 88-02-2657rdclgvavgvVEI LISA AICHHOLZFacility:L4Lbryn: 08-20-2022 End: 62-80-7346tjgmdibkedUX JEFFREY PAY .Facility:N8Xcnva: 08-16-2022 End: 71-49-1354kecvgociptTIBPL MUSTAPHAUniUniversity Hospitals Beachwood Medical Centertart: 08-14-2022 End: 64-06-8634nuxwxrjvzvCRF LISA AICHHOLZFacility:K4Tnfpy: 03-30-2022 End: 81-06-5785qclmubafkfFgcpcg Dymond Other [facility] Baitianshi Other Start: 13-79-6476Dubwqf outpatient visit 15 minutes Enedina العليFPHunter Urgent Care ClydeStart: 96-19-4424kfanxhkbmkTDQ LISA AICHHOLZ Facility:H0Chtte: 11-30-2021 End: 42-96-5830iaurxgoaxlJMXKNHW WATERSFacility:Z7Wxzip: 49-42-7803Yqixubljm for preprocedural laboratory examinationPATRICK Kettering Health Main Campustart: 11-24-2021 End: 93-13-0655ewrrfpxqbxBGJWYSB WATERSFacility:N2Whjlc: 11-24-2021 End: 87-05-0746Eluaqmvhj for preprocedural laboratory examinationPATRICK GARG Facility:Y7Oswtc: 11-15-2021 End: 78-44-6828jbpzyuubynXE CARLTON WUFacility:L9Fpbse: 11-14-2021 End: 95-98-5332irflrwkhirQLMVKE C HEFNERMercy Hialeah HospitalStart: 11-14-2021 End: 48-73-1052Epwucobhug hospital visit by Stephen Awad Work Phone: mthz LaboratoryStart: 10-26-2021 End: 73-92-5545yorrhgrovtQE LOLI HUBERFacility:J3Ayqar: 10-18-2021 End: 53-39-5647Qzcaymy encounter procedureJETRELL LUCIO [facility] start: 10-03-2021 End: 30-68-6877omktrdgejoGOVWNQ B STEINERMercy Hialeah HospitalStart: 10-03-2021 End: 13-34-6467Bmkeibcfxf hospital visit by [facility] Laboratory Comment on above:Tendinitis of left wrist; Unilateral primary osteoarthritis of first carpometacarpal joint, left hand Start: 89-40-9599btcoosyryyZR DOCTOR MISCFacility:H7Jznug: 01-26-2020 End: 44-07-1299Xbimvmqcbn hospital visit by [facility] Laboratory Procedures DateProcedureProcedure DetailPerforming ClinicianStart: 51-18-4237Ldgjrstoxm glycosylated x2gPfvwDanitza Awad 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 Phone: Start: 56-10-1980CriqxdsznzcPdazolah David 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 Phone: Start: 35-55-6245WoyjmrxwswhVkwcpcku Sarmini Start: 91-90-7091PcyybwxwybyntlwndpxrxhnyezJuxtgmkx Naidai Start: 37-88-7504Xhjvyicuup glycosylated n1fCvdm Aichholulysses 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 Phone: Start: 03-04-2024 End: 52-87-3526Bmocbum of cholecystectomyHx of cholecystectomyLisa Elisehholz 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 Phone: Start: 08-45-7619FN MAMMO SCREEN BILAT TAHMINA W/CAD Generic External Data ProviderStart: 43-52-4757UM IMPORTED IMAGESChristina Buckingham Clemow DO Work Phone: Start: 67-92-2787HhnjssclewyTsww Kristieholz 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 Phone: Start: 50-98-3543YF ABDOMEN 1VGeneric External Data ProviderStart: 78-53-2207YZR HEMOGLOBIN Z9ELyoc Elisehholz 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 Phone: Start: 64-27-8546AlypbokokjiMseq Elisehholz 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 Phone: Start: 79-42-2351Bowkktnijdqepr shockwave lithotripsy of calculus of kidneyPatrick GARG Start: 08-14-2170Sogzb count complete auto&auto difrntl wbcAmanda C Félix PA-C Work Phone: Start: 67-75-2416A-reactive proteinAmanda C Félix PA-C Work Phone: Start: 06-25-7825Xyp routine ecg w/least 12 lds i&r onlyRobmichael Jo MD Work Phone: Start: 39-55-5661Uvaspixvkq exam chest 2 viewsRobmichael Jo MD Work Phone: Start: 30-27-9708Tbouv metabolic panel calcium total Shalini Jo MD Work Phone: Start: 81-93-0048Htookscsizrmxa shockwave lithotripsy of calculus of kidneyPatrick GARG Start: 29-33-5011Ehmajjqvz on footMALENA LUCIO Start: 49-85-5465Vsddcjvdjvbpetkw o screenLisa Milagros OlivaresC2FOlazaro Work Phone: Start: 35-86-0665Ybdds of blood/uric acidLisa Milagros Olivareschestnut hill hospitalulysses Work Phone: Start: 09-08-2092Ygtyd count complete auto&auto difrntl wbcLisa Milagros Olivareschestnut hill hospitalFRESS Work Phone: Start: 80-21-3599M-reactive proteinLisa Milagros Olivareschestnut hill hospitalulysses Work Phone: Start: 57-76-4159Olbepqfoca factor quantitativeLisa Milagros Olivareschestnut hill hospitalFRESS Work Phone: Start: 56-66-2417Prgjyzgfbpiqk rate rbc automatedLisa Milagros [facility] PittsburghFRESS Work Phone: Start: 25-19-2923Lqzhlpylboo removal of ureteric stent MALENA LUCIO Start: 71-32-1921Vvangwrrvsz anastomosis of ureter to bladder with insertion of stent into ureterMALENA LUCIO AppendectomyMALENA LUCIO History of cholecystectomyHx of cholecystectomyHistory of cholecystectomyHx of cholecystectomyJecalinifer Catracho Reveles DNPHysterectomyMALENA LUCIO neck surgeryMALENA LUCIO Plan of Treatment DateCare ActivityDetailAuthorStart: 33-78-2222Yygjsyovn for malignant neoplasm of colonNOMS HealthcareStart: 38-79-8621Srnnz panelCholesterolMetroHealthStart: 83-06-6832Sluqbzjp screeningDiabetes: Retinopathy ScreeningNOMS HealthcareStart: 55-27-0214Zrhodansnr A1c measurementDiabetes: Hemoglobin H4DOFRVResearch Medical Center-Brookside Campus Start: 70-17-1922Wjkaunukj for malignant neoplasm of breastMammogramNOAK HealthcareStart: 01-13-2025 End: 11-76-9760Kfchddg encounter rrpquixgg46/24/2025 3:20 PM EDT Office Visit NOMS [facility] [address] [place] [address] Danitza Awad, JUNIOR [address] [place] [address] N[facility] FMStart: 62-39-5559Niorukqqc for malignant neoplasm of breastMammographyMetroHealthStart: 10-29-2024 End: 09-89-0994Colbhri encounter utlpjjlum87/10/2025 3:45 PM EDT Office Visit [facility] [address] [place] [phone] Urban Santizo DO [address] [place] [address] NOMS JAVAD ORTHOStart: 51-44-5607Yubuy screening for protein Diabetes: Urine Protein ScreeningLONE PEAK HOSPITAL HealthcareStart: 10-13-2024 End: 48-21-9109Tvpcbeb encounter procedureNOCORNERSTONE SPECIALTY H[facility] FMComment on above: Obstructive sleep apnea syndrome (Primary Dx); Essential hypertension ; Gastroesophageal reflux disease without esophagitis; Fibromyalgia; Morbid obesity ([facility]); Type 2 diabetes mellitus without complication, without long-term current use of insulin ([facility]); Anxiety and depression ; Hot flashesStart: 09-08-2024 End: 43-27-6291Poipqca encounter jeccihpsp74/20/2025 3:20 PM EDT Office Visit [facility] [address] [place] [address] Danitza Awad, JUNIOR [address] [place] [address] N[facility] FMStart: 88-09-0836Lnetxxjasg A1c measurement Diabetes: Hemoglobin I2EUBNW HealthcareStart: 58-28-4193Duqjmmjoj for malignant neoplasm of colonNOAK HealthcareStart: 07-02-2024 End: 44-53-5619Spuaaui encounter yezbwfgrt13/13/2025 2:15 PM EDT Office Visit [facility] [address] [place] [phone] Urban Santizo DO [address] [place] [place] [address] NOMS NB ORTHOStart: 06-22-2024 End: 06-22-2025 reactive protein [Mass/volume] in Serum or PlasmaC-reactive protein Lab Routine Hot flashes Expected: 06/22/2024 (Approximate), Expires: 06/22/2025NOAK HealthcareComment on above:Expected: 06/22/2024 (Approximate), Expires: 06/22/2025Start: 06-22-2024 End: 12-49-7089SYE W Auto Differential panel - BloodCBC and differential Lab Routine Hot flashes Expected: 06/22/2024 (Approximate), Expires: 06/22/2025[facility] Healthcare Work Phone: Comment on above:Expected: 06/22/2024 (Approximate), Expires: 06/22/2025Start: 06-22-2024 End: 95-85-6594Zoraladhkxryt metabolic 2000 panel - Serum or PlasmaComprehensive metabolic panel Lab Routine Hot flashes Expected: 06/22/2024 (Approximate), Expires: 06/22/2025[facility] HealthcareComment on above:Expected: 06/22/2024 (Approximate), Expires: 06/22/2025Start: 06-22-2024 End: 63-21-5039Lqhkqdgmbio sedimentation rateSedimentation rate, automated Lab Routine Hot flashes Expected: 06/22/2024 (Approximate), Expires: 06/22/2025NOAK HealthcareComment on above:Expected: 06/22/2024 (Approximate), Expires: 06/22/2025Start: 06-22-2024 End: 98-68-6026Riqermgbnef [Units/volume] in Serum or PlasmaTSH Lab Routine Hot flashes Expected: 06/22/2024 (Approximate), Expires: 06/22/2025[facility] Healthcare Comment on above:Expected: 06/22/2024 (Approximate), Expires: 06/22/2025Start: 06-22-2024 End: 99-15-3106Nhjolfjcc (T4) free [Mass/volume] in Serum or PlasmaT4, free Lab Routine Hot flashes Expected: 06/22/2024 (Approximate), Expires: 06/22/2025[facility] HealthcareComment on above:Expected: 06/22/2024 (Approximate), Expires: 06/22/2025Start: 06-22-2024 End: 41-53-3003Ergqgugyfvpwkuee (T3) Free [Mass/volume] in Serum or PlasmaT3, free Lab Routine Hot flashes Expected: 06/22/2024 (Approximate), Expires: 06/22/2025[facility] HealthcareComment on above:Expected: 06/22/2024 (Approximate), Expires: 06/22/2025Start: 06-22-2024 End: 62-43-9316Kmooprqpyj complete panel - UrineUrinalysis with reflex microscopic (clean catch) Lab Routine Hot flashes Expected: 06/22/2024 (Appro ximate), Expires: 06/22/2025[facility] HealthcareComment on above:Expected: 06/22/2024 (Approximate), Expires: 06/22/2025Start: 06-11-2024 End: 85-26-7294Efvmsvd encounter /20/2025 3:40 PM EST Office Visit [facility] [address] [place] [phone] Danitza Awad NP [address] [place] [address] Essential hypertension (CMS/HCC) (Primary Dx); Type 2 diabetes mellitus with other specified complication (CMS/HCC); Bipolar disorder, current episode depressed, moderate (CMS/HCC); Paroxysmal supraventricular tachycardia (CMS/HCC); Gastroesophageal reflux disease without esophagitis; Fibromyalgia; Morbid obesity (CMS/HCC); Type 2 diabetes mellitus without complication, without long-term currentuse of insulin (CMS/HCC); Anxiety and depression (CMS/HCC)NOMS CW FMComment on above:Essential hypertension ([facility]) (Primary Dx); Type 2 diabetes mellitus with other specified complication ([facility]); Bipolar disorder, current episode depressed, moderate (CMS/HCC); Paroxysmal supraventricular tachycardia (CMS/HCC); Gastroesophageal reflux disease without esophagitis; Fibromyalgia; Morbid obesity (CMS/HCC); Type 2 diabetes mellitus without complication, without long-term current use of insulin ([facility]); Anxiety and depression ([facility])Start: 06-03-2024 End: 95-11-6252Erccbzn encounter mylmtpkag54/12/2025 3:20 PM EST Office Visit [facility] [address] [place] [address] Danitza Awad NP [address] [place] [address] [facility] FMStart: 05-20-2024 End: 81-76-2925Ggivtve encounter mdilawtki17/29/2025 4:00 PM EST Office Visit [facility] [address] [place] [address] Augustine Hernandez NP [address] [place] [address] ArrivedNOCORNERSTONE SPECIALTY HOS[facility] FMComment on above:ArrivedStart: 05-20-2024 End: 52-42-6131UO Chest 2 ViewsXR chest 2 views Imaging Routine Upper respiratory infection with cough and congestion Expected: 05/20/2024, Expires: 05/20/2025[facility] Work Phone: Comment on above:Expected: 05/20/2024, Expires: 05/20/2025Start: 93-62-5953Ydbudwpyis A1c measurementDiabetes: Hemoglobin A1C NOMS HealthcareStart: 32-89-1094Bscdqfg vaccinationTetanus (Td or Tdap) Booster MetroHealthStart: 04-29-2024 End: 65-44-7460VV Ribs Views and Chest PAXR ribs 2 views right w chest anteroposterior Imaging Routine Acute right-sided thoracic back pain Expected: 04/29/2024 (Approximate), Expires: 04/29/2025[facility] Healthcare Work Phone: Comment on above:Expected: 04/29/2024 (Approximate), Expires: 04/29/2025Start: 89-98-1020Eilalvpzf for malignant neoplasm of breast MammogramLONE PEAK HOSPITAL HealthcareStart: 03-04-2024 End: 38-42-5257Rallxam encounter rlxwruxbb46/13/2024 3:20 PM EST Office Visit [facility] [address] [place] [address] Danitza Awad, AEROSPACE MANAGER [address] [place] [address] NOMS [facility] FMStart: 09-75-0811MSSFT-19 Vaccine ( season)COVID-19 Vaccine ( season)MetroHealthStart: 12-22-2023 Influenza vaccinationInfluenza Vaccine (#1)MetroHealthStart: 51-75-0719Uwhpvqdks vaccinationInfluenza Vaccine (#1)NOMS HealthcareComment on above:Postponed from 12/21/2022 (Patient Refused)Start: 24-49-5557Ifiefupyhv AssessmentDepression AssessmentProtestant Deaconess Hospitaltart: 59-63-9850Rjhmw-19 Vaccine ( season) Covid-19 Vaccine ( season)[facility] Hospitalt[facility]: 27-62-4949Eqmalmkjf vaccinationInfluenza Vaccine (#1)[facility] Hospital[facility]: 41-96-3687Hgecpotxg vaccinationBON REGENCY [facility]LEVEL[facility] EASTStart: 34-51-5410TIJLE-19 Vaccine (2 - Booster for Eduardo series)COVID-19 Vaccine (2 - Booster for Eduardo series)[facility]: 80-37-8049Hbbdzxvjj vaccinationFlu vaccine (#1)[facility]: 51-51-0480Zexeuspmi for malignant neoplasm of breastBreast cancer screenBON [facility]: 19-23-0075Njkvgezn (RZV) Vaccine (1 of 2)Shingles (RZV) Vaccine (1 of 2)[facility]: 76-23-8580Cauopfwd vaccine (1 of 2)Shingles vaccine (1 of 2)[facility]: 2016 Shingrix Vaccine (1 of 2)Shingrix Vaccine (1 of 2)[facility] Hospital[facility]: 44-32-4033Lnpkbcpi ScreeningDiabetes ScreeningProtestant Deaconess Hospitaltart: 2011 Lipid panelLipid ScreeningProtestant Deaconess Hospitaltart: 30-30-8726Gewqpxtfy for malignant neoplasm of colonBON [facility]: 68-23-8442Ttxdh panel LipidsStafford Hospital: 60-85-3905Gjakzdzjg for malignant neoplasm of breastMammogram ScreeningThe MetroHealth Systemrt: 27-49-0879Cxavsnxeg for malignant neoplasm of cervixBON [facility]: 83-53-5760Clqvthjbr for malignant neoplasm of cervixBON [facility]: 1985 DTaP/Tdap/Td vaccine (1 - Tdap)DTaP/Tdap/Td vaccine (1 - Tdap)[facility]: 54-95-5304Wrphzyoku A (HAV) Vaccine (optional start 19+ years) Hepatitis A (HAV) Vaccine (optional start 19+ years)[facility] HospitalStcopenhagen: 1985 Hepatitis B vaccinationHepatitis B (HBV) Vaccine (1 of 3 - 19+ 3-dose series) [facility]: 92-68-8659Bjclkolzx B Vaccine (1 of 3 - 19+ 3-dose series) Hepatitis B Vaccine (1 of 3 - 19+ 3-dose series)[facility]: 67-19-8531Elcrx microalbumin profileDTaP,Tdap,Td Vaccine (1 - Tdap)[facility]: 59-77-3447Wknyt screening for proteinDiabetes: Urine Protein ScreeningResearch Medical Center-Brookside CampusStart: 65-25-6169Nhypbtdtn C screeningAUGUSTA HEALTHStart: 48-86-5216WYB screeningHIV ScreeningProtestant Deaconess Hospitaltart: 62-33-6343Refu BoosterTdap BoosterMetroKettering Health Main CampusStart: 38-82-7991QXJ screeningInova Fairfax Hospitalart: 97-52-9695Zdwerawrrj ScreenDepression ScreenStafford Hospital: 64-48-8636Bnydjsby screeningDiabetes: Retinopathy ScreeningResearch Medical Center-Brookside CampusStart: 82-91-3280Jlnvpvjmvg A1c measurementDiabetes: Hemoglobin Z9LUFSBResearch Medical Center-Brookside CampusStart: 91-59-0912Ftzbhdfmt for malignant neoplasm of colonResearch Medical Center-Brookside Campus End: 62-55-0888AGL Screen with ReflexANA Screen with Reflex Lab Routine Once for 1 Occurrences starting 01/26/2020 until 01/26/2020[facility]Love on above:Once for 1 Occurrences starting 01/26/2020 until 01/26/2020ANA Screen with ReflexANA Screen with Reflex Lab Routine 01/26/2020 11:26 [facility]Pro[facility] End: 40-76-4030GYB Breast - bilateral screeningMAM SCREENING W [facility] Radiology Routine Encounter for screening mammogram for malignant neoplasm of breast 1 Occurrences starting 07/04/2023 until 08/02/2024[facility] Work Phone: Comment on above:1 Occurrences starting 07/04/2023 until 08/02/2024[facility] Immunizations Immunization DateImmunizationNotesCare [id number]-PvJ-[id number] (COVID-19) Ad26 vaccine, recombinantMuhammad Naidai [id number]-WqcslCleveland Clinic [facility] [id number] SARS-CoV-2 (COVID-19) Ad26 vaccine, recombinantJENNIFER KHADIJAH [facility] [id number] and diphtheria toxoids, adsorbed, preservative free, for adult use (5 Lf of tetanus toxoid and 2 Lf of diphtheria toxoid)Danitza Delmi 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 Phone: [facility] Payers DatePayer CategoryPayerPolicy [id number] Health Insurance [id number] HEALTHSC[facility] [id number] 2022-Present [address] [address] [place] [address] [id number] 1.2.840.956921.1.13.239.2.7.3.794[id number] 2.16.840.1.742121.3.57[id number] 2.16.840.1.908783.3.57[id number] 2.16.840.1.798693.3.57[id number] 2.16.840.1.804651.3.57[id number] 2.16.840.1.628595.3.57[id number] 2.16.840.1.361502.3.57[id number] 2.16.840.1.485971.3.57[id number] 2.16.840.1.637123.3.57[id number] 2.16.840.1.745065.3.579.[id number] 2.16.840.1.145588.3.57[id number] 2.16.840.1.602740.3.57[id number] 2.16.840.1.692955.3.57[id number] 2.16.840.1.010813.3.57[id number] 2.16.840.1.405676.3.57[id number] 2.16.840.1.764868.3.57[id number] 2.16.840.1.258018.3.579.[id number] 2.16.840.1.866862.3.57[id number] 2.16.840.1.883197.3.579.2.[id number] 2.16.840.1.290967.3.57[id number] 2.16.840.1.771656.3.57[id number] 2.16.840.1.120113.3.57[id number] 2.16.840.1.669475.3.579.2.207390-15-0989Szirmuv8803857 2..840.1.847704.3.579.2.[id number] 2.16.840.1.438715.3.579.2.584666-90-3839Yeqapkq3254911 2.16.840.1.377109.3.579.2.[id number] 2.16.840.1.388881.3.57[id number] 2..840.1.554716.3.57[id number] 2..840.1.611685.3.57[id number] 2.840.1.493999.3.57[id number] 2.16.840.1.160275.3.57[id number] 2..0.1.013453.3.579.[id number] 2.0.1.448631.3.57[id number] 2.0.1.149404.3.579.2.35243-11-7157Pfbm-[id number] 2.0.0.00747[id number] Social History DateTypeDetailFacilityTobacco smoking status NHISUnknown if ever smokedSelect Medical Specialty [facility]: 07-94-4896Rsr Assigned At BirthNot on [facility] smoking status NHISTobacco smoking consumption unknownProtestant Deaconess Hospitaltart: 05-18-2019 End: 11-89-3695Jvcldel smoking statusNever smoked tobacco (finding)[facility] start: 04-25-2023 End: 40-83-0557Bpn Assigned At [facility] start: 95-40-3136Vospavy use and exposureSmokeless tobacco non-userNOMS HealthcareStart: 04-25-2023 End: 75-34-5959Lfxuaoi intakeEx-drinker (finding)[facility] HealthcareStart: 04-25-2023 End: 30-58-7106Tzteute of Social functionNOMS HealthcareStart: 00-01-0417Eqkrwnk Commentcoffee 1-2 cups per dayNOMS HealthcareStart: 54-46-3582Kaxlykh smoking statusNeverExecutive Urology [facility] Hospitaltart: 13-04-7012Kop Assigned At [facility] HospitalDo you belong to any clubs or organizations such as alevism groups, unions, fraternal or athletic groups, or school groups?NoNOMS HealthcareHow hard is it for you to pay for the very basics like food, housing, medical care, and heatingSomewhat hardLONE PEAK HOSPITAL HealthcareStart: 05-26-2024 End: 56-07-2780XxyAldlxs (finding)[facility] HospitalNEGATED: Highlighted [facility] HospitalNEGATED: Highlighted [facility] Medical Equipment Procedure CodeEquipment CodeEquipment Original TextEquipment IdentifierDates [id number]: 04-14-4240Tpen Metrix Blood Glucose Test test [id number]: 04-52-9360Xngvzor Unknown 05/08/24 Non Biological UnknownFDAStart: 36-21-9834FHX Start: 48-67-0575Erexejy Unknown 05/08/24 Non Biological UnknownFDAStart: 69-64-1696KZEUzjvm: 05-08-2024 Functional Status TmkpTeediqvfthOhbxxjCaqbuixf56-22-7801Yectxqufyr StatusN/[facility] Worrei55-69-1447Tvsjuebihc StatusN/[facility]06-20-2024Functional StatusN/[facility] 21-91-1864Busxwpnzjo StatusN/AExecutive Urology of [facility] Hmgimuvs84-50-6839Dellw score [AUDIT-C]-1 07/16/2023 8:39 AM EDT Mychart, GenericResearch Medical Center-Brookside CampusDrqrhzkyrl35-10-2330Nbmehvzlwl statusPatient declined 07/16/2023 8:39 AM EDT Mychart, Generic Patient declinedResearch Medical Center-Brookside CampusDijdcrgivj52-06-6798Rcvuttq Health Questionnaire 2 item (PHQ-2) [Reported][facility] Clinical Notes 03-30-2022 to 10-20-2024 Note Date & AacxIqteAsnarjvm77-19-3241 Evaluation note* Diagnosis Onset Date Resolution Status Admit Date Abnormal weight gain acuteJuly 2024 2:52pmArthritisacuteJuly 2024 2:52pmBMI 33.0-33.9,adult acuteJuly 2024 2:52pmDegenerative disc diseaseacuteJuly 2024 2:52pm Dietary surveillance and counselingacuteJuly 2024 2:52pmExercise counseling acuteJuly 2024 2:52pmFibromyalgiaacuteJuly 2024 2:52pmGERD (gastroesophageal reflux disease)acuteJuly 2024 2:52pmHistory of kidney stonesacuteJuly 2024 2:52pmHTN (hypertension)acuteJuly 2024 2:52pmHx of cholecystectomyacuteJuly 2024 2:52pmObesity, Class I, BMI 30-34.9acute October 20, 2024 2:52pmOSA (obstructive sleep apnea)acuteJuly 2024 2:52pmType 2 diabetes mellitusacuteJuly 2024 2:52pm [facility] Work Phone: 1(982) 977-346406-24-2025 History of Present illness Narrative* Danitza Awad NP - 10/13/2024 5:20 PM EDTAssociated Problem(s): Morbid obesity ([facility]) Discussed with patient their BMI (actual, verses recommended). We have also discussed lifestyle modifications: attempts to perform physical activity as chronic conditions allow, also to monitor dietary intake: increasing protein/fruits/veggies and lowering carb intake (unless contraindicated). Limit sodas, juices, and sugary drinks. Continue working with [facility] management [facility] * Danitza Awad NP - 10/13/2024 3:40 PM EDT Images from the original note were not included. Lois Jacques is a 59 y.o. female presents with chief complaint of Diabetes HPI: Here for 3 month fu appt. Overall no significant changes in chronic conditions. Her weight loss is a bit at a stand still. She has been having a lot of stress in family with deaths, and health issues. She feels not herself and overwhelmed at times, she does not feel she needs to change meds/doses. Continues with counseling She continues with rheumatology as well. When questioned about her hot flashes (she did not get thelabs completed) states not as severe or frequent No other issues today that are new SUBJECTIVE: MEDICATIONS: Current Outpatient Medications Medication Instructions Alcohol Swabs 70 % pads USE DIRECTED ONCE DAILY B-D ULTRA-FINE 33 LANCETS misc USE DIRECTED ONCE DAILY Blood Glucose Monitoring Suppl (True Metrix Air Glucose Meter) w/Device kit USE DIRECTED celecoxib (CELEBREX) 200 mg, Oral, Daily PRN cetirizine (ZYRTEC) 10 mg, Oral, Daily cholecalciferol (Vitamin D-3) 25 MCG (1000 UT) capsule Daily gabapentin (NEURONTIN) 600 mg, Oral, Nightly hydroCHLOROthiazide (MICROZIDE) 12.5 mg, Daily loperamide (IMODIUM) 2 mg, 3 times daily PRN metFORMIN XR (GLUCOPHAGE-XR) 500 mg, Oral, Daily metoprolol tartrate (LOPRESSOR) 50 mg, Oral, Daily montelukast (SINGULAIR) 10 mg, Oral, Nightly Omeprazole 20 MG tablet delayed-release omeprazole OTC (PRILOSEC OTC) 20 mg, Oral, Daily before breakfast, Do not crush, chew, or split. Ozempic (2 MG/DOSE) 2 mg, Every 7 days QUEtiapine (SEROQUEL) 100 mg, Oral, Nightly, May take 1-2 tablets at bedtime tiZANidine (ZANAFLEX) 4 mg, Oral, Every 12 hours PRN traMADol (ULTRAM) 50 mg, Oral, Nightly PRN True Metrix Blood Glucose Test test strip ALLERGIES: Allergies Allergen Reactions Other Palpitations PATIENT MAY BE ALLERGIC TO SOME DEGREE TO ALL STEROIDAL MEDICATIONS PATIENT MAY BE ALLERGIC TO SOME DEGREE TO ALL STEROIDAL MEDICATIONS Cortisone Other Reaction(s): doesn't feel well, heart palpations/breathing difficulties, heart races, nausea,Other (See Comments), Unknown Reaction Other reaction(s): doesn't feel well, heart races, nausea, Other (See Comments), Unknown Reaction Swelling, sweating, B/P increase, palpitations knee for torn acl. Shoulder for tendonitis, same reaction. injectable Swelling, sweating, B/P increase, palpitations knee for torn acl. Shoulder for tendonitis, same reaction. injectable Iodinated Contrast Media Other Reaction(s): felt like she was going to pass out, severe nausea Other reaction(s): felt like she was going to pass out, severe nausea Other reaction(s): felt like she was going to pass out, severe nausea Other reaction(s): felt like she was going to pass out, severe nausea REVIEW OF SYMPTOMS: Review of Systems Constitutional: Negative for appetite change, chills and fever. HENT: Negative for congestion, ear pain and sore throat. Eyes: Negative for pain, discharge, redness and visual disturbance. Respiratory: Negative for cough, shortness of breath and wheezing. Cardiovascular: Negative for chest pain, palpitations and leg swelling. Gastrointestinal: Negative for abdominal pain, blood in stool, constipation, diarrhea, nausea and vomiting. Genitourinary: Negative for difficulty urinating, dysuria and frequency. Musculoskeletal: Positive for arthralgias, back pain and myalgias. Negative for joint swelling. Skin: Negative for rash and wound. Neurological: Negative for dizziness, tremors, seizures, syncope and headaches. Psychiatric/Behavioral: Negative for behavioral problems, self-injury and suicidal ideas. The patient is nervous/anxious. Hematological: Does not bruise/bleed easily. Endocrine: Negative for polydipsia, polyphagia and polyuria. Allergic/Immunologic: Negative for environmental allergies and food allergies. PAST MEDICAL HISTORY Past Medical History: Diagnosis Date Anxiety Arthritis Depression Diabetes (HCC) Environmental and seasonal allergies 04/04/2023 Fibromyalgia 06/26/2023 Foot swelling Headache Hip problem History of herniated intervertebral disc History of sinus problem Irregular heartbeat Knee problem Leg swelling Lumbar spondylosis 04/02/2023 Menorrhagia Migraines Thoracic back pain Visual impairment w/corrective lenses Past Surgical History: Procedure Laterality Date ANTERIOR CRUCIATE LIGAMENT REPAIR Left APPENDECTOMY CERVICAL DISC SURGERY SECTION, CLASSIC x 2 SECTION, LOW TRANSVERSE 1985 CHOLECYSTECTOMY ELBOW SURGERY Procedure:Reconecction of tendons Bilateral;Disease: b/l elbows HYSTERECTOMY 2006 KNEE SURGERY Bilateral scope family history includes Cancer in her father; Diabetes in her father and mother; Heart disease in her mother; Hypertension in her mother; Stroke in her mother. OBJECTIVE: Visit Vitals BP 124/80 (BP Location: Left arm, Patient Position: Sitting, BP Cuff Size: Adult long) Pulse 84 Temp 97.6 F (Temporal) Resp 19 Wt 173 lb 12.8 oz SpO2 94% BMI 33.94 kg/m Smoking Status Never BSA 1.83 m Physical Exam Vitals and nursing note reviewed. Constitutional: General: She is not in acute distress. Appearance: Normal appearance. HENT: Head: Normocephalic and atraumatic. Right Ear: External ear normal. Left Ear: External ear normal. Nose: Nose normal. Mouth/Throat: Mouth: Mucous membranes are moist. Eyes: Extraocular Movements: Extraocular movements intact. Conjunctiva/sclera: Conjunctivae normal. Neck: Vascular: No carotid bruit. Cardiovascular: Rate and Rhythm: Normal rate and regular rhythm. Pulses: Normal pulses. Heart sounds: Normal heart sounds. No murmur heard. Pulmonary: Effort: Pulmonary effort is normal. Breath sounds: Normal breath sounds. No wheezing or rhonchi. Abdominal: General: Bowel sounds are normal. There is no distension. Palpations: Abdomen is soft. There is no mass. Tenderness: There is no abdominal tenderness. Musculoskeletal: General: Normal range of motion. Cervical back: Normal range of motion and neck supple. Right lower leg: No edema. Left lower leg: No edema. Skin: General: Skin is warm and dry. Capillary Refill: Capillary refill takes 2 to 3 seconds. Findings: No rash. Neurological: General: No focal deficit present. Mental Status: She is alert and oriented to person, place, and time. Psychiatric: Mood and Affect: Mood normal. Behavior: Behavior normal. Thought Content: Thought content normal. Judgment: Judgment normal. ASSESSMENT AND PLAN: No follow-ups on file. Problem List Items Addressed This Visit Essential hypertension Please check blood pressure daily and record DASH diet Limit caffeine Take medication as directed Contact office if chest pain, pressure, dizziness, shortness of breath, swelling legs Recommend slow position changes Current meds: b heather, hydrochlorothiazide, Morbid obesity ([facility]) Discussed with patient their BMI (actual, verses recommended). We have also discussed lifestyle modifications: attempts to perform physical activity as chronic conditions allow, also to monitor dietary intake: increasing protein/fruits/veggies and lowering carb intake (unless contraindicated). Limit sodas, juices, and sugary drinks. Continue working with [place] management [facility] Type 2 diabetes mellitus without complication, without long-term current use of insulin ([facility]) Check blood sugars daily, notify if <70 or >200. Take medications (pills or insulin) as directed. Monitor for s/s of hypoglycemia (sweaty, dizziness, nausea, vomiting, or shakiness). Watch for increase in thirst, urination, or appetite. Inspect feet frequently monitoring for open wounds , andalso recommend yearly eye exam. Pt should attempt to remain as physically active as chronic conditions allow, as well as trying to follow a diet low in carbohydrates, and simple sugars. She has been under the care of [facility] [place] mg[facility] she is taking ozempic and doing well Current meds: metformin and ozempic A1c 5.8% 10/13/24, 5.7% 03/04/24 Relevant Orders POCT glycosylated hemoglobin (Hb A1C) docked device (Completed) Fibromyalgia Cont with tramadol prn, celebrex prn, tizanidine prn OARRS reviewed Fu in 3 months Following with rheumatology as well Gastroesophageal reflux disease without esophagitis Recommendations: freq small meals, nothing to eat or drink at least 2 hours prior to bed, limit caffeine, alcohol, as well as spicy foods Meds to limit or avoid if possible: NSAIDS Elevate HOB if possible Current meds: omeprazole Had recent EGD (1/25): inactive gastritis, HH, schatski's ring and tortrious esophagus Obstructive sleep apnea syndrome - Primary Does not wear PAP Since losing weight no snoring Anxiety and depression Current med: seroquel, Cont with counseling Does not feel any changes need to happen at this time Hot flashes No clear etiology consider meds and labs : Has had complete hysterectomy years ago, hot flashes at that time, however then they improved and now have worsened: Possible side effect from her seroquel, at her last appt I did order labs 06/22/24, to date they havenot been completed, I have attempted to contact pt regarding the need for them to be done as well 10/13/24: does feel these are becoming less freq/severe * Danitza Awad NP - 10/13/2024 7:15 AM EDTAssociated Problem(s): Hot flashes No clear etiology consider meds and labs : Has had complete hysterectomy years ago, hot flashes at that time, however then they improved and now have worsened: Possible side effect from her seroquel, at her last appt I did order labs 06/22/24, to date they havenot been completed, I have attempted to contact pt regarding the need for them to be done as well 10/13/24: does feel these are becoming less freq/severe * Danitza Awad NP - 10/13/2024 7:13 AM EDTAssociated Problem(s): Anxiety and depression Current med: seroquel, Cont with counseling Does not feel any changes need to happen at this time * Danitza Awad NP - 10/13/2024 7:13 AM EDTAssociated Problem(s): Type 2 diabetes mellitus without complication, without long-term current useof insulin (HCC) Check blood sugars daily, notify if <70 or >200. Take medications (pills or insulin) as directed. Monitor for s/s of hypoglycemia (sweaty, dizziness, nausea, vomiting, or shakiness). Watch for increase in thirst, urination, or appetite. Inspect feet frequently monitoring for open wounds , andalso recommend yearly eye exam. Pt should attempt to remain as physically active as chronic conditions allow, as well as trying to follow a diet low in carbohydrates, and simple sugars. She has been under the care of [facility] [place] [facility] she is taking ozempic and doing well Current meds: metformin and ozempic A1c 5.8% 10/13/24, 5.7% 03/04/24 * Danitza Awad NP - 10/13/2024 7:12 AM EDTAssociated Problem(s): Fibromyalgia Cont with tramadol prn, celebrex prn, tizanidine prn OARRS reviewed Fu in 3 months Following with rheumatology as well * Danitza Awad NP - 10/13/2024 7:11 AM EDTAssociated Problem(s): Gastroesophageal reflux disease without esophagitis Recommendations: freq small meals, nothing to eat or drink at least 2 hours prior to bed, limit caffeine, alcohol, as well as spicy foods Meds to limit or avoid if possible: NSAIDS Elevate HOB if possible Current meds: omeprazole Had recent EGD (05/16): inactive gastritis, HH, schatski's ring and tortrious esophagus * Danitza Awad NP - 10/13/2024 7:11 AM EDTAssociated Problem(s): Essential hypertension Please check blood pressure daily and record DASH diet Limit caffeine Take medication as directed Contact office if chest pain, pressure, dizziness, shortness of breath, swelling legs Recommend slow position changes Current meds: b heather, hydrochlorothiazide, * Danitza Awad NP - 10/13/2024 7:11 AM EDTAssociated Problem(s): Obstructive sleep apnea syndrome Does not wear PAP Since losing weight no snoring documented in this encounterResearch [facility] Center-[facility] CampusFsxibkrcnr36-40-0916 History of Present illness Narrative* Danitza Awad NP - 06/22/2024 4:17 PM ESTAssociated Problem(s): Hot flashes No clear etiology consider meds and labs : Has had complete hysterectomy years ago, hot flashes at that time, however then they improved and now have worsened: Possible side effect from her seroquel, is documented in this encounterResearch Medical Center-Brookside CampusQzpaqbzbkg34-12-4265 History of Present illness Narrative* Danitza Awad NP - 06/11/2024 3:58 PM ESTAssociated Problem(s): Hot flashes No clear etiology consider meds and labs * Danitza Awad NP - 06/11/2024 3:40 PM EST Images from the original note were not included. marianne Jacques is a 59 y.o. female presents with chief complaint of No chief complaint on file. HPI: Here for recheck: Needs med refill, no significant changes in her pain levels or patterns. Is having bilat knee pain,cold weather does not help this, she has been following with Rheumatology as well. Continues with weight management services as well. Her total weight loss to date is: 42 pounds. She is feeling better and moving more is exercising on a regular basis. Does admit to some increase stressors/anxiety recently involving family and job stressors as well. Her primary complaint today is hot flashes. She had a complete hyst in 2006, was on estrogen for a period of time as she did have freq hot flashes. Then she eventually stopped estrogen, and would have every once in a while hot flashes. For the last 3 months she is having them every day, sometimes up to 10 per hour. She will get flushed, sweat, andthen get cold. She denies any heart palpitations, no acute ARCOS or dizziness . Wondering what she rodrigo to help this SUBJECTIVE: MEDICATIONS: Current Outpatient Medications Medication Instructions Alcohol Swabs 70 % pads USE DIRECTED ONCE DAILY B-D ULTRA-FINE 33 LANCETS misc USE DIRECTED ONCE DAILY Blood Glucose Monitoring Suppl (True Metrix Air Glucose Meter) w/Device kit USE DIRECTED celecoxib (CELEBREX) 200 mg, Oral, Daily PRN cetirizine (ZYRTEC) 10 mg, Oral, Daily cholecalciferol (Vitamin D-3) 25 MCG (1000 UT) capsule Daily gabapentin (NEURONTIN) 600 mg, Oral, Nightly hydroCHLOROthiazide (MICROZIDE) 12.5 mg, Daily loperamide (IMODIUM) 2 mg, 3 times daily PRN metFORMIN XR (GLUCOPHAGE-XR) 500 mg, Oral, Daily metoprolol tartrate (LOPRESSOR) 50 mg, Oral, Daily montelukast (SINGULAIR) 10 mg, Oral, Nightly omeprazole OTC (PRILOSEC OTC) 20 mg, Daily before breakfast Ozempic (2 MG/DOSE) 2 mg, Every 7 days QUEtiapine (SEROQUEL) 50-100 mg, Oral, Nightly tiZANidine (ZANAFLEX) 4 mg, Oral, Every 12 hours PRN traMADol (ULTRAM) 50 mg True Metrix Blood Glucose Test test strip ALLERGIES: Allergies Allergen Reactions Other Palpitations PATIENT MAY BE ALLERGIC TO SOME DEGREE TO ALL STEROIDAL MEDICATIONS PATIENT MAY BE ALLERGIC TO SOME DEGREE TO ALL STEROIDAL MEDICATIONS Cortisone Other Reaction(s): doesn't feel well, heart palpations/breathing difficulties, heart races, nausea,Other (See Comments), Unknown Reaction Other reaction(s): doesn't feel well, heart races, nausea, Other (See Comments), Unknown Reaction Swelling, sweating, B/P increase, palpitations knee for torn acl. Shoulder for tendonitis, same reaction. injectable Swelling, sweating, B/P increase, palpitations knee for torn acl. Shoulder for tendonitis, same reaction. injectable Iodinated Contrast Media Other Reaction(s): felt like she was going to pass out, severe nausea Other reaction(s): felt like she was going to pass out, severe nausea Other reaction(s): felt like she was going to pass out, severe nausea Other reaction(s): felt like she was going to pass out, severe nausea REVIEW OF SYMPTOMS: Review of Systems Constitutional: Positive for hot flashes. Negative for appetite change, chills and fever. HENT: Negative for congestion, ear pain and sore throat. Eyes: Negative for pain, discharge, redness and visual disturbance. Respiratory: Negative for cough, shortness of breath and wheezing. Cardiovascular: Negative for chest pain, palpitations and leg swelling. Gastrointestinal: Positive for diarrhea. Negative for abdominal pain, blood in stool, constipation,nausea and vomiting. Genitourinary: Negative for difficulty urinating, dysuria and frequency. Musculoskeletal: Positive for arthralgias, back pain and myalgias. Negative for joint swelling. Skin: Negative for rash and wound. Neurological: Negative for dizziness, tremors, seizures, syncope and headaches. Psychiatric/Behavioral: Negative for behavioral problems, self-injury and suicidal ideas. The patient is nervous/anxious. Depression Hematological: Does not bruise/bleed easily. Endocrine: Negative for polydipsia, polyphagia and polyuria. Allergic/Immunologic: Negative for environmental allergies and food allergies. PAST MEDICAL HISTORY Past Medical History: Diagnosis Date Anxiety Arthritis Depression (CMS/HCC) Diabetes ([facility]) Environmental and seasonal allergies 04/04/2023 Fibromyalgia 06/26/2023 Foot swelling Headache Hip problem History of herniated intervertebral disc History of sinus problem Irregular heartbeat Knee problem Leg swelling Lumbar spondylosis 04/02/2023 Menorrhagia Migraines (CMS/HCC) Thoracic back pain Visual impairment w/corrective lenses Past Surgical History: Procedure Laterality Date ANTERIOR CRUCIATE LIGAMENT REPAIR Left APPENDECTOMY CERVICAL DISC SURGERY SECTION, CLASSIC x 2 SECTION, LOW TRANSVERSE 1986 CHOLECYSTECTOMY ELBOW SURGERY Procedure:Reconecction of tendons Bilateral;Disease: b/l elbows HYSTERECTOMY 2007 KNEE SURGERY Bilateral scope family history includes Cancer in her father; Diabetes in her father and mother; Heart disease in her mother; Hypertension in her mother; Stroke in her mother. OBJECTIVE: Visit Vitals BP 122/84 (BP Location: Left arm, Patient Position: Sitting, BP Cuff Size: Large adult) Pulse 95 Temp 97.9 F Resp 20 Ht 5' Wt 174 lb 12.8 oz SpO2 96% BMI 34.14 kg/m Smoking Status Never BSA 1.83 m Physical Exam Vitals and nursing note reviewed. Constitutional: General: She is not in acute distress. Appearance: Normal appearance. HENT: Head: Normocephalic and atraumatic. Right Ear: External ear normal. Left Ear: External ear normal. Nose: Nose normal. Mouth/Throat: Mouth: Mucous membranes are moist. Eyes: Extraocular Movements: Extraocular movements intact. Conjunctiva/sclera: Conjunctivae normal. Neck: Vascular: No carotid bruit. Cardiovascular: Rate and Rhythm: Normal rate and regular rhythm. Pulses: Normal pulses. Heart sounds: Normal heart sounds. Pulmonary: Effort: Pulmonary effort is normal. Breath sounds: Normal breath sounds. No wheezing or rales. Abdominal: General: Bowel sounds are normal. There is no distension. Palpations: Abdomen is soft. There is no mass. Tenderness: There is no abdominal tenderness. Musculoskeletal: General: Normal range of motion. Cervical back: Normal range of motion and neck supple. Right lower leg: No edema. Left lower leg: No edema. Lymphadenopathy: Cervical: No cervical adenopathy. Skin: General: Skin is warm and dry. Capillary Refill: Capillary refill takes 2 to 3 seconds. Findings: No rash. Neurological: General: No focal deficit present. Mental Status: She is alert and oriented to person, place, and time. Psychiatric: Mood and Affect: Mood normal. Behavior: Behavior normal. Thought Content: Thought content normal. Judgment: Judgment normal. ASSESSMENT AND PLAN: No follow-ups on file. Problem List Items Addressed This Visit Bipolar disorder, current episode depressed, moderate (CMS/HCC) Essential hypertension (CMS/HCC) - Primary Please check blood pressure daily and record DASH diet Limit caffeine Take medication as directed Contact office if chest pain, pressure, dizziness, shortness of breath, swelling legs Recommend slow position changes Current meds: b heather, hydrochlorothiazide, Morbid obesity (CMS/HCC) Discussed with patient their BMI (actual, verses recommended). We have also discussed lifestyle modifications: attempts to perform physical activity as chronic conditions allow, also to monitor dietary intake: increasing protein/fruits/veggies and lowering carb intake (unless contraindicated). Limit sodas, juices, and sugary drinks. Continue working with [place] management [place] [facility], she is doing great!! Type 2 diabetes mellitus without complication, without long-term current use of insulin (CMS/[facility]) Check blood sugars daily, notify if <70 or >200. Take medications (pills or insulin) as directed. Monitor for s/s of hypoglycemia (sweaty, dizziness, nausea, vomiting, or shakiness). Watch for increase in thirst, urination, or appetite. Inspect feet frequently monitoring for open wounds , andalso recommend yearly eye exam. Pt should attempt to remain as physically active as chronic conditions allow, as well as trying to follow a diet low in carbohydrates, and simple sugars. She has been under the care of [facility] [place] she is taking ozempic and doing well Current meds: metformin and ozempic A1c 5.7% 03/04/24 Fibromyalgia Cont with tramadol and other current meds OARRS reviewed Fu in 3 months Following with rheumatology as well Gastroesophageal reflux disease without esophagitis Recommendations: freq small meals, nothing to eat or drink at least 2 hours prior to bed, limit caffeine, alcohol, as well as spicy foods Meds to limit or avoid if possible: NSAIDS Elevate HOB if possible Current meds: omeprazole Had recent EGD (05/16): inactive gastritis, HH, schatski's ring and tortrious esophagus Paroxysmal supraventricular tachycardia (CMS/HCC) Hx of this, takes b heather Anxiety and depression (CMS/HCC) Current med: seroquel, CHARLENE 7= PHQ 9= Other Visit Diagnoses Type 2 diabetes mellitus with other specified complication (CMS/[facility]) * Danitza Awad NP - 06/11/2024 7:30 AM ESTAssociated Problem(s): Anxiety and depression (CMS/HCC) Current med: seroquel, CHARLENE 7= 6 PHQ 9= 1 Unsure if related to hot flashes or not * Danitza Awad NP - 06/11/2024 7:29 AM ESTAssociated Problem(s): Type 2 diabetes mellitus without complication, without long-term current useof insulin (CMS/[facility]) Check blood sugars daily, notify if <70 or >200. Take medications (pills or insulin) as directed. Monitor for s/s of hypoglycemia (sweaty, dizziness, nausea, vomiting, or shakiness). Watch for increase in thirst, urination, or appetite. Inspect feet frequently monitoring for open wounds , andalso recommend yearly eye exam. Pt should attempt to remain as physically active as chronic conditions allow, as well as trying to follow a diet low in carbohydrates, and simple sugars. She has been under the care of [facility] [place] she is taking ozempic and doing well Current meds: metformin and ozempic A1c 5.7% 03/04/24 * Danitza Awad NP - 06/11/2024 7:27 AM ESTAssociated Problem(s): Morbid obesity (CMS/HCC) Discussed with patient their BMI (actual, verses recommended). We have also discussed lifestyle modifications: attempts to perform physical activity as chronic conditions allow, also to monitor dietary intake: increasing protein/fruits/veggies and lowering carb intake (unless contraindicated). Limit sodas, juices, and sugary drinks. Continue working with weight management program through [facility], she is doing great!! * Danitza Awad NP - 06/11/2024 7:27 AM ESTAssociated Problem(s): Fibromyalgia Cont with tramadol and other current meds OARRS reviewed Fu in 3 months Following with rheumatology as well * Danitza Awad NP - 06/11/2024 7:27 AM ESTAssociated Problem(s): Gastroesophageal reflux disease without esophagitis Recommendations: freq small meals, nothing to eat or drink at least 2 hours prior to bed, limit caffeine, alcohol, as well as spicy foods Meds to limit or avoid if possible: NSAIDS Elevate HOB if possible Current meds: omeprazole Had recent EGD (05/16): inactive gastritis, HH, schatski's ring and tortrious esophagus * Danitza Awad NP - 06/11/2024 7:25 AM ESTAssociated Problem(s): Paroxysmal supraventricular tachycardia (CMS/HCC) Hx of this, takes b heather * Danitza Awad NP - 06/11/2024 7:25 AM ESTAssociated Problem(s): Essential hypertension (CMS/HCC) Please check blood pressure daily and record DASH diet Limit caffeine Take medication as directed Contact office if chest pain, pressure, dizziness, shortness of breath, swelling legs Recommend slow position changes Current meds: b heather, hydrochlorothiazide, documented in this encounterResearch [facility] [id number] Evaluation note* Diagnosis Onset Date Resolution Status Admit Date Abnormal weight gain acuteFebruary 2024 10:51amArthritisacuteFebruary 2024 10:51amBMI 34.0-34.9,adultacuteFebruary 2024 10:51amDegenerative disc diseaseacute May 26, 2024 10:51amDietary surveillance and counselingacuteFebruary 2024 10:51amExercise counselingacuteFebruary 2024 10:51amFibromyalgiaacute May 26, 2024 10:51amGERD (gastroesophageal reflux disease)acuteFebruary 2024 10:51amHistory of kidney stonesacuteFebruary 2024 10:51amHTN (hypertension)acuteFebruary 2024 10:51amHx of cholecystectomyacuteFebruary 2024 10:51amObesity, Class I, BMI 30-34.9acuteFebruary 2024 10:51amOSA (obstructive sleep apnea)acuteFebruary 2024 10:51amType 2 diabetes mellitusacuteFebruary 2024 10:51am [facility] Work Phone: [phone]) 531-125301-29-2025 History of Present illness Narrative* Augustine Hernandez NP - 05/20/2024 4:20 PM ESTAssociated Problem(s): Upper respiratory infection with cough and congestion Sinus congestion Headache Runny nose Productive cough- yellow phlegm Scratchy throat X4 days Has not tested for COVID/FLU Was going to tx pt with Doxycycline 100mg BID for 5 days. Pt is incessant that she will only take Azithromycin and nothing else. Will order Azithromycin for 3 days. CXR. If symptoms worsen or do not improve return to office. * Augustine Hernandez NP - 05/20/2024 4:00 PM EST Images from the original note were not included. Subjective Patient ID: Lois Jacques is a 59 y.o. female who presents for Cough. HPI Sinus congestion Headache Runny nose Productive cough- yellow phlegm Scratchy throat X4 days Denies: Earache Fever/chills Shortness of breath Chest pain N/V/D Has not tested for COVID/FLU Was going to tx pt with Doxycycline 100mg Bid for 5 days. Pt is incessant that she will only take Azithromycin. Will order Azithromycin for 3 days. Review of Systems Constitutional: Negative for activity change, appetite change, chills, fatigue, fever, night sweatsand unexpected weight change. HENT: Positive for congestion, rhinorrhea, sinus pressure and sinus pain. Negative for ear pain, sore throat, trouble swallowing and voice change. Eyes: Negative for discharge and visual disturbance. Respiratory: Negative for chest tightness, shortness of breath and wheezing. Cardiovascular: Negative for chest pain, palpitations and leg swelling. Gastrointestinal: Negative for abdominal distention, abdominal pain, blood in stool, constipation, diarrhea, nausea and vomiting. Genitourinary: Negative for difficulty urinating, dysuria, flank pain, hematuria and pelvic pain. Musculoskeletal: Negative for arthralgias, joint swelling and neck pain. Skin: Negative for rash and wound. Neurological: Positive for headaches. Negative for dizziness, tremors, syncope, weakness, light-headedness and numbness. Psychiatric/Behavioral: Negative for sleep disturbance and suicidal ideas. The patient is not nervous/anxious. Hematological: Does not bruise/bleed easily. Endocrine: Negative for cold intolerance, heat intolerance, polydipsia, polyphagia and polyuria. Objective Physical Exam Vitals reviewed. Constitutional: Appearance: Normal appearance. HENT: Right Ear: Tympanic membrane normal. Left Ear: Tympanic membrane normal. Nose: Congestion and rhinorrhea present. Mouth/Throat: Mouth: Mucous membranes are moist. Pharynx: Oropharynx is clear. Eyes: Pupils: Pupils are equal, round, and reactive to light. Cardiovascular: Rate and Rhythm: Normal rate and regular rhythm. Pulses: Normal pulses. Heart sounds: Normal heart sounds. Pulmonary: Effort: Pulmonary effort is normal. Breath sounds: Normal breath sounds. Abdominal: General: Abdomen is flat. Bowel sounds are normal. Palpations: Abdomen is soft. Musculoskeletal: General: Normal range of motion. Skin: General: Skin is warm and dry. Capillary Refill: Capillary refill takes less than 2 seconds. Neurological: Mental Status: She is alert and oriented to person, place, and time. Assessment/Plan Problem List Items Addressed This Visit Upper respiratory infection with cough and congestion - Primary Sinus congestion Headache Runny nose Productive cough- yellow phlegm Scratchy throat X4 days Has not tested for COVID/FLU Was going to tx pt with Doxycycline 100mg BID for 5 days. Pt is incessant that she will only take Azithromycin and nothing else. Will order Azithromycin for 3 days. CXR. If symptoms worsen or do not improve return to office. Relevant Medications azithromycin (Zithromax) 500 MG tablet benzonatate (Tessalon) 100 MG capsule Other Relevant Orders XR chest 2 views documented in this [facility]01-29-2025 Instructions* Patient Instructions* Augustine Hernandez NP - 05/20/2024 4:00 PM EST Continue to rest, drink plenty of fluids, and eat a well-balance diet. Resume normal activity. AVOID anything strenuous until you are feeling better. Treatment: Start and finish antibiotics as directed. Use Tessalon Perles as needed for cough Nasal saline spray 2-3 times/day Cold and sinus medication - if you have high blood pressure issues use coricidin hbp Tylenol for fever and body aches. Vitamins: Vitamin C 1,000mg per day. Vitamin D3 2,000 international unit(s) per day. Zinc 25mg per day. WORSENING SYMPTOMS, CHEST PAIN, OR SHORTNESS OF BREATH, GO TO THE NEAREST EMERGENCY DEPARTMENT. documented in this [facility]01-17-2025 Evaluation + Plan note Extracted from:Title:RADHA Post-operative Note---GeneralAuthor:Leonides COLVIN, Rich No Date:05/08/24 Plan Transfer/Discharge: Transfer/Discharge Discharge when meets criteria ( To home ). Extracted from:Title:RADHA Pre-operative Note uthor:Rich Coyle MD.Date: 05/08/24 Plan [place] [employer]esthesi[employer] (ASA) physical status classification: Class II. Anesthetic Preoperative Plan: Anesthesia General. Extracted from:Title:1Preop H&PAuthor:Sebastian De La Cruz MDate:05/08/24 Impression and Plan Impression: Chronic diarrhea, screening for colon cancer Plan: -EGD and Colonoscopy Future Appointments Appointment Date:05/18/2024 02:30:00 PM Scheduled Provider:Kulwinder GARG MD Location:[facility] Appointment Type:URO Office Visit Future Scheduled Tests Laboratory* Celiac Disease Comprehensive 10/10/23 * Thyroid Stimulating Hormone 10/10/23 [facility] 01-17-2025 NoteProgress Note-Physician Patient: LOIS AJCQUES Age: 59 years Sex: Female : 1965 Associated Diagnoses: None Author: Rich Coyle MD Postoperative Information Postoperative disposition: Postoperative disposition: To PACU. Optimetrix number: Optimetrix number [id number]. Anesthetic utilized: General. Health Status Allergies: Nonallergic Reactions (Selected) Severity Not Documented Contrast media (iodine-based)- [place] like she was going to pass out and severe nausea. Cortisone- Unknown reaction, heart races, nausea and doesn't feel well. Physical Examination Vital Signs 05/08/2024 9:42 EST Heart Rate Monitored 68 bpm Respiratory Rate Monitored 16 br/min Systolic Blood Pressure 125 mmHg Diastolic Blood Pressure 74 mmHg Mean Arterial Pressure, Cuff 91 mmHg SpO2 92 % 05/08/2024 9:30 EST Heart Rate Monitored 73 bpm Respiratory Rate Monitored 17 br/min Systolic Blood Pressure 115 mmHg Diastolic Blood Pressure 79 mmHg Mean Arterial Pressure, Cuff 91 mmHg SpO2 96 % 05/08/2024 9:17 EST Temperature Temporal Artery 36.1 DegC LOW Heart Rate Monitored 75 bpm Respiratory Rate Monitored 17 br/min Systolic Blood Pressure 112 mmHg Diastolic Blood Pressure 70 mmHg Mean Arterial Pressure, Cuff 84 mmHg SpO2 95 % Pain Assessment: Controlled. General: Awake, Appropriate. Respiratory: Adequate air exchange. Cardiovascular: Stable. Neurological Assessment Anesthetic outcome No anesthetic complications noted. Adequate pain relief. Review / Management Condition: Stable. Plan Transfer/Discharge: Transfer/Discharge Discharge when meets criteria ( To home ).[facility] CenterComment on above:Result Comment: Electronically Signed By: Leonides COLVIN, Rich Armstrong.rylee\Date and Time Signed: 05/08/24 13:32 EST 05-08-2024 Hospital Discharge instructions Patient Education 05/08/2024 09:23:27 Gastritis, Adult, [id number] Gastritis, Adult Gastritis is irritation and swelling (inflammation) of the stomach. There are two kinds of gastritis: Acute gastritis. This kind develops quickly. Chronic gastritis. This kind is much more common. It develops slowly and lasts for a long time. It is important to get help for this condition. If you do not get help, your stomach can bleed, andyou can get sores (ulcers) in your stomach. What are the causes? This condition may be caused by: Germs that get to your stomach and cause an infection. Drinking too much alcohol. Medicines you are taking. Having too much acid in the stomach. Having a disease of the stomach. Other causes may include: An allergic reaction. Some cancer treatments (radiation). Smoking cigarettes or using products that contain nicotine or tobacco. In some cases, the cause of this condition is not known. What increases the risk? Having a disease of the intestines. Having Crohn's disease. Using aspirin or ibuprofen and other NSAIDs to treat other conditions. Stress. What are the signs or symptoms? Pain in your stomach. A burning feeling in your stomach. Feeling like you may vomit (nauseous). Vomiting or vomiting blood. Feeling too full after you eat. Weight loss. Bad breath. Blood in your poop (stool). In some cases, there are no symptoms. How is this treated? This condition is treated with medicines. The medicines that are used depend on what caused the condition. You may be given: Antibiotic medicine, if your condition was caused by an infection from germs. H2 blockers and similar medicines, if your condition was caused by too much acid in the stomach. Treatment may also include stopping the use of certain medicines, such as aspirin or ibuprofen. Follow these instructions at home: Medicines Take egpl-wzc-vxkrlsg and prescription medicines only as told by your doctor. If you were prescribed an antibiotic medicine, take it as told by your doctor. Do not stop taking it even if you start to feel better. Alcohol use Do not drink alcohol if: ?Your doctor tells you not to drink. ?You are , may be , or are planning to become . If you drink alcohol: ?Limit your use to: ?0 1 drink a day for women. ?0 2 drinks a day for men. ?Know how much alcohol is in your drink. In the [place] one drink equals one 12 oz bottle of beer (355 mL), one 5 oz glass of wine (148 mL), or one 1 oz glass of hard liquor (44 mL). General instructions Eat small meals often, instead of large meals. Avoid foods and drinks that make you feel worse. Drink enough fluid to keep your pee (urine) pale yellow. Talk with your doctor about ways to manage stress. You can exercise or do deep breathing, meditation, or yoga. Do not smoke or use any products that contain nicotine or tobacco. If you need help quitting, ask your doctor. Keep all follow-up visits. Contact a doctor if: Your symptoms get worse. Your stomach pain gets worse. Your symptoms go away and then come back. You have a fever. Get help right away if: You vomit blood or something that looks like coffee grounds. You have black or dark red poop. You throw up any time you try to drink fluids. These symptoms may be an emergency. Get help right away. Call your local emergency services (911 int [place] Do not wait to see if the symptoms will go away. Do not drive yourself to the hospital. Summary Gastritis is irritation and swelling (inflammation) of the stomach. You must get help for this condition. If you do not get help, your stomach can bleed, and you can get sores (ulcers) in your stomach. You can be treated with medicines for germs or medicines to block too much acid in your stomach. This information is not intended to replace advice given to you by your health care provider. Make sure you discuss any questions you have with your health care provider. Document Revised: 08/12/2021 Document Reviewed: 08/12/2021 [employer] Patient Education 2023 [employer] 05/08/2024 09:23:25 Esophageal Stricture Esophageal Stricture Esophageal stricture is a narrowing of the esophagus. The esophagus is the part of the body that moves food and liquid from your mouth to your stomach. The esophagus can become narrow because of disease or damage to the area. This condition can make swallowing difficult, painful, or even impossible. It also makes choking more likely. What are the causes? The most common cause of this condition is gastroesophageal reflux disease (GERD). Normally, food travels down the esophagus and stays in the stomach to be digested. In GERD, food and stomach acid move back up into the esophagus. Over time, this causes scar tissue and leads to narrowing. Other causes of esophageal stricture include: Scarring from swallowing a harmful substance. Damage from medical instruments used in the esophagus. Radiation therapy. Cancer. Inflammation of the esophagus. What increases the risk? You are more likely to develop an esophageal stricture if you have GERD or esophageal cancer. What are the signs or symptoms? Symptoms of this condition include: Difficulty swallowing. Pain when swallowing. Burning pain or discomfort in the throat or chest (heartburn). Vomiting or spitting up food or liquids. Unexplained weight loss. How is this diagnosed? This condition may be diagnosed based on: Your symptoms and a physical exam. Tests, such as: ?Upper endoscopy. Your health care provider will insert a flexible tube with a tiny camera on it (endoscope) into your esophagus to check for a stricture. A tissue sample may also be taken to be examined under a microscope (biopsy). ?Esophageal pH monitoring. This test involves using a tube to collect acid in the esophagus to determine how much stomach acid is entering the esophagus. ?Barium swallow test. For this test, you will drink a chalky liquid (barium solution) that coats the lining of the esophagus. Then you will have an X-ray taken. The barium solution helps to show if there is a stricture. How is this treated? Treatment for esophageal stricture depends on what is causing your condition and how severe your condition is. Treatment options include: Esophageal dilation. In this procedure, a health care provider inserts an endoscope or a tool called a dilator into the esophagus to gently stretch it and make the opening wider. Stents. In some cases, a health care provider may place a small device (stent) in the esophagus to keep it open. Acid-blocking medicines. Taking these can help you manage GERD symptoms after an esophageal stricture. Controlling your GERD symptoms or being free of them can prevent the stricture from returning. Follow these instructions at home: Eating and drinking Follow instructions from your health care provider about eating or drinking restrictions. Cut your food into small pieces, chew well, and eat slowly. Try to eat soft food that is easier to swallow. Eat and drink only when you are sitting upright. Do not drink alcohol. If you need help quitting, ask your health care provider. Do not eat during the 3 hours before bedtime. Do not overeat at meals. Do not eat foods that can make reflux worse. These include: ?Fatty foods, such as red meat and processed foods. ?Spicy foods. ?Soda. ?Tomato products. ?Chocolate. General instructions Take uett-znz-[id number] and prescription medicines only as told by your health care provider. Do not use any products that contain nicotine or tobacco, such as cigarettes, e- cigarettes, and chewing tobacco. If you need help quitting, ask your health care provider. Lose weight if you are overweight. Wear loose, comfortable clothing. When lying in bed, raise your head with pillows. This will help to prevent your stomach contents from backing up into your esophagus while you sleep. Keep all follow-up visits. This is important. Contact a health care provider if: You have problems eating or swallowing. You vomit or spit up food and liquid. Your symptoms do not improve with treatment. Get help right away if: You can no longer keep down any food, drink, or your saliva. Summary Esophageal stricture is a narrowing of the part of the body that moves food and liquid from your mouth to your stomach (esophagus). The esophagus can become narrow because of disease or damage to the area. This can make swallowing difficult, painful, or even impossible. Treatment for esophageal stricture depends on what is causing your condition and how severe your condition is. In some cases, procedures may be done to make the opening of the esophagus wider or to place a stent in the esophagus to keep it open. Do not drink alcohol, overeat at meals, or eat foods that can make reflux worse. This information is not intended to replace advice given to you by your health care provider. Make sure you discuss any questions you have with your health care provider. Document Revised: 08/24/2020 Document Reviewed: 08/24/2020 [employer] Patient Education 2023 [employer] 05/08/2024 09:23:20 Hiatal Hernia Hiatal Hernia A hiatal hernia occurs when part of the stomach slides above the muscle that separates the abdomen from the chest (diaphragm). A person can be born with a hiatal hernia (congenital), or it may develop over time. In almost all cases of hiatal hernia, only the top part of the stomach pushes through the diaphragm. Many people have a hiatal hernia with no symptoms. The larger the hernia, the more likely it is that you will have symptoms. In some cases, a hiatal hernia allows stomach acid to flow back into the tube that carries food from your mouth to your stomach (esophagus). This may cause heartburn symptoms. The development of heartburn symptoms may mean that you have a condition called gastroesophageal reflux disease (GERD). What are the causes? This condition is caused by a weakness in the opening (hiatus) where the esophagus passes through the diaphragm to attach to the upper part of the stomach. A person may be born with a weakness in thehiatus, or a weakness can develop over time. What increases the risk? This condition is more likely to develop in: Older people. Age is a major risk factor for a hiatal hernia, especially if you are over the age of50. women. People who are overweight. People who have frequent constipation. What are the signs or symptoms? Symptoms of this condition usually develop in the form of GERD symptoms. Symptoms include: Heartburn. Upset stomach (indigestion). Trouble swallowing. Coughing or wheezing. Wheezing is making high-pitched whistling sounds when you breathe. Sore throat. Chest pain. Nausea and vomiting. How is this diagnosed? This condition may be diagnosed during testing for GERD. Tests that may be done include: X-rays of your stomach or chest. An upper gastrointestinal (GI) series. This is an X-ray exam of your GI tract that is taken after you swallow a chalky liquid that shows up clearly on the X-ray. Endoscopy. This is a procedure to look into your stomach using a thin, flexible tube that has a tiny camera and light on the end of it. How is this treated? This condition may be treated by: Dietary and lifestyle changes to help reduce GERD symptoms. Medicines. These may include: ?Gbci-ezc-ifmjypy antacids. ?Medicines that make your stomach empty more quickly. ?Medicines that block the production of stomach acid (H2 blockers). ?Stronger medicines to reduce stomach acid (proton pump inhibitors). Surgery to repair the hernia, if other treatments are not helping. If you have no symptoms, you may not need treatment. Follow these instructions at home: Lifestyle and activity Do not use any products that contain nicotine or tobacco. These products include cigarettes, chewing tobacco, and vaping devices, such as e-cigarettes. If you need help quitting, ask your health careprovider. Try to achieve and maintain a healthy body weight. Avoid putting pressure on your abdomen. Anything that puts pressure on your abdomen increases the amount of acid that may be pushed up into your esophagus. ?Avoid bending over, especially after eating. ?Raise the head of your bed by putting blocks under the legs. This keeps your head and esophagus higher than your stomach. ?Do not wear tight clothing around your chest or stomach. ?Try not to strain when having a bowel movement, when urinating, or when lifting heavy objects. Eating and drinking Avoid foods that can worsen GERD symptoms. These may include: ?Fatty foods, like fried foods. ?[place] fruits, like oranges or lemon. ?Other foods and drinks that contain acid, like orange juice or tomatoes. ?Spicy food. ?Chocolate. Eat frequent small meals instead of three large meals a day. This helps prevent your stomach from getting too full. ?Eat slowly. ?Do not lie down right after eating. ?Do not eat 1 2 hours before bed. Do not drink beverages with caffeine. These include cola, coffee, cocoa, and tea. Do not drink alcohol. General instructions Take ulnz-aco-iqxiyzr and prescription medicines only as told by your health care provider. Keep all follow-up visits. Your health care provider will want to check that any new prescribed medicines are helping your symptoms. Contact a health care provider if: Your symptoms are not controlled with medicines or lifestyle changes. You are having trouble swallowing. You have coughing or wheezing that will not go away. Your pain is getting worse. Your pain spreads to your arms, neck, jaw, teeth, or back. You feel nauseous or you vomit. Get help right away if: You have shortness of breath. You vomit blood. You have bright red blood in your stools. You have black, tarry stools. These symptoms may be an emergency. Get help right away. Call 911. Do not wait to see if the symptoms will go away. Do not drive yourself to the hospital. Summary A hiatal hernia occurs when part of the stomach slides above the muscle that separates the abdomen from the chest. A person may be born with a weakness in the hiatus, or a weakness can develop over time. Symptoms of a hiatal hernia may include heartburn, trouble swallowing, or sore throat. Management of a hiatal hernia includes eating frequent small meals instead of three large meals a day. Get help right away if you vomit blood, have bright red blood in your stools, or have black, tarry stools. This information is not intended to replace advice given to you by your health care provider. Make sure you discuss any questions you have with your health care provider. Document Revised: 06/05/2022 Document Reviewed: 06/05/2022 [employer] Patient Education 2023 [employer]. 05/08/2024 09:23:14 Endoscopy, Care After Procedure [facility] ([facility]) Endoscopy Care After Procedure Please read the instructions outlined below and refer to this sheet in the next few weeks. These discharge instructions provide you with general information on caring [facility] Your doctor may also give you specific instructions. While your treatment has been planned according to the most current medical practices available, unavoidable complications occasionally occur. If you have any problems or questions after discharge, please call your doctor. ACTIVITY You may resume your regular activity but move at a slower pace for the next 24 hours. Take frequent rest periods for the next 24 hours. Walking will help expel (get rid of) the air and reduce the bloated feeling in your abdomen. No driving for 24 hours (because of the anesthesia (medicine) used during the test). You may shower. Do not sign any important legal documents or operate any machinery for 24 hours (because of the anesthesia used during the test). NUTRITION Drink plenty of fluids. You may resume your normal diet. Begin with a light meal and progress to your normal diet. Avoid alcoholic beverages for 24 hours or as instructed by your caregiver. MEDICATIONS You may resume your normal medications unless your caregiver tells you otherwise. WHAT YOU CAN EXPECT TODAY You may experience abdominal discomfort such as a feeling of fullness or gas pains. FOLLOW-UP Your doctor will discuss the results of your test with you. SEEK IMMEDIATE MEDICAL ATTENTION IF ANY OF THE FOLLOWING OCCUR: Excessive nausea (feeling sick to your stomach) and/or vomiting. Severe abdominal pain and distention (swelling). Trouble swallowing. Temperature over 100 F (37.8 C). Rectal bleeding or vomiting of blood. Document Released: 11/20/2004 Document Re-Released: 09/30/2006 [facility] Patient Information 2009 [employer]. 05/08/2024 09:23:10 Diverticulosis [facility] ([facility]) Diverticulosis Many people have small pouches in their colon called diverticulum. The diverticulum bulge outward through weak spots in the colon. You could have one or more of these pouches in the colon. The condition of having these pouches in the colon is called diverticulosis or diverticular disease. Diverticulosis is usually diagnosed by tests to evaluate something else. For example, you may have had a colonoscopy to screen for colon cancer when the diverticulosis was found. Most people with diverticulosis do not have any discomfort or problems. If symptoms develop, they may include mild cramps, bloating, and constipation. A complication of this condition is called diverticulitis. This is when the diverticulum become inflamed and infected. How to treat diverticulosis: Increasing the amount of fiber in the diet may reduce symptoms of diverticulosis and prevent complications such as diverticulitis (infected diverticuli). Fiber keeps stool soft and lowers pressure inside the colon so that bowel contents can move througheasily. You should eat 20 to 35 grams of fiber each day. The table below shows the amount of fiber in some foods that you can easily add to your diet. Adding fiber slowly may decrease the bloating and fullness sometimes felt with an immediate high fiber diet. The doctor may also recommend taking a fiber product such as Citrucel or Metamucil once a day. In the past people with diverticulosis were to avoid nuts, corn, and seeds. This has not been foundto be true. If you find that certain foods create cramping or bloating, avoid that food. Foods high in fiber include: Fresh fruits, fresh vegetables, legumes (beans), whole wheat bread, bran muffins or cereal, and nuts. See the table below for examples of high fiber foods. Remember, your goal is 20- 35 grams per day. Amount of fiber in different foods Food Serving Grams of fiber Fruits Apple (with skin) 1 medium apple 4.4 Banana 1 medium banana 3.1 Oranges 1 orange 3.1 Prunes 1 cup, pitted 12.4 Juices Apple, unsweetened, w/added ascorbic acid 1 cup 0.5 Grapefruit, white, canned, sweetened 1 cup 0.2 Grape, unsweetened, w/added ascorbic acid 1 cup 0.5 [place] 1 cup 0.7 Vegetables Cooked Green beans 1 cup 4.0 Carrots 1/2 cup sliced 2.3 Peas 1 cup 8.8 Potato (baked, with skin) 1 medium potato 3.8 Raw [place] (with peel) 1 cucumber 1.5 Lettuce 1 cup shredded 0.5 Tomato 1 medium tomato 1.5 Spinach 1 cup 0.7 Legumes Baked beans, canned, no salt added 1 cup 13.9 Kidney beans, canned 1 cup 13.6 Nova beans, canned 1 cup 11.6 Lentils, boiled 1 cup 15.6 Breads, pastas, flours Bran muffins 1 medium muffin 5.2 Oatmeal, cooked 1 cup 4.0 White bread 1 slice 0.6 Whole-wheat bread 1 slice 1.9 Pasta and rice, cooked Macaroni 1 cup 2.5 Rice, brown 1 cup 3.5 Rice, white 1 cup 0.6 Spaghetti (regular) 1 cup 2.5 Nuts Almonds 1/2 cup 8.7 Peanuts 1/2 cup 7.9 Chart from [facility] 2013. SEEK IMMEDIATE MEDICAL CARE IF: You develop abdominal (belly) pain. An oral temperature above _ 101 F__develops. Repeated vomiting occurs. Blood is being passed in stools (bright red or black tarry stools). You develop any bowel problems or changes which you have not had before. Extra Information: To learn how much fiber and other nutrients are in different foods, visit the [place] Department of Agriculture (USDA) National Nutrient Database at: http://www.nal.usda.gov/fnic/foodcomp/search/ Created using data from the USDA National Nutrient Database for Standard Reference. Available at http://www.nal.usda.gov/fnic/foodcomp/search/. Information adapted from: [facility] Patient Information 2009 [place]. [facility] 2012 [email or web address].[employer]/contents/obnylqrodkqx-pvcelye-qxmywt-the-basics 05/08/2024 09:23:01 Colon Polyps Colon Polyps Colon polyps are tissue growths inside the colon, which is part of the large intestine. They are one of the types of polyps that can grow in the body. A polyp may be a round bump or a mushroom-shapedgrowth. You could have one polyp or more than one. Most colon polyps are noncancerous (benign). However, some colon polyps can become cancerous over time. Finding and removing the polyps early can help prevent this. What are the causes? The exact cause of colon polyps is not known. What increases the risk? The following factors may make you more likely to develop this condition: Having a family history of colorectal cancer or colon polyps. Being older than 45 years of age. Being younger than 45 years of age and having a significant family history of colorectal cancer or colon polyps or a genetic condition that puts you at higher risk of getting colon polyps. Having inflammatory bowel disease, such as ulcerative colitis or Crohn's disease. Having certain conditions passed from parent to child (hereditary conditions), such as: ?Familial adenomatous polyposis (FAP). ?Zavala syndrome. ?Turcot syndrome. ?Peutz Jeghers syndrome. ?MUTYH-associated polyposis (MAP). Being overweight. Certain lifestyle factors. These include smoking cigarettes, drinking too much alcohol, not gettingenough exercise, and eating a diet that is high in fat and red meat and low in fiber. Having had childhood cancer that was treated with radiation of the abdomen. What are the signs or symptoms? Many times, there are no symptoms. If you have symptoms, they may include: Blood coming from the rectum during a bowel movement. Blood in the stool (feces). The blood may be bright red or very dark in color. Pain in the abdomen. A change in bowel habits, such as constipation or diarrhea. How is this diagnosed? This condition is diagnosed with a colonoscopy. This is a procedure in which a lighted, flexible scope is inserted into the opening between the buttocks (anus) and then passed into the colon to examine the area. Polyps are sometimes found when a colonoscopy is done as part of routine cancer screening tests. How is this treated? This condition is treated by removing any polyps that are found. Most polyps can be removed during a colonoscopy. Those polyps will then be tested for cancer. Additional treatment may be needed depending on the results of testing. Follow these instructions at home: Eating and drinking Eat foods that are high in fiber, such as fruits, vegetables, and whole grains. Eat foods that are high in calcium and vitamin D, such as milk, cheese, yogurt, eggs, liver, fish, and broccoli. Limit foods that are high in fat, such as fried foods and desserts. Limit the amount of red meat, precooked or cured meat, or other processed meat that you eat, such as hot dogs, sausages, toro, or meat loaves. Limit sugary drinks. Lifestyle Maintain a healthy weight, or lose weight if recommended by your health care provider. Exercise every day or as told by your health care provider. Do not use any products that contain nicotine or tobacco, such as cigarettes, e- cigarettes, and chewing tobacco. If you need help quitting, ask your health care provider. Do not drink alcohol if: ?Your health care provider tells you not to drink. ?You are , may be , or are planning to become . If you drink alcohol: ?Limit how much you use to: ?0 1 drink a day for women. ?0 2 drinks a day for men. ?Know how much alcohol is in your drink. In the [place] one drink equals one 12 oz bottle of beer (355 mL), one 5 oz glass of wine (148 mL), or one 1 oz glass of hard liquor (44 mL). General instructions Take yhqu-caa-bvjnaaq and prescription medicines only as told by your health care provider. Keep all follow-up visits. This is important. This includes having regularly scheduled colonoscopies. Talk to your health care provider about when you need a colonoscopy. Contact a health care provider if: You have new or worsening bleeding during a bowel movement. You have new or increased blood in your stool. You have a change in bowel habits. You lose weight for no known reason. Summary Colon polyps are tissue growths inside the colon, which is part of the large intestine. They are one type of polyp that can grow in the body. Most colon polyps are noncancerous (benign), but some can become cancerous over time. This condition is diagnosed with a colonoscopy. This condition is treated by removing any polyps that are found. Most polyps can be removed during a colonoscopy. This information is not intended to replace advice given to you by your health care provider. Make sure you discuss any questions you have with your health care provider. Document Revised: 07/27/2020 Document Reviewed: 07/27/2020 [employer] Patient Education 2023 [employer]. 05/08/2024 09:23:00 Colonoscopy, Care After Surgery [facility] ([facility]) Colonoscopy Care After Surgery Please read the instructions outlined below and refer to this sheet in the next few weeks. These discharge instructions provide you with general information on caring for yourself [facility]. Your doctor may also give you specific instructions. While your treatment has been planned according to the most current medical practices available, unavoidable complications occasionally occur. If you have any problems or questions after discharge, please call your doctor. ACTIVITY You may resume your regular activity, but move at a slower pace for the next 24 hours. Take frequent rest periods for the next 24 hours. Walking will help get rid of the air and reduce the bloated feeling in your abdomen (belly). No driving for 24 hours (because of the anesthesia (medicine) used during the test). You may shower. Do not sign any important legal documents or operate any machinery for 24 hours (because of the anesthesia used during the test). NUTRITION Drink plenty of fluids. You may resume your normal diet as instructed by your doctor. Begin with a light meal and progress to your normal diet. Heavy or fried foods are harder to digestand may make you feel nauseated (sick to your stomach). Avoid alcoholic beverages for 24 hours or as instructed. MEDICATIONS You may resume your normal medications unless your doctor tells you otherwise. WHAT YOU CAN EXPECT TODAY Some feelings of bloating in the abdomen. Passage of more gas than usual. Spotting of blood in your stool or on the toilet paper. FOLLOW-UP Your doctor will discuss the results of your test with you. SEEK IMMEDIATE MEDICAL ATTENTION IF: There is more than a spotting of blood in your stool. There is abdominal distention (your abdomen is swollen). There is vomiting. You have a temperature over 101.5 F. There is abdominal pain or discomfort that is severe or gets worse throughout the day. Follow Up Care 10/10/2023 15:36:08 With:Dorothy COLVIN, NA Garcia, [facility] Address: [address] [place] [address], [address] [phone] When: Unknown Comments:Call the office for any problems. Also, call office within a few days to schedule your follow up [facility] 01-17-2025 NotePatient Education - Text Endoscopy Care After Procedure Please read the instructions outlined below and refer to this sheet in the next few weeks. These discharge instructions provide you with general information on caring for yourself [facility]. Your doctor may also give you specific instructions. While your treatment has been planned according to the most current medical practices available, unavoidable complications occasionally occur. If you have any problems or questions after discharge, please call your doctor. ACTIVITY ??? You may resume your regular activity but move at a slower pace for the next 24 hours. ??? Take frequent rest periods for the next 24 hours. ??? Walking will help expel (get rid of) the air and reduce the bloated feeling in your abdomen. ??? No driving for 24 hours (because of the anesthesia (medicine) used during the test). ??? You may shower. ??? Do not sign any important legal documents or operate any machinery for 24 hours (because of theanesthesia used during the test). NUTRITION ??? Drink plenty of fluids. ??? You may resume your normal diet. ??? Begin with a light meal and progress to your normal diet. ??? Avoid alcoholic beverages for 24 hours or as instructed by your caregiver. MEDICATIONS ??? You may resume your normal medications unless your caregiver tells you otherwise. WHAT YOU CAN EXPECT TODAY ??? You may experience abdominal discomfort such as a feeling of fullness or ???gas??? pains. FOLLOW-UP ??? Your doctor will discuss the results of your test with you. seek immediate medical attention if any of the following occur: ??? Excessive nausea (feeling sick to your stomach) and/or vomiting. ??? Severe abdominal pain and distention (swelling). ??? Trouble swallowing. ??? Temperature over 100 F (37.8??? C). ??? Rectal bleeding or vomiting of blood. Document Released: 11/20/2004 Document Re-Released: 09/30/2006 [employer]??? Patient Information ???2010 [employer]. Diverticulosis Many people have small pouches in their colon called diverticulum. The diverticulum bulge outward through weak spots in the colon. You could have one or more of these pouches in the colon. The condition of having these pouches in the colon is called diverticulosis or diverticular disease. Diverticulosis is usually diagnosed by tests to evaluate something else. For example, you may have had a colonoscopy to screen for colon cancer when the diverticulosis was found. Most people with diverticulosis do not have any discomfort or problems. If symptoms develop, they may include mild cramps, bloating, and constipation. A complication of this condition is called diverticulitis. This is when the diverticulum become inflamed and infected. How to treat diverticulosis: Increasing the amount of fiber in the diet may reduce symptoms of diverticulosis and prevent complications such as diverticulitis (infected diverticuli). Fiber keeps stool soft and lowers pressure inside the colon so that bowel contents can move througheasily. You should eat 20 to 35 grams of fiber each day. The table below shows the amount of fiber in some foods that you can easily add to your diet. Adding fiber slowly may decrease the bloating and fullness sometimes felt with an immediate high fiber diet. The doctor may also recommend taking a fiber product such as Citrucel or Metamucil once a day. In the past people with diverticulosis were to avoid nuts, corn, and seeds. This has not been foundto be true. If you find that certain foods create cramping or bloating, avoid that food. Foods high in fiber include: Fresh fruits, fresh vegetables, legumes (beans), whole wheat bread, bran muffins or cereal, and nuts. See the table below for examples of high fiber foods. Remember, your goal is 20- 35 grams per day. Amount of fiber in different foods Food Serving Grams of fiber Fruits Apple (with skin) 1 medium apple 4.4 Banana 1 medium banana 3.1 Oranges 1 orange 3.1 Prunes 1 cup, pitted 12.4 Juices Apple, unsweetened, w/added ascorbic acid 1 cup 0.5 Grapefruit, white, canned, sweetened 1 cup 0.2 Grape, unsweetened, w/added ascorbic acid 1 cup 0.5 [place] 1 cup 0.7 Vegetables Cooked Green beans 1 cup 4.0 Carrots 1/2 cup sliced 2.3 Peas 1 cup 8.8 Potato (baked, with skin) 1 medium potato 3.8 Raw [place] (with peel) 1 cucumber 1.5 Lettuce 1 cup shredded 0.5 Tomato 1 medium tomato 1.5 Spinach 1 cup 0.7 Legumes Baked beans, canned, no salt added 1 cup 13.9 Kidney beans, canned 1 cup 13.6 Nova beans, canned 1 cup 11.6 Lentils, boiled 1 cup 15.6 Breads, pastas, flours Bran muffins 1 medium muffin 5.2 Oatmeal, cooked 1 cup 4.0 White bread 1 slice 0.6 Whole-wheat bread 1 slice 1.9 Pasta and rice, cooked Macaroni 1 cup 2.5 Rice, brown 1 cup 3.5 Rice, white 1 cup 0.6 Spaghetti (regular) 1 cup 2.5 Nuts Almonds 1/2 cup 8.7 Peanuts 1/2 cup 7.9 (more content not included)...[facility] 05-08-2024 NoteEndoscopic Procedure Report - Other Patient: LOIS JACQUES Age: 59 years Sex: Female : 1965 Associated Diagnoses: None Author: Sebastian De La Cruz MD Pre-Procedure Procedure Date 05/08/2024 09:11:00 . Procedure Type: Colonoscopy with removal of tumor(s), polyp(s), or other lesion(s) by cold snare technique, biopsy. Procedure provider Performed by Sebastian De La Cruz MD. Current history and physical Documented on chart. Rt ESWL ([id number]) on 11/30/2021 at 56 Years. Lt ESWL ([id number]) on 06/15/2021 at 56 Years. Procedure on foot ([id number]) in 2020 at 55 Years. Cystoscopic removal of ureteric stent ([id number]) on 07/03/2017 at 52 Years. Cystoscopy, ureteroscopy, stone extrraction, insertion of stent into ureter ([id number]) on 06/21/2017 at 52 Years. Appendectomy ([id number]). Hysterectomy ([id number]). neck surgery.. Past Medical History No active or resolved past medical history items have been selected or recorded.. reviewed. Family History Hypertension Mother Heart disease Mother Cancer Father . reviewed. Procedure History Rt ESWL ([id number]) on 11/30/2021 at 56 Years. Lt ESWL ([id number]) on 06/15/2021 at 56 Years. Procedure on foot ([id number]) in 2020 at 55 Years. Cystoscopic removal of ureteric stent ([id number]) on 07/03/2017 at 52 Years. Cystoscopy, ureteroscopy, stone extrraction, insertion of stent into ureter ([id number]) on 06/21/2017 at 52 Years. Appendectomy ([id number]). Hysterectomy ([id number]). neck surgery.. Colorectal neoplasm risk assessment Average risk. Informed Consent After discussing the rationale, risks and benefits, and alternatives to this procedure, the patient provided signed consent for the procedure. Pre-procedure diagnosis: Screening. Medications (Selected) Inpatient Medications Ordered Lactated Ringers IV Taya 1000 mL 1,000 mL: 1,000 mL, IV, 100 mL/hr, Routine, Start date 05/08/24 8:05:00 EST, 10 hour(s), Total volume (mL): 1,000, 94 kg, 2, m2 Sodium Chloride 0.9% IV Taya 1000 mL 1,000 mL: 1,000 mL, IV, 20 mL/hr, Routine, Start date 05/08/24 6:50:00 EST, 50 hour(s), Total volume (mL): 1,000 Prescriptions Prescribed Flomax 0.4 mg Cap: 0.4 mg = 1 cap(s), Oral, Daily, # 30 cap(s), Refills(s) 0, Pharmacy: [facility] #[id number], 154.9, cm, 11/07/22 11:55:00 EDT, Height/Length Dosing, 97, kg, 11/07/22 11:55:00 EDT, Weight Dosing Imodium 2 mg oral capsule: 4 mg = 2 cap(s), Oral, TID, PRN Diarrhea, # 60 cap(s), Refills(s) 4, Pharmacy: [facility], 153, cm, 10/10/23 14:52:00 EDT, Height/Length Dosing, 94, kg, 10/10/23 14:52:00 EDT, Weight Dosing Naprosyn 500 mg Tab: 500 mg = 1 tab(s), Oral, BID, PRN for pain, # 20 tab(s), Refills(s) 0, Pharmacy: [facility] #[id number], 154.9, cm, 11/07/22 11:55:00 EDT, Height/Length Dosing, 97, kg, 11/07/22 11:55:00 EDT, Weight Dosing cholestyramine 4 g/5 g Oral Pwdr: 1 packet(s), Oral, Daily, 30 EA, Refill(s) 4, [facility], 153, cm, 10/10/23 14:52:00 EDT, Height/Length Dosing, 94, kg, 10/10/23 14:52:00 EDT, WeightDosing hydrochlorothiazide 12.5 mg Cap: 12.5 mg = 1 cap(s), Oral, Daily, # 30 cap(s), Refills(s) 11, Pharmacy: [facility], 153, cm, 07/26/23 11:03:00 EDT, Height/Length Dosing, 102, kg, 07/26/23 11:03:00 EDT, Weight Dosing Documented Medications Documented MetFORMIN (Eqv-Glucophage XR) 500 mg oral tablet, extended release: 500 mg = 1 tab(s), Oral, Daily,Refills(s) 0, Blood glucose Ozempic 2 mg/3 mL (0.25 mg or 0.5 mg dose) subcutaneous solution: INJECT 0.25 mg SUBCUTANEOUSLY ONCE A WEEK FOR 28 DAYS, then INJECT 0.5 mg SUBCUTANEOUSLY ONCE A WEEK therafter cyclobenzaprine: Oral, TID, PRN Spasm diclofenac: Oral, BID, Inflammation gabapentin: Oral, TID, Neuropathy metoprolol 50 mg ER Tab: 50 mg = 1 tab(s), Oral, Daily, High blood pressure tramadol: 50 mg, Oral, Daily, Pain reviewed. ASA Classification: Class II. . Monitoring: See anesthesia record. . Procedure The procedure was performed in the hospital. See anesthesia record for sedation given during procedure. The patient was positioned starting in the left lateral decubitus position. Endoscope type usedwas an adult-size. The endoscope was lubricated then introduced through the anus. The scope was advanced to the terminal ileum. No difficulties encountered during the procedure. The bowel preparationquality was fair and was inadequate. The patient tolerated the procedure well. Time to Cecum: 2 min Withdrawal time 21 min Last colonoscopy: 30 years ago Findings 1. Small internal hemorrhoids 2. Mild sigmoid diverticulosis 3. 7 mm semipedunculated polyp in the rectum, resected with hot snare completely and retrieved 4. 5 mm sessile polyp in the cecum, resected with cold snare completely and retrieved. Otherwise normal colonic mucosa, but the prep was fair in the right colon and transverse colon therefore smallerpolyps could have been missed. Random biopsies were also taken to r (more content not included)...[facility] CenterComment on above:Result Comment: Electronically Signed By: Sebastian De La Cruz MD\.br\Date and Time Signed: 05/08/24 09:13 ESTOther Comment: Missing Attachment - attachment storage system not supported [id number] Can be viewed in source systemMissing Attachment - attachment storage system not supported [id number] Can be viewed insource systemMissing Attachment - attachment storage system not supported [id number] Can be viewed in source systemMissing Attachment - attachment storage system not supported [id number] Can be viewed in so urce systemMissing Attachment - attachment storage system not supported [id number] Can be viewed in source systemMissing Attachment - attachment storage system not supported [id number] Can be viewed in source systemMissing Attachment - attachment storage system not supported [id number] Can be viewed in source systemMissing Attachment - attachment storage system not supported [id number] Can be viewed in source systemMissing Attachment - attachment storage system not supported [id number] Can be viewed in sourcesystemMissing Attachment - attachment storage system not supported [id number] Can be viewed in source [id number] Note Endoscopic Procedure Report - Other Patient: LOIS JACQUES Age: 59 years Sex: Female : 1965 Associated Diagnoses: None Author: Sebastian De La Cruz MD Pre-Procedure Procedure Date 05/08/2024 08:44:00 . Procedure Type: Esophagogastroduodenoscopy with biopsy. Procedure provider Performed by Sebastian De La Cruz MD. Current history and physical Documented on chart. Informed Consent After discussing the rationale, risks and benefits, and alternatives to this procedure, the patient provided signed consent for the procedure. Pre-procedure diagnosis: anemia. Medications Anticoagulant/antiplatelet None. ASA Classification: Class II. . Monitoring: See anesthesia record. . Procedure The procedure was performed in the hospital. See anesthesia record for sedation given during procedure. The patient was positioned starting in the left lateral decubitus position and with safety measures. Endoscope type used was an adult- size, introduced orally, advanced to the 3rd portion of the duodenum. No difficulty was encountered during the procedure. Views were excellent. The patient tolerated the procedure well. Findings 1. Esophageal landmarks identified, slightly torturous esophagus tortuous esophagus noted. Mild nonobstructive Schatzki ring in the distal esophagus noted, no dilation done given no dysphagia reported 2. Moderate type II hiatal hernia (rolling type) noted 3. Minimal nonspecific patchy erythema in the antrum of the stomach, the biopsies were taken to rule H. pylori 4. Normal examined duodenum, random biopsies were taken to rule out celiac disease Images Procedure images: [id number]_hd_video__[id number].jpg Rec_hd_video__[id number].jpg Rec1_hd_video__[id number].jpg Rec1_hd_video__[id number].jpg Rec1_hd_video__[id number].jpg Rec_hd_video__[id number].jpg Rec1_hd_video__[id number].jpg . Post-Procedure Complications: none. Estimated blood loss: minimal. Specimens: sent to pathology. Devices/ implants: none left in place. Impression and Plan 1. Esophageal landmarks identified, slightly torturous esophagus tortuous esophagus noted. Mild nonobstructive Schatzki ring in the distal esophagus noted, no dilation done given no dysphagia reported 2. Moderate type II hiatal hernia (rolling type) noted 3. Minimal nonspecific patchy erythema in the antrum of the stomach, the biopsies were taken to rule H. pylori 4. Normal examined duodenum, random biopsies were taken to rule out celiac disease Recommendations: -Resume previous diet -Resume home medications -Await pathology results, follow in GI clinic in 1-2 after discharge[facility] CenterComment on above:Result Comment: Electronically Signed By: Dorothy COLVIN, Sebastian Ortega\.br\Date and Time Signed: 05/08/24 08:45 ESTOther Comment: Missing Attachment - attachment storage system not supported [id number] Can be viewed in source systemMissing Attachment - attachment storage system not supported [id number] Can be viewed insource systemMissing Attachment - attachment storage system not supported [id number] Can be viewed in source systemMissing Attachment - attachment storage system not supported [id number] Can be viewed in so urce systemMissing Attachment - attachment storage system not supported [id number] Can be viewed in source systemMissing Attachment - attachment storage system not supported [id number] Can be viewed in source systemMissing Attachment - attachment storage system not supported [id number] Can be viewed in source [phone] NoteProgress Note-Physician Patient: LOIS JACQUES Age: 59 years Sex: Female : 1965 Associated Diagnoses: None Author: Leonides COLVIN, Rich No Preoperative Information Anesthesia Preop Info: Time patient last ate or drank 05/08/2024 00:00:00. Anesthesia history: Patient history: None. Family history+: None. Informed consent: Signed by patient. Re-evaluation prior to induction: Initial evaluation reviewed: No significant change. Review of Systems Eye Ear/Nose/Mouth/Throat Respiratory: No shortness of breath, No cough. Cardiovascular: Negative. Musculoskeletal Neurologic Health Status Allergies: Nonallergic Reactions (Selected) Severity Not Documented Contrast media (iodine-based)- [place] like she was going to pass out and severe nausea. Cortisone- Unknown reaction, heart races, nausea and doesn't feel well., Allergies (2) Active Severity Reaction cortisone Unknown Reaction, heart races, nausea, doesn't feel well contrast media (iodine-based) felt like she was going to pass out, s severe nausea Current medications: (Selected) Inpatient Medications Ordered Lactated Ringers IV Taya 1000 mL 1,000 mL: 1,000 mL, IV, 100 mL/hr, Routine, Start date 05/08/24 8:05:00 EST, 10 hour(s), Total volume (mL): 1,000, 94 kg, 2, m2 Sodium Chloride 0.9% IV Taya 1000 mL 1,000 mL: 1,000 mL, IV, 20 mL/hr, Routine, Start date 05/08/24 6:50:00 EST, 50 hour(s), Total volume (mL): 1,000 Prescriptions Prescribed Flomax 0.4 mg Cap: 0.4 mg = 1 cap(s), Oral, Daily, # 30 cap(s), Refills(s) 0, Pharmacy: [facility] #[id number], 154.9, cm, 11/07/22 11:55:00 EDT, Height/Length Dosing, 97, kg, 11/07/22 11:55:00 EDT, Weight Dosing Imodium 2 mg oral capsule: 4 mg = 2 cap(s), Oral, TID, PRN Diarrhea, # 60 cap(s), Refills(s) 4, Pharmacy: [facility], 153, cm, 10/10/23 14:52:00 EDT, Height/Length Dosing, 94, kg, 10/10/23 14:52:00 EDT, Weight Dosing Naprosyn 500 mg Tab: 500 mg = 1 tab(s), Oral, BID, PRN for pain, # 20 tab(s), Refills(s) 0, Pharmacy: [facility] #[id number], 154.9, cm, 11/07/22 11:55:00 EDT, Height/Length Dosing, 97, kg, 11/07/22 11:55:00 EDT, Weight Dosing cholestyramine 4 g/5 g Oral Pwdr: 1 packet(s), Oral, Daily, 30 EA, Refill(s) 4, [facility], 153, cm, 10/10/23 14:52:00 EDT, Height/Length Dosing, 94, kg, 10/10/23 14:52:00 EDT, WeightDosing hydrochlorothiazide 12.5 mg Cap: 12.5 mg = 1 cap(s), Oral, Daily, # 30 cap(s), Refills(s) 11, Pharmacy: [facility], 153, cm, 07/26/23 11:03:00 EDT, Height/Length Dosing, 102, kg, 07/26/23 11:03:00 EDT, Weight Dosing Documented Medications Documented MetFORMIN (Eqv-Glucophage XR) 500 mg oral tablet, extended release: 500 mg = 1 tab(s), Oral, Daily,Refills(s) 0, Blood glucose Ozempic 2 mg/3 mL (0.25 mg or 0.5 mg dose) subcutaneous solution: INJECT 0.25 mg SUBCUTANEOUSLY ONCE A WEEK FOR 28 DAYS, then INJECT 0.5 mg SUBCUTANEOUSLY ONCE A WEEK therafter cyclobenzaprine: Oral, TID, PRN Spasm diclofenac: Oral, BID, Inflammation gabapentin: Oral, TID, Neuropathy metoprolol 50 mg ER Tab: 50 mg = 1 tab(s), Oral, Daily, High blood pressure tramadol: 50 mg, Oral, Daily, Pain, Home Medications (12) Active cholestyramine 4 g/5 g Oral Pwdr 1 packet(s), Oral, Daily cyclobenzaprine , PRN, Oral, TID diclofenac , Oral, BID Flomax 0.4 mg Cap 0.4 mg = 1 cap(s), Oral, Daily gabapentin , Oral, TID hydrochlorothiazide 12.5 mg Cap 12.5 mg = 1 cap(s), Oral, Daily Imodium 2 mg oral capsule 4 mg = 2 cap(s), PRN, Oral, TID MetFORMIN (Eqv-Glucophage XR) 500 mg oral tablet, extended release 500 mg = 1 tab(s), Oral, Daily metoprolol 50 mg ER Tab 50 mg = 1 tab(s), Oral, Daily Naprosyn 500 mg Tab 500 mg = 1 tab(s), PRN, Oral, BID Ozempic 2 mg/3 mL (0.25 mg or 0.5 mg dose) subcutaneous solution tramadol 50 mg, Oral, Daily , Medications (2) Active Scheduled: (0) Continuous: (2) Lactated Ringers 1,000 mL 1,000 mL, IV, 100 mL/hr Sodium Chloride 0.9% 1,000 mL 1,000 mL, IV, 20 mL/hr PRN: (0) Problem list: All Problems Arthritis / SNOMED CT 8027016 / Confirmed Feeling of incomplete bladder emptying / SNOMED CT 803527648 / Confirmed Fibromyalgia / SNOMED CT 459426213 / Confirmed Gross hematuria / SNOMED CT 288214976 / Confirmed Heart murmur / SNOMED CT 719640486 / Confirmed History of kidney stones / SNOMED CT 5159804688 / Confirmed Hx of gallstones / SNOMED CT 2672474231 / Confirmed Irritable bowel syndrome with diarrhea / SNOMED CT 181370081 / Confirmed Kidney stones / SNOMED CT 835955368 / Confirmed Nocturia / SNOMED CT 870576077 / Confirmed Screen for colon cancer / SNOMED CT 921448364 / Confirmed Ureteral stone with hydronephrosis / SNOMED CT 2462221358 / Confirmed Urge incontinence / SNOMED CT 345747952 / Confirmed Urinary urgency / SNOMED CT 382472586 / Confirmed Urine frequency / SNOMED CT 615353347 / Confirmed, Active Problems (15) Arthritis Feeling of incomplete bladder emptying Fi (more content not included)...[facility] CenterComment on above: Result Comment: Electronically Signed By: Leonides COLVIN, Rich No\.br\Date and Time Signed: 05/08/24 08:40 [id number] NoteHistory and Physical Patient: LOIS JACQUES Age: 59 years Sex: Female : 1965 Associated Diagnoses: None Author: Dorothy COLVIN, Sebastian Ortega Preoperative Information Indication for procedure and diagnosis: Chronic diarrhea, screening for colon cancer Chief Complaint as above Review of Systems All systems reviewed, negative except as mentioned above Health Status Current medications: (Selected) Inpatient Medications Ordered Lactated Ringers IV Taya 1000 mL 1,000 mL: 1,000 mL, IV, 100 mL/hr, Routine, Start date 05/08/24 8:05:00 EST, 10 hour(s), Total volume (mL): 1,000, 94 kg, 2, m2 Sodium Chloride 0.9% IV Taya 1000 mL 1,000 mL: 1,000 mL, IV, 20 mL/hr, Routine, Start date 05/08/24 6:50:00 EST, 50 hour(s), Total volume (mL): 1,000 Prescriptions Prescribed Flomax 0.4 mg Cap: 0.4 mg = 1 cap(s), Oral, Daily, # 30 cap(s), Refills(s) 0, Pharmacy: [facility] #[id number], 154.9, cm, 11/07/22 11:55:00 EDT, Height/Length Dosing, 97, kg, 11/07/22 11:55:00 EDT, Weight Dosing Imodium 2 mg oral capsule: 4 mg = 2 cap(s), Oral, TID, PRN Diarrhea, # 60 cap(s), Refills(s) 4, Pharmacy: [facility], 153, cm, 10/10/23 14:52:00 EDT, Height/Length Dosing, 94, kg, 10/10/23 14:52:00 EDT, Weight Dosing Naprosyn 500 mg Tab: 500 mg = 1 tab(s), Oral, BID, PRN for pain, # 20 tab(s), Refills(s) 0, Pharmacy: [facility] #[id number], 154.9, cm, 11/07/22 11:55:00 EDT, Height/Length Dosing, 97, kg, 11/07/22 11:55:00 EDT, Weight Dosing cholestyramine 4 g/5 g Oral Pwdr: 1 packet(s), Oral, Daily, 30 EA, Refill(s) 4, [facility], 153, cm, 10/10/23 14:52:00 EDT, Height/Length Dosing, 94, kg, 10/10/23 14:52:00 EDT, WeightDosing hydrochlorothiazide 12.5 mg Cap: 12.5 mg = 1 cap(s), Oral, Daily, # 30 cap(s), Refills(s) 11, Pharmacy: [facility], 153, cm, 07/26/23 11:03:00 EDT, Height/Length Dosing, 102, kg, 07/26/23 11:03:00 EDT, Weight Dosing Documented Medications Documented MetFORMIN (Eqv-Glucophage XR) 500 mg oral tablet, extended release: 500 mg = 1 tab(s), Oral, Daily,Refills(s) 0, Blood glucose Ozempic 2 mg/3 mL (0.25 mg or 0.5 mg dose) subcutaneous solution: INJECT 0.25 mg SUBCUTANEOUSLY ONCE A WEEK FOR 28 DAYS, then INJECT 0.5 mg SUBCUTANEOUSLY ONCE A WEEK therafter cyclobenzaprine: Oral, TID, PRN Spasm diclofenac: Oral, BID, Inflammation gabapentin: Oral, TID, Neuropathy metoprolol 50 mg ER Tab: 50 mg = 1 tab(s), Oral, Daily, High blood pressure tramadol: 50 mg, Oral, Daily, Pain, Home Medications (12) Active cholestyramine 4 g/5 g Oral Pwdr 1 packet(s), Oral, Daily cyclobenzaprine , PRN, Oral, TID diclofenac , Oral, BID Flomax 0.4 mg Cap 0.4 mg = 1 cap(s), Oral, Daily gabapentin , Oral, TID hydrochlorothiazide 12.5 mg Cap 12.5 mg = 1 cap(s), Oral, Daily Imodium 2 mg oral capsule 4 mg = 2 cap(s), PRN, Oral, TID MetFORMIN (Eqv-Glucophage XR) 500 mg oral tablet, extended release 500 mg = 1 tab(s), Oral, Daily metoprolol 50 mg ER Tab 50 mg = 1 tab(s), Oral, Daily Naprosyn 500 mg Tab 500 mg = 1 tab(s), PRN, Oral, BID Ozempic 2 mg/3 mL (0.25 mg or 0.5 mg dose) subcutaneous solution tramadol 50 mg, Oral, Daily Problem list: All Problems Arthritis / SNOMED CT 8094706 / Confirmed Heart murmur / SNOMED CT 140491122 / Confirmed Kidney stones / SNOMED CT 660303605 / Confirmed Hx of gallstones / SNOMED CT 8431463520 / Confirmed Gross hematuria / SNOMED CT 290908145 / Confirmed Urine frequency / SNOMED CT 609160757 / Confirmed Feeling of incomplete bladder emptying / SNOMED CT 504823332 / Confirmed Nocturia / SNOMED CT 539402511 / Confirmed Urinary urgency / SNOMED CT 685737177 / Confirmed Urge incontinence / SNOMED CT 243892078 / Confirmed History of kidney stones / SNOMED CT 3036325002 / Confirmed Ureteral stone with hydronephrosis / SNOMED CT 3316120626 / Confirmed Irritable bowel syndrome with diarrhea / SNOMED CT 183066874 / Confirmed Screen for colon cancer / SNOMED CT 475873710 / Confirmed Fibromyalgia / SNOMED CT 041043323 / Confirmed Histories Past Medical History: No active or resolved past medical history items have been selected or recorded. Family History: Father Cancer Mother Heart disease Hypertension Procedure history: Rt ESWL ([id number]) on 11/30/2021 at 56 Years. Lt ESWL ([id number]) on 06/15/2021 at 56 Years. Procedure on foot ([id number]) in 2020 at 55 Years. Cystoscopic removal of ureteric stent ([id number]) on 07/03/2017 at 52 Years. Cystoscopy, ureteroscopy, stone extrraction, insertion of stent into ureter ([id number]) on 06/21/2017 at 52 Years. Appendectomy ([id number]). Hysterectomy ([id number]). neck surgery. Social History Social & Psychosocial Habits Alcohol 10/10/2023 Risk Assessment: Denies Alcohol Use Substance Abuse 10/10/2023 Risk Assessment: Denies Substance Abuse Tobacco 10/10/2023 Risk Assessment: Denies Tobacco Use 10/10/2023 Tobacco Use: Never (less than 100 in l Smo (more content not included)...[facility] CenterComment on above: Result Comment: Electronically Signed By: Dorothy COLVIN, Sebastian Ortega\.br\Date and Time Signed: 05/08/24 08:29 [id number] History of Present illness Narrative* Danitza Awad NP - 04/29/2024 3:08 PM ESTAssociated Problem(s): Thoracic back pain OARRS reviewed Will give short course of NORCO in place of tramadol Has scripts for celebrex as well as muscle relaxer, continue those Ice instead of heat Will give order for rib xray if not better in the next few days Encourage cough and deep breathing as well Fu if not better * Danitza Awad NP - 04/29/2024 2:00 PM ESTAssociated Problem(s): Morbid obesity (CMS/HCC) Discussed with patient their BMI (actual, verses recommended). We have also discussed lifestyle modifications: attempts to perform physical activity as chronic conditions allow, also to monitor dietary intake: increasing protein/fruits/veggies and lowering carb intake (unless contraindicated). Limit sodas, juices, and sugary drinks. [place] [facility] [place] great!! * LEE VARGAS - 04/29/2024 1:40 PM EST Pt states back started hurting Saturday (unsure how or when) she states she took a fall last week andwent to the gym on Saturday but Saturday pain started kicking in mid right back. Pt is sob due to the pain Pt is unable to lay down in the bed and had to sit in the recliner all night using heat therapy tramadol did not help with pain. * Danitza Awad NP - 04/29/2024 1:40 PM EST Images from the original note were not included. Lois Jacques is a 59 y.o. female presents with chief complaint of Diabetes and Back Pain HPI: Had a fall off small ladder/step stool, a few days prior, landed on tailbone and hit head, does notrecall hitting right lat rib region No recent URI symptoms Back Pain This is a new problem. The current episode started in the past 7 days. The problem occurs constantly. The problem has been gradually worsening since onset. The pain is present in the thoracic spine. Quality: sharp. The pain is at a severity of 10/10. The pain is severe. The pain is The same all thetime. The symptoms are aggravated by bending, lying down, position, standing and twisting. Stiffness is present All day. Pertinent negatives include no abdominal pain, bladder incontinence, bowel incontinence, chest pain, dysuria, fever, headaches, paresthesias, perianal numbness or weakness. Risk factors include obesity. She has tried NSAIDs, muscle relaxant and heat for the symptoms. The treatment provided no relief. SUBJECTIVE: MEDICATIONS: Current Outpatient Medications Medication Instructions Alcohol Swabs 70 % pads USE DIRECTED ONCE DAILY B-D ULTRA-FINE 33 LANCETS misc USE DIRECTED ONCE DAILY Blood Glucose Monitoring Suppl (True Metrix Air Glucose Meter) w/Device kit USE DIRECTED celecoxib (CELEBREX) 200 mg, Oral, Daily PRN cetirizine (ZYRTEC) 10 mg, Oral, Daily cholecalciferol (Vitamin D-3) 25 MCG (1000 UT) capsule Daily gabapentin (NEURONTIN) 600 mg, Oral, Nightly hydroCHLOROthiazide (MICROZIDE) 12.5 mg, Daily loperamide (IMODIUM) 2 mg, 3 times daily PRN metFORMIN XR (GLUCOPHAGE-XR) 500 mg, Daily with evening meal metoprolol tartrate (LOPRESSOR) 50 mg, Oral, Daily montelukast (SINGULAIR) 10 mg, Oral, Nightly omeprazole OTC (PRILOSEC OTC) 20 mg, Daily before breakfast oxybutynin XL (Ditropan-XL) 10 MG 24 hr tablet 1 tablet, Daily Ozempic (2 MG/DOSE) 2 mg, Every 7 days QUEtiapine (SEROQUEL) 50-100 mg, Oral, Nightly tiZANidine (ZANAFLEX) 4 mg, Oral, Every 12 hours PRN True Metrix Blood Glucose Test test strip ALLERGIES: Allergies Allergen Reactions Other Palpitations PATIENT MAY BE ALLERGIC TO SOME DEGREE TO ALL STEROIDAL MEDICATIONS PATIENT MAY BE ALLERGIC TO SOME DEGREE TO ALL STEROIDAL MEDICATIONS Cortisone Other Reaction(s): doesn't feel well, heart palpations/breathing difficulties, heart races, nausea,Other (See Comments), Unknown Reaction Other reaction(s): doesn't feel well, heart races, nausea, Other (See Comments), Unknown Reaction Swelling, sweating, B/P increase, palpitations knee for torn acl. Shoulder for tendonitis, same reaction. injectable Swelling, sweating, B/P increase, palpitations knee for torn acl. Shoulder for tendonitis, same reaction. injectable Iodinated Contrast Media Other Reaction(s): felt like she was going to pass out, severe nausea Other reaction(s): felt like she was going to pass out, severe nausea Other reaction(s): felt like she was going to pass out, severe nausea Other reaction(s): felt like she was going to pass out, severe nausea REVIEW OF SYMPTOMS: Review of Systems Constitutional: Negative for appetite change, chills and fever. HENT: Negative for congestion, ear pain and sore throat. Eyes: Negative for pain, discharge, redness and visual disturbance. Respiratory: Negative for cough, shortness of breath and wheezing. Cardiovascular: Negative for chest pain, palpitations and leg swelling. Gastrointestinal: Negative for abdominal pain, blood in stool, bowel incontinence, constipation, diarrhea, nausea and vomiting. Genitourinary: Negative for bladder incontinence, difficulty urinating, dysuria and frequency. Musculoskeletal: Positive for arthralgias, back pain and myalgias. Negative for joint swelling. Skin: Negative for rash and wound. Neurological: Negative for dizziness, tremors, seizures, syncope, weakness, headaches and paresthesias. Psychiatric/Behavioral: Negative for behavioral problems, self-injury and suicidal ideas. The patient is not nervous/anxious. Hematological: Does not bruise/bleed easily. Endocrine: Negative for polydipsia, polyphagia and polyuria. Allergic/Immunologic: Negative for environmental allergies and food allergies. PAST MEDICAL HISTORY Past Medical History: Diagnosis Date Anxiety Arthritis Depression ([facility]) Diabetes ([facility]) Environmental and seasonal allergies 04/04/2023 Fibromyalgia 06/26/2023 Foot swelling Headache Hip problem History of herniated intervertebral disc History of sinus problem Irregular heartbeat Knee problem Leg swelling Lumbar spondylosis 04/02/2023 Menorrhagia Migraines ([facility]) Thoracic back pain Visual impairment w/corrective lenses Past Surgical History: Procedure Laterality Date ANTERIOR CRUCIATE LIGAMENT REPAIR Left APPENDECTOMY CERVICAL DISC SURGERY SECTION, CLASSIC x 2 SECTION, LOW TRANSVERSE 1985 CHOLECYSTECTOMY ELBOW SURGERY Procedure:Reconecction of tendons Bilateral;Disease: b/l elbows HYSTERECTOMY 2007 KNEE SURGERY Bilateral scope family history includes Cancer in her father; Diabetes in her father and mother; Heart disease in her mother; Hypertension in her mother; Stroke in her mother. OBJECTIVE: Visit Vitals BP 122/80 (BP Location: Left arm, Patient Position: Sitting, BP Cuff Size: Adult long) Pulse 89 Temp 98.5 F (Temporal) Resp 20 Ht 5' Wt 177 lb 6.4 oz SpO2 96% BMI 34.65 kg/m Smoking Status Never BSA 1.85 m Physical Exam Vitals and nursing note reviewed. Constitutional: General: She is in acute distress (mild d/t pain right posterior rib/thoracic region). Appearance: Normal appearance. She is not ill-appearing. HENT: Head: Normocephalic and atraumatic. Right Ear: External ear normal. Left Ear: External ear normal. Nose: Nose normal. Mouth/Throat: Mouth: Mucous membranes are moist. Eyes: Extraocular Movements: Extraocular movements intact. Conjunctiva/sclera: Conjunctivae normal. Cardiovascular: Rate and Rhythm: Normal rate and regular rhythm. Pulses: Normal pulses. Heart sounds: Normal heart sounds. Pulmonary: Effort: Pulmonary effort is normal. Breath sounds: Normal breath sounds. No wheezing or rales. Abdominal: General: Bowel sounds are normal. There is no distension. Palpations: Abdomen is soft. There is no mass. Tenderness: There is no abdominal tenderness. Musculoskeletal: Cervical back: Normal range of motion and neck supple. Right lower leg: No edema. Left lower leg: No edema. Comments: No rash to suggest zoster, no midline thoracic spine tenderness or pain +pain right lateral thoracic /rib region, mid sternal line, approx level 10th rib, +tenderness and tightness, pain with rotation or position change Again NO midline tenderness to T spine or L spine region Lymphadenopathy: Cervical: No cervical adenopathy. Skin: General: Skin is warm and dry. Capillary Refill: Capillary refill takes 2 to 3 seconds. Findings: No rash. Neurological: General: No focal deficit present. Mental Status: She is alert and oriented to person, place, and time. Psychiatric: Mood and Affect: Mood normal. Behavior: Behavior normal. Thought Content: Thought content normal. Judgment: Judgment normal. ASSESSMENT AND PLAN: No follow-ups on file. Problem List Items Addressed This Visit Morbid obesity (CMS/HCC) - Primary Discussed with patient their BMI (actual, verses recommended). We have also discussed lifestyle modifications: attempts to perform physical activity as chronic conditions allow, also to monitor dietary intake: increasing protein/fruits/veggies and lowering carb intake (unless contraindicated). Limit sodas, juices, and sugary drinks. Continue working with [place] [facility] [place] [facility], she is doing great!! Thoracic back pain OARRS reviewed Will give short course of NORCO in place of tramadol Has scripts for celebrex as well as muscle relaxer, continue those Ice instead of heat Will give order for rib xray if not better in the next few days Encourage cough and deep breathing as well Fu if not better Relevant Medications HYDROcodone-acetaminophen ([place]) 5-325 MG tablet Other Relevant Orders XR ribs 2 views right w chest anteroposterior documented in this [facility]01-08-2025 Instructions* Patient Instructions* Danitza Awad NP - 04/29/2024 1:40 PM EST Double check celebrex (celeoxib) 200mg daily Tizanidine : may try 1/2 pill am, and then 1pill at bedtime time Will add [place] Hydrocodone 1 pill every 8 hours as needed for pain, do not take tramadol while taking this Ice to affected area 4-5 times daily for 20 minutes each documented in this [facility]12-16-2024 Evaluation note* Diagnosis Onset Date Resolution Status Admit Date Abnormal weight gain acuteDece2023 2:42pmArthritisacuteDece[facility] 2023 2:42pmBMI 34.0-34.9,adultacuteDeceer 2023 2:42pmDegenerative disc diseaseacute April 06, 2024 2:42pmDietary surveillance and counselingacute2023 2:42pmExercise counselingacutece2023 2:42pmFibromyalgiaacute April 06, 2024 2:42pmGERD (gastroesophageal reflux disease)acuteDe2023 2:42pmHistory of kidney stonesacutece[facility] 2023 2:42pmHTN (hypertension)acuteApril 06, 2024 2:42pmHx of cholecystectomyacuteDece[facility] 2023 2:42pmObesity, Class I, BMI 30-34.9acuteDecember 2023 2:42pmOSA (obstructive sleep apnea)acuteDecember 2023 2:42pmType 2 diabetes mellitusacuteDecember 2023 2:42pmAbnormal weight gainacuteFebruary 2024 10:51amArthritisacuteFebruary 2024 10:51amBMI 34.0-34.9,adultacute February 2024 10:51amDegenerative disc diseaseacuteFebruary 2024 10:51amDietary surveillance and counselingacuteFebruary 2024 10:51am Exercise counselingacuteFebruary 2024 10:51amFibromyalgiaacuteFebruary 2024 10:51amGERD (gastroesophageal reflux disease)acuteFebruary 2024 10:51amHistory of kidney stonesacuteFebruary 2024 10:51amHTN (hypertension) acuteFebruary 2024 10:51amHx of cholecystectomyacuteFebruary 2024 10:51amObesity, Class I, BMI 30-34.9acuteFebruary 2024 10:51amOSA (obstructive sleep apnea)acuteFebruary 2024 10:51amType 2 diabetes mellitus acuteFebruary 2024 10:51am [facility] Work Phone: [phone]) 389-526611-13-2024 History of Present illness Narrative* Danitza Awad NP - 03/04/2024 3:58 PM ESTAssociated Problem(s): Obstructive sleep apnea syndrome Does not wear PAP Since losing weight no snoring * Danitza Awad NP - 03/04/2024 3:54 PM ESTAssociated Problem(s): Colon cancer screening Is doing colonoscopy in 04/14 * Danitza Awad NP - 03/04/2024 3:41 PM ESTAssociated Problem(s): Lumbar spondylosis OARRS reveiwed * Danitza Awad NP - 03/04/2024 3:41 PM ESTAssociated Problem(s): Fibromyalgia Cont with tramadol and other current meds OARRS reviewed Fu in 3 months * LEE VARGAS - 03/04/2024 3:20 PM EST Pharm. Needs a new prescription of her tramadol sent over to [facility]. What they have is a discontinued script Pt is starting to go to the gym and has lost a total of 40lbs since august. 15lbs since her last appt * Danitza Awad NP - 03/04/2024 3:20 PM EST Images from the original note were not included. Lois Jacques is a 58 y.o. female presents with chief complaint of No chief complaint on file. HPI: Here for a recheck: Fibro continues to be an issue from time to time, does rely on gabapentin as well as tramadol for pain. Overall her chronic pain is getting somewhat better with her weight loss. Which is great 40 lbs!!! SUBJECTIVE: MEDICATIONS: Current Outpatient Medications Medication Instructions albuterol HFA 90 mcg/act inhaler 2 puffs, Inhalation, Every 4 hours PRN Alcohol Swabs 70 % pads USE DIRECTED ONCE DAILY B-D ULTRA-FINE 33 LANCETS misc USE DIRECTED ONCE DAILY Blood Glucose Monitoring Suppl (True Metrix Air Glucose Meter) w/Device kit USE DIRECTED celecoxib (CeleBREX) 200 MG capsule TAKE 1 CAPSULE BY MOUTH DAILY WITH FOOD NEEDED FOR PAIN cetirizine (ZYRTEC) 10 mg, Oral, Daily cholecalciferol (Vitamin D-3) 25 MCG (1000 UT) capsule Daily cholestyramine (Questran) 4 g packet 1 packet, Oral, Daily gabapentin (NEURONTIN) 600 mg, Oral, Nightly hydroCHLOROthiazide (MICROZIDE) 12.5 mg, Oral, Daily hyoscyamine (LEVSIN) 0.125 mg, Oral, Every 6 hours PRN lansoprazole (PREVACID) 15 mg, Oral, Daily before breakfast loperamide (IMODIUM) 2 mg, Oral, 3 times daily PRN metFORMIN XR (GLUCOPHAGE-XR) 500 mg, Oral, Daily with evening meal metoprolol tartrate (LOPRESSOR) 50 mg, Oral, Daily montelukast (SINGULAIR) 10 mg, Oral, Nightly omeprazole OTC (PRILOSEC OTC) 20 mg, Oral, Daily before breakfast, Do not crush, chew, or split. oxybutynin XL (Ditropan-XL) 10 MG 24 hr tablet 1 tablet, Oral, Daily Ozempic (2 MG/DOSE) 2 mg, Every 7 days QUEtiapine (SEROQUEL) 50-100 mg, Oral, Nightly tiZANidine (ZANAFLEX) 4 mg, Oral, Every 12 hours PRN traMADol (ULTRAM) 50 mg, Nightly PRN True Metrix Blood Glucose Test test strip ALLERGIES: Allergies Allergen Reactions Other Palpitations PATIENT MAY BE ALLERGIC TO SOME DEGREE TO ALL STEROIDAL MEDICATIONS PATIENT MAY BE ALLERGIC TO SOME DEGREE TO ALL STEROIDAL MEDICATIONS Cortisone Other Reaction(s): doesn't feel well, heart palpations/breathing difficulties, heart races, nausea,Other (See Comments), Unknown Reaction Other reaction(s): doesn't feel well, heart races, nausea, Other (See Comments), Unknown Reaction Swelling, sweating, B/P increase, palpitations knee for torn acl. Shoulder for tendonitis, same reaction. injectable Swelling, sweating, B/P increase, palpitations knee for torn acl. Shoulder for tendonitis, same reaction. injectable Iodinated Contrast Media Other Reaction(s): felt like she was going to pass out, severe nausea Other reaction(s): felt like she was going to pass out, severe nausea Other reaction(s): felt like she was going to pass out, severe nausea Other reaction(s): felt like she was going to pass out, severe nausea REVIEW OF SYMPTOMS: Review of Systems Constitutional: Negative for appetite change, chills and fever. HENT: Negative for congestion, ear pain and sore throat. Eyes: Negative for pain, discharge, redness and visual disturbance. Respiratory: Negative for cough, shortness of breath and wheezing. Cardiovascular: Negative for chest pain, palpitations and leg swelling. Gastrointestinal: Positive for abdominal pain and diarrhea. Negative for blood in stool, constipation, nausea and vomiting. Genitourinary: Negative for difficulty urinating, dysuria and frequency. Musculoskeletal: Positive for arthralgias and myalgias. Negative for back pain and joint swelling. Skin: Negative for rash and wound. Neurological: Negative for dizziness, tremors, seizures, syncope and headaches. Psychiatric/Behavioral: Negative for behavioral problems, self-injury and suicidal ideas. The patient is not nervous/anxious. Hematological: Does not bruise/bleed easily. Endocrine: Negative for polydipsia, polyphagia and polyuria. Allergic/Immunologic: Negative for environmental allergies and food allergies. PAST MEDICAL HISTORY Past Medical History: Diagnosis Date Anxiety Arthritis Depression ([facility]) Diabetes ([facility]) Environmental and seasonal allergies 04/04/2023 Fibromyalgia 06/26/2023 Foot swelling Headache Hip problem History of herniated intervertebral disc History of sinus problem Irregular heartbeat Knee problem Leg swelling Lumbar spondylosis 04/02/2023 Menorrhagia Migraines ([facility]) Thoracic back pain Visual impairment w/corrective lenses Past Surgical History: Procedure Laterality Date ANTERIOR CRUCIATE LIGAMENT REPAIR Left APPENDECTOMY CERVICAL DISC SURGERY SECTION, CLASSIC x 2 SECTION, LOW TRANSVERSE 1985 CHOLECYSTECTOMY ELBOW SURGERY Procedure:Reconecction of tendons Bilateral;Disease: b/l elbows HYSTERECTOMY 2007 KNEE SURGERY Bilateral scope family history includes Cancer in her father; Diabetes in her father and mother; Heart disease in her mother; Hypertension in her mother; Stroke in her mother. OBJECTIVE: Visit Vitals BP 104/68 (BP Location: Left arm, Patient Position: Sitting, BP Cuff Size: Adult long) Pulse 89 Temp 97.8 F (Temporal) Resp 19 Ht 5' Wt 180 lb 6.4 oz SpO2 95% BMI 35.23 kg/m Smoking Status Never BSA 1.86 m Physical Exam Vitals and nursing note reviewed. Constitutional: General: She is not in acute distress. Appearance: Normal appearance. HENT: Head: Normocephalic and atraumatic. Right Ear: External ear normal. Left Ear: External ear normal. Nose: Nose normal. Mouth/Throat: Mouth: Mucous membranes are moist. Eyes: Extraocular Movements: Extraocular movements intact. Conjunctiva/sclera: Conjunctivae normal. Cardiovascular: Rate and Rhythm: Normal rate and regular rhythm. Pulses: Normal pulses. Heart sounds: Normal heart sounds. Pulmonary: Effort: Pulmonary effort is normal. Breath sounds: Normal breath sounds. Abdominal: General: Bowel sounds are normal. There is no distension. Palpations: Abdomen is soft. There is no mass. Tenderness: There is no abdominal tenderness. Musculoskeletal: General: Normal range of motion. Cervical back: Normal range of motion and neck supple. Skin: General: Skin is warm and dry. Capillary Refill: Capillary refill takes 2 to 3 seconds. Findings: No rash. Neurological: General: No focal deficit present. Mental Status: She is alert and oriented to person, place, and time. Psychiatric: Mood and Affect: Mood normal. Behavior: Behavior normal. Thought Content: Thought content normal. Judgment: Judgment normal. ASSESSMENT AND PLAN: No follow-ups on file. Problem List Items Addressed This Visit Essential hypertension (CMS/HCC) Please check blood pressure daily and record DASH diet Limit caffeine Take medication as directed Contact office if chest pain, pressure, dizziness, shortness of breath, swelling legs Recommend slow position changes Morbid obesity (CMS/HCC) Discussed with patient their BMI (actual, verses recommended). We have also discussed lifestyle modifications: attempts to perform physical activity as chronic conditions allow, also to monitor dietary intake: increasing protein/fruits/veggies and lowering carb intake (unless contraindicated). Limit sodas, juices, and sugary drinks. Continue working with [place] management program [facility], she is doing great!! Lumbar spondylosis OARRS reveiwed Relevant Medications traMADol (Ultram) 50 MG tablet Type 2 diabetes mellitus without complication, without long-term current use of insulin (CMS/HCC) Check blood sugars daily, notify if <70 or >200. Take medications (pills or insulin) as directed. Monitor for s/s of hypoglycemia (sweaty, dizziness, nausea, vomiting, or shakiness). Watch for increase in thirst, urination, or appetite. Inspect feet frequently monitoring for open wounds , andalso recommend yearly eye exam. Pt should attempt to remain as physically active as chronic conditions allow, as well as trying to follow a diet low in carbohydrates, and simple sugars. A1c 5.7% Relevant Orders POCT glycosylated hemoglobin (Hb A1C) docked device (Completed) Fibromyalgia Cont with tramadol and other current meds OARRS reviewed Fu in 3 months Relevant Medications traMADol (Ultram) 50 MG tablet Gastroesophageal reflux disease without esophagitis Recommendations: freq small meals, nothing to eat or drink at least 2 hours prior to bed, limit caffeine, alcohol, as well as spicy foods Meds to limit or avoid if possible: NSAIDS Elevate HOB if possible Obstructive sleep apnea syndrome - Primary Anxiety and depression (CMS/HCC) OARRS reviewed ' Obesity, Class II, BMI 35-39.9 * Danitza Awad NP - 03/04/2024 7:24 AM ESTAssociated Problem(s): Anxiety and depression (CMS/HCC) OARRS reviewed ' * Danitza Awad NP - 03/04/2024 7:24 AM ESTAssociated Problem(s): Type 2 diabetes mellitus without complication, without long-term current useof insulin (CMS/HCC) Check blood sugars daily, notify if <70 or >200. Take medications (pills or insulin) as directed. Monitor for s/s of hypoglycemia (sweaty, dizziness, nausea, vomiting, or shakiness). Watch for increase in thirst, urination, or appetite. Inspect feet frequently monitoring for open wounds , andalso recommend yearly eye exam. Pt should attempt to remain as physically active as chronic conditions allow, as well as trying to follow a diet low in carbohydrates, and simple sugars. A1c 5.7% * Danitza Awad NP - 03/04/2024 7:23 AM ESTAssociated Problem(s): Morbid obesity (CMS/HCC) Discussed with patient their BMI (actual, verses recommended). We have also discussed lifestyle modifications: attempts to perform physical activity as chronic conditions allow, also to monitor dietary intake: increasing protein/fruits/veggies and lowering carb intake (unless contraindicated). Limit sodas, juices, and sugary drinks. Continue working with weight management program [facility], she is doing great!! * Danitza Awad NP - 03/04/2024 7:23 AM ESTAssociated Problem(s): Gastroesophageal reflux disease without esophagitis Recommendations: freq small meals, nothing to eat or drink at least 2 hours prior to bed, limit caffeine, alcohol, as well as spicy foods Meds to limit or avoid if possible: NSAIDS Elevate HOB if possible * Danitza Awad NP - 03/04/2024 7:22 AM ESTAssociated Problem(s): Essential hypertension (CMS/HCC) Please check blood pressure daily and record DASH diet Limit caffeine Take medication as directed Contact office if chest pain, pressure, dizziness, shortness of breath, swelling legs Recommend slow position changes documented in this encounterResearch [facility] [id number] Instructions* Patient Instructions* Danitza Awad NP - 03/04/2024 3:20 PM EST Keep up the great work I am very proud of you!!! No med dose changes , watch for symptoms of low blood pressure: dizziness and lightheadedness documented in this encounterResearch Medical Center-Brookside [id number] Hospital Discharge instructions Follow Up Care 07/26/2023 12:05:31 With:FOREST COLVIN, Kulwinder Soria, NANOL Address: [facility] [address] [place] [address]- [phone] When: Unknown [facility] [place] 04-05-2024 Hospital Discharge instructions Patient Education 07/26/2023 11:56:18 Dietary Guidelines to Help Prevent Kidney Stones Dietary Guidelines to Help Prevent Kidney Stones Kidney stones are deposits of minerals and salts that form inside your kidneys. Your risk of developing kidney stones may be greater depending on your diet, your lifestyle, the medicines you take, and whether you have certain medical conditions. Most people can lower their risks of developing kidney stones by following these dietary guidelines. Your dietitian may give you more specific instructions depending on your overall health and the type of kidney stones you tend to develop. What are tips for following this plan? Reading food labels Choose foods with no salt added or low-salt labels. Limit your salt (sodium) intake to less than 1,500 mg a day. Choose foods with calcium for each meal and snack. Try to eat about 300 mg of calcium at each meal.Foods that contain 200 500 mg of calcium a serving include: ?8 oz (237 mL) of milk, ypayobn-rosojyojjprj-dfhej milk, and calcium- fortifiedfruit juice. Calcium-fortified means that calcium has been added to these drinks. ?8 oz (237 mL) of kefir, yogurt, and soy yogurt. ?4 oz (114 g) of tofu. ?1 oz (28 g) of cheese. ?1 cup (150 g) of dried figs. ?1 cup (91 g) of cooked broccoli. ?One 3 oz (85 g) can of sardines or mackerel. Most people need 1,000 1,500 mg of calcium a day. Talk to your dietitian about how much calcium is recommended for you. Shopping Buy plenty of fresh fruits and vegetables. Most people do not need to avoid fruits and vegetables, even if these foods contain nutrients that may contribute to kidney stones. When shopping for convenience foods, choose: ?Whole pieces of fruit. ?Pre-made salads with dressing on the side. ?Low-fat fruit and yogurt smoothies. Avoid buying frozen meals or prepared deli foods. These can be high in sodium. Look for foods with live cultures, such as yogurt and kefir. Choose high-fiber grains, such as whole-wheat breads, oat bran, and wheat cereals. Cooking Do not add salt to food when cooking. Place a salt shaker on the table and allow each person to addtheir own salt to taste. Use vegetable protein, such as beans, textured vegetable protein (TVP), or tofu, instead of meat inpasta, casseroles, and soups. Meal planning Eat less salt, if told by your dietitian. To do this: ?Avoid eating processed or pre-made food. ?Avoid eating fast food. Eat less animal protein, including cheese, meat, poultry, or fish, if told by your dietitian. To dothis: ?Limit the number of times you have meat, poultry, fish, or cheese each week. Eat a diet free of meat at least 2 days a week. ?Eat only one serving each day of meat, poultry, fish, or seafood. ?When you prepare animal proteins, cut pieces into small portion sizes. For most meat and fish, oneserving is about the size of the palm of your hand. Eat at least five servings of fresh fruits and vegetables each day. To do this: ?Keep fruits and vegetables on hand for snacks. ?Eat one piece of fruit or a handful of berries with breakfast. ?Have a salad and fruit at lunch. ?Have two kinds of vegetables at dinner. You may be told to limit foods that are high in a substance called oxalate. These include: ?Spinach (cooked), rhubarb, beets, sweet potatoes, and Green[place] chard. ?Peanuts. ?Potato chips, grenadian fries, and baked potatoes with skin on. ?Nuts and nut products. ?Chocolate. If you regularly take a diuretic medicine, make sure to eat at least 1 or 2 servings of fruits or vegetables that are high in potassium each day. These include: ?Avocado. ?Banana. ?[place], prune, carrot, or tomato juice. ?Baked potato. ?Cabbage. ?Beans and split peas. Lifestyle Drink enough fluid to keep your urine pale yellow. This is the most important thing you can do. Spread your fluid intake throughout the day. If you drink alcohol: ?Limit how much you have to: ?0 1 drink a day for women who are not . ?0 2 drinks a day for men. ?Know how much alcohol is in your drink. In the [place] one drink equals one 12 oz bottle of beer (355 mL), one 5 oz glass of wine (148 mL), or one 1 oz glass of hard liquor (44 mL). Lose weight if told by your health care provider. Work with your dietitian to find an eating plan and weight loss strategies that work best for you. General information Talk to your health care provider and dietitian about taking daily supplements. Depending on your health and the cause of your kidney stones, you may be told: ?Do not take high-dose supplements of vitamin C (1,000 mg a day or more). ?To take a calcium supplement. ?To take a daily probiotic supplement. ?To take other supplements such as magnesium, fish oil, or vitamin B6. Take ynit-typ-hmlojvk and prescription medicines only as told by your health care provider. These include supplements. What foods should I limit? Limit your intake of the following foods, or eat them as told by your dietitian. Vegetables Spinach. Rhubarb. Beets. Canned vegetables. Pickles. Olives. Baked potatoes with skin. Grains Wheat bran. Baked goods. Salted crackers. Cereals high in sugar. Meats and other proteins Nuts. Nut butters. Large portions of meat, poultry, or fish. Salted, precooked, or cured meats, such as sausages, meat loaves, and hot dogs. Dairy Cheeses. Beverages Regular soft drinks. Regular vegetable juice. Seasonings and condiments Seasoning blends with salt. Salad dressings. Soy sauce. Ketchup. Barbecue sauce. Other foods Canned soups. Canned pasta sauce. Casseroles. Pizza. Lasagna. Frozen meals. Potato chips. [place] fries. The items listed above may not be a complete list of foods and beverages you should limit. Contact a dietitian for more information. What foods should I avoid? Talk to your dietitian about specific foods you should avoid based on the type of kidney stones youhave and your overall health. Fruits Grapefruit. The item listed above may not be a complete list of foods and beverages you should avoid. Contact adietitian for more information. Summary Kidney stones are deposits of minerals and salts that form inside your kidneys. You can lower your risk of kidney stones by making changes to your diet. The most important thing you can do is drink enough fluid. Drink enough fluid to keep your urine pale yellow. Talk to your dietitian about how much calcium you should have each day, and eat less salt and animal protein as told by your dietitian. This information is not intended to replace advice given to you by your health care provider. Make sure you discuss any questions you have with your health care provider. Document Revised: 07/19/2022 Document Reviewed: 07/19/2022 [employer] Patient Education 2022 [employer]. Follow Up Care 05/10/2022 15:20:37 With:FOREST COLVIN, Kulwinder Soria, URL Address: [address] [place], [place] [id number]- When: Unknown [facility] 03-26-2024 NoteHNO ID: [id number] Author: KARINA BRAOV MA Service: ? Author Type: Glove Turner Type: Progress Notes Filed: 07/16/2023 13:36 Note Text: [facility] Provider Action/I 2nd attempt; M asking for a return call for scheduling. Outreach letter mailed as well. Karina Bravo [facility]03-26-2024 History of Present illness Narrative* Karina Bravo MA - 07/16/2023 1:33 PM EDT [facility] Provider Action/FYI 2nd attempt; LVM asking for a return call for scheduling. Outreach letter mailed as well. Karina Bravo MA * Karina Bravo MA - 07/04/2023 11:47 AM EDT [facility] Provider Action/FYI Mammogram referral received. Attempted to make contact with the patient for scheduling, no answer. LVM asking for a return call. I will follow up. [facility]ravo [facility] NotePatient Outreach ([place]) LOIS JACQUES ([id number]) 1965 F Date Time Provider Department 07/04/23 KARINA BRAVO During your visit today, we recorded the following information about you: Karina Bravo MA 07/16/2023 1:36 PM Signed [facility] Provider Action/FYI Mammogram referral received. Attempted to make contact with the patient for scheduling, no answer. LVM asking for a return call. I will follow up. ANGIE Kennedy Tracie, MA 07/16/2023 1:36 PM Signed [facility] Provider Action/FYI 2nd attempt; LVM asking for a return call for scheduling. Outreach letter mailed as well. Karina Bravo MA Allergies As of Date: 07/04/2023 (Not on File) Date Reviewed: Never Reviewed Reason for Visit: Community Outreach [Other] Cmt: Whirl[employer] Referral/Mammogram Primary Visit Diagnosis:Encounter for screening mammogram for malignant neoplasm of breast [Z12.31] Order(s):[place] SCREENING Ghulam CHUNGO [[id number]] Order #: [id number] FUTURE Problem List As Of Date: 07/04/2023 (None) Encounter Status:Closed by KARINA BRAVO on 07/16/23[facility] 07-04-2023 NoteHNO ID: [id number] Author: KARINA BRAVO MA Service: ? Author Type: Glove Turner Type: Progress Notes Filed: 07/16/2023 13:36 Note Text: [facility] Provider Action/FYI Mammogram referral received. Attempted to make contact with the patient for scheduling, no answer. LVM asking for a return call. I will follow up. Karina Bravo [facility]04-27-2023 NoteOrthopedic Surgery Subjective Pain of the Left Hand and Pain of the Left Wrist Lois Jacques is a 57 y.o. year old uajcy-vmjw-xoajhwta female presenting with difficulty with the use of her left hand specifically her thumb having undergone a left first CMC joint arthroplasty with the use of the APL, date of surgery 10/11/2021. 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 She feels she is lost approximately 50% [...] 1st and 3rd extensor tenosynovectomy completed at [facility] No past medical history on file. Objective [...] with also the release of the ring finger.[facility] 08-14-2022 NotePROCEDURE: XR HIP RT 2 3V WO PELVIS [...] Electronically authenticated by: LOLI HUBER Date: 2022-08-14 09:[address] [place], [place] [address]012-09-2022 Evaluation note* Encounter Date Diagnosis Assessment Notes Treatment Notes Treatment Clinical Notes Mar, Sinusitis, unspecifi ed chronicity, unspecified location (ICD-10 - J32.9) Sinusitis home care material was printed Drink plenty fluids, get plenty of rest. Take Tylenol or Motrin for aches pains or fevers. Continuethe antibiotic that was prescribed by your physician. Use the Flonase inhaler as prescribed for nasal congestion. Take the Tessalon Perles as needed for cough. Follow-up with your family physician estelao improvement by Saturdaycute cough (ICD-10 - R05.1) Mar,Laryngitis (ICD-10 - J04.0) [email or web address] Other Chief complaint+Reason for visit Narrative* Chief Complaint [facility]-Referral A amanda Reason for Visit Dietary surveillance and counseling Exercise counseling Severe obesity (BMI >= 40) Type 2 diabetes mellitus Dietary surveillance and counseling Exercise counseling Severe obesity (BMI >= 40) Type 2 diabetes mellitus [facility] Work Phone: Evaluation + Plan note No data available for this section [facility] evaluation + Plan note Future Appointments Appointment Date:10/10/2023 02:30:00 PM Scheduled Provider:Sebastian De La Cruz MD Location:[facility] Appointment Type:BADH New Patient Appointment Date:04/13/2024 03:00:00 PM Scheduled Provider:Kulwinder GARG MD Location:[facility] Appointment Type:URO Office Visit Diagnostic Tests Pending * Electrolyte Panel 08/05/23 [facility] evaluation + Plan note Future Appointments Appointment Date:11/25/2023 01:45:00 PM Scheduled Provider: Location:[facility] Appointment Type:Surgery FT Appointment Date:04/13/2024 03:00:00 PM Scheduled Provider:Kulwinder GARG MD Location:[facility] Appointment Type:URO Office Visit Future Scheduled Tests Laboratory* Celiac Disease Comprehensive 10/10/23 * Thyroid Stimulating Hormone 10/10/23 [facility] evaluation + Plan note Future Appointments Appointment Date:04/13/2024 03:00:00 PM Scheduled Provider:Kulwinder GARG MD Location:[facility] Appointment Type:URO Office Visit Future Scheduled Tests Laboratory* Celiac Disease Comprehensive 10/10/23 * Thyroid Stimulating Hormone 10/10/23 [facility] evaluation + Plan note Future Appointments Appointment Date:05/08/2024 09:30:00 AM Scheduled Provider: Location:[facility] Appointment Type:Surgery FT Appointment Date:05/18/2024 02:30:00 PM Scheduled Provider:Kulwinder GARG MD Location:[facility] Appointment Type:URO Office Visit Future Scheduled Tests Laboratory* Celiac Disease Comprehensive 10/10/23 * Thyroid Stimulating Hormone 10/10/23 [facility] evaluation + Plan note Future Appointments Appointment Date:08/03/2024 02:15:00 PM Scheduled Provider:Kulwinder GARG MD Location:[facility] Appointment Type:URO Office Visit Future Scheduled Tests Laboratory* Celiac Disease Comprehensive 10/10/23 * Thyroid Stimulating Hormone 10/10/23 [facility] Evaluation note* Diagnosis Tendinitis of left wrist Other tenosynovitis of hand and wrist Unilateral primary osteoarthritis of first carpometacarpal joint, left hand documented in this encounter [facility] Work Phone: evaluation note* Diagnosis Encounter for screening mammogram for malignant neoplasm of breast- Primary Other screening [facility] Diagnosis Onset Date Resolution Status Dietary surveillance and counseling acuteExercise counselingacuteSevere obesity (BMI >= 40)acuteType 2 diabetes mellitusacuteDietary surveillance and counselingacuteExercise counselingacute Severe obesity (BMI >= 40)acuteType 2 diabetes mellitusacute [facility] Work Phone: Evaluation note* Diagnosis OUTSIDE CORRESPONDENCE for use in designating purpose of abstract encounters [facility] Diagnosis Onset Date Resolution Status Abnormal weight gain acuteArthritisacuteBMI 36.0-36.9,adultacuteDegenerative disc diseaseacuteDietary surveillance and counselingacuteExercise counselingacuteFibromyalgiaacuteGERD (gastroesophageal reflux disease)acuteHistory of kidney stonesacuteHTN (hypertension)acuteHx of cholecystectomyacuteObesity, Class II, BMI 35-39.9acute DAINA (obstructive sleep apnea)acuteType 2 diabetes mellitusacute [facility] Work Phone: Evaluation note* Diagnosis Lumbar spondylosis- Primary Lumbosacral spondylosis without myelopathy Bronchitis- Primary Bronchitis, not specified as acute or chronic Type 2 diabetes mellitus without complication, without long-term current use of insulin ([facility]) Class 3 severe obesity due to excess calories without serious comorbidity with body mass index (BMI) of 40.0 to 44.9 in adult ([facility]) Acute non-recurrent maxillary sinusitis Irritable bowel syndrome with diarrhea- Primary Irritable bowel syndrome Gastroesophageal reflux disease without esophagitis Esophageal reflux Class 3 severe obesity due to excess calories without serious comorbidity with body mass index (BMI) of 40.0 to 44.9 in adult ([facility]) Epigastric pain- Primary Abdominal pain, epigastric Muscle spasms of both lower extremities Type 2 diabetes mellitus without complication, without long-term current use of insulin (CMS/HCC) Irritable bowel syndrome with diarrhea Irritable bowel syndrome Fibromyalgia Unspecified myalgia and myositis Class 3 severe obesity due to excess calories with body mass index (BMI) of 40.0 to 44.9 in adult, unspecified whether serious comorbidity present (CMS/HCC) Nausea Nausea alone Fibromyalgia- Primary Unspecified myalgia and myositis Type 2 diabetes mellitus without complication, without long-term current use of insulin (CMS/HCC) Morbid obesity (CMS/HCC) Morbid obesity Anxiety and depression (CMS/[facility]) Fibromyalgia Unspecified myalgia and myositis Environmental and seasonal allergies Heart palpitations Palpitations Essential hypertension (CMS/[facility]) Unspecified essential hypertension documented in this encounter [facility] Healthcare[facility]* Diagnosis Lumbar spondylosis- Primary Lumbosacral spondylosis without myelopathy Bronchitis- Primary Bronchitis, not specified as acute or chronic Type 2 diabetes mellitus without complication, without long-term current use of insulin (CMS/[facility]) Class 3 severe obesity due to excess calories without serious comorbidity with body mass index (BMI) of 40.0 to 44.9 in adult (CMS/[facility]) Acute non-recurrent maxillary sinusitis Irritable bowel syndrome with diarrhea- Primary Irritable bowel syndrome Gastroesophageal reflux disease without esophagitis Esophageal reflux Class 3 severe obesity due to excess calories without serious comorbidity with body mass index (BMI) of 40.0 to 44.9 in adult (CMS/[facility]) Epigastric pain- Primary Abdominal pain, epigastric Muscle spasms of both lower extremities Type 2 diabetes mellitus without complication, without long-term current use of insulin (CMS/[facility]) Irritable bowel syndrome with diarrhea Irritable bowel syndrome Fibromyalgia Unspecified myalgia and myositis Class 3 severe obesity due to excess calories with body mass index (BMI) of 40.0 to 44.9 in adult, unspecified whether serious comorbidity present (CMS/[facility]) Nausea Nausea alone Fibromyalgia- Primary Unspecified myalgia and myositis Type 2 diabetes mellitus without complication, without long-term current use of insulin (CMS/HCC) Morbid obesity (CMS/HCC) Morbid obesity Type 2 diabetes mellitus without complication, without long-term current use of insulin (CMS/HCC)- Primary Obstructive sleep apnea syndrome Obstructive sleep apnea (adult) (pediatric) Essential hypertension (CMS/[facility]) Unspecified essential hypertension Gastroesophageal reflux disease without esophagitis Esophageal reflux Morbid obesity (CMS/HCC) Morbid obesity Obesity, Class II, BMI 35-39.9 Anxiety and depression (CMS/HCC) Fibromyalgia Unspecified myalgia and myositis Lumbar spondylosis Lumbosacral spondylosis without myelopathy Colon cancer screening Special screening for malignant neoplasms, colon documented in this encounter [facility] Healthcare[facility] note* Diagnosis Lumbar spondylosis- Primary Lumbosacral spondylosis without myelopathy Bronchitis- Primary Bronchitis, not specified as acute or chronic Type 2 diabetes mellitus without complication, without long-term current use of insulin (CMS/[facility]) Class 3 severe obesity due to excess calories without serious comorbidity with body mass index (BMI) of 40.0 to 44.9 in adult (CMS/[facility]) Acute non-recurrent maxillary sinusitis Irritable bowel syndrome with diarrhea- Primary Irritable bowel syndrome Gastroesophageal reflux disease without esophagitis Esophageal reflux Class 3 severe obesity due to excess calories without serious comorbidity with body mass index (BMI) of 40.0 to 44.9 in adult (CMS/[facility]) Epigastric pain- Primary Abdominal pain, epigastric Muscle spasms of both lower extremities Type 2 diabetes mellitus without complication, without long-term current use of insulin (CMS/[facility]) Irritable bowel syndrome with diarrhea Irritable bowel syndrome Fibromyalgia Unspecified myalgia and myositis Class 3 severe obesity due to excess calories with body mass index (BMI) of 40.0 to 44.9 in adult, unspecified whether serious comorbidity present (CMS/HCC) Nausea Nausea alone Fibromyalgia- Primary Unspecified myalgia and myositis Type 2 diabetes mellitus without complication, without long-term current use of insulin (CMS/HCC) Morbid obesity (CMS/HCC) Morbid obesity Type 2 diabetes mellitus without complication, without long-term current use of insulin ([facility]/HCC)- Primary Obstructive sleep apnea syndrome Obstructive sleep apnea (adult) (pediatric) Essential hypertension (CMS/HCC) Unspecified essential hypertension Gastroesophageal reflux disease without esophagitis Esophageal reflux Morbid obesity (CMS/HCC) Morbid obesity Obesity, Class II, BMI 35-39.9 Anxiety and depression (CMS/HCC) Fibromyalgia Unspecified myalgia and myositis Lumbar spondylosis Lumbosacral spondylosis without myelopathy Colon cancer screening Special screening for malignant neoplasms, colon Environmental and seasonal allergies Fibromyalgia Unspecified myalgia and myositis documented in this encounter [facility] Healthcare[facility]* Diagnosis Lumbar spondylosis- Primary Lumbosacral spondylosis without myelopathy Bronchitis- Primary Bronchitis, not specified as acute or chronic Type 2 diabetes mellitus without complication, without long-term current use of insulin ([facility]) Class 3 severe obesity due to excess calories without serious comorbidity with body mass index (BMI) of 40.0 to 44.9 in adult ([facility]) Acute non-recurrent maxillary sinusitis Irritable bowel syndrome with diarrhea- Primary Irritable bowel syndrome Gastroesophageal reflux disease without esophagitis Esophageal reflux Class 3 severe obesity due to excess calories without serious comorbidity with body mass index (BMI) of 40.0 to 44.9 in adult ([facility]) Epigastric pain- Primary Abdominal pain, epigastric Muscle spasms of both lower extremities Type 2 diabetes mellitus without complication, without long-term current use of insulin ([facility]) Irritable bowel syndrome with diarrhea Irritable bowel syndrome Fibromyalgia Unspecified myalgia and myositis Class 3 severe obesity due to excess calories with body mass index (BMI) of 40.0 to 44.9 in adult, unspecified whether serious comorbidity present ([facility]) Nausea Nausea alone Fibromyalgia- Primary Unspecified myalgia and myositis Type 2 diabetes mellitus without complication, without long-term current use of insulin ([facility]) Morbid obesity ([facility]) Morbid obesity Type 2 diabetes mellitus without complication, without long-term current use of insulin ([facility])- Primary Obstructive sleep apnea syndrome Obstructive sleep apnea (adult) (pediatric) Essential hypertension ([facility]) Unspecified essential hypertension Gastroesophageal reflux disease without esophagitis Esophageal reflux Morbid obesity ([facility]) Morbid obesity Obesity, Class II, BMI 35-39.9 Anxiety and depression ([facility]) Fibromyalgia Unspecified myalgia and myositis Lumbar spondylosis Lumbosacral spondylosis without myelopathy Colon cancer screening Special screening for malignant neoplasms, colon Environmental and seasonal allergies documented in this encounter [facility] HealthcareEvaluation note* Diagnosis Lumbar spondylosis- Primary Lumbosacral spondylosis without myelopathy Bronchitis- Primary Bronchitis, not specified as acute or chronic Type 2 diabetes mellitus without complication, without long-term current use of insulin ([facility]) Class 3 severe obesity due to excess calories without serious comorbidity with body mass index (BMI) of 40.0 to 44.9 in adult ([facility]) Acute non-recurrent maxillary sinusitis Irritable bowel syndrome with diarrhea- Primary Irritable bowel syndrome Gastroesophageal reflux disease without esophagitis Esophageal reflux Class 3 severe obesity due to excess calories without serious comorbidity with body mass index (BMI) of 40.0 to 44.9 in adult (CMS/HCC) Epigastric pain- Primary Abdominal pain, epigastric Muscle spasms of both lower extremities Type 2 diabetes mellitus without complication, without long-term current use of insulin (CMS/HCC) Irritable bowel syndrome with diarrhea Irritable bowel syndrome Fibromyalgia Unspecified myalgia and myositis Class 3 severe obesity due to excess calories with body mass index (BMI) of 40.0 to 44.9 in adult, unspecified whether serious comorbidity present (CMS/HCC) Nausea Nausea alone Fibromyalgia- Primary Unspecified myalgia and myositis Type 2 diabetes mellitus without complication, without long-term current use of insulin (CMS/HCC) Morbid obesity (CMS/HCC) Morbid obesity Type 2 diabetes mellitus without complication, without long-term current use of insulin (CMS/HCC)- Primary Obstructive sleep apnea syndrome Obstructive sleep apnea (adult) (pediatric) Essential hypertension (CMS/HCC) Unspecified essential hypertension Gastroesophageal reflux disease without esophagitis Esophageal reflux Morbid obesity (CMS/HCC) Morbid obesity Obesity, Class II, BMI 35-39.9 Anxiety and depression (CMS/HCC) Fibromyalgia Unspecified myalgia and myositis Lumbar spondylosis Lumbosacral spondylosis without myelopathy Colon cancer screening Special screening for malignant neoplasms, colon Fibromyalgia Unspecified myalgia and myositis Heart palpitations Palpitations Essential hypertension (CMS/HCC) Unspecified essential hypertension Environmental and seasonal allergies documented in this encounter [facility] HealthcareEvaluation note* Diagnosis Lumbar spondylosis- Primary Lumbosacral spondylosis without myelopathy Bronchitis- Primary Bronchitis, not specified as acute or chronic Type 2 diabetes mellitus without complication, without long-term current use of insulin (CMS/HCC) Class 3 severe obesity due to excess calories without serious comorbidity with body mass index (BMI) of 40.0 to 44.9 in adult (CMS/HCC) Acute non-recurrent maxillary sinusitis Irritable bowel syndrome with diarrhea- Primary Irritable bowel syndrome Gastroesophageal reflux disease without esophagitis Esophageal reflux Class 3 severe obesity due to excess calories without serious comorbidity with body mass index (BMI) of 40.0 to 44.9 in adult (CMS/HCC) Epigastric pain- Primary Abdominal pain, epigastric Muscle spasms of both lower extremities Type 2 diabetes mellitus without complication, without long-term current use of insulin (CMS/HCC) Irritable bowel syndrome with diarrhea Irritable bowel syndrome Fibromyalgia Unspecified myalgia and myositis Class 3 severe obesity due to excess calories with body mass index (BMI) of 40.0 to 44.9 in adult, unspecified whether serious comorbidity present (CMS/HCC) Nausea Nausea alone Fibromyalgia- Primary Unspecified myalgia and myositis Type 2 diabetes mellitus without complication, without long-term current use of insulin (CMS/HCC) Morbid obesity (CMS/HCC) Morbid obesity Type 2 diabetes mellitus without complication, without long-term current use of insulin (CMS/HCC)- Primary Obstructive sleep apnea syndrome Obstructive sleep apnea (adult) (pediatric) Essential hypertension (CMS/HCC) Unspecified essential hypertension Gastroesophageal reflux disease without esophagitis Esophageal reflux Morbid obesity (CMS/HCC) Morbid obesity Obesity, Class II, BMI 35-39.9 Anxiety and depression (CMS/HCC) Fibromyalgia Unspecified myalgia and myositis Lumbar spondylosis Lumbosacral spondylosis without myelopathy Colon cancer screening Special screening for malignant neoplasms, colon Arthritis- Primary Unspecified arthropathy, site unspecified documented in this encounter [facility] HealthcareEvaluation note* Diagnosis Lumbar spondylosis- Primary Lumbosacral spondylosis without myelopathy Bronchitis- Primary Bronchitis, not specified as acute or chronic Type 2 diabetes mellitus without complication, without long-term current use of insulin (CMS/HCC) Class 3 severe obesity due to excess calories without serious comorbidity with body mass index (BMI) of 40.0 to 44.9 in adult (CMS/HCC) Acute non-recurrent maxillary sinusitis Irritable bowel syndrome with diarrhea- Primary Irritable bowel syndrome Gastroesophageal reflux disease without esophagitis Esophageal reflux Class 3 severe obesity due to excess calories without serious comorbidity with body mass index (BMI) of 40.0 to 44.9 in adult (CMS/HCC) Epigastric pain- Primary Abdominal pain, epigastric Muscle spasms of both lower extremities Type 2 diabetes mellitus without complication, without long-term current use of insulin (CMS/HCC) Irritable bowel syndrome with diarrhea Irritable bowel syndrome Fibromyalgia Unspecified myalgia and myositis Class 3 severe obesity due to excess calories with body mass index (BMI) of 40.0 to 44.9 in adult, unspecified whether serious comorbidity present (CMS/HCC) Nausea Nausea alone Fibromyalgia- Primary Unspecified myalgia and myositis Type 2 diabetes mellitus without complication, without long-term current use of insulin (CMS/HCC) Morbid obesity (CMS/HCC) Morbid obesity Type 2 diabetes mellitus without complication, without long-term current use of insulin (CMS/HCC)- Primary Obstructive sleep apnea syndrome Obstructive sleep apnea (adult) (pediatric) Essential hypertension (CMS/HCC) Unspecified essential hypertension Gastroesophageal reflux disease without esophagitis Esophageal reflux Morbid obesity (CMS/HCC) Morbid obesity Obesity, Class II, BMI 35-39.9 Anxiety and depression (CMS/HCC) Fibromyalgia Unspecified myalgia and myositis Lumbar spondylosis Lumbosacral spondylosis without myelopathy Colon cancer screening Special screening for malignant neoplasms, colon Acute right-sided thoracic back pain- Primary Morbid obesity (CMS/HCC) Morbid obesity documented in this encounter [facility] HealthcareEvaluation note* Diagnosis Lumbar spondylosis- Primary Lumbosacral spondylosis without myelopathy Bronchitis- Primary Bronchitis, not specified as acute or chronic Type 2 diabetes mellitus without complication, without long-term current use of insulin (CMS/HCC) Class 3 severe obesity due to excess calories without serious comorbidity with body mass index (BMI) of 40.0 to 44.9 in adult (CMS/HCC) Acute non-recurrent maxillary sinusitis Irritable bowel syndrome with diarrhea- Primary Irritable bowel syndrome Gastroesophageal reflux disease without esophagitis Esophageal reflux Class 3 severe obesity due to excess calories without serious comorbidity with body mass index (BMI) of 40.0 to 44.9 in adult (CMS/HCC) Epigastric pain- Primary Abdominal pain, epigastric Muscle spasms of both lower extremities Type 2 diabetes mellitus without complication, without long-term current use of insulin (CMS/HCC) Irritable bowel syndrome with diarrhea Irritable bowel syndrome Fibromyalgia Unspecified myalgia and myositis Class 3 severe obesity due to excess calories with body mass index (BMI) of 40.0 to 44.9 in adult, unspecified whether serious comorbidity present (CMS/HCC) Nausea Nausea alone Fibromyalgia- Primary Unspecified myalgia and myositis Type 2 diabetes mellitus without complication, without long-term current use of insulin (CMS/HCC) Morbid obesity (CMS/HCC) Morbid obesity Type 2 diabetes mellitus without complication, without long-term current use of insulin (CMS/HCC)- Primary Obstructive sleep apnea syndrome Obstructive sleep apnea (adult) (pediatric) Essential hypertension (CMS/HCC) Unspecified essential hypertension Gastroesophageal reflux disease without esophagitis Esophageal reflux Morbid obesity (CMS/HCC) Morbid obesity Obesity, Class II, BMI 35-39.9 Anxiety and depression (CMS/HCC) Fibromyalgia Unspecified myalgia and myositis Lumbar spondylosis Lumbosacral spondylosis without myelopathy Colon cancer screening Special screening for malignant neoplasms, colon Acute right-sided thoracic back pain- Primary Morbid obesity (CMS/HCC) Morbid obesity Upper respiratory infection with cough and congestion- Primary documented in this encounter [facility] HealthcareEvaluation note* Diagnosis Lumbar spondylosis- Primary Lumbosacral spondylosis without myelopathy Bronchitis- Primary Bronchitis, not specified as acute or chronic Type 2 diabetes mellitus without complication, without long-term current use of insulin (CMS/HCC) Class 3 severe obesity due to excess calories without serious comorbidity with body mass index (BMI) of 40.0 to 44.9 in adult (CMS/HCC) Acute non-recurrent maxillary sinusitis Irritable bowel syndrome with diarrhea- Primary Irritable bowel syndrome Gastroesophageal reflux disease without esophagitis Esophageal reflux Class 3 severe obesity due to excess calories without serious comorbidity with body mass index (BMI) of 40.0 to 44.9 in adult (CMS/HCC) Epigastric pain- Primary Abdominal pain, epigastric Muscle spasms of both lower extremities Type 2 diabetes mellitus without complication, without long-term current use of insulin (CMS/HCC) Irritable bowel syndrome with diarrhea Irritable bowel syndrome Fibromyalgia Unspecified myalgia and myositis Class 3 severe obesity due to excess calories with body mass index (BMI) of 40.0 to 44.9 in adult, unspecified whether serious comorbidity present (CMS/HCC) Nausea Nausea alone Fibromyalgia- Primary Unspecified myalgia and myositis Type 2 diabetes mellitus without complication, without long-term current use of insulin (CMS/HCC) Morbid obesity (CMS/HCC) Morbid obesity Type 2 diabetes mellitus without complication, without long-term current use of insulin (CMS/HCC)- Primary Obstructive sleep apnea syndrome Obstructive sleep apnea (adult) (pediatric) Essential hypertension (CMS/HCC) Unspecified essential hypertension Gastroesophageal reflux disease without esophagitis Esophageal reflux Morbid obesity (CMS/HCC) Morbid obesity Obesity, Class II, BMI 35-39.9 Anxiety and depression (CMS/HCC) Fibromyalgia Unspecified myalgia and myositis Lumbar spondylosis Lumbosacral spondylosis without myelopathy Colon cancer screening Special screening for malignant neoplasms, colon Acute right-sided thoracic back pain- Primary Morbid obesity (CMS/HCC) Morbid obesity Upper respiratory infection with cough and congestion- Primary Type 2 diabetes mellitus without complication, without long-term current use of insulin (CMS/HCC)- Primary documented in this encounter [facility] HealthcareEvaluation note* Diagnosis Lumbar spondylosis- Primary Lumbosacral spondylosis without myelopathy Bronchitis- Primary Bronchitis, not specified as acute or chronic Type 2 diabetes mellitus without complication, without long-term current use of insulin (CMS/HCC) Class 3 severe obesity due to excess calories without serious comorbidity with body mass index (BMI) of 40.0 to 44.9 in adult (CMS/HCC) Acute non-recurrent maxillary sinusitis Irritable bowel syndrome with diarrhea- Primary Irritable bowel syndrome Gastroesophageal reflux disease without esophagitis Esophageal reflux Class 3 severe obesity due to excess calories without serious comorbidity with body mass index (BMI) of 40.0 to 44.9 in adult (CMS/HCC) Epigastric pain- Primary Abdominal pain, epigastric Muscle spasms of both lower extremities Type 2 diabetes mellitus without complication, without long-term current use of insulin (CMS/HCC) Irritable bowel syndrome with diarrhea Irritable bowel syndrome Fibromyalgia Unspecified myalgia and myositis Class 3 severe obesity due to excess calories with body mass index (BMI) of 40.0 to 44.9 in adult, unspecified whether serious comorbidity present (CMS/HCC) Nausea Nausea alone Fibromyalgia- Primary Unspecified myalgia and myositis Type 2 diabetes mellitus without complication, without long-term current use of insulin (CMS/HCC) Morbid obesity (CMS/HCC) Morbid obesity Type 2 diabetes mellitus without complication, without long-term current use of insulin (CMS/HCC)- Primary Obstructive sleep apnea syndrome Obstructive sleep apnea (adult) (pediatric) Essential hypertension (CMS/HCC) Unspecified essential hypertension Gastroesophageal reflux disease without esophagitis Esophageal reflux Morbid obesity (CMS/HCC) Morbid obesity Obesity, Class II, BMI 35-39.9 Anxiety and depression (CMS/HCC) Fibromyalgia Unspecified myalgia and myositis Lumbar spondylosis Lumbosacral spondylosis without myelopathy Colon cancer screening Special screening for malignant neoplasms, colon Acute right-sided thoracic back pain- Primary Morbid obesity (CMS/HCC) Morbid obesity Upper respiratory infection with cough and congestion- Primary Hot flashes- Primary Type 2 diabetes mellitus with other specified complication (CMS/HCC) Bipolar disorder, current episode depressed, moderate (CMS/HCC) Essential hypertension (CMS/HCC) Unspecified essential hypertension Paroxysmal supraventricular tachycardia (CMS/HCC) Paroxysmal supraventricular tachycardia Gastroesophageal reflux disease without esophagitis Esophageal reflux Fibromyalgia Unspecified myalgia and myositis Morbid obesity (CMS/HCC) Morbid obesity Type 2 diabetes mellitus without complication, without long-term current use of insulin (CMS/HCC) Anxiety and depression (CMS/HCC) documented in this encounter [facility] HealthcareEvaluation note* Diagnosis Lumbar spondylosis- Primary Lumbosacral spondylosis without myelopathy Bronchitis- Primary Bronchitis, not specified as acute or chronic Type 2 diabetes mellitus without complication, without long-term current use of insulin (CMS/HCC) Class 3 severe obesity due to excess calories without serious comorbidity with body mass index (BMI) of 40.0 to 44.9 in adult (CMS/HCC) Acute non-recurrent maxillary sinusitis Irritable bowel syndrome with diarrhea- Primary Irritable bowel syndrome Gastroesophageal reflux disease without esophagitis Esophageal reflux Class 3 severe obesity due to excess calories without serious comorbidity with body mass index (BMI) of 40.0 to 44.9 in adult (CMS/HCC) Epigastric pain- Primary Abdominal pain, epigastric Muscle spasms of both lower extremities Type 2 diabetes mellitus without complication, without long-term current use of insulin (CMS/HCC) Irritable bowel syndrome with diarrhea Irritable bowel syndrome Fibromyalgia Unspecified myalgia and myositis Class 3 severe obesity due to excess calories with body mass index (BMI) of 40.0 to 44.9 in adult, unspecified whether serious comorbidity present (CMS/HCC) Nausea Nausea alone Fibromyalgia- Primary Unspecified myalgia and myositis Type 2 diabetes mellitus without complication, without long-term current use of insulin (CMS/HCC) Morbid obesity (CMS/HCC) Morbid obesity Type 2 diabetes mellitus without complication, without long-term current use of insulin (CMS/HCC)- Primary Obstructive sleep apnea syndrome Obstructive sleep apnea (adult) (pediatric) Essential hypertension (CMS/HCC) Unspecified essential hypertension Gastroesophageal reflux disease without esophagitis Esophageal reflux Morbid obesity (CMS/HCC) Morbid obesity Obesity, Class II, BMI 35-39.9 Anxiety and depression (CMS/HCC) Fibromyalgia Unspecified myalgia and myositis Lumbar spondylosis Lumbosacral spondylosis without myelopathy Colon cancer screening Special screening for malignant neoplasms, colon Acute right-sided thoracic back pain- Primary Morbid obesity (CMS/HCC) Morbid obesity Upper respiratory infection with cough and congestion- Primary Hot flashes- Primary Type 2 diabetes mellitus with other specified complication (CMS/HCC) Bipolar disorder, current episode depressed, moderate (CMS/HCC) Essential hypertension (CMS/HCC) Unspecified essential hypertension Paroxysmal supraventricular tachycardia (CMS/HCC) Paroxysmal supraventricular tachycardia Gastroesophageal reflux disease without esophagitis Esophageal reflux Fibromyalgia Unspecified myalgia and myositis Morbid obesity (CMS/HCC) Morbid obesity Type 2 diabetes mellitus without complication, without long-term current use of insulin (CMS/HCC) Anxiety and depression (CMS/HCC) Hot flashes- Primary documented in this encounter [facility] HealthcareEvaluation note* Diagnosis Lumbar spondylosis- Primary Lumbosacral spondylosis without myelopathy Bronchitis- Primary Bronchitis, not specified as acute or chronic Type 2 diabetes mellitus without complication, without long-term current use of insulin Class 3 severe obesity due to excess calories without serious comorbidity with body mass index (BMI) of 40.0 to 44.9 in adult Acute non-recurrent maxillary sinusitis Irritable bowel syndrome with diarrhea- Primary Irritable bowel syndrome Gastroesophageal reflux disease without esophagitis Esophageal reflux Class 3 severe obesity due to excess calories without serious comorbidity with body mass index (BMI) of 40.0 to 44.9 in adult Epigastric pain- Primary Abdominal pain, epigastric Muscle spasms of both lower extremities Type 2 diabetes mellitus without complication, without long-term current use of insulin Irritable bowel syndrome with diarrhea Irritable bowel syndrome Fibromyalgia Unspecified myalgia and myositis Class 3 severe obesity due to excess calories with body mass index (BMI) of 40.0 to 44.9 in adult, unspecified whether serious comorbidity present Nausea Nausea alone Fibromyalgia- Primary Unspecified myalgia and myositis Type 2 diabetes mellitus without complication, without long-term current use of insulin Morbid obesity (CMS/HCC) Morbid obesity Type 2 diabetes mellitus without complication, without long-term current use of insulin- Primary Obstructive sleep apnea syndrome Obstructive sleep apnea (adult) (pediatric) Essential hypertension (CMS/HCC) Unspecified essential hypertension Gastroesophageal reflux disease without esophagitis Esophageal reflux Morbid obesity (CMS/HCC) Morbid obesity Obesity, Class II, BMI 35-39.9 Anxiety and depression (CMS/HCC) Fibromyalgia Unspecified myalgia and myositis Lumbar spondylosis Lumbosacral spondylosis without myelopathy Colon cancer screening Special screening for malignant neoplasms, colon Acute right-sided thoracic back pain- Primary Morbid obesity (CMS/HCC) Morbid obesity Upper respiratory infection with cough and congestion- Primary Hot flashes- Primary Type 2 diabetes mellitus with other specified complication Bipolar disorder, current episode depressed, moderate (CMS/HCC) Essential hypertension (CMS/HCC) Unspecified essential hypertension Paroxysmal supraventricular tachycardia (CMS/HCC) Paroxysmal supraventricular tachycardia Gastroesophageal reflux disease without esophagitis Esophageal reflux Fibromyalgia Unspecified myalgia and myositis Morbid obesity (CMS/HCC) Morbid obesity Type 2 diabetes mellitus without complication, without long-term current use of insulin Anxiety and depression (CMS/HCC) Hot flashes- Primary Anxiety and depression (CMS/HCC) documented in this encounter [facility] HealthcareEvaluation note* Diagnosis Lumbar spondylosis- Primary Lumbosacral spondylosis without myelopathy Bronchitis- Primary Bronchitis, not specified as acute or chronic Type 2 diabetes mellitus without complication, without long-term current use of insulin Class 3 severe obesity due to excess calories without serious comorbidity with body mass index (BMI) of 40.0 to 44.9 in adult Acute non-recurrent maxillary sinusitis Irritable bowel syndrome with diarrhea- Primary Irritable bowel syndrome Gastroesophageal reflux disease without esophagitis Esophageal reflux Class 3 severe obesity due to excess calories without serious comorbidity with body mass index (BMI) of 40.0 to 44.9 in adult Epigastric pain- Primary Abdominal pain, epigastric Muscle spasms of both lower extremities Type 2 diabetes mellitus without complication, without long-term current use of insulin Irritable bowel syndrome with diarrhea Irritable bowel syndrome Fibromyalgia Unspecified myalgia and myositis Class 3 severe obesity due to excess calories with body mass index (BMI) of 40.0 to 44.9 in adult, unspecified whether serious comorbidity present Nausea Nausea alone Fibromyalgia- Primary Unspecified myalgia and myositis Type 2 diabetes mellitus without complication, without long-term current use of insulin Morbid obesity (CMS/HCC) Morbid obesity Type 2 diabetes mellitus without complication, without long-term current use of insulin- Primary Obstructive sleep apnea syndrome Obstructive sleep apnea (adult) (pediatric) Essential hypertension (CMS/HCC) Unspecified essential hypertension Gastroesophageal reflux disease without esophagitis Esophageal reflux Morbid obesity (CMS/HCC) Morbid obesity Obesity, Class II, BMI 35-39.9 Anxiety and depression (CMS/HCC) Fibromyalgia Unspecified myalgia and myositis Lumbar spondylosis Lumbosacral spondylosis without myelopathy Colon cancer screening Special screening for malignant neoplasms, colon Acute right-sided thoracic back pain- Primary Morbid obesity (CMS/HCC) Morbid obesity Upper respiratory infection with cough and congestion- Primary Hot flashes- Primary Type 2 diabetes mellitus with other specified complication Bipolar disorder, current episode depressed, moderate (CMS/HCC) Essential hypertension (CMS/HCC) Unspecified essential hypertension Paroxysmal supraventricular tachycardia (CMS/HCC) Paroxysmal supraventricular tachycardia Gastroesophageal reflux disease without esophagitis Esophageal reflux Fibromyalgia Unspecified myalgia and myositis Morbid obesity (CMS/HCC) Morbid obesity Type 2 diabetes mellitus without complication, without long-term current use of insulin Anxiety and depression (CMS/HCC) Hot flashes- Primary Arthritis- Primary Unspecified arthropathy, site unspecified documented in this encounter [facility] HealthcareEvaluation note* Diagnosis Lumbar spondylosis- Primary Lumbosacral spondylosis without myelopathy Bronchitis- Primary Bronchitis, not specified as acute or chronic Type 2 diabetes mellitus without complication, without long-term current use of insulin Class 3 severe obesity due to excess calories without serious comorbidity with body mass index (BMI) of 40.0 to 44.9 in adult Acute non-recurrent maxillary sinusitis Irritable bowel syndrome with diarrhea- Primary Irritable bowel syndrome Gastroesophageal reflux disease without esophagitis Esophageal reflux Class 3 severe obesity due to excess calories without serious comorbidity with body mass index (BMI) of 40.0 to 44.9 in adult Epigastric pain- Primary Abdominal pain, epigastric Muscle spasms of both lower extremities Type 2 diabetes mellitus without complication, without long-term current use of insulin Irritable bowel syndrome with diarrhea Irritable bowel syndrome Fibromyalgia Unspecified myalgia and myositis Class 3 severe obesity due to excess calories with body mass index (BMI) of 40.0 to 44.9 in adult, unspecified whether serious comorbidity present Nausea Nausea alone Fibromyalgia- Primary Unspecified myalgia and myositis Type 2 diabetes mellitus without complication, without long-term current use of insulin Morbid obesity (CMS/HCC) Morbid obesity Type 2 diabetes mellitus without complication, without long-term current use of insulin- Primary Obstructive sleep apnea syndrome Obstructive sleep apnea (adult) (pediatric) Essential hypertension (CMS/HCC) Unspecified essential hypertension Gastroesophageal reflux disease without esophagitis Esophageal reflux Morbid obesity (CMS/HCC) Morbid obesity Obesity, Class II, BMI 35-39.9 Anxiety and depression (CMS/HCC) Fibromyalgia Unspecified myalgia and myositis Lumbar spondylosis Lumbosacral spondylosis without myelopathy Colon cancer screening Special screening for malignant neoplasms, colon Acute right-sided thoracic back pain- Primary Morbid obesity (CMS/HCC) Morbid obesity Upper respiratory infection with cough and congestion- Primary Hot flashes- Primary Type 2 diabetes mellitus with other specified complication Bipolar disorder, current episode depressed, moderate (CMS/HCC) Essential hypertension (CMS/HCC) Unspecified essential hypertension Paroxysmal supraventricular tachycardia (CMS/HCC) Paroxysmal supraventricular tachycardia Gastroesophageal reflux disease without esophagitis Esophageal reflux Fibromyalgia Unspecified myalgia and myositis Morbid obesity (CMS/HCC) Morbid obesity Type 2 diabetes mellitus without complication, without long-term current use of insulin Anxiety and depression (CMS/HCC) Hot flashes- Primary Fibromyalgia- Primary Unspecified myalgia and myositis documented in this encounter [facility] HealthcareEvaluation note* Diagnosis Lumbar spondylosis- Primary Lumbosacral spondylosis without myelopathy Bronchitis- Primary Bronchitis, not specified as acute or chronic Type 2 diabetes mellitus without complication, without long-term current use of insulin Class 3 severe obesity due to excess calories without serious comorbidity with body mass index (BMI) of 40.0 to 44.9 in adult Acute non-recurrent maxillary sinusitis Irritable bowel syndrome with diarrhea- Primary Irritable bowel syndrome Gastroesophageal reflux disease without esophagitis Esophageal reflux Class 3 severe obesity due to excess calories without serious comorbidity with body mass index (BMI) of 40.0 to 44.9 in adult Epigastric pain- Primary Abdominal pain, epigastric Muscle spasms of both lower extremities Type 2 diabetes mellitus without complication, without long-term current use of insulin Irritable bowel syndrome with diarrhea Irritable bowel syndrome Fibromyalgia Unspecified myalgia and myositis Class 3 severe obesity due to excess calories with body mass index (BMI) of 40.0 to 44.9 in adult, unspecified whether serious comorbidity present Nausea Nausea alone Fibromyalgia- Primary Unspecified myalgia and myositis Type 2 diabetes mellitus without complication, without long-term current use of insulin Morbid obesity (CMS/HCC) Morbid obesity Type 2 diabetes mellitus without complication, without long-term current use of insulin- Primary Obstructive sleep apnea syndrome Obstructive sleep apnea (adult) (pediatric) Essential hypertension (CMS/HCC) Unspecified essential hypertension Gastroesophageal reflux disease without esophagitis Esophageal reflux Morbid obesity (CMS/HCC) Morbid obesity Obesity, Class II, BMI 35-39.9 Anxiety and depression (CMS/HCC) Fibromyalgia Unspecified myalgia and myositis Lumbar spondylosis Lumbosacral spondylosis without myelopathy Colon cancer screening Special screening for malignant neoplasms, colon Acute right-sided thoracic back pain- Primary Morbid obesity (CMS/HCC) Morbid obesity Upper respiratory infection with cough and congestion- Primary Hot flashes- Primary Type 2 diabetes mellitus with other specified complication Bipolar disorder, current episode depressed, moderate (CMS/HCC) Essential hypertension (CMS/HCC) Unspecified essential hypertension Paroxysmal supraventricular tachycardia (CMS/HCC) Paroxysmal supraventricular tachycardia Gastroesophageal reflux disease without esophagitis Esophageal reflux Fibromyalgia Unspecified myalgia and myositis Morbid obesity (CMS/HCC) Morbid obesity Type 2 diabetes mellitus without complication, without long-term current use of insulin Anxiety and depression (CMS/HCC) Hot flashes- Primary Fibromyalgia Unspecified myalgia and myositis documented in this encounter [facility] HealthcareEvaluation note* Diagnosis Lumbar spondylosis- Primary Lumbosacral spondylosis without myelopathy Bronchitis- Primary Bronchitis, not specified as acute or chronic Type 2 diabetes mellitus without complication, without long-term current use of insulin Class 3 severe obesity due to excess calories without serious comorbidity with body mass index (BMI) of 40.0 to 44.9 in adult Acute non-recurrent maxillary sinusitis Irritable bowel syndrome with diarrhea- Primary Irritable bowel syndrome Gastroesophageal reflux disease without esophagitis Esophageal reflux Class 3 severe obesity due to excess calories without serious comorbidity with body mass index (BMI) of 40.0 to 44.9 in adult Epigastric pain- Primary Abdominal pain, epigastric Muscle spasms of both lower extremities Type 2 diabetes mellitus without complication, without long-term current use of insulin Irritable bowel syndrome with diarrhea Irritable bowel syndrome Fibromyalgia Unspecified myalgia and myositis Class 3 severe obesity due to excess calories with body mass index (BMI) of 40.0 to 44.9 in adult, unspecified whether serious comorbidity present Nausea Nausea alone Fibromyalgia- Primary Unspecified myalgia and myositis Type 2 diabetes mellitus without complication, without long-term current use of insulin Morbid obesity (CMS/HCC) Morbid obesity Type 2 diabetes mellitus without complication, without long-term current use of insulin- Primary Obstructive sleep apnea syndrome Obstructive sleep apnea (adult) (pediatric) Essential hypertension (CMS/HCC) Unspecified essential hypertension Gastroesophageal reflux disease without esophagitis Esophageal reflux Morbid obesity (CMS/HCC) Morbid obesity Obesity, Class II, BMI 35-39.9 Anxiety and depression (CMS/HCC) Fibromyalgia Unspecified myalgia and myositis Lumbar spondylosis Lumbosacral spondylosis without myelopathy Colon cancer screening Special screening for malignant neoplasms, colon Acute right-sided thoracic back pain- Primary Morbid obesity (CMS/HCC) Morbid obesity Upper respiratory infection with cough and congestion- Primary Hot flashes- Primary Type 2 diabetes mellitus with other specified complication Bipolar disorder, current episode depressed, moderate (CMS/HCC) Essential hypertension (CMS/HCC) Unspecified essential hypertension Paroxysmal supraventricular tachycardia (CMS/HCC) Paroxysmal supraventricular tachycardia Gastroesophageal reflux disease without esophagitis Esophageal reflux Fibromyalgia Unspecified myalgia and myositis Morbid obesity (CMS/HCC) Morbid obesity Type 2 diabetes mellitus without complication, without long-term current use of insulin Anxiety and depression (CMS/HCC) Hot flashes- Primary Gastroesophageal reflux disease without esophagitis- Primary Esophageal reflux Environmental and seasonal allergies Fibromyalgia Unspecified myalgia and myositis Type 2 diabetes mellitus without complication, without long-term current use of insulin Heart palpitations Palpitations Essential hypertension (CMS/HCC) Unspecified essential hypertension documented in this encounter [facility] HealthcareEvaluation note* Diagnosis Lumbar spondylosis- Primary Lumbosacral spondylosis without myelopathy Bronchitis- Primary Bronchitis, not specified as acute or chronic Type 2 diabetes mellitus without complication, without long-term current use of insulin ([facility]) Class 3 severe obesity due to excess calories without serious comorbidity with body mass index (BMI) of 40.0 to 44.9 in adult ([facility]) Acute non-recurrent maxillary sinusitis Irritable bowel syndrome with diarrhea- Primary Irritable bowel syndrome Gastroesophageal reflux disease without esophagitis Esophageal reflux Class 3 severe obesity due to excess calories without serious comorbidity with body mass index (BMI) of 40.0 to 44.9 in adult ([facility]) Epigastric pain- Primary Abdominal pain, epigastric Muscle spasms of both lower extremities Type 2 diabetes mellitus without complication, without long-term current use of insulin (HCC) Irritable bowel syndrome with diarrhea Irritable bowel syndrome Fibromyalgia Unspecified myalgia and myositis Class 3 severe obesity due to excess calories with body mass index (BMI) of 40.0 to 44.9 in adult, unspecified whether serious comorbidity present ([facility]) Nausea Nausea alone Fibromyalgia- Primary Unspecified myalgia and myositis Type 2 diabetes mellitus without complication, without long-term current use of insulin (HCC) Morbid obesity (CMS-HCC) Morbid obesity Type 2 diabetes mellitus without complication, without long-term current use of insulin (HCC)- Primary Obstructive sleep apnea syndrome Obstructive sleep apnea (adult) (pediatric) Essential hypertension Unspecified essential hypertension Gastroesophageal reflux disease without esophagitis Esophageal reflux Morbid obesity ([facility]) Morbid obesity Obesity, Class II, BMI 35-39.9 Anxiety and depression Fibromyalgia Unspecified myalgia and myositis Lumbar spondylosis Lumbosacral spondylosis without myelopathy Colon cancer screening Special screening for malignant neoplasms, colon Acute right-sided thoracic back pain- Primary Morbid obesity ([facility]) Morbid obesity Upper respiratory infection with cough and congestion- Primary Hot flashes- Primary Type 2 diabetes mellitus with other specified complication (HCC) Bipolar disorder, current episode depressed, moderate (HCC) Essential hypertension Unspecified essential hypertension Paroxysmal supraventricular tachycardia (HCC) Paroxysmal supraventricular tachycardia Gastroesophageal reflux disease without esophagitis Esophageal reflux Fibromyalgia Unspecified myalgia and myositis Morbid obesity ([facility]) Morbid obesity Type 2 diabetes mellitus without complication, without long-term current use of insulin (HCC) Anxiety and depression Hot flashes- Primary Anxiety and depression documented in this encounter [facility] HealthcareEvaluation note* Diagnosis Lumbar spondylosis- Primary Lumbosacral spondylosis without myelopathy Bronchitis- Primary Bronchitis, not specified as acute or chronic Type 2 diabetes mellitus without complication, without long-term current use of insulin ([facility]) Class 3 severe obesity due to excess calories without serious comorbidity with body mass index (BMI) of 40.0 to 44.9 in adult ([facility]) Acute non-recurrent maxillary sinusitis Irritable bowel syndrome with diarrhea- Primary Irritable bowel syndrome Gastroesophageal reflux disease without esophagitis Esophageal reflux Class 3 severe obesity due to excess calories without serious comorbidity with body mass index (BMI) of 40.0 to 44.9 in adult ([facility]) Epigastric pain- Primary Abdominal pain, epigastric Muscle spasms of both lower extremities Type 2 diabetes mellitus without complication, without long-term current use of insulin ([facility]) Irritable bowel syndrome with diarrhea Irritable bowel syndrome Fibromyalgia Unspecified myalgia and myositis Class 3 severe obesity due to excess calories with body mass index (BMI) of 40.0 to 44.9 in adult, unspecified whether serious comorbidity present [place] Nausea Nausea alone Fibromyalgia- Primary Unspecified myalgia and myositis Type 2 diabetes mellitus without complication, without long-term current use of insulin ([facility]) Morbid obesity ([facility]) Morbid obesity Type 2 diabetes mellitus without complication, without long-term current use of insulin (HCC)- Primary Obstructive sleep apnea syndrome Obstructive sleep apnea (adult) (pediatric) Essential hypertension Unspecified essential hypertension Gastroesophageal reflux disease without esophagitis Esophageal reflux Morbid obesity ([facility]) Morbid obesity Obesity, Class II, BMI 35-39.9 Anxiety and depression Fibromyalgia Unspecified myalgia and myositis Lumbar spondylosis Lumbosacral spondylosis without myelopathy Colon cancer screening Special screening for malignant neoplasms, colon Acute right-sided thoracic back pain- Primary Morbid obesity ([facility]) Morbid obesity Hot flashes- Primary Type 2 diabetes mellitus with other specified complication (HCC) Bipolar disorder, current episode depressed, moderate ([facility]) Essential hypertension Unspecified essential hypertension Paroxysmal supraventricular tachycardia (HCC) Paroxysmal supraventricular tachycardia Gastroesophageal reflux disease without esophagitis Esophageal reflux Fibromyalgia Unspecified myalgia and myositis Morbid obesity ([facility]) Morbid obesity Type 2 diabetes mellitus without complication, without long-term current use of insulin (HCC) Anxiety and depression Hot flashes- Primary Essential hypertension- Primary Unspecified essential hypertension Obstructive sleep apnea syndrome Obstructive sleep apnea (adult) (pediatric) Gastroesophageal reflux disease without esophagitis Esophageal reflux Fibromyalgia Unspecified myalgia and myositis Morbid obesity ([facility]) Morbid obesity Type 2 diabetes mellitus without complication, without long-term current use of insulin ([facility]) Anxiety and depression Hot flashes documented in this encounter [facility] HealthcareEvaluation note* Diagnosis Lumbar spondylosis- Primary Lumbosacral spondylosis without myelopathy Bronchitis- Primary Bronchitis, not specified as acute or chronic Type 2 diabetes mellitus without complication, without long-term current use of insulin ([facility]) Class 3 severe obesity due to excess calories without serious comorbidity with body mass index (BMI) of 40.0 to 44.9 in adult ([facility]) Acute non-recurrent maxillary sinusitis Irritable bowel syndrome with diarrhea- Primary Irritable bowel syndrome Gastroesophageal reflux disease without esophagitis Esophageal reflux Class 3 severe obesity due to excess calories without serious comorbidity with body mass index (BMI) of 40.0 to 44.9 in adult ([facility]) Epigastric pain- Primary Abdominal pain, epigastric Muscle spasms of both lower extremities Type 2 diabetes mellitus without complication, without long-term current use of insulin ([facility]) Irritable bowel syndrome with diarrhea Irritable bowel syndrome Fibromyalgia Unspecified myalgia and myositis Class 3 severe obesity due to excess calories with body mass index (BMI) of 40.0 to 44.9 in adult, unspecified whether serious comorbidity present ([facility]) Nausea Nausea alone Fibromyalgia- Primary Unspecified myalgia and myositis Type 2 diabetes mellitus without complication, without long-term current use of insulin (HCC) Morbid obesity ([facility]) Morbid obesity Type 2 diabetes mellitus without complication, without long-term current use of insulin (HCC)- Primary Obstructive sleep apnea syndrome Obstructive sleep apnea (adult) (pediatric) Essential hypertension Unspecified essential hypertension Gastroesophageal reflux disease without esophagitis Esophageal reflux Morbid obesity ([facility]) Morbid obesity Obesity, Class II, BMI 35-39.9 Anxiety and depression Fibromyalgia Unspecified myalgia and myositis Lumbar spondylosis Lumbosacral spondylosis without myelopathy Colon cancer screening Special screening for malignant neoplasms, colon Acute right-sided thoracic back pain- Primary Morbid obesity (CMS-HCC) Morbid obesity Hot flashes- Primary Type 2 diabetes mellitus with other specified complication (HCC) Bipolar disorder, current episode depressed, moderate (HCC) Essential hypertension Unspecified essential hypertension Paroxysmal supraventricular tachycardia (HCC) Paroxysmal supraventricular tachycardia Gastroesophageal reflux disease without esophagitis Esophageal reflux Fibromyalgia Unspecified myalgia and myositis Morbid obesity ([facility]) Morbid obesity Type 2 diabetes mellitus without complication, without long-term current use of insulin (HCC) Anxiety and depression Hot flashes- Primary Essential hypertension- Primary Unspecified essential hypertension Obstructive sleep apnea syndrome Obstructive sleep apnea (adult) (pediatric) Gastroesophageal reflux disease without esophagitis Esophageal reflux Fibromyalgia Unspecified myalgia and myositis Morbid obesity ([facility]) Morbid obesity Type 2 diabetes mellitus without complication, without long-term current use of insulin (HCC) Anxiety and depression Hot flashes Fibromyalgia Unspecified myalgia and myositis documented in this encounter [facility] HealthcareEvaluation note* Diagnosis Onset Date Resolution Status Admit Date Fibromyalgia acuteOctober 2024 3:40pmGERD (gastroesophageal reflux disease)acuteOctober 2024 3:40pmHTN (hypertension)acuteOctober 2024 3:40pmMorbid (severe) obesity due to excess caloriesacuteOctober 2024 3:40pmMuscle crampsacuteOctober 2024 3:40pmOSA (obstructive sleep apnea)acuteOctober 2024 3:40pmType 2 diabetes mellitus without complication, without long- term current usacuteOctober 2024 3:40pm [facility] Work Phone: History general Narrative - Reported* Type Description Date Medical History asthma Medical HistoryHTNMedical HistoryarthritisMedical HistoryneuropathyMedical HistoryGERDSurgical HistorygallbladderSurgical HistoryappendectomySurgical Historyc-section [email or web address] Other Hospital Discharge instructions No data available for this section [facility] progress note No data available for this section [facility] reason for referral (narrative)* Diagnostic Procedure Only (Routine) - Pending ReviewSpecialtyDiagnoses / ProceduresReferred By ContactReferred To ContactBR IMAGING Diagnoses Encounter for screening mammogram for malignant neoplasm of breast Procedures [place] SCREENING W [place] SCREENING DIGITAL BREAST TOMOSYNTHESIS BI SCREENING MAMMOGRAPHY BI 2-VIEW BREAST INC Ana Salinas, KEVIN.[employer] [address] [place] [address] [facility] [address] [place] [address] Referral IDStatusReasonStart DateExpiration DateVisits RequestedVisits [id number] Review Auto-Generated Referral / [facility] for referral (narrative)No reason for referral information availableBellevue Hospital Work Phone: Summary Purpose Family History Relationship Condition Age at Onset Recorded Date/T yury father Unknown Malignant neoplasmUnknownHeart diseaseUnknownmotherDeceasedUnknownHypertension UnknownMyocardial infarctionUnknownDiabetes mellitusUnknownArthritisUnknown brotherCerebrovascular accident (CVA)UnknownsisterMalignant neoplasmUnknown Cerebrovascular accident (CVA)Unknown Advance Directives Advance Directive Response Recorded Date/ Time Advance Directives No February 28, 2019 8:07pm Advance Directive Response Recorded Date/ Time Advance Directives No February 28, 2019 7:07pm Reason for Referral SpecialtyDiagnoses / ProceduresReferred By ContactReferred To ContactRadiology Diagnoses OUTSIDE CORRESPONDENCE Procedures MG IMPORTED IMAGES Mirella Miller DO [address] [place] [address] [facility] MAMMOGRAPHY [facility] [address] [place] [address] Referral IDStatusReasonStart DateExpiration DateVisits RequestedVisits [id number]/[id number] IDStatusReasonStart Date Expiration DateVisits RequestedVisits [id number]/25/20249/ 11 Chief Complaint and Reason for Visit Chief Complaint Transfer Dr. Nazario Reason for Visit Abnormal weight gain Arthritis BMI 36.0-36.9,adult Degenerative disc disease Dietary surveillance and counseling Exercise counseling Fibromyalgia GERD (gastroesophageal reflux disease) History of kidney stones HTN (hypertension) Hx of cholecystectomy Obesity, Class II, BMI 35-39.9 DAINA (obstructive sleep apnea) Type 2 diabetes mellitus Reason for Visit Admit Date Abnormal weight gain April 06, 2024 2:42pm Arthritis April 06, 2024 2:42pm BMI 34.0-34.9,adult April 06, 2024 2:42pm Degenerative disc disease April 06, 2024 2:42pm Dietary surveillance and counseling Dece mber 2023 2:42pm Exercise counseling April 06, 2024 2:42pm Fibromyalgia April 06, 2024 2:42pm GERD (gastroesophageal reflux disease) D ecember 2023 2:42pm History of kidney stones April 06, 2024 2:42pm HTN (hypertension) April 06, 2024 2:42pm Hx of cholecystectomy April 06 2:42pm Obesity, Class I, BMI 30-34.9 March 222023 2:42pm DAINA (obstructive sleep apnea) March 222023 2:42pm Type 2 diabetes mellitus April 06, 2024 2:42pm Abnormal weight gain May 26, 2024 10:51am Arthritis May 26, 2024 1 0:51am BMI 34.0-34.9,adult May 26, 2024 1 0:51am Degenerative disc disease May 26, 2024 10:51am Dietary surveillance and counseling [facility] 2024 10:51am Exercise counseling May 26, 2024 1 0:51am Fibromyalgia May 26, 2024 1 0:51am GERD (gastroesophageal reflux disease) F [facility] 2024 10:51am History of kidney stones May 26 10:51am HTN (hypertension) May 26, 2024 1 0:51am Hx of cholecystectomy May 26, 2024 10:51am Obesity, Class I, BMI 30-34.9 May 262024 10:51am DAINA (obstructive sleep apnea) May 262024 10:51am Type 2 diabetes mellitus May 26 10:51am Reason for Visit Admit Date Abnormal weight gain May 26, 2024 10:51am Arthritis May 26, 2024 1 0:51am BMI 34.0-34.9,adult May 26, 2024 1 0:51am Degenerative disc disease May 26, 2024 10:51am Dietary surveillance and counseling [facility] 2024 10:51am Exercise counseling May 26, 2024 1 0:51am Fibromyalgia May 26, 2024 1 0:51am GERD (gastroesophageal reflux disease) F [facility] 2024 10:51am History of kidney stones May 26 10:51am HTN (hypertension) May 26, 2024 1 0:51am Hx of cholecystectomy May 26, 2024 10:51am Obesity, Class I, BMI 30-34.9 May 262024 10:51am DAINA (obstructive sleep apnea) May 262024 10:51am Type 2 diabetes mellitus May 26 10:51am Reason for Visit Admit Date Abnormal weight gain October 20, 2024 2:52 pm Arthritis October 20, 2024 2:52p m BMI 33.0-33.9,adult October 20, 2024 2:52p m Degenerative disc disease October 20, 2024 2:52pm Dietary surveillance and counseling October 20, 2024 2:52pm Exercise counseling October 20, 2024 2:52p m Fibromyalgia Leyla 1st, 2025 2:52p m GERD (gastroesophageal reflux disease) J minna 2024 2:52pm History of kidney stones October 20, 2024 2:52pm HTN (hypertension) October 20, 2024 2:52p m Hx of cholecystectomy October 20, 2024 2:5 2pm Obesity, Class I, BMI 30-34.9 October 20, 2024 2:52pm DAINA (obstructive sleep apnea) October 20, 2024 2:52pm Type 2 diabetes mellitus October 20, 2024 2:52pm Chief Complaint Admit Date r/s February 01, 2025 3 :40pm Reason for Visit Admit Date Fibromyalgia February 01, 2025 3 :40pm GERD (gastroesophageal reflux disease) O ctober 2024 3:40pm HTN (hypertension) February 01, 2025 3 :40pm Morbid (severe) obesity due to excess ca lories February 01, 2025 3:40pm Muscle cramps February 01, 2025 3 :40pm DAINA (obstructive sleep apnea) February 012024 3:40pm Type 2 diabetes mellitus wit hout complication, without long-term current us February 01, 2025 3:40pm Additional Source Comments INFORMATION SOURCE (unrecogn ized section and content) DATE CREATED AUTHOR 06/04/2021 [facility] DATE CREATED AUTHOR AUTHOR'S ORGANIZ ATION 11/15/2021 [facility] DATE CREATED AUTHOR AUTHOR'S ORGANIZ ATION 08/30/2022 [facility] DATE CREATED AUTHOR AUTHOR'S ORGANIZ ATION 11/22/2022 [facility] DATE CREATED AUTHOR AUTHOR'S ORGANIZ ATION 07/17/2023 [facility] DATE CREATED AUTHOR AUTHOR'S ORGANIZ ATION 09/04/2023 [facility] DATE CREATED AUTHOR AUTHOR'S ORGANIZ ATION 05/16/2024 [facility] DATE CREATED AUTHOR AUTHOR'S ORGANIZ ATION 10/15/2024 [facility] DATE CREATED AUTHOR AUTHOR'S ORGANIZ ATION 01/23/2025 [facility] DATE CREATED AUTHOR AUTHOR'S ORGANIZ ATION 01/29/2025 [facility] DATE CREATED AUTHOR AUTHOR'S ORGANIZ ATION 01/30/2025 [facility] Care Teams (unrecognized sec tion and content) Team MemberRelationshipSpecialtyStart DateEnd Date ElisenicDanitza avalos [address] [place] [address] PCP - GeneralNurse Fyltfaqcmrkh09/6/20Team MemberRelationshipSpecialtyStart Date End Date ElisenicDanitza avalos [address] [place] [address] PCP - GeneralNurse Pjrsgyjcdbud15/6/20Team MemberRelationshipSpecialtyStart Date End Date [facility] arora [address] [facility] [address] [place] [address] PCP - GeneralNurse Buhcdixqotwq16/6/20Team MemberRelationshipSpecialtyStart Date End Date Elvis Haro MD PCP - GeneralFamily Medicine10/12/22Team MemberRelationshipSpecialtyStart DateEnd Date Juan Carlos Crews [address] [facility] [place] [address] PCP - GeneralFamily Medicine12/13/[address] [facility] [place] [address] Ent - Otolaryngology12/13/16 Team Status: Active Member Role Status Dates Danitza Awad Primary Care Provider Active Team Status: Inactive Member Role Status Dates Dwayne Nzaario DO Attending Provider Active St art: September 05, 2023 End: September 05, 2023Danitza AwadIaima Care ProviderActiveStart: September 05, 2023 End: September 05, 2023 Team Status: Inactive Member Role Status Dates Danitza Awad Primary Care Provider Active Sta rt: October 15, 2023 End: October 14eliana Nazario DOAttending ProviderActiveStart: October 15, 2023 End: October 15, 2023Team MemberRelationshipSpecialtyStart DateEnd Date Danitza Awad [address] [place] [address] PCP - [facility]01/08/24 Team Status: Inactive Member Role Status Dates Danitza Olivareslazaro Primary Care Provider Active Sta rt: February 18, 2024 End: February 18, 2024Malena Hayden DNPAttending ProviderActiveStart: February 18, 2024 End: February 18, 2024Team MemberRelationshipSpecialtyStart DateEnd Date Elvis Haro MD [address] [place] [address] PCP - [facility] Medicine07/01/23 Danitza Awad NP [address] [place] [address] [facility]07/01/23Team MemberRelationshipSpecialtyStart DateEnd Date Elvis Haro MD [address] [place] [address] PCP - [facility] Medicine07/01/23 Danitza Awad NP [address] [place] [address] [facility]07/01/23Team MemberRelationshipSpecialtyStart DateEnd Date Elvis Haro MD [address] [place] [address] PCP - [facility]07/01/23 Danitza Awad NP [address] [place] [address] [facility]07/01/23Team MemberRelationshipSpecialtyStart DateEnd Date Elvis Haro MD [address] [place] [address] PCP - [facility]07/01/23 Danitza Awad NP [address] [place] [address] [facility]07/01/23Team MemberRelationshipSpecialtyStart DateEnd Date Elvis Haro MD [address] [place] [address] PCP - [facility]07/01/23 Danitza Awad NP [address] [place] [address] [facility]07/01/23Team MemberRelationshipSpecialtyStart DateEnd Date Elvis Haro MD [address] [place] [address] PCP - [facility]07/01/23 Danitza Awad NP [address] [place] [address] [facility]07/01/23Team MemberRelationshipSpecialtyStart DateEnd Date Elvis Haro MD [address] [place] [address] PCP - [facility] Medicine07/01/23 Danitza Awad NP [address] [place] [address] [facility]07/01/23Team MemberRelationshipSpecialtyStart DateEnd Date Elvis Haro MD [address] [place] [address] PCP - [facility]07/01/23 Danitza Awad NP [address] [place] [address] [facility]07/01/23 Team Status: Inactive Member Role Status Dates Danitza Awad Primary Care Provider Active Sta rt: April 06, 2024 End: April 06, 2024Malena Hayden DNPAttending ProviderActiveStart: April 06, 2024 End: April 06, 2024 Team Status: Inactive Member Role Status Dates Danitza Awad Primary Care Provider Active Sta rt: May 26, 2024 End: May 26, 2024Jetrell Hayden DNPAttending ProviderActiveStart: May 26, 2024 End: May 26, 2024Team MemberRelationshipSpecialtyStart DateEnd Date Elvis Haro MD [address] [place] [address] PCP - [facility] Medicine07/01/23 Danitza Awad NP [address] [place] [address] [facility]Mer[facility]07/01/23Team MemberRelationshipSpecialtyStart DateEnd Date Elvis Haro MD [address] [place] [address] PCP - Generalmily Medicine07/01/23 Danitza Awad NP [address] [place] [address] [facility]07/01/23Team MemberRelationshipSpecialtyStart DateEnd Date Elvis Haro MD [address] [place] [address] PCP - [facility] Medicine07/01/23 Danitza Awad NP [address] [place] [address] [facility]07/01/23Team MemberRelationshipSpecialtyStart DateEnd Date Elvis Haro MD [address] [place] [address] PCP - Generalmi Medicine07/01/23 Danitza Awad NP [address] [place] [address] [facility]07/01/23 Team Status: Inactive Member Role Status Dates Danitza Awad Primary Care Provider Active Sta rt: July 16, 2024 End: July [address]ndanuj N[address] LDAttending ProviderActiveStart: July 16, 2024 End: July 16, 2024Team MemberRelationshipSpecialtyStart DateEnd Date Elvis Haro MD [address] [place] [address] [facility] - [facility]07/01/23 Danitza Awad NP [address] [place] [address] [facility] Medicine07/01/23Team MemberRelationshipSpecialtyStart DateEnd Date Elvis Haro MD [address] [place] [address] [facility]CP - [facility]07/01/23 Danitza Awad NP [address] [place] [address] Nurse Practition[facility] Medicine07/01/23Team MemberRelationshipSpecialtyStart DateEnd Date Elvis Haro MD [address] [place] [address] PCP - Generalmily Medicine07/01/23 Danitza Awad NP [address] [place] [address] Nurse [facility] Medicine07/01/23Team MemberRelationshipSpecialtyStart DateEnd Date Elvis Haro MD [address] [place] [address] PCP - [facility] Medicine07/01/23 Danitza Awad NP [address] [place] [address] Nurse [facility] Medicine07/01/23Team MemberRelationshipSpecialtyStart DateEnd Date Elvis Haro MD [address] [place] [address] PCP - [facility]07/01/23 Danitza Awad NP [address] [place] [address] [facility]07/01/23Team MemberRelationshipSpecialtyStart DateEnd Date Elvis Haro MD [address] [place] [address] PCP - [facility]07/01/23 Danitza Awad NP [address] [place] [address] [facility]07/01/23Team MemberRelationshipSpecialtyStart DateEnd Date Elvis Haro MD [address] [place] [address] PCP - [facility]07/01/23 Danitza Awad NP [address] [place] [address] [facility]07/01/23 Team Status: Inactive Member Role Status Dates Danitza Awad Primary Care Provider Active Sta rt: October 20, 2024 End: October 20, 2024Malena Prietoalexander DNPAttending ProviderActiveStart: October 20, 2024 End: October 20, 2024Team MemberRelationshipSpecialtyStart DateEnd Date Elvis Haro MD [address] [place] [address] PCP - [facility]07/01/23 Danitza Awad NP [address] [place] [address] [facility]07/01/23 Team Status: Active Member Role Status Dates PAYAL Trujillo Primary Care Provider Active Team Status: Inactive Member Role Status Dates Danitza Awad NP-C Primary Care Provider Active Start: February 01, 2025 End: February 01, 2025Danitza Awad NP-CAttending ProviderActiveStart: February 01, 2025 End: February 01, 2025Team MemberRelationshipSpecialtyStart DateEnd Date Elvis Haro MD PCP - [facility] Medicine07/01/23 Danitza Awad NP Nurse [facility] Medicine07/01/23Team MemberRelationshipSpecialtyStart DateEnd Date Elvis Haro MD PCP - [facility] Elvis Haro MD [facility]07/01/23 Danitza Awad NP Nurse Pract[facility]erT[facility] Medicine07/01/23 REASON FOR VISIT (unrecogniz ed section and content) ReasonOnset DateCommentsCommunity Lkxucdfo03/14/2024[place] Referral/Mammogram SpecialtyDiagnoses / ProceduresReferred By ContactReferred To ContactRadiology Diagnoses OUTSIDE CORRESPONDENCE Procedures MG IMPORTED IMAGES Mirella Miller DO [address] [place] [address] [facility] MAMMOGRAPHY [facility] [address] [place] [address] Referral IDStatusReasonStart DateExpiration DateVisits RequestedVisits [id number] RefillReasonOnset DateCommentsMed Zkgbsl044ReasonOnset DateCommentsMed Hvhlqg0904/10/2024 ReasonCommentsDiabetesBack PainReasonCommentsCoughReasonCommentsDiabetes Source Comments (unrecognize d section and content) In the event this informatio n is protected by the Federal Confidentiality of Alcohol and Drug Abuse Patient Records regulations: The Federal rules restrict any use of the information to criminally investigate or prosecute any alcohol or drug abuse patient.[facility] Goals (unrecognized section and content) Goals may be documented in a n alternate section FOR RECORDS PERTAINING TO PATIENTS WHO ARE [...] BE BASED ON THE PRIMARY CLINICAL RECORDS. [facility]. provides no warranty or guarantee of the accuracy or completeness of information in this document.
--- OUTSIDE RECORDS SUMMARY | 2025-04-21 07:26 | XMS_ITS | Clinical Summary ---
Author Organization [employer] tem Address [facility] [address] [place] [address] Care Team Providers Care Supervisor Detasseling Crew Name Role Phone Danitza Awad APRN-CARE SUPPORT REPRESENTATIVE Primary Care Provider Allergies Active AllergyReactionsCriticalityNoted DateCommentsCortisoneOther (See Comments)Awamtq8809/11/2016 Swelling, sweating, B/P increase, palpitations knee for torn acl. Shoulder for tendonitis, same reaction. injectable Iodinated Contrast Media03/05/2022 Other reaction(s): felt like she was going to pass out, severe nausea UeqczhasvcmzdpfiwkFiuxwrriyoqdKgj12/15/8021ZqbikHwfnpordrwllUwgr82/15/2019 PATIENT MAY BE ALLERGIC TO SOME DEGREE TO ALL STEROIDAL MEDICATIONS Medications MedicationSigDispense QuantityRefillsLast FilledStart DateEnd DateStatus montelukast (SINGULAIR) 10 mg tablet Indications:Allergic state, sequelaTAKE 1 TABLET(10 MG) BY MOUTH EVERY DAY 90 tablet 03/16/2019Active Additional Information Patient taking differently: 10 mg oral Nightly, Reported on 03/05/2022 gabapentin (NEURONTIN) 300 mg capsule Indications:Fibromyalgia,NeuropathyTake 1 capsule (300 mg total) by mouth 3 (three) times a day. 270 capsule 06/18/2019Active Additional Information Patient taking differently:300 mg oralNightly, Reported on 03/05/2022 QUEtiapine (SEROquel) 25 mg tablet Indications:FibromyalgiaTake one tablet by mouth nightly. 90 tablet Active Additional Information Patient taking differently: 75 mg oral Nightly, Take one tablet by mouth nightly., Reported on 03/05/2022 metoprolol tartrate (LOPRESSOR) 50 mg tablet Indications:Essential hypertensionTAKE 1 TABLET(50 MG) BY MOUTH DAILY 90 tablet 07/13/2019Active Additional Information Patient taking differently: 50 mg oral Nightly, Reported on 03/05/2022 cyclobenzaprine (FLEXERIL) 10 mg tablet Indications:FibromyalgiaTAKE 1 TABLET(10 MG) BY MOUTH THREE TIMES DAILY NEEDED FOR MUSCLE SPASMS 90 tablet 10/12/2019Active Additional Information Patient taking differently: 10 mg oral Daily, Reported on 03/05/2022 traMADoL (ULTRAM) 50 mg tablet Indications:Chronic pain of right ankleTAKE 1 TABLET(50 MG) BY MOUTH EVERY 6 HOURS NEEDED FOR PAIN 21 tablet 10/12/2019Active Additional Information Patient taking differently: 50 mg oral Nightly, Reported on 03/05/2022 hyoscyamine (ANASPAZ,LEVSIN) 0.125 mg tablet TAKE 1 TABLET BY MOUTH EVERY 6 HOURS NEEDED FOR ABDOMINAL BYKDROOZ97/02/2021 Active meloxicam (MOBIC) 15 mg tablet TAKE 1 TABLET(15 MG) BY MOUTH DAILY FOR 90 DOSES 90 tablet 11/30/2020ctive diclofenac (VOLTAREN) 50 mg EC tablet Take 1 tablet (50 mg total) by mouth in the morning and 1 tablet (50 mg total) in the evening. Takewith meals.02/08/2021ctive eszopiclone (LUNESTA) 2 mg tablet Indications:Primary insomniaTake 1 tablet (2 mg total) by mouth in the morning. Take immediately before bedtime. 1 tablet 03/05/2022ctive Active Problems ProblemNoted DateDiagnosed DateLeft foot pain2BMI 40.0-44.9, adult 05/01/2018Ankle instability, right09/18/2017Moderate ankle sprain, right, initial uslzkozms57/30/2018Osteochondral lesion of talar dome09/18/2017Bilateral foot pain09/18/2017IBS (irritable bowel syndrome)01/01/20178964Lokgoitck97/12/2017 Gzvmphcdgo13/15/2017Difficulty otfyxthujt24/15/2017Unilateral vocal cord emluulvsj04/15/2017Cervical stenosis of spine11/02/20168252Okbbidb36/03/2016 Ventricular premature qycwicqwzcligp68/03/2016Essential pdvnwaemfjrc48/24/2016 Resolved Problems ProblemNoted DateDiagnosed DateResolved DateChronic pain of right ankle Immunizations ImmunizationAdministration DatesNext DueInfluenza, Injectable, quadrivalent (PF) 02/03/2019(Deferred: Patient Refused) Family History Medical HistoryRelationNameCommentsBack ProblemsFatherCancerFatherDiabetesFather Memory lossFatherStomach cancerFatherStrokeFatherNo Known ProblemsMaternal GrandfatherNo Known ProblemsMaternal GrandmotherBack ProblemsMotherMemory loss MotherNo Known ProblemsPaternal GrandfatherNo Known ProblemsPaternal Grandmother Anesthesia problemsSisterBleeding DisorderNeg HxBreast cancerNeg HxRelationName StatusCommentsFatherDeceasedMaternal GrandfatherDeceasedMaternal Grandmother DeceasedMotherDeceasedPaternal GrandfatherDeceasedPaternal GrandmotherDeceased Sister Social History Tobacco UseTypesPacks/DayYears UsedDateSmoking Tobacco: NeverSmokeless Tobacco: Never Tobacco Cessation:Counseling Given: No Alcohol UseStandard Drinks/WeekCommentsNo0 (1 standard drink = 0.6 oz pure alcohol)rarely, once every 5 yearsPHQ-2AnswerDate RecordedTotal Mrjuc147 ChildcareAnswerDate BoiyzzzhSfllarlncXwbmlli34/04/2019EmploymentAnswerDate CmtcshomNspjmacubhPclhdgt73/04/2019Hunger ScreeningAnswerDate RecordedWithin the past 12 months we worried whether our food would run out before we got money to buy more.Never True07/12/2022Within the past 12 months the food we bought just didn't last and we didn't have money to get more.Never True3Purpose - LifeAnswerDate RecordedPurpose and direction in idgnMtjilag48/12/2021 CommentsNoSex and Gender InformationValueDate RecordedSex Assigned at BirthNot on fileLegal SlyNgnmxh75/06/2015 11:24 AM EDTGender IdentityNot on fileSexual OrientationNot on file Last Filed Vital Signs Vital SignReadingTime TakenCommentsBlood Ldbxwfbd573/8206/22/2022 9:29 AM EST Vzqog061603/13/2022 2:12 PM QMDSpkzhaiskef75.7 ??C (98 ??F)06/22/2022 9:29 AM EST Respiratory Svod928205/05/2021 3:44 PM ESTOxygen Ojzlusqcoe16%03/05/2022 3:44 PM ESTInhaled Oxygen Concentration--Hgfnjh967.1 kg (225 lb)07/12/2022 10:28 AM EDT Mkvwad757.4 cm (5')07/12/2022 10:28 AM EDTBody Mass Index43.9407/12/2022 10:28 AM EDT Plan of Treatment Health MaintenanceDue DateLast DoneCommentsDepression Nfgwuniuq01/27/1978Tobacco Ztdfbmfnp98/27/1978DTaP,Tdap and Td Vaccines (1 - Tdap) Zoster (Shingles) Vaccine (1 of 2)03/18/20162329Itwvvnbmc05/09/202003/12/2018, 06/13/2017, 01/10/2017Adult BMI Lvhgmwyfz18/3Colon Cancer Screening Annual FOBT07/17/408414/, 07/18/2023OVID-19 Vaccine ( - season)/Influenza Guxwdew7512/21/2024 Medical Devices ImplantedTypeAreaManufacturerDevice IdentifierShelf Expiration DateModel / Serial / LotCg Spnl 14x8-5.1mm Iker-C 12mm - [id number] Implanted:Qty: 1 on 11/02/2016 by Mustapha Boateng MD at [facility]/A: NeckLDR SPINE08/20/[id number] / N/A / [id number] Spnl 14x8-5.1mm Iker-C 12mm - [id number] Implanted:Qty: 1 on 11/02/2016 by Mustapha Boateng MD at [facility]/A: NeckLDR SPINE10/20/[id number] / N/A / [id number] 3.75g - [id number] Implanted:Qty: 1 on 11/02/2016 [facility]/A: LofdLwllvvsgwcagj78/07/2020SGF-037 / N/A / [id number] Escp Inst Cnn Stp Drl Drl - Sna - [id number] Implanted:Qty: 1 on 08/08/2020 by Ariel Ruff DPM at [facility] ImplantRight: MyeqYbdxgec84/31/2021 [id number]-QM / NA / [id number] [place] L[place] Roic - [id number] Implanted:Qty: 1 on 11/02/2016 [facility]/A: NeckLDR SPINE10/20/[id number] / N/A / [id number] [place] Lng Roic - [id number] Implanted:Qty: 1 on 11/02/2016 [facility]/A: NeckLDR SPINE12/22/[id number] / N/A / [id number] Procedures Procedure NamePriorityDate/TimeAssociated DiagnosisCommentsOCCULT BLOOD X 1, OKUHHGpukold30/28/2024 9:00 AM EDT Diarrhea MAMM SCREENING BILATERAL W VZQKjaknfz52/09/2019 9:31 AM EST Encounter for screening mammogram for malignant neoplasm of breast from Last 3 Months or Most Recently Relevant to Health Maintenance Results * Occult blood x 1, stool (07/18/2023 9:00 AM EDT)ComponentValueRef RangeTest MethodAnalysis TimePerformed AtPathologist SignatureOccult bloodNegative Negative^Emwtzmfo54/28/2024 3:57 PM EDTTEAST LIVERPOOL [facility] LABSpecimen (Source)Anatomical Location / LateralityCollection Method / VolumeCollection TimeReceived TimeFeces / Abamgnv9307/18/2023 9:00 AM EDT07/18/2023 2:17 PM EDT Narrative Authorizing ProviderResult TypeResult StatusLisa J Aichholz PONY RIDE ATTENDANT-CNPBODY FLUIDS AND STOOLS ORDERABLESFinal ResultPerforming OrganizationAddressCity/State/ZIP CodePhone Number [facility] [address] [place] [address] * Mammography screening bilateral with CAD (06/28/2018 9:31 AM EST)Anatomical RegionLateralityModalityBreastBilateralMammographySpecimen (Source)Anatomical Location / LateralityCollection Method / VolumeCollection TimeReceived Time 06/30/2018 8:25 AM EDT Narrative 06/30/2018 8:29 AM EDT History: Screening mammogram Technique: Digital mammographic images of both breasts were obtained in CC and MLO projections. ??Computer-aided detection was utilized. ??Tomosynthesis also performed Comparison: ??06/13/2017 Findings: Breast Density: The breasts are almost entirely fatty. Benign calcifications are again seen. ??There is no evidence of dominant mass lesion, clustered microcalcifications, or skin thickening in either breast to suggest the presence of malignancy. Impression: Both breasts negative for evidence of malignancy by digital mammography. ??A screening mammogram in one year is recommended. ACR Category: ??BIRADS 2 - Benign. Finalized by Wagner Rtohman MD on 06/30/2018 8:29 AM a 2 MAMM 1 YR Procedure Note Wagner Rothman MD - 06/30/2018 History: Screening mammogram Technique: Digital mammographic images of both breasts were obtained in CCand MLO projections. Computer-aided detection was utilized.Tomosynthesis also performed Comparison: 06/13/2017 Findings: Breast Density: The breasts are almost entirely fatty. Benign calcifications are again seen. There is no evidence of dominantmass lesion, clustered microcalcifications, or skin thickening in eitherbreast to suggest the presence of malignancy. Impression: Both breasts negative for evidence of malignancy by digital mammography. A screening mammogram in one year is recommended. ACR Category: BIRADS 2 - Benign. Finalized by Wagner Rothman MD on 06/30/2018 8:29 AM a 2 MAMM 1 YR Authorizing ProviderResult TypeResult Santino Callejasann PONY RIDE ATTENDANT-CNPIMG MAMMOGRAPHY ORDERABLESFinal Result from Last 3 Months or Most Recently Relevant to Health Maintenance Insurance Advance Directives * Full Code (Latest Code Status on File) Date ActivatedDate InactivatedComments11/02/2016 3:39 PM11/03/2016 1:57 PM Care Teams Team MemberRelationshipSpecialtyStart DateEnd Date Danitza Awad, KEVIN-CARE SUPPORT REPRESENTATIVE PCP - GeneralNurse Practitioner07/18/20
--- OUTSIDE RECORDS SUMMARY | 2025-04-21 07:26 | XMS_ITS | Clinical Summary ---
Author Organization [facility] Address [address] [place] [address] Care Team Providers Care Laundry Tech Name Role Phone Danitza Awad MD Primary Care Provider [phone] Allergies Active AllergyReactionsCriticalityNoted VmwbYwcfionnIgbtcfhflDwfeqr16/19/2014 Other reaction(s): doesn't feel well, heart races, nausea, Other (See Comments), Unknown Reaction Swelling, sweating, B/P increase, palpitations knee for torn acl. Shoulder for tendonitis, same reaction. injectable Iodinated Contrast Media03/05/2022 Other reaction(s): felt like she was going to pass out, severe nausea Other reaction(s): felt like she was going to pass out, severe nausea LmjamtehemkkpdyhxdNeagomxcehgnAwy95/15/6074WdyxdXhtsckbysbztAoni07/15/2019 PATIENT MAY BE ALLERGIC TO SOME DEGREE TO ALL STEROIDAL MEDICATIONS Medications MedicationSigDispense QuantityRefillsLast FilledStart DateEnd DateStatus gabapentin (Neurontin) 300 mg capsule Take 300 mg by mouth in the morning and 300 mg at noon and 300 mg in the evening.06/18/2019Active metoprolol tartrate (Lopressor) 50 mg tablet TAKE 1 TABLET(50 MG) BY MOUTH DAILY07/13/2019Active metoprolol succinate XL (Toprol-XL) 50 mg 24 hr tablet metoprolol 50 mg ER Tab Start Date: 01/09/19 Status: Ufcnidz8401/09/2019Active montelukast (Singulair) 10 mg tablet TAKE 1 TABLET(10 MG) BY MOUTH EVERY DAY03/16/2019Active omeprazole OTC (PriLOSEC OTC) 20 mg EC tablet Take 1 tablet every day by oral route.Active QUEtiapine (SEROquel) 50 mg tablet TAKE 2 TABLETS BY MOUTH AT BEDTIME. MAY TAKE 1-2 AT PTYMTPF48/08/2023Active tiZANidine (Zanaflex) 4 mg tablet TAKE 1 TABLET BY MOUTH AT BEDTIME NEEDED FOR MUSCLE SPASMActive traMADol (Ultram) 50 mg tablet TAKE 1 TABLET(50 MG) BY MOUTH EVERY 6 HOURS NEEDED FOR PAIN10/12/2019Active Active Problems ProblemNoted DateDiagnosed DatePain of left hand08/16/2022 Overview (08/16/2022): Added automatically from request for surgery [id number] Social History Tobacco UseTypesPacks/DayYears UsedDateSmoking Tobacco: NeverSmokeless Tobacco: Never Tobacco Cessation:Counseling Given: Not Answered [place] Safety & EnvironmentAnswerDate RecordedFear of Current or Ex-PartnerNot on file06/13/2023Emotionally AbusedNot on file06/13/2023hysically AbusedNot on file06/13/2023Sexually AbusedNot on file06/13/2023hysically or Sexually Abused Not on file06/13/2023CommentsUnknownSex and Gender InformationValueDate RecordedSex Assigned at BirthNot on fileLegal ZzuPmpcbj45/29/2022 10:03 PM EDT Gender IdentityNot on fileSexual OrientationNot on file Last Filed Vital Signs Vital SignReadingTime TakenCommentsBlood Qdnsmngx732/71010/06/2021 1:27 PM EDT Pulse--Temperature--Respiratory Rate--Oxygen Aepfzophxs66%10/06/2021 1:26 PM EDT Inhaled Oxygen Concentration--Zerdfk411 kg (232 lb)08/16/2022 9:19 AM EDTHeight 152.4 cm (5')10/06/2021 1:13 PM EDTBody Mass Index45.31010/06/2021 1:13 PM EDT Plan of Treatment Health MaintenanceDue DateLast DoneCommentsCT Hkoaypghcaaw1966Colonoscopy 1966Colorectal Cancer Bkcfmaruc1966FIT-DNA1966FIT1966 FOBT1966Rudgaxqrmtcxr1966Depression Fbtvkoftc26/27/1978Hepatitis B Vaccines (1 of 3 - 19+ 3-dose series)1985Pap Smear1987Adult Tetanus 1988Cervical Cancer Xskuyijyz94/27/1996HPV/Tyunuf7803/18/1996Mammogram 2006Zoster Vaccines (1 of 2)2016COVID-19 Vaccine (2 - season)506/Influenza Vaccine (#1)2024HIB VaccinesAged Out No longer eligible based on patient's age to complete this topicHPV VaccinesAged OutNo longer eligible based on patient's age to complete this topicIPV Vaccines Aged OutNo longer eligible based on patient's age to complete this topic Meningococcal B VaccineAged OutNo longer eligible based on patient's age to complete this topicMeningococcal VaccineAged OutNo longer eligible based on patient's age to complete this topicPneumococcal Vaccine: Pediatrics (0 to 5 Years) and At-Risk Patients (6 to 64 Years)Aged OutNo longer eligible based on patient's age to complete this topicRotavirus VaccinesAged OutNo longer eligible based on patient's age to complete this topic Insurance * Guarantor: Lois Menendez TypeRelation to PatientDate of BirthPhone Billing AddressPersonal/EqemvbYobu1965 [address] [address] , [place] [address] Care Teams Team MemberRelationshipSpecialtyStart DateEnd Date Danitza Awad MD [address] [place] [address] PCP - [facility]08/16/22
--- OUTSIDE RECORDS SUMMARY | 2025-04-21 07:26 | XMS_ITS | Clinical Summary ---
Author Organization [facility] Healthcare Address [address] [place] [address] Care Team Providers Care Pharmacy Laboratory Technician Name Role Phone Elvis Haro MD Primary Care Provider [phone] Danitza Awad NP Unavailable [phone] Allergies Active AllergyReactionsCriticalityNoted WzqaVqghbwunHuirgosrmAunjay80/19/2014 Other Reaction(s): doesn't feel well, heart palpations/breathing difficulties, heart races, nausea,Other (See Comments), Unknown Reaction Other reaction(s): doesn't feel well, heart races, nausea, Other (See Comments), Unknown Reaction Swelling, sweating, B/P increase, palpitations knee for torn acl. Shoulder for tendonitis, same reaction. injectable Swelling, sweating, B/P increase, palpitations knee for torn acl. Shoulder for tendonitis, same reaction. injectable Iodinated Contrast Media03/05/2022 Other Reaction(s): felt like she was going to pass out, severe nausea Other reaction(s): felt like she was going to pass out, severe nausea Other reaction(s): felt like she was going to pass out, severe nausea Other reaction(s): felt like she was going to pass out, severe nausea UxwikPzcdlrcnqymkCsrf78/15/2019 PATIENT MAY BE ALLERGIC TO SOME DEGREE TO ALL STEROIDAL MEDICATIONS PATIENT MAY BE ALLERGIC TO SOME DEGREE TO ALL STEROIDAL MEDICATIONS Medications MedicationSigDispense QuantityRefillsLast FilledStart DateEnd DateStatus B-D ULTRA-FINE 33 LANCETS misc USE DIRECTED ONCE DAILY09/05/2022ctive True Metrix Blood Glucose Test test strip 01/25/2023ctive Blood Glucose Monitoring Suppl (True Metrix Air Glucose Meter) w/Device kit USE AFXTDAWD68/17/2023ctive Alcohol Swabs 70 % pads USE DIRECTED ONCE DAILY09/05/2022ctive loperamide (Imodium) 2 MG capsule Take 2 mg by mouth 3 (three) times a day as needed for diarrheaActive hydroCHLOROthiazide (Microzide) 12.5 MG capsule Take 12.5 mg by mouth DailyActive cholecalciferol (Vitamin D-3) 25 MCG (1000 UT) capsule Daily09/05/2023ctive Ozempic, 2 MG/DOSE, 8 MG/3ML solution pen-injector Inject 2 mg as directed every 7 (seven) days02/21/2024ctive cetirizine (ZyrTEC) 10 MG tablet Indications:Environmental and seasonal allergiesTake 1 tablet (10 mg) by mouth Daily 90 tablet 09/30/2024tive gabapentin (Neurontin) 600 MG tablet Indications:FibromyalgiaTake 1 tablet (600 mg) by mouth at bedtime 90 tablet 09/30/2024tive metFORMIN XR (Glucophage-XR) 500 MG 24 hr tablet Indications:Type 2 diabetes mellitus without complication, without long-term current use of insulin (HCC)Take 1 tablet (500 mg) by mouth Daily 90 tablet tive metoprolol tartrate (Lopressor) 50 MG tablet Indications:Heart palpitations,Essential hypertensionTake 1 tablet (50 mg) by mouth Daily 90 tablet 5Active montelukast (Singulair) 10 MG tablet Indications:Environmental and seasonal allergiesTake 1 tablet (10 mg) by mouth at bedtime 90 tablet 5Active omeprazole OTC (PriLOSEC OTC) 20 MG EC tablet Indications:Gastroesophageal reflux disease without esophagitisTake 1 tablet (20 mg) by mouth in the morning. Take before meals. Do not crush, chew, or split. 90 tablet 5Active tiZANidine (Zanaflex) 4 MG tablet Indications:FibromyalgiaTake 1 tablet (4 mg) by mouth every 12 (twelve) hours if needed for muscle spasms 180 tablet 5Active QUEtiapine (SEROquel) 50 MG tablet Indications:Anxiety and depressionTake 2 tablets (100 mg) by mouth at bedtime May take 1-2 tablets at bedtime 180 tablet 5Active Omeprazole 20 MG tablet delayed-release 5Active Active Problems ProblemNoted DateDiagnosed ZzopSycitdjol35/24/2025Hot hqaydrj9206/11/2024 Assessment & Plan (10/13/2024 5:21 PM EDT): No clear etiology consider meds and labs [...] does feel these are becoming less freq/severe Assessment & Plan (06/22/2024 4:17 PM EST): No clear etiology consider meds and labs : Has had complete hysterectomy years ago, hot flashes at that time, however then they improved and now have worsened: Possible side effect from her seroquel, is Assessment & Plan (06/22/2024 8:25 PM EST): No clear etiology consider meds Had Rheumatology labs in 05/16, CRP 51.79 and Sed rate 49 Does also have chronic diarrhea thought to be IBS-D, however this could also mimic a carcinoid tumor as well, as other etiologies We will order labs: thryoid, chem 14, and urine Recommend CT abd/pelvis/chest: has allergy to CT dye Colon polyp05/14/2024 Overview (05/14/2024): 05/08/24: polyp tubular adenoma cecum, serated polyp in rectum, small hemorhoids Colon cancer weqaqyuad34/13/2024 Assessment & Plan (03/04/2024 3:54 PM EST): Is doing colonoscopy in 04/14 Irritable bowel syndrome with /13/2024Encounter for dietary counseling and eyzkiyyechlb72/13/2024Ureteral stone with fluydqtlkuujxn48/13/2024Muscle spasms of both lower svxgyvlubzg65/09/2024Epigastric pain10/29/2023 Assessment & Plan (10/29/2023 10:14 AM EDT): Unsure if pancreatitis will check labs: amylase, lipase, chem 14, urine Will add zofran prn for nausea May be side effect from ozempic dose change Hfwshb2910/29/20231615Fycoypayfvufog74/09/2024nxiety and agrzohdste14/17/2024 Assessment & Plan (10/13/2024 5:20 PM EDT): Current med: seroquel, Cont with counseling Does not feel any changes need to happen at this time Assessment & Plan (06/11/2024 3:58 PM EST): Current med: seroquel, CHARLENE 7= 6 PHQ 9= 1 Unsure if related to hot flashes or not Assessment & Plan (03/04/2024 3:53 PM EST): OAS reviewed ' Gastroesophageal reflux disease without ndesafvrlev06/11/2024 Overview (05/14/2024): EGD: 05/08/24: inactive gastritis, hiatal hernia, schatski's ring, tortious esophagus Assessment & Plan (10/13/2024 7:11 AM EDT): Recommendations: freq small meals, nothing to eat or drink at least 2 hours prior to bed, limit caffeine, alcohol, as well as spicy foods Meds to limit or avoid if possible: NSAIDS Elevate HOB if possible Current meds: omeprazole Had recent EGD (05/16): inactive gastritis, HH, schatski's ring and tortrious esophagus Assessment & Plan (06/11/2024 7:27 AM EST): Recommendations: freq small meals, nothing to eat or drink at least 2 hours prior to bed, limit caffeine, alcohol, as well as spicy foods Meds to limit or avoid if possible: NSAIDS Elevate HOB if possible Current meds: omeprazole Had recent EGD (05/16): inactive gastritis, HH, schatski's ring and tortrious esophagus Assessment & Plan (03/04/2024 7:23 AM EST): Recommendations: freq small meals, nothing to eat or drink at least 2 hours prior to bed, limit caffeine, alcohol, as well as spicy foods Meds to limit or avoid if possible: NSAIDS Elevate HOB if possible Assessment & Plan (07/01/2023 5:41 PM EDT): Will have pt trial an increase in her OTC omeprazole to 2 pills daily Fu in 3 weeks Htppucqterxj00/06/2024 Overview (10/29/2023): Med agreement signed 10/29/23 Assessment & Plan (10/13/2024 7:12 AM EDT): Cont with tramadol prn, celebrex prn, tizanidine prn OARRS reviewed Fu in 3 months Following with rheumatology as well Assessment & Plan (06/11/2024 7:27 AM EST): Cont with tramadol and other current meds OARRS reviewed Fu in 3 months Following with rheumatology as well Assessment & Plan (03/04/2024 3:41 PM EST): Cont with tramadol and other current meds OARRS reviewed Fu in 3 months Assessment & Plan (12/03/2023 7:31 PM EDT): Cont with tramadol and other current meds OARRS reviewed Fu in 3 months Assessment & Plan (10/29/2023 10:15 AM EDT): Will increase tizanidine Med agreement signed Type 2 diabetes mellitus without complication, without long-term current use of izsrpig5304/25/2023 Assessment & Plan (10/13/2024 3:54 PM EDT): Check blood sugars daily, notify if <70 [...] She has been under the care of [facility] weight mgmt program she is taking ozempic and doing well Current meds: metformin and ozempic A1c 5.8% 10/13/24, 5.7% 03/04/24 Assessment & Plan (06/11/2024 7:29 AM EST): Check blood sugars daily, notify if <70 [...] She has been under the care of [facility] weight mgmt program she is taking ozempic and doing well Current meds: metformin and ozempic A1c 5.7% 03/04/24 Assessment & Plan (03/04/2024 3:41 PM EST): Check blood sugars daily, notify if <70 [...] in carbohydrates, and simple sugars. A1c 5.7% Assessment & Plan (12/03/2023 7:32 PM EDT): A1c with next visit Cont metfromin as well as ozempic Assessment & Plan (10/29/2023 10:15 AM EDT): Check labs May stop metformin xr dose Assessment & Plan (04/25/2023 9:16 AM EST): Check labs Environmental and seasonal hrxrewzpw68/14/2023Lumbar tggirvhkrem01/12/2023 Assessment & Plan (03/04/2024 3:41 PM EST): OARRS reveiwed Assessment & Plan (04/02/2023 1:16 PM EST): OARRS reveiwed Adjustment disorder, usqervrlzit25/13/2023ipolar disorder, current episode depressed, prrfhioa62/13/0163Ppfdjqzfeknwssngv68/13/2023Feeling of incomplete bladder tjizcqnk24/13/5021Syjqkwzgtvexu22/13/2023ross nndqdyrxm52/13/2023Heart hxeeon69Heart ppxyudsnkljg45/13/2023idney oqgnfv2302/01/2023Low vitamin D level02/01/20238269Sfhblanei58/13/2023Morbid rhrsmto0802/01/2023 Assessment & Plan (10/13/2024 5:20 PM EDT): Discussed with patient their BMI (actual, verses recommended). We have also discussed lifestyle modifications: attempts to perform physical activity as chronic conditions allow, also to monitor dietary intake: increasing protein/fruits/veggies and lowering carb intake (unless contraindicated). Limit sodas, juices, and sugary drinks. Continue working with weight management program through [facility] Assessment & Plan (06/11/2024 7:27 AM EST): Discussed with patient their BMI (actual, verses recommended). We have also discussed lifestyle modifications: attempts to perform physical activity as chronic conditions allow, also to monitor dietary intake: increasing protein/fruits/veggies and lowering carb intake (unless contraindicated). Limit sodas, juices, and sugary drinks. Continue working with weight management program through [facility], she is doing great!! Assessment & Plan (04/29/2024 2:00 PM EST): Discussed with patient their BMI (actual, verses recommended). We have also discussed lifestyle modifications: attempts to perform physical activity as chronic conditions allow, also to monitor dietary intake: increasing protein/fruits/veggies and lowering carb intake (unless contraindicated). Limit sodas, juices, and sugary drinks. Continue working with weight management program through [facility], she is doing great!! Assessment & Plan (03/04/2024 7:23 AM EST): Discussed with patient their BMI (actual, verses recommended). We have also discussed lifestyle modifications: attempts to perform physical activity as chronic conditions allow, also to monitor dietary intake: increasing protein/fruits/veggies and lowering carb intake (unless contraindicated). Limit sodas, juices, and sugary drinks. Continue working with weight management program through [facility], she is doing great!! Assessment & Plan (12/03/2023 7:32 PM EDT): Cont with weight loss trend Skqopxcu30/13/2023Sciatic leg pain02/01/2023Thoracic back pain02/01/2023 Assessment & Plan (04/29/2024 3:08 PM EST): OARRS reviewed Will give short course of NORCO in place of tramadol Has scripts for celebrex as well as muscle relaxer, continue those Ice instead of heat Will give order for rib xray if not better in the next few days Encourage cough and deep breathing as well Fu if not better Urge fytdgswshrhv99/13/2023Encounter for screening mammogram for malignant neoplasm of xdptil9802/01/2023ain of left hand08/16/2022 Overview (02/01/2023): Added automatically from request for surgery [id number] Bilateral foot pain09/18/2017Osteochondral lesion of talar dome09/18/2017 Movmfuhcu72/12/7744Pjxhvmjnsf22/15/2017Unilateral vocal cord bedjgsnqs37/15/2017 Cervical stenosis of spine11/02/20166021Tsazsig82/03/2016Essential hypertension 12/14/2015 Assessment & Plan (10/13/2024 7:11 AM EDT): Please check blood pressure daily and record DASH diet Limit caffeine Take medication as directed Contact office if chest pain, pressure, dizziness, shortness of breath, swelling legs Recommend slow position changes Current meds: b heather, hydrochlorothiazide, Assessment & Plan (06/11/2024 7:25 AM EST): Please check blood pressure daily and record DASH diet Limit caffeine Take medication as directed Contact office if chest pain, pressure, dizziness, shortness of breath, swelling legs Recommend slow position changes Current meds: b heather, hydrochlorothiazide, Assessment & Plan (03/04/2024 7:22 AM EST): Please check blood pressure daily and record DASH diet Limit caffeine Take medication as directed Contact office if chest pain, pressure, dizziness, shortness of breath, swelling legs Recommend slow position changes Obstructive sleep apnea wwfebgiq17/19/2013 Assessment & Plan (10/13/2024 7:11 AM EDT): Does not wear PAP Since losing weight no snoring Assessment & Plan (03/04/2024 3:58 PM EST): Does not wear PAP Since losing weight no snoring Oszqorvq42/19/2013Paroxysmal supraventricular chhobcehbak11/26/2012 Assessment & Plan (06/11/2024 7:25 AM EST): Hx of this, takes b heather Froeoypf14/26/2012 Resolved Problems ProblemNoted DateDiagnosed DateResolved DateUpper respiratory infection with cough and jlhngpdclo09 Assessment & Plan (05/20/2024 4:21 PM EST): Sinus congestion Headache Runny nose Productive cough- yellow phlegm Scratchy throat X4 days Has not tested for COVID/FLU Was going to tx pt with Doxycycline 100mg BID for 5 days. Pt is incessant that she will only take Azithromycin and nothing else. Will order Azithromycin for 3 days. CXR. If symptoms worsen or do not improve return to office. Abnormal weight gainHistory of kidney czvjwy0703/04/2024 06/11/2024Hx of fkartfmhuslrqwb83Obesity, Class II, BMI 35-39.91Exercise cwhypygvhh55ronchitis Assessment & Plan (04/25/2023 9:09 AM EST): Atb, tessalon, inhaler Fu if not better Class 3 severe obesity due to excess calories with body mass index (BMI) of 40.0 to 44.9 in adultcute non-recurrent maxillary sinusitis Assessment & Plan (04/25/2023 9:17 AM EST): Cont allergy meds Atb, tessalon, inhaler Fu if not better Hx of wqjhiqykrd34Left foot painody mass index (BMI) 40.0-44.9, adultnkle instability, right Moderate ankle sprain, right, initial dommnvwdy55/30/2018 06/11/2024IBS (irritable bowel syndrome) Assessment & Plan (10/29/2023 10:14 AM EDT): Working with GI, is going to have scopes Assessment & Plan (07/23/2023 4:26 PM EDT): Unsure if this is true IBS vs inflammatory bowel issue Is willing to see GI for scopes Fu here in 8 weeks Assessment & Plan (07/01/2023 5:42 PM EDT): Does have IBS with diarrhea, however flares do not usually last this long Refill levsin Check stool: culture, blood, C diff, Ova and Parasites as well Fu in 3 weeks Difficulty Immunizations ImmunizationAdministration DatesNext DueTd (adult), 5 Lf tetanus toxoid, preservative free, sfbkzezj71/09/2015 Family History Medical HistoryRelationNameCommentsCancerFatherDiabetesFatherDiabetesMotherHeart diseaseMotherHypertensionMotherStrokeMotherRelationNameStatusCommentsFather DeceasedMotherDeceased Social History Tobacco UseTypesPacks/DayYears UsedDateSmoking Tobacco: NeverSmokeless Tobacco: Never Tobacco Cessation:Counseling Given: Not Answered Alcohol UseStandard Drinks/WeekCommentsNot Currently0 (1 standard drink = 0.6 oz pure alcohol)coffee 1-2 cups per daySocial Connection and Isolation PanelAnswer Date RecordedIn a typical week, how many times do you talk on the phone with family, friends, or neighbors?Patient /26/2024How often do you get together with friends or relatives?Patient iyropudb96/26/2024ttends Uatsdin ServicesNot on file07/16/2023o you belong to any clubs or organizations such as mandaeism groups, unions, fraternal or athletic groups, or school groups?No 07/16/2023How often do you attend meetings of the clubs or organizations you belong to?Patient uktjxwus59/26/2024re you , , , , never , or living with a partner?Patient saianlfh45/26/2024 AUDIT-CAnswerDate RecordedQ1: How often do you have a drink containing alcohol? Patient gbbkufbh34/26/2024Q2: How many drinks containing alcohol do you have on a typical day when you are drinking?Patient uahcseav32/26/2024Q3: How often do you have six or more drinks on one occasion?Patient przvubnp27/26/2024Overall Financial Resource Strain (CARDIA)AnswerDate RecordedHow hard is it for you to pay for the very basics like food, housing, medical care, and heating?Somewhat hard07/16/2023HQ-2AnswerDate RecordedPatient Health Questionnaire-2 Score1 07/01/2023Exercise Vital SignAnswerDate RecordedOn average, how many days per week do you engage in moderate to strenuous exercise (like a brisk walk)?Patient kqplbhoc03/26/2024On average, how many minutes do you engage in exercise at this level?Patient /26/2024Hunger Vital SignAnswerDate RecordedWithin the past 12 months, you worried that your food would run out before you got the money to buymore.Patient konojxpt78/26/2024Within the past 12 months, the food you bought just didn't last and you didn't have money to get more.Patient /26/2024RAPARE - TransportationAnswerDate RecordedIn the past 12 months, has lack of transportation kept you from medical appointments or from getting medications?Patient llooneky38/26/2024In the past 12 months, has lack of transportation kept you from meetings, work, or from getting things needed for daily living?Patient aflgobqa01/26/2024Housing Stability Vital SignAnswerDate RecordedIn the last 12 months, was there a time when you were not able to pay the mortgage or rent on time?Patient tgspyujt46/26/2024Number of Places Lived in the Last YearNot on file07/16/2023In the last 12 months, was there a time when you did not have a steady place to sleep or slept in [facility] (including now)? Patient sdjlegov46/26/2024CommentsUnknownSex and Gender InformationValue Date RecordedSex Assigned at BirthNot on fileLegal JldDqdjmg34/15/2023 7:07 PM EDTGender IdentityNot on fileSexual OrientationNot on file Last Filed Vital Signs Vital SignReadingTime TakenCommentsBlood Syvytzuf043/8006 3:45 PM EDT Zsclc7739 3:45 PM GDJFlcnmgmokpj88.4 ??C (97.6 ??F)10/13/2024 3:45 PM EDTRespiratory Xbrj151310/13/2024 3:45 PM EDTOxygen Zsmdvorbim11%10/13/2024 3:45 PM EDTInhaled Oxygen Concentration--Roetgn87.8 kg (173 lb 12.8 oz)10/13/2024 3:45 PM BUSHksfdq662.4 cm (5')07/02/2024 2:40 PM EDTBody Mass Index33.94 07/02/2024 2:40 PM EDT Plan of Treatment Not on file Insurance * Guarantor: Lois Menendez TypeRelation to PatientDate of BirthPhone Billing AddressPersonal/ToawmhUilp1965 [phone] [address] Care Teams Team MemberRelationshipSpecialtyStart DateEnd Date Elvis Haro MD PCP - GeneralFamily Medicine07/01/23 Danitza Awad NP Nurse PractitionerFamily Medicine07/01/23
--- OUTSIDE RECORDS SUMMARY | 2025-04-21 07:26 | XMS_ITS | Clinical Summary ---
Author Organization [facility] Address [address] [place] [address] Care Team Providers Care Sawing And Assembly Supervisor Name Role Phone Danitza Awad Primary Care Provider [phone] Mirella Miller DO Unavailable [phone] Source Comments The following information is NOT included in Care Everywhere downloads:Psychiatric notes, ECG results, Cardiac Rehab notes, Pulmonary Function notes, data from SmartForms (includes but not limited toPregnancy data,audiograms, eye exams, pre-surgical evaluation notes, well-child exam data).[facility] Immunizations ImmunizationAdministration DatesNext DueTd (adult), 5 Lf tetanus toxoid, preservative free, adsorbed (XNW=118)04/30/2014 Social History Tobacco UseTypesPacks/DayYears UsedDateSmoking Tobacco: Never Assessed CommentsUnknownSex and Gender InformationValueDate RecordedSex Assigned at Not on fileLegal JcqXunyaj12/28/2024 11:27 AM EDTGender IdentityNot on file Sexual OrientationNot on file Plan of Treatment Health MaintenanceDue DateLast UcrsCugmalkyJjvgjyoeqzr1966HIV Test 1981Hepatitis C Qdnmqgel49/27/1984Tdap Rjuppoj4403/18/1984Hepatitis A (HAV) Vaccine (optional start 19+ years)1985Hepatitis B (HBV) Vaccine (1 of 3 - 19+ 3-dose series)1985Pap Smear1987CRC Mpuffsyvo58/27/2011Cologuard (Stool DNA)2011FIT2011Pneumococcal Vaccine(s) (50+ yrs) (1 of 1 - PCV)2016Shingles (RZV) Vaccine (1 of 2)2016Tetanus (Td or Tdap) Hqcdayg82/09/896559/12/2014COVID-19 Vaccine (2 - 2024- season)2024 10/19/2020Influenza Vaccine (#1)12/21/20243084Hzhsvdsdybo24/24/202609/, 01/08/2024, 06/28/2018, Additional history gkgpuoItoqtdowses70/25/202804/ Procedures Procedure NamePriorityDate/TimeAssociated DiagnosisCommentsMG MAMMO SCREEN BILAT TAHMINA W/BOWVvssnee57/24/2025 9:23 AM EDT Encounter for screening mammogram for malignant neoplasm of breast from Last 3 Months or Most Recently Relevant to Health Maintenance Results * MG MAMMO SCREEN BILAT TAHMINA W/CAD (01/13/2025 9:23 AM EDT)ComponentValueRef RangeTest MethodAnalysis TimePerformed AtPathologist SignatureBreast Density The breasts are almost entirely fatty.RADIOLOGYBI-RADS Category1: Negative RADIOLOGYEstimated lifetime Breast Cancer riskAverage (less than 15%, as per the Tyrer-Cuzick/JERI model)RADIOLOGYAnatomical RegionLateralityModalityMG ScreeningN/AMammographySpecimen (Source)Anatomical Location / Laterality Collection Method / VolumeCollection TimeReceived Time01/13/2025 9:23 AM EDT Narrative 01/18/2025 3:27 PM EDT EXAM: BILATERAL SCREENING MAMMOGRAM W/TOMOSYNTHESIS AND CAD CLINICAL HISTORY: Patient is 59 years old and is seen for screening. The patient has no personal history of cancer. The patient has no family history of breast cancer. COMPARISON: The present examination has been compared to prior imaging studies performed at [facility] on 01/08/2024, and at [facility] on 06/13/2017 and 06/28/2018. TECHNIQUE: The following [...] the Tyrer-Cuzick/JERI model) NCI Lifetime Risk Score: 5.6% Procedure Note Mary Ann Crespo MD - 01/18/2025 EXAM: BILATERAL SCREENING MAMMOGRAM W/TOMOSYNTHESIS AND CAD CLINICAL HISTORY: Patient is 59 years old and is seen for screening. The patient has nopersonal history of cancer. The patient has no family history of breastcancer. COMPARISON: The present examination has been compared to prior imaging studiesper[facility]. TECHNIQUE: The following mammographic views were obtained: bilateral CC withtomosynthesis, MLO with tomosynthesis and nipple profile. Computer-aideddetection was utilized by the radiologist in the interpretation of thisexamination. MAMMOGRAM FINDINGS: The breasts are almost entirely [...] the Tyrer-Cuzick/JERI model) NCI Lifetime Risk Score: 5.6% Authorizing ProviderResult TypeResult StatusRobteresa LARRY MAMMOGRAPHY Final Result from Last 3 Months or Most Recently Relevant to Health Maintenance Insurance * Guarantor: Samuel Menendez TypeRelation to PatientDate of BirthPhone Billing AddressPersonal/WunzjhPtno1965 [phone] [address] Care Teams Team MemberRelationshipSpecialtyStart DateEnd Date Danitza Awad [address] [id number] PCP - General01/08/24 Mirella Miller DO [address] [place] [address] HcmdqzjrlSjoynwmsj40/5/24
--- OUTSIDE RECORDS SUMMARY | 2025-04-21 07:26 | XMS_ITS | Patient Health Record ---
Author Organization [facility] in [place] Address [address] [place] [address] Care Team Providers Care Spanish Interpreter/Translator Name Role Phone Danitza Awad CNP Primary Care Provider Unavail able Provider, Lab Unavailable [phone] Provider, Radiology Unavailable [phone] Celestina Cavanaugh Unavailable [phone] Allergies Allergen (clinical drug ingredient) Drug/Non Drug Allergy documented on EMR Reaction Allergy Type Onset Date Status hydrocortisone Cortizone-10 palpitations Drug Allergy Active Results Component Value Reference Range Notes ALDOLASE, BLOOD Reviewed date:05/07/2024 05:07:36 PM Interpretation: Performing Lab:[facility], [facility] [id number] Stanley Smith Notes/Report: FASTING:UNKNOWN FASTING: UNKNOWN ANTI - CCP (CYCLIC CITRULLIN ATED PEPTIDE AB) Reviewed date:05/06/2024 03:34:52 PM Interpretation: Performing Lab:[facility], [address] [place], [address] [phone] Notes/Report: 2SST 1LAV FACILITY: [facility] [id number] CCP ANTIBODY 1.5 (0.0 - 4.9) U/mL CK (CPK) Reviewed date:05/06/2024 03:35:04 PM Interpretation: Performing Lab:[facility], [address] [place], [address] Notes/Report: 2SST 1LAV FACILITY: [facility] [id number](30 - 135) U/LRHEUMATOID FACTOR (RHF) Reviewed date:05/06/2024 03:34:54 PM Interpretation: Performing Lab:[facility], [facility] [place], [address] Notes/Report: [address] [place] [address] FACILITY: [facility] [id number] FACTOR<9(0 - 12) IU/ML RF FACTOR MIN. DETECTION = 9 IU/ML. RF FACTOR = LESS THAN 9 IU/ML SED RATE and CRP Reviewed date:05/12/2024 09:03:28 AM Interpretation: Performing Lab:[facility], [facility] [address] [place], [address] Notes/Report: [address] [place] [address] FACILITY: [facility] [id number] RATE WEST.49(0 - 25) MM/HRCRP EXTENDED RANGE51.79(0.00 - 5.00) MG/L MTX PANEL (CBC, ALB,ALT, AST, ALK ,CREA w/GFR CKD-EPI)) Reviewed date:05/06/2024 03:35:02 PM Interpretation: Performing Lab:[facility], [facility] [address] [place], [address] Notes/Report: [address] [place] [address] FACILITY: [facility] [id number](3.80 - 10.60) x10^0peMSVDFOAZME11.1(12.0 - 16.0) G/DLHEMATOCRIT 41.9(37.0 - 47.0) %MCH26.6(27.0 - 33.0) UHEYOB88.3(30.0 - 37.0) G/DLALBUMIN3.8 (3.5 - 5.0) G/DLALT (SGPT)25(1 - 35) U/LAST (SGOT)24(15 - 46) U/LALK PHOS83(38 - 126) U/LCREATININE, BLOOD0.67(0.52 - 1.04) MG/DLRBC4.92(4.20 - 5.40) x10^6ulMCV 85.2(81.0 - 99.0) pwSWY619(130 - 400) x10^3ulGFR by CKD-IXU116.2(60.0) ML/M1.7XR Thoracic Spine AP and Lateral (dorsal) Reviewed date:05/07/2024 05:14:16 PM Interpretation: Performing Lab: Notes/Report: [place] [address] Name: SAWYER Reveles : 1965 Gender: F Referring Provider: Celestina Cavanaugh Exam: THORACIC SPINE AP/LAT CHEST PA AND LATERAL Exam Start: 05/05/2024 Accn: [id number] HISTORY: Pain since fall days ago PROCEDURE: Two view chest, two views thoracic spine COMPARISON: No exams available for comparison FINDINGS: Thoracic Spine: Dextroconvex thoracic scoliotic curvature. Multilevel chronic degenerative findingsof the spine. No evidence of acute fracture or focal suspicious osseous lesion to the limits of x-ray evaluation. Moderate multilevel degenerative disc height loss in the mid to lower thoracic spine. Right upper quadrant cholecystectomy clips. Levoconvex lumbar spine scoliotic curvature, only partially included in the field of view. Cervical spine fusion hardware, also only partially included in the field of view. Chest: Unremarkable appearance of the pulmonary vessels, cardiomediastinal soft tissues, pleural spaces, and chest wall structures. IMPRESSION: 1. Negative for acute cardiopulmonary abnormality. 2. Mild scoliosis and chronic degenerative findings of the spine. Transcribed by: DIANA MARTIN 05/05/2024 15:25 Sincerely, SIDRA HERNÁNDEZ MD Electronically Signed: 05/06/2024 10:41 Thank you for referring LOIS MENENDEZ to the [facility], [id number] Chest PA and Lateral (Routine CXR) * Reviewed date:05/08/2024 01:31:51 PM Interpretation: Performing Lab: Notes/Report: [facility] [address] [place] [address] Name: SAWYER Reveles : 1965 Gender: F Referring Provider: Celestina Cavanaugh Exam: THORACIC SPINE AP/LAT CHEST PA AND LATERAL Exam Start: 05/05/2024 Accn: [id number] HISTORY: Pain since fall days ago PROCEDURE: Two view chest, two views thoracic spine COMPARISON: No exams available for comparison FINDINGS: Thoracic Spine: Dextroconvex thoracic scoliotic curvature. Multilevel chronic degenerative findingsof the spine. No evidence of acute fracture or focal suspicious osseous lesion to the limits of x-ray evaluation. Moderate multilevel degenerative disc height loss in the mid to lower thoracic spine. Right upper quadrant cholecystectomy clips. Levoconvex lumbar spine scoliotic curvature, only partially included in the field of view. Cervical spine fusion hardware, also only partially included in the field of view. Chest: Unremarkable appearance of the pulmonary vessels, cardiomediastinal soft tissues, pleural spaces, and chest wall structures. IMPRESSION: 1. Negative for acute cardiopulmonary abnormality. 2. Mild scoliosis and chronic degenerative findings of the spine. Transcribed by: DIANA MARTIN 05/05/2024 15:25 Sincerely, SIDRA HERNÁNDEZ MD Electronically Signed: 05/06/2024 10:41 Thank you for referring LOIS MENENDEZ to the [facility], [phone] Reason For Referral Reason Evaluate and Treat, frequent falls and gait stability Diagnosis 1 Low back pain, unspe cified (M54.50) Diagnosis 2 Fall (W19.XXXA) Referral Organization [facility] [place] Referring Provider First Name Celestina Referring Provider Last Name Mao Referring Provider Speciality Froilan welch Referred Provider Specialty Physical The rapist General Notes Lorena Delgadillo 05/05/2024 02:12:20 PM >Patient is taking referral she can get done at work Referral Priority Routine Medications Medication SIG (Take, Route, Frequency, Duration) Notes Start Date End Date Status Gabapentin 60mgActiveHyoscyamine Sulfate 0.125 MG1 tablet as needed Orally every 4 hrs ActivemetFORMIN HCl 500 MG1 tablet with a meal Orally Once a day; Duration: 30 day(s)ActiveMetoprolol Tartrate 50 MG1 tablet with food Orally Twice a day; Duration: 30 day(s)ActiveMontelukast Sodium 10 MG1 tablet Orally Once a day; Duration: 30 day(s)ActiveQUEtiapine Fumarate 50 MG1 tablet at bedtime Orally Once a day; Duration: 30 day(s)ActivetiZANidine HCl 4 MG1 tablet as needed Orally Three times a dayActiveOzempic (2 MG/DOSE) 8 MG/3MLas directed SubcutaneousActivetraMADol HCl 50 MG1 tablet as needed Orally Once a dayActive CeleBREX 200 MG1 capsule with food daily Orally as needed for pain; Duration: 90 daysActiveCetirizine HCl 10 MG1 tablet Orally Once a day; Duration: 30 day(s) ActiveDiclofenac Potassium 50 MG1 tablet with food or milk as needed Orally Twice a dayActive Social History Tobacco Use: Social History Observation Description Date Details (start date - stop date) Never Smoker NA - NA Tobacco Use/Smoking Question Answer Notes Patient is a nonsmoker Section Notes: 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[employer], 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[employer] , 2 children, 3 grandchildren (Raquel) 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[employer], 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[employer] , 2 children, 3 grandchildren (Raquel) 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[employer], 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[employer] , 2 children, 3 grandchildren (Raquel) 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[employer], 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[place], 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), 2 children, 3 grandchildren with [address] jul25; [address] Problems Problem Type SNOMED Code ICD Code Onset Dates Problem Status W/U Status Risk Notes Problem Dysphagia (42491742) Dysphagia (R13.10) ActiveconfirmedProblemC-reactive protein abnormal (411989128)CRP elevated (R79.82)ActiveconfirmedProblemFibromyalgia (718913433)Fibromyalgia (M79.7)Active confirmedProblemLymphopenia (50419710)Lymphopenia (D72.810)Activeconfirmed ProblemChondrocalcinosis (636181237)Chondrocalcinosis (M11.20)Activeconfirmed ProblemGeneralized osteoarthritis (318019498)Generalized osteoarthritis of multiple sites (M15.9)ActiveconfirmedProblemArthritis of both knees (4255096155465630)Arthritis of both knees (M17.0)ActiveconfirmedProblem Localized, primary osteoarthritis of the hand (118273351)Arthritis of hand, right (M19.041)ActiveconfirmedProblemLocalized, primary osteoarthritis of the ankle and/or foot (580616850)Arthritis of foot, right (M19.071)Activeconfirmed ProblemLocalized, primary osteoarthritis of the ankle and/or foot (197178676) Arthritis of foot, left (M19.072)ActiveconfirmedProblemLocalized, primary osteoarthritis of the hand ()Arthritis of hand, left (M19.042)Active confirmedProblemArthritis of sacroiliac joint (3283476227)Arthritis of sacroiliac joint (M47.818)Activeconfirmed Vital Signs Heart Rate 76 /min 05/05/2024 Respiratory Rate12 /min05/05/2024lood pressure iuyzmhnyf37 mm Hg05/05/2024 Zbeftb47 in05/05/2024lood pressure mm Hg05/05/20245836Dcvfpr643 lbs 05/05/2024BMI33.78 kg/m205/05/2024 Encounters Encounter Location Date Provider Diagnosis [facility] [address] [place] [address] 05/05/2024 Celestina Ortizk CRP elevated R79.82 ; Fibromyalgia M79.7 ; Muscle weakness M62.81 ; Diarrhea R19.7 ; Dysphagia R13.10 ; Generalized osteoarthritis of multiple sites M15.9 ; Chondrocalcinosis M11.20 ; Other terminal gauger (current) drug therapy Z79.899 ; Fall W19.XXXA and Thoracic back pain M54.6 [facility] [address] [place] [address] 05/05/2024 Lab Provider Radiology Building [address] [place] [address]/14/2025Radiology ProviderUnspecified fall, initial encounter W19.XXXA and Pain in thoracic spine M54.6[facility] [place] [address]Celestina Cavanaugh Assessments Encounter Date Diagnosis (ICD Code) Assessment Notes Treatment Notes Treatment Clinical Notes Section Notes 05/05/2024 CRP elevated (ICD-10 - R79.82) Lois is a very pleasant 59yo white female - Overall rheum impression = no definite CTD/connective tissue disease with (- )MAXI, CTD features of SICCA (mainly dry mouth), but borderline inflammatory arthritis features with subjective joint swelling and prolonged AM peripheral stiffness at times but NO definite objective findings on exam and (-)RF/CCP, fam hx of father with RA () but question veracity of this; 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 legacy diagnosis FMS/fibromyalgia from neuro years ago, agree with diagnosis. ongoing GI issues, unclear etiology, pending EGD/colo. muscle weakness, unclear etiology, LE from ?low back. comorbid diabetes, OA/DDD. Current inflammatory disease activity = NONE definitive, no synovitis, enthesitis, dactylitis, sacroiliitis; (+)CRP mildly elevated, (-)ESR - PLAN: -elevated CRP; status = ?STABLE --monitor for inflammatory arthritis due to periodic hand swelling --encouraged maintaining UTD routine cancer screenings: annual mammograms, pending EGD/colo --PO steroids: avoid due to allergy --ordered () MRI dominant hand (right) w/wo contrast but she never heard to schedule --UPDATE autoimmune markers (RF/CCP), basic labs to eval for cytopenias, liver/renal function, ESR/CRP - -FM (fibromyalgia); status = SYMPTOMATIC --importance of 3 tiered approach (exercise, sleep, beh health) --exercise: encouraged slow graded increase in low impact exercise, consider yoga/dolly chi --sleep: improve restorative sleep, good sleep hygiene; consider sleep med referral, i.e. [facility], etc --BH: importance of evals if indicated, for now, f/u PCP --FM pharm therapy: PCP to consider referral to [facility] (i.e. [facility], or other) vs pain clinic (i.e. [facility], [facility], or other) for pharm management (ade flex/tizanidine, Flexeril/cyclobenzaprine, low dose TCAs/amitriptyline, Neurontin/gabapentin, lyrica/pregabalin, savella/milnacipran, Cymbalta/duloxetine, etc) if pharm management not already managedto the satisfaction of PCP and/or patient --CAM/complimentary alternative medicine: consider massage therapy, customer care associate, acupuncture --PT prn: consider aquatics therapy --OT prn: consider ref for energy conservation - -muscle weakness; status = SUBJECTIVE SYMPTOMATIC --CHECK CK and aldolase level --consider re-eval with neuro (distant) - -diarrhea, dysphagia; status = SYMPTOMATIC --PENDING EGD/colo [id number] per GI closer to home which is reasonable - -OA; status = SYMPTOMATIC --low impact exercise, weight loss --ortho f/u prn --[facility], f/u [facility] --REFER to PT for LBP, balance/gait stability --OT prn (hands) --PO NSAIDs: CONTINUE celebrex 200mg PO daily as needed for pain (rx 2022 per rheum); counseled on risks/benefits, risks including but not limited renal impairment requiring periodic lab monitoring, GI bleed, etc --CHECK plain film thoracic spine to ensure no fracture with PCP directed CXR since recent fall - -chondrocalcinosis bl knees; status = STABLE --monitor for acute pseudogout flares (redness/warmth/significant joint swelling) --*counseled to return to rheum clinic sooner if worsening knee swelling for diagnostic aspiration* - -recent fall; status = NEW to rheum --CHECK CXR since already here and PCP desire, will fax over CXR once completed - RTC 2-3mos or sooner PRN - Medical decision making: level 4 multiple chronic conditions addressed medication toxicity monitoring (celebrex, notable attention to CBC, liver labs) monitoring lab, clinical, imaging for autoimmune disease activity and end organ involvement 05/05/2024Fibromyalgia (ICD-10 - M79.7) Lois is a very pleasant 59yo white female - Overall rheum impression = no definite CTD/connective tissue disease with (- )MAXI, CTD features of SICCA (mainly dry mouth), but borderline inflammatory arthritis features with subjective joint swelling and prolonged AM peripheral stiffness at times but NO definite objective findings on exam and (-)RF/CCP, fam hx of father with RA () but question veracity of this; 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 legacy diagnosis FMS/fibromyalgia from neuro years ago, agree with diagnosis. ongoing GI issues, unclear etiology, pending EGD/colo. muscle weakness, unclear etiology, LE from ?low back. comorbid diabetes, OA/DDD. Current inflammatory disease activity = NONE definitive, no synovitis, enthesitis, dactylitis, sacroiliitis; (+)CRP mildly elevated, (-)ESR - PLAN: -elevated CRP; status = ?STABLE --monitor for inflammatory arthritis due to periodic hand swelling --encouraged maintaining UTD routine cancer screenings: annual mammograms, pending EGD/colo --PO steroids: avoid due to allergy --ordered () MRI dominant hand (right) w/wo contrast but she never heard to schedule --UPDATE autoimmune markers (RF/CCP), basic labs to eval for cytopenias, liver/renal function, ESR/CRP - -FM (fibromyalgia); status = SYMPTOMATIC --importance of 3 tiered approach (exercise, sleep, beh health) --exercise: encouraged slow graded increase in low impact exercise, consider yoga/dolly chi --sleep: improve restorative sleep, good sleep hygiene; consider sleep med referral, i.e. [facility], etc --BH: importance of BH evals if indicated, for now, f/u PCP --FM pharm therapy: PCP to consider referral to PM[facility] (i.e. [facility], or other) vs pain clinic (i.e. [facility], [facility], or other) for pharm management (ade flex/tizanidine, Flexeril/cyclobenzaprine, low dose TCAs/amitriptyline, Neurontin/gabapentin, lyrica/pregabalin, savella/milnacipran, Cymbalta/duloxetine, etc) if pharm management not already managedto the satisfaction of PCP and/or patient --CAM/complimentary alternative medicine: consider massage therapy, customer care associate, acupuncture --PT prn: consider aquatics therapy --OT prn: consider ref for energy conservation - -muscle weakness; status = SUBJECTIVE SYMPTOMATIC --CHECK CK and aldolase level --consider re-eval with neuro (distant) - -diarrhea, dysphagia; status = SYMPTOMATIC --PENDING EGD/colo [id number] per GI closer to home which is reasonable - -OA; status = SYMPTOMATIC --low impact exercise, weight loss --ortho f/u prn --[facility], f/u [facility] --REFER to PT for LBP, balance/gait stability --OT prn (hands) --PO NSAIDs: CONTINUE celebrex 200mg PO daily as needed for pain (rx 2022 per rheum); counseled on risks/benefits, risks including but not limited renal impairment requiring periodic lab monitoring, GI bleed, etc --CHECK plain film thoracic spine to ensure no fracture with PCP directed CXR since recent fall - -chondrocalcinosis bl knees; status = STABLE --monitor for acute pseudogout flares (redness/warmth/significant joint swelling) --*counseled to return to rheum clinic sooner if worsening knee swelling for diagnostic aspiration* - -recent fall; status = NEW to rheum --CHECK CXR since already here and PCP desire, will fax over CXR once completed - RTC 2-3mos or sooner PRN - Medical decision making: level 4 multiple chronic conditions addressed medication toxicity monitoring (celebrex, notable attention to CBC, liver labs) monitoring lab, clinical, imaging for autoimmune disease activity and end organ involvement 05/05/2024Unspecified fall, initial encounter (ICD-10 - W19.XXXA)05/05/2024Pain in thoracic spine (ICD-10 - M54.6)05/05/2024Muscle weakness (ICD-10 - M62.81) Lois is a very pleasant 59yo white female - Overall rheum impression = no definite CTD/connective tissue disease with (- )MAXI, CTD features of SICCA (mainly dry mouth), but borderline inflammatory arthritis features with subjective joint swelling and prolonged AM peripheral stiffness at times but NO definite objective findings on exam and (-)RF/CCP, fam hx of father with RA () but question veracity of this; 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 legacy diagnosis FMS/fibromyalgia from neuro years ago, agree with diagnosis. ongoing GI issues, unclear etiology, pending EGD/colo. muscle weakness, unclear etiology, LE from ?low back. comorbid diabetes, OA/DDD. Current inflammatory disease activity = NONE definitive, no synovitis, enthesitis, dactylitis, sacroiliitis; (+)CRP mildly elevated, (-)ESR - PLAN: -elevated CRP; status = ?STABLE --monitor for inflammatory arthritis due to periodic hand swelling --encouraged maintaining UTD routine cancer screenings: annual mammograms, pending EGD/colo --PO steroids: avoid due to allergy --ordered () MRI dominant hand (right) w/wo contrast but she never heard to schedule --UPDATE autoimmune markers (RF/CCP), basic labs to eval for cytopenias, liver/renal function, ESR/CRP - -FM (fibromyalgia); status = SYMPTOMATIC --importance of 3 tiered approach (exercise, sleep, beh health) --exercise: encouraged slow graded increase in low impact exercise, consider yoga/dolly chi --sleep: improve restorative sleep, good sleep hygiene; consider sleep med referral, i.e. [facility], etc --BH: importance of BH evals if indicated, for now, f/u PCP --FM pharm therapy: PCP to consider referral to PM[facility] (i.e. [facility], or other) vs pain clinic (i.e. [facility], [facility], or other) for pharm management (ade flex/tizanidine, Flexeril/cyclobenzaprine, low dose TCAs/amitriptyline, Neurontin/gabapentin, lyrica/pregabalin, savella/milnacipran, Cymbalta/duloxetine, etc) if pharm management not already managedto the satisfaction of PCP and/or patient --CAM/complimentary alternative medicine: consider massage therapy, customer care associate, acupuncture --PT prn: consider aquatics therapy --OT prn: consider ref for energy conservation - -muscle weakness; status = SUBJECTIVE SYMPTOMATIC --CHECK CK and aldolase level --consider re-eval with neuro (distant) - -diarrhea, dysphagia; status = SYMPTOMATIC --PENDING EGD/colo [id number] per GI closer to home which is reasonable - -OA; status = SYMPTOMATIC --low impact exercise, weight loss --ortho f/u prn --[facility], f/u [facility] --REFER to PT for LBP, balance/gait stability --OT prn (hands) --PO NSAIDs: CONTINUE celebrex 200mg PO daily as needed for pain (rx 2022 per rheum); counseled on risks/benefits, risks including but not limited renal impairment requiring periodic lab monitoring, GI bleed, etc --CHECK plain film thoracic spine to ensure no fracture with PCP directed CXR since recent fall - -chondrocalcinosis bl knees; status = STABLE --monitor for acute pseudogout flares (redness/warmth/significant joint swelling) --*counseled to return to rheum clinic sooner if worsening knee swelling for diagnostic aspiration* - -recent fall; status = NEW to rheum --CHECK CXR since already here and PCP desire, will fax over CXR once completed - RTC 2-3mos or sooner PRN - Medical decision making: level 4 multiple chronic conditions addressed medication toxicity monitoring (celebrex, notable attention to CBC, liver labs) monitoring lab, clinical, imaging for autoimmune disease activity and end organ involvement 05/05/2024Diarrhea (ICD-10 - R19.7) Lois is a very pleasant 59yo white female - Overall rheum impression = no definite CTD/connective tissue disease with (- )MAXI, CTD features of SICCA (mainly dry mouth), but borderline inflammatory arthritis features with subjective joint swelling and prolonged AM peripheral stiffness at times but NO definite objective findings on exam and (-)RF/CCP, fam hx of father with RA () but question veracity of this; 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 legacy diagnosis FMS/fibromyalgia from neuro years ago, agree with diagnosis. ongoing GI issues, unclear etiology, pending EGD/colo. muscle weakness, unclear etiology, LE from ?low back. comorbid diabetes, OA/DDD. Current inflammatory disease activity = NONE definitive, no synovitis, enthesitis, dactylitis, sacroiliitis; (+)CRP mildly elevated, (-)ESR - PLAN: -elevated CRP; status = ?STABLE --monitor for inflammatory arthritis due to periodic hand swelling --encouraged maintaining UTD routine cancer screenings: annual mammograms, pending EGD/colo --PO steroids: avoid due to allergy --ordered () MRI dominant hand (right) w/wo contrast but she never heard to schedule --UPDATE autoimmune markers (RF/CCP), basic labs to eval for cytopenias, liver/renal function, ESR/CRP - -FM (fibromyalgia); status = SYMPTOMATIC --importance of 3 tiered approach (exercise, sleep, beh health) --exercise: encouraged slow graded increase in low impact exercise, consider yoga/dolly chi --sleep: improve restorative sleep, good sleep hygiene; consider sleep med referral, i.e. [facility], etc --BH: importance of BH evals if indicated, for now, f/u PCP --FM pharm therapy: PCP to consider referral to PM[facility]R (i.e. [facility], or other) vs pain clinic (i.e. [facility], [facility], or other) for pharm management (ade flex/tizanidine, Flexeril/cyclobenzaprine, low dose TCAs/amitriptyline, Neurontin/gabapentin, lyrica/pregabalin, savella/milnacipran, Cymbalta/duloxetine, etc) if pharm management not already managedto the satisfaction of PCP and/or patient --CAM/complimentary alternative medicine: consider massage therapy, customer care associate, acupuncture --PT prn: consider aquatics therapy --OT prn: consider ref for energy conservation - -muscle weakness; status = SUBJECTIVE SYMPTOMATIC --CHECK CK and aldolase level --consider re-eval with neuro (distant) - -diarrhea, dysphagia; status = SYMPTOMATIC --PENDING EGD/colo per GI closer to home which is reasonable - -OA; status = SYMPTOMATIC --low impact exercise, weight loss --ortho f/u prn --[facility], f/u [facility] --REFER to PT for LBP, balance/gait stability --OT prn (hands) --PO NSAIDs: CONTINUE celebrex 200mg PO daily as needed for pain (rx 2022 per rheum); counseled on risks/benefits, risks including but not limited renal impairment requiring periodic lab monitoring, GI bleed, etc --CHECK plain film thoracic spine to ensure no fracture with PCP directed CXR since recent fall - -chondrocalcinosis bl knees; status = STABLE --monitor for acute pseudogout flares (redness/warmth/significant joint swelling) --*counseled to return to rheum clinic sooner if worsening knee swelling for diagnostic aspiration* - -recent fall; status = NEW to rheum --CHECK CXR since already here and PCP desire, will fax over CXR once completed - RTC 2-3mos or sooner PRN - Medical decision making: level 4 multiple chronic conditions addressed medication toxicity monitoring (celebrex, notable attention to CBC, liver labs) monitoring lab, clinical, imaging for autoimmune disease activity and end organ involvement 05/05/2024Dysphagia (ICD-10 - R13.10) Lois is a very pleasant 59yo white female - Overall rheum impression = no definite CTD/connective tissue disease with (- )MAXI, CTD features of SICCA (mainly dry mouth), but borderline inflammatory arthritis features with subjective joint swelling and prolonged AM peripheral stiffness at times but NO definite objective findings on exam and (-)RF/CCP, fam hx of father with RA () but question veracity of this; 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 legacy diagnosis FMS/fibromyalgia from neuro years ago, agree with diagnosis. ongoing GI issues, unclear etiology, pending EGD/colo. muscle weakness, unclear etiology, LE from ?low back. comorbid diabetes, OA/DDD. Current inflammatory disease activity = NONE definitive, no synovitis, enthesitis, dactylitis, sacroiliitis; (+)CRP mildly elevated, (-)ESR - PLAN: -elevated CRP; status = ?STABLE --monitor for inflammatory arthritis due to periodic hand swelling --encouraged maintaining UTD routine cancer screenings: annual mammograms, pending EGD/colo --PO steroids: avoid due to allergy --ordered () MRI dominant hand (right) w/wo contrast but she never heard to schedule --UPDATE autoimmune markers (RF/CCP), basic labs to eval for cytopenias, liver/renal function, ESR/CRP - -FM (fibromyalgia); status = SYMPTOMATIC --importance of 3 tiered approach (exercise, sleep, beh health) --exercise: encouraged slow graded increase in low impact exercise, consider yoga/dolly chi --sleep: improve restorative sleep, good sleep hygiene; consider sleep med referral, i.e. [facility], etc --BH: importance of evals if indicated, for now, f/u PCP --FM pharm therapy: PCP to consider referral to [facility] (i.e. [facility], or other) vs pain clinic (i.e. [facility], [facility], or other) for pharm management (ade flex/tizanidine, Flexeril/cyclobenzaprine, low dose TCAs/amitriptyline, Neurontin/gabapentin, lyrica/pregabalin, savella/milnacipran, Cymbalta/duloxetine, etc) if pharm management not already managedto the satisfaction of PCP and/or patient --CAM/complimentary alternative medicine: consider massage therapy, customer care associate, acupuncture --PT prn: consider aquatics therapy --OT prn: consider ref for energy conservation - -muscle weakness; status = SUBJECTIVE SYMPTOMATIC --CHECK CK and aldolase level --consider re-eval with neuro (distant) - -diarrhea, dysphagia; status = SYMPTOMATIC --PENDING EGD/colo [id number] per GI closer to home which is reasonable - -OA; status = SYMPTOMATIC --low impact exercise, weight loss --ortho f/u prn --[facility], f/u [facility] --REFER to PT for LBP, balance/gait stability --OT prn (hands) --PO NSAIDs: CONTINUE celebrex 200mg PO daily as needed for pain (rx 2022 per rheum); counseled on risks/benefits, risks including but not limited renal impairment requiring periodic lab monitoring, GI bleed, etc --CHECK plain film thoracic spine to ensure no fracture with PCP directed CXR since recent fall - -chondrocalcinosis bl knees; status = STABLE --monitor for acute pseudogout flares (redness/warmth/significant joint swelling) --*counseled to return to rheum clinic sooner if worsening knee swelling for diagnostic aspiration* - -recent fall; status = NEW to rheum --CHECK CXR since already here and PCP desire, will fax over CXR once completed - RTC 2-3mos or sooner PRN - Medical decision making: level 4 multiple chronic conditions addressed medication toxicity monitoring (celebrex, notable attention to CBC, liver labs) monitoring lab, clinical, imaging for autoimmune disease activity and end organ involvement 05/05/2024Generalized osteoarthritis of multiple sites (ICD-10 - M15.9) Lois is a very pleasant 59yo white female - Overall rheum impression = no definite CTD/connective tissue disease with (- )MAXI, CTD features of SICCA (mainly dry mouth), but borderline inflammatory arthritis features with subjective joint swelling and prolonged AM peripheral stiffness at times but NO definite objective findings on exam and (-)RF/CCP, fam hx of father with RA () but question veracity of this; 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 legacy diagnosis FMS/fibromyalgia from neuro years ago, agree with diagnosis. ongoing GI issues, unclear etiology, pending EGD/colo. muscle weakness, unclear etiology, LE from ?low back. comorbid diabetes, OA/DDD. Current inflammatory disease activity = NONE definitive, no synovitis, enthesitis, dactylitis, sacroiliitis; (+)CRP mildly elevated, (-)ESR - PLAN: -elevated CRP; status = ?STABLE --monitor for inflammatory arthritis due to periodic hand swelling --encouraged maintaining UTD routine cancer screenings: annual mammograms, pending EGD/colo --PO steroids: avoid due to allergy --ordered () MRI dominant hand (right) w/wo contrast but she never heard to schedule --UPDATE autoimmune markers (RF/CCP), basic labs to eval for cytopenias, liver/renal function, ESR/CRP - -FM (fibromyalgia); status = SYMPTOMATIC --importance of 3 tiered approach (exercise, sleep, beh health) --exercise: encouraged slow graded increase in low impact exercise, consider yoga/dolly chi --sleep: improve restorative sleep, good sleep hygiene; consider sleep med referral, i.e. [facility], etc --BH: importance of evals if indicated, for now, f/u PCP --FM pharm therapy: PCP to consider referral to [facility] (i.e. [facility], or other) vs pain clinic (i.e. [facility], [facility], or other) for pharm management (ade flex/tizanidine, Flexeril/cyclobenzaprine, low dose TCAs/amitriptyline, Neurontin/gabapentin, lyrica/pregabalin, savella/milnacipran, Cymbalta/duloxetine, etc) if pharm management not already managedto the satisfaction of PCP and/or patient --CAM/complimentary alternative medicine: consider massage therapy, customer care associate, acupuncture --PT prn: consider aquatics therapy --OT prn: consider ref for energy conservation - -muscle weakness; status = SUBJECTIVE SYMPTOMATIC --CHECK CK and aldolase level --consider re-eval with neuro (distant) - -diarrhea, dysphagia; status = SYMPTOMATIC --PENDING EGD/colo per GI closer to home which is reasonable - -OA; status = SYMPTOMATIC --low impact exercise, weight loss --ortho f/u prn --[facility], f/u [facility] --REFER to PT for LBP, balance/gait stability --OT prn (hands) --PO NSAIDs: CONTINUE celebrex 200mg PO daily as needed for pain (rx 2022 per rheum); counseled on risks/benefits, risks including but not limited renal impairment requiring periodic lab monitoring, GI bleed, etc --CHECK plain film thoracic spine to ensure no fracture with PCP directed CXR since recent fall - -chondrocalcinosis bl knees; status = STABLE --monitor for acute pseudogout flares (redness/warmth/significant joint swelling) --*counseled to return to rheum clinic sooner if worsening knee swelling for diagnostic aspiration* - -recent fall; status = NEW to rheum --CHECK CXR since already here and PCP desire, will fax over CXR once completed - RTC 2-3mos or sooner PRN - Medical decision making: level 4 multiple chronic conditions addressed medication toxicity monitoring (celebrex, notable attention to CBC, liver labs) monitoring lab, clinical, imaging for autoimmune disease activity and end organ involvement 5Chondrocalcinosis (ICD-10 - M11.20) Lois is a very pleasant 59yo white female - Overall rheum impression = no definite CTD/connective tissue disease with (- )MAXI, CTD features of SICCA (mainly dry mouth), but borderline inflammatory arthritis features with subjective joint swelling and prolonged AM peripheral stiffness at times but NO definite objective findings on exam and (-)RF/CCP, fam hx of father with RA () but question veracity of this; 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 legacy diagnosis FMS/fibromyalgia from neuro years ago, agree with diagnosis. ongoing GI issues, unclear etiology, pending EGD/colo. muscle weakness, unclear etiology, LE from ?low back. comorbid diabetes, OA/DDD. Current inflammatory disease activity = NONE definitive, no synovitis, enthesitis, dactylitis, sacroiliitis; (+)CRP mildly elevated, (-)ESR - PLAN: -elevated CRP; status = ?STABLE --monitor for inflammatory arthritis due to periodic hand swelling --encouraged maintaining UTD routine cancer screenings: annual mammograms, pending EGD/colo [id number] --PO steroids: avoid due to allergy --ordered () MRI dominant hand (right) w/wo contrast but she never heard to schedule --UPDATE autoimmune markers (RF/CCP), basic labs to eval for cytopenias, liver/renal function, ESR/CRP - -FM (fibromyalgia); status = SYMPTOMATIC --importance of 3 tiered approach (exercise, sleep, beh health) --exercise: encouraged slow graded increase in low impact exercise, consider yoga/dolly chi --sleep: improve restorative sleep, good sleep hygiene; consider sleep med referral, i.e. [facility], etc --BH: importance of BH evals if indicated, for now, f/u PCP --FM pharm therapy: PCP to consider referral to [facility] (i.e. [facility], or other) vs pain clinic (i.e. [facility], [facility], or other) for pharm management (ade flex/tizanidine, Flexeril/cyclobenzaprine, low dose TCAs/amitriptyline, Neurontin/gabapentin, lyrica/pregabalin, savella/milnacipran, Cymbalta/duloxetine, etc) if pharm management not already managedto the satisfaction of PCP and/or patient --CAM/complimentary alternative medicine: consider massage therapy, customer care associate, acupuncture --PT prn: consider aquatics therapy --OT prn: consider ref for energy conservation - -muscle weakness; status = SUBJECTIVE SYMPTOMATIC --CHECK CK and aldolase level --consider re-eval with neuro (distant) - -diarrhea, dysphagia; status = SYMPTOMATIC --PENDING EGD/colo [id number] per GI closer to home which is reasonable - -OA; status = SYMPTOMATIC --low impact exercise, weight loss --ortho f/u prn --[facility], f/u [facility] --REFER to PT for LBP, balance/gait stability --OT prn (hands) --PO NSAIDs: CONTINUE celebrex 200mg PO daily as needed for pain (rx 2022 per rheum); counseled on risks/benefits, risks including but not limited renal impairment requiring periodic lab monitoring, GI bleed, etc --CHECK plain film thoracic spine to ensure no fracture with PCP directed CXR since recent fall - -chondrocalcinosis bl knees; status = STABLE --monitor for acute pseudogout flares (redness/warmth/significant joint swelling) --*counseled to return to rheum clinic sooner if worsening knee swelling for diagnostic aspiration* - -recent fall; status = NEW to rheum --CHECK CXR since already here and PCP desire, will fax over CXR once completed - RTC 2-3mos or sooner PRN - Medical decision making: level 4 multiple chronic conditions addressed medication toxicity monitoring (celebrex, notable attention to CBC, liver labs) monitoring lab, clinical, imaging for autoimmune disease activity and end organ involvement 05/05/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 legacy diagnosis FMS/fibromyalgia from neuro years ago, agree with diagnosis. ongoing GI issues, unclear etiology, pending EGD/colo. muscle weakness, unclear etiology, LE from ?low back. comorbid diabetes, OA/DDD. Current inflammatory disease activity = NONE definitive, no synovitis, enthesitis, dactylitis, sacroiliitis; (+)CRP mildly elevated, (-)ESR - PLAN: -elevated CRP; status = ?STABLE --monitor for inflammatory arthritis due to periodic hand swelling --encouraged maintaining UTD routine cancer screenings: annual mammograms, pending EGD/colo --PO steroids: avoid due to allergy --ordered () MRI dominant hand (right) w/wo contrast but she never heard to schedule --UPDATE autoimmune markers (RF/CCP), basic labs to eval for cytopenias, liver/renal function, ESR/CRP - -FM (fibromyalgia); status = SYMPTOMATIC --importance of 3 tiered approach (exercise, sleep, beh health) --exercise: encouraged slow graded increase in low impact exercise, consider yoga/dolly chi --sleep: improve restorative sleep, good sleep hygiene; consider sleep med referral, i.e. [facility], etc --BH: importance of BH evals if indicated, for now, f/u PCP --FM pharm therapy: PCP to consider referral to [facility] (i.e. [facility], or other) vs pain clinic (i.e[facility], [facility], or other) for pharm management (ade flex/tizanidine, Flexeril/cyclobenzaprine, low dose TCAs/amitriptyline, Neurontin/gabapentin, lyrica/pregabalin, savella/milnacipran, Cymbalta/duloxetine, etc) if pharm management not already managedto the satisfaction of PCP and/or patient --CAM/complimentary alternative medicine: consider massage therapy, customer care associate, acupuncture --PT prn: consider aquatics therapy --OT prn: consider ref for energy conservation - -muscle weakness; status = SUBJECTIVE SYMPTOMATIC --CHECK CK and aldolase level --consider re-eval with neuro (distant) - -diarrhea, dysphagia; status = SYMPTOMATIC --PENDING EGD/colo per GI closer to home which is reasonable - -OA; status = SYMPTOMATIC --low impact exercise, weight loss --ortho f/u prn --[facility], f[facility]u [facility] --REFER to PT for LBP, balance/gait stability --OT prn (hands) --PO NSAIDs: CONTINUE celebrex 200mg PO daily as needed for pain (rx 2022 per rheum); counseled on risks/benefits, risks including but not limited renal impairment requiring periodic lab monitoring, GI bleed, etc --CHECK plain film thoracic spine to ensure no fracture with PCP directed CXR since recent fall - -chondrocalcinosis bl knees; status = STABLE --monitor for acute pseudogout flares (redness/warmth/significant joint swelling) --*counseled to return to rheum clinic sooner if worsening knee swelling for diagnostic aspiration* - -recent fall; status = NEW to rheum --CHECK CXR since already here and PCP desire, will fax over CXR once completed - RTC 2-3mos or sooner PRN - Medical decision making: level 4 multiple chronic conditions addressed medication toxicity monitoring (celebrex, notable attention to CBC, liver labs) monitoring lab, clinical, imaging for autoimmune disease activity and end organ involvement 05/05/2024Fall (ICD-10 - W19.XXXA) Lois is a very pleasant 59yo white female - Overall rheum impression = no definite CTD/connective tissue disease with (- )MAXI, CTD features of SICCA (mainly dry mouth), but borderline inflammatory arthritis features with subjective joint swelling and prolonged AM peripheral stiffness at times but NO definite objective findings on exam and (-)RF/CCP, fam hx of father with RA () but question veracity of this; 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 legacy diagnosis FMS/fibromyalgia from neuro years ago, agree with diagnosis. ongoing GI issues, unclear etiology, pending EGD/colo. muscle weakness, unclear etiology, LE from ?low back. comorbid diabetes, OA/DDD. Current inflammatory disease activity = NONE definitive, no synovitis, enthesitis, dactylitis, sacroiliitis; (+)CRP mildly elevated, (-)ESR - PLAN: -elevated CRP; status = ?STABLE --monitor for inflammatory arthritis due to periodic hand swelling --encouraged maintaining UTD routine cancer screenings: annual mammograms, pending EGD/colo --PO steroids: avoid due to allergy --ordered () MRI dominant hand (right) w/wo contrast but she never heard to schedule --UPDATE autoimmune markers (RF/CCP), basic labs to eval for cytopenias, liver/renal function, ESR/CRP - -FM (fibromyalgia); status = SYMPTOMATIC --importance of 3 tiered approach (exercise, sleep, beh health) --exercise: encouraged slow graded increase in low impact exercise, consider yoga/dolly chi --sleep: improve restorative sleep, good sleep hygiene; consider sleep med referral, i.e. [facility], etc --BH: importance of BH evals if indicated, for now, f/u PCP --FM pharm therapy: PCP to consider referral to [facility] ([facility]. [facility], or other) vs pain clinic ([facility].e[facility], [facility], or other) for pharm management (ade flex/tizanidine, Flexeril/cyclobenzaprine, low dose TCAs/amitriptyline, Neurontin/gabapentin, lyrica/pregabalin, savella/milnacipran, Cymbalta/duloxetine, etc) if pharm management not already managedto the satisfaction of PCP and/or patient --CAM/complimentary alternative medicine: consider massage therapy, customer care associate, acupuncture --PT prn: consider aquatics therapy --OT prn: consider ref for energy conservation - -muscle weakness; status = SUBJECTIVE SYMPTOMATIC --CHECK CK and aldolase level --consider re-eval with neuro (distant) - -diarrhea, dysphagia; status = SYMPTOMATIC --PENDING EGD/colo [id number] per GI closer to home which is reasonable - -OA; status = SYMPTOMATIC --low impact exercise, weight loss --ortho f/u prn --[facility], [facility] --REFER to PT for LBP, balance/gait stability --OT prn (hands) --PO NSAIDs: CONTINUE celebrex 200mg PO daily as needed for pain (rx 2022 per rheum); counseled on risks/benefits, risks including but not limited renal impairment requiring periodic lab monitoring, GI bleed, etc --CHECK plain film thoracic spine to ensure no fracture with PCP directed CXR since recent fall - -chondrocalcinosis bl knees; status = STABLE --monitor for acute pseudogout flares (redness/warmth/significant joint swelling) --*counseled [id number] to return to rheum clinic sooner if worsening knee swelling for diagnostic aspiration* - -recent fall; status = NEW to rheum --CHECK CXR since already here and PCP desire, will fax over CXR once completed - RTC 2-3mos or sooner PRN - Medical decision making: level 4 multiple chronic conditions addressed medication toxicity monitoring (celebrex, notable attention to CBC, liver labs) monitoring lab, clinical, imaging for autoimmune disease activity and end organ involvement 05/05/2024Thoracic back pain (ICD-10 - M54.6) Lois is a very pleasant 59yo white female - Overall rheum impression = no definite CTD/connective tissue disease with (- )MAXI, CTD features of SICCA (mainly dry mouth), but borderline inflammatory arthritis features with subjective joint swelling and prolonged AM peripheral stiffness at times but NO definite objective findings on exam and (-)RF/CCP, fam hx of father with RA () but question veracity of this; 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 legacy diagnosis FMS/fibromyalgia from neuro years ago, agree with diagnosis. ongoing GI issues, unclear etiology, pending EGD/colo. muscle weakness, unclear etiology, LE from ?low back. comorbid diabetes, OA/DDD. Current inflammatory disease activity = NONE definitive, no synovitis, enthesitis, dactylitis, sacroiliitis; (+)CRP mildly elevated, (-)ESR - PLAN: -elevated CRP; status = ?STABLE --monitor for inflammatory arthritis due to periodic hand swelling --encouraged maintaining UTD routine cancer screenings: annual mammograms, pending EGD/colo --PO steroids: avoid due to allergy --ordered () MRI dominant hand (right) w/wo contrast but she never heard to schedule --UPDATE autoimmune markers (RF/CCP), basic labs to eval for cytopenias, liver/renal function, ESR/CRP - -FM (fibromyalgia); status = SYMPTOMATIC --importance of 3 tiered approach (exercise, sleep, beh health) --exercise: encouraged slow graded increase in low impact exercise, consider yoga/dolly chi --sleep: improve restorative sleep, good sleep hygiene; consider sleep med referral, i[facility]e. [facility], etc --BH: importance of BH evals if indicated, for now, f/u PCP --FM pharm therapy: PCP to consider referral to [facility] ([facility], or other) vs pain clinic ([facility].e[facility], [facility], or other) for pharm management (ade flex/tizanidine, Flexeril/cyclobenzaprine, low dose TCAs/amitriptyline, Neurontin/gabapentin, lyrica/pregabalin, savella/milnacipran, Cymbalta/duloxetine, etc) if pharm management not already managedto the satisfaction of PCP and/or patient --CAM/complimentary alternative medicine: consider massage therapy, customer care associate, acupuncture --PT prn: consider aquatics therapy --OT prn: consider ref for energy conservation - -muscle weakness; status = SUBJECTIVE SYMPTOMATIC --CHECK CK and aldolase level --consider re-eval with neuro (distant) - -diarrhea, dysphagia; status = SYMPTOMATIC --PENDING EGD/colo per GI closer to home which is reasonable - -OA; status = SYMPTOMATIC --low impact exercise, weight loss --ortho f/u prn [facility], [facility] --REFER to PT for LBP, balance/gait stability --OT prn (hands) --PO NSAIDs: CONTINUE celebrex 200mg PO daily as needed for pain (rx 2022 per rheum); counseled on risks/benefits, risks including but not limited renal impairment requiring periodic lab monitoring, GI bleed, etc --CHECK plain film thoracic spine to ensure no fracture with PCP directed CXR since recent fall - -chondrocalcinosis bl knees; status = STABLE --monitor for acute pseudogout flares (redness/warmth/significant joint swelling) --*counseled to return to rheum clinic sooner if worsening knee swelling for diagnostic aspiration* - -recent fall; status = NEW to rheum --CHECK CXR since already here and PCP desire, will fax over CXR once completed - RTC 2-3mos or sooner PRN - Medical decision making: level 4 multiple chronic conditions addressed medication toxicity monitoring (celebrex, notable attention to CBC, liver labs) monitoring lab, clinical, imaging for autoimmune disease activity and end organ involvement Plan Of Treatment Pending Test Test Name Order Date MTX PANEL (CBC, ALB,ALT, AST, ALK and CR EA) 07/08/2023 MRI Hand RT w/wo contrast 07/18/2023 SED RATE and CRP 07/08/2023 Insurance Providers Payer Name Payer Address Payer Phone Subscriber Number Group Number Insured Name Patient Relationship to Insured Coverage Start Date Coverage End Date [employer] [address] [address] [place] [phone] [id number] Lois Menendez Self - patient is the insured 3 Medical (General) History Medical History History ICD Code sinus infection migrainesheart palpitationsgallstonesdiarrheakidney stonesdepressiondiabetes [id number]/eclampsisSurgical History Surgery Date(Month/Year) neck surgery 2017 hysterectomy 2005 gallbladder removed 2009 Hospitalization History Reason Date(Month/Year) phneumonia [id number]
[2025-04-21 07:53] LABS: Hematocrit 41.8 % (36.0-48.0); Hemoglobin 13.4 g/dL (12.0-16.0); Immature Granulocytes Abs Auto 0.02 10^3/uL (0.00-0.03); Immature Granulocytes Pct Auto 0.3 % (0.0-0.5); Lymphocytes Absolute Auto 2.0 10^3/uL (1.2-3.8); Mean Corpuscular HGB Conc 32.1 g/dL (29.9-35.2); Mean Corpuscular Hemoglobin 27.2 pg (26.7-34.0); Mean Corpuscular Volume 84.8 fL (81.0-99.0); Platelet Count 341 10^3/uL (150-450); Red Blood Count 4.93 10^6/uL (4.20-5.40); White Blood Count 7.1 10^3/uL (4.0-11.0)
[2025-04-21 08:25] LABS: Glucose Urine UA NEGATIVE (NEGATIVE)
[2025-04-21 08:28] LABS: Alanine Aminotransferase 22 U/L (14-59); Albumin Globulin Ratio 0.9; Albumin Level 3.2 g/dL (3.4-5.0); Alkaline Phosphatase 70 U/L (46-116); Anion Gap 10.5; Aspartate Amino Transferase 14 U/L (15-37); Blood Urea Nitrogen 16.0 mg/dL (7.0-18.0); Calcium 9.1 mg/dL (8.5-10.1); Carbon Dioxide 31.7 mmol/L (21.0-32.0); Chloride 105 mmol/L (98-107); Cholesterol 168 mg/dL (<=200); Estimated GFR (African America >60 (>=60 mL/min/1.73m^2); Estimated GFR (Non-African Ame >60 (>=60 mL/min/1.73m^2); Globulin 3.5 g/dL; Glucose 93 mg/dL (74-106); HDL Cholesterol 57 mg/dL (40-60); Magnesium 1.7 mg/dL (1.8-2.4); Potassium 4.2 mmol/L (3.5-5.1); Sodium 143 mmol/L (136-145); Thyroid Stimulating Hormone 1.198 uIU/mL (0.358-3.740); Total Protein 6.7 g/dL (6.4-8.2); Triglycerides 41 mg/dL (<=150); VLDL CHOLESTEROL 8.2 mg/dL
[2025-04-21 10:01] LABS: Cast Seen? NONE SEEN #/LPF (NONE SEEN); Crystals Seen? Seen #/HPF (None Seen)
== END 2025-04-21 07:22 | disposition home or self-care (01) ==
LOC: LAB 07:23
PROVIDERS: PCP Nurse Practitioner; Visit Provider Nurse Practitioner
DX: E11.9 Type 2 diabetes mellitus without complications (principal); G47.33 Obstructive sleep apnea (adult) (pediatric); E66.01 Morbid (severe) obesity due to excess calories; I10 Essential (primary) hypertension; K21.9 Gastro-esophageal reflux disease without esophagitis; M79.7 Fibromyalgia; R25.2 Cramp and spasm
CPT/HCPCS: 36415; 80053; 80061; 81001; 82043; 82570; 83735; 84443; 85025